=== PATIENT | female | born 1955 | race Caucasian/White ===

== ENCOUNTER 2017-04-02 10:40 | Emergency (ER) | payer OTHER ==
[2017-04-02] MEDS ORDERED: Albuterol/Ipratropium NEB.SOL* Albuterol 2.5 MG/Ipratropium 0.5 MG 3 ML INH ONE (10:52)
[2017-04-02] MEDS ORDERED: methylPREDNISolone 125 MG* 2 ML VIAL IV ONE (10:53)
--- NOTE | 2017-04-02 11:13 | RAD ---
INDICATION: Shortness of breath. COMPARISON: Comparison is made with a prior study from May 25, 2016. TECHNIQUE: A portable view of the chest was obtained. FINDINGS: Cardiac and mediastinal contours appear to be within normal limits. The lungs are clear. No pleural effusion is seen. IMPRESSION: NO EVIDENCE FOR ACUTE DISEASE.
[2017-04-02 12:58] LABS: Hematocrit 36 % (35-47); Hemoglobin 12.3 g/dl (12.0-16.0); Mean Corpuscular HGB Conc 34 g/dl (31-36); Mean Corpuscular Hemoglobin 30 pg (27-31); Mean Corpuscular Volume 89 fL (80-97); Mean Platelet Volume 8 um3 (7.4-10.4); Red Blood Count 4.06 10^6/ul (4.0-5.4); Red Cell Distribution Width 14 % (10.5-15); White Blood Count 6.8 10^3/ul (3.5-10.8)
[2017-04-02 13:15] LABS: Albumin 3.7 g/dL (3.2-5.2); BUN/Creatinine Ratio 24.6 (8-20); EGFR African American 111.6 (>60); EGFR Non-African American 86.8 (>60); Globulin 3.5 g/dL (2-4); Total Bilirubin 0.7 mg/dL (0.2-1.0); Total Protein 7.2 g/dL (6.4-8.9)
--- NOTE | 2017-04-02 13:47 | ED ---
Virginia Jane Edward, scribed for Celia Goodwin MD on 04/02/17 at 1055 . Shortness of Breath - HPI Summary HPI Summary: 62 y/o female presents to the ED c/o SOB. A few weeks ago the pt had a breathing attack that lasted around 7-10 minutes and has been SOB ever since. Associated sx: mild confusion, general weakness, fatigue, CP (resolved now), NEUMANN in the L side of the head for a few weeks, ABD pain with bowel movements that starts in the epigastric region, rapid weight gains, ABD swelling, and pain in the lower jaw. Denies fever. Former Smoker. PMHx COPD, no DM. - History of Current Complaint Chief Complaint: EDShortnessOfBreath Time Seen by Provider: 04/02/17 10:51 Hx Obtained From: Patient Onset/Duration: Sudden Onset, Lasting Weeks Timing: Constant Associated Signs & Symptoms: Chest Pain Unrelated to Cough - Allergy/Home Medications Allergies/Adverse Reactions: Allergies Allergy/AdvReac Type Severity Reaction Status Date / Time Meperidine [From Demerol HCl] Allergy general Verified 05/25/16 16:29 malaise Pentazocine Allergy halucinatio Verified 05/25/16 16:29 [From Talwin Compound] ns PMH/Surg Hx/FS Hx/Imm Hx Previously Healthy: No Endocrine/Hematology History: Denies: Hx Diabetes Cardiovascular History: Reports: Other Cardiovascular Problems/Disorders - PREVIOUS CARDIAC CATH Denies: Hx Congestive Heart Failure, Hx Hypertension, Hx Pacemaker/ICD Respiratory History: Reports: Hx Chronic Obstructive Pulmonary Disease (COPD) GI History: Reports: Hx Gastroesophageal Reflux Disease, Other GI Disorders - gerd History: Denies: Hx Renal Disease Musculoskeletal History: Reports: Hx Arthritis, Hx Back Problems Comment Only: Hx Osteoporosis - unsure Sensory History: Reports: Hx Contacts or Glasses Denies: Hx Hearing Aid Opthamlomology History: Reports: Hx Contacts or Glasses Psychiatric History: Denies: Hx Panic Disorder - Surgical History Surgery Procedure, Year, and Place: tonsills/tubal ligation. fractured ribs 1978 Infectious Disease History: Denies: Traveled Outside the [place] in Last 30 Days - Family History Known Family History: Positive: Cardiac Disease, Diabetes - Mother, Other - Sister - BREAST CA - Social History Alcohol Use: None Substance Use Type: Reports: None Smoking Status (MU): Former Smoker Type: Cigarettes Review of Systems Positive: Fatigue, Other - Rapid weight gain. Negative: Fever Eyes: Negative Positive: Dental Pain - Lower jaw Positive: Chest Pain Positive: Shortness Of Breath Positive: Abdominal Pain, Diarrhea, Other - ABD swelling Genitourinary: Negative Musculoskeletal: Negative Skin: Negative Neurological: Other - Mild confusion Positive: Headache, Weakness - General Psychological: Normal All Other Systems Reviewed And Are Negative: Yes Physical Exam Triage Information Reviewed: Yes Vital Signs On Initial Exam: Initial Vitals Temp Pulse Resp BP Pulse Ox 98.0 F 77 28 125/89 93 04/02/17 10:42 04/02/17 10:42 04/02/17 10:42 04/02/17 10:42 04/02/17 10:42 Vital Signs Reviewed: Yes Appearance: Positive: Well-Appearing, No Pain Distress Skin: Positive: Warm, Skin Color Reflects Adequate Perfusion, Dry Eyes: Positive: EOMI, CHRISTINE ENT: Positive: Pharynx normal, TMs normal Neck: Positive: Supple, Nontender Respiratory/Lung Sounds: Positive: Clear to Auscultation, Breath Sounds Present. Negative: Rales, Rhonchi, Wheezes Cardiovascular: Positive: RRR, Other - No gallop. Negative: Murmur, Rub Abdomen Description: Positive: Nontender, Soft, Other: - no rebound. Negative: Distended, Guarding Bowel Sounds: Positive: Present Musculoskeletal: Positive: Strength/ROM Intact. Negative: Edema Left, Edema Right Neurological: Positive: Sensory/Motor Intact, Alert, Oriented to Person Place, Time, CN Intact II-III Psychiatric: Positive: Affect/Mood Appropriate Diagnostics - Vital Signs Vital Signs Temp Pulse Resp BP Pulse Ox 04/02/17 10:42 98.0 F 77 28 125/89 93 - Laboratory Lab Results: Lab Results 04/02/17 04/02/17 04/02/17 Range/Units 12:45 12:45 12:45 WBC 6.8 (3.5-10.8) 10^3/ul RBC 4.06 (4.0-5.4) 10^6/ul Hgb 12.3 (12.0-16.0) g/dl Hct 36 (35-47) % MCV 89 (80-97) fL MCH 30 (27-31) pg MCHC 34 (31-36) g/dl RDW 14 (10.5-15) % Plt Count 266 (150-450) 10^3/ul MPV 8 (7.4-10.4) um3 Neut % (Auto) 64.4 (38-83) % Lymph % (Auto) 27.9 (25-47) % [place] % (Auto) 5.2 (1-9) % Eos % (Auto) 1.7 (0-6) % Baso % (Auto) 0.8 (0-2) % Absolute Neuts (auto) 4.4 (1.5-7.7) 10^3/ul Absolute Lymphs (auto) 1.9 (1.0-4.8) 10^3/ul Absolute Monos (auto) 0.4 (0-0.8) 10^3/ul Absolute Eos (auto) 0.1 (0-0.6) 10^3/ul Absolute Basos (auto) 0.1 (0-0.2) 10^3/ul Absolute Nucleated RBC 0.01 10^3/ul Nucleated RBC % 0.1 Sodium 138 (133-145) mmol/L Potassium 4.0 (3.5-5.0) mmol/L Chloride 103 (101-111) mmol/L Carbon Dioxide 27 (22-32) mmol/L Anion Gap 8 (2-11) mmol/L BUN 17 (6-24) mg/dL Creatinine 0.69 (0.51-0.95) mg/dL Est GFR ( Amer) 111.6 (>60) Est GFR (Non-Af Amer) 86.8 (>60) BUN/Creatinine Ratio 24.6 H (8-20) Glucose 99 (70-100) mg/dL Lactic Acid 0.7 (0.5-2.0) mmol/L Calcium 9.0 (8.6-10.3) mg/dL Total Bilirubin 0.70 (0.2-1.0) mg/dL AST 16 (13-39) U/L ALT 16 (7-52) U/L Alkaline Phosphatase 92 (34-104) U/L Troponin I 0.00 (<0.04) ng/mL B-Natriuretic Peptide ( - 100) pg/mL Total Protein 7.2 (6.4-8.9) g/dL Albumin 3.7 (3.2-5.2) g/dL Globulin 3.5 (2-4) g/dL Albumin/Globulin Ratio 1.1 (1-3) Lipase Pending 04/02/17 Range/Units 12:45 WBC (3.5-10.8) 10^3/ul RBC (4.0-5.4) 10^6/ul Hgb (12.0-16.0) g/dl Hct (35-47) % MCV (80-97) fL MCH (27-31) pg MCHC (31-36) g/dl RDW (10.5-15) % Plt Count (150-450) 10^3/ul MPV (7.4-10.4) um3 Neut % (Auto) (38-83) % Lymph % (Auto) (25-47) % [place] % (Auto) (1-9) % Eos % (Auto) (0-6) % Baso % (Auto) (0-2) % Absolute Neuts (auto) (1.5-7.7) 10^3/ul Absolute Lymphs (auto) (1.0-4.8) 10^3/ul Absolute Monos (auto) (0-0.8) 10^3/ul Absolute Eos (auto) (0-0.6) 10^3/ul Absolute Basos (auto) (0-0.2) 10^3/ul Absolute Nucleated RBC 10^3/ul Nucleated RBC % Sodium (133-145) mmol/L Potassium (3.5-5.0) mmol/L Chloride (101-111) mmol/L Carbon Dioxide (22-32) mmol/L Anion Gap (2-11) mmol/L BUN (6-24) mg/dL Creatinine (0.51-0.95) mg/dL Est GFR ( Amer) (>60) Est GFR (Non-Af Amer) (>60) BUN/Creatinine Ratio (8-20) Glucose (70-100) mg/dL Lactic Acid (0.5-2.0) mmol/L Calcium (8.6-10.3) mg/dL Total Bilirubin (0.2-1.0) mg/dL AST (13-39) U/L ALT (7-52) U/L Alkaline Phosphatase (34-104) U/L Troponin I (<0.04) ng/mL B-Natriuretic Peptide 130 H ( - 100) pg/mL Total Protein (6.4-8.9) g/dL Albumin (3.2-5.2) g/dL Globulin (2-4) g/dL Albumin/Globulin Ratio (1-3) Lipase Result Diagrams: 04/02/17 12:45 04/02/17 12:45 Lab Statement: Any lab studies that have been ordered have been reviewed, and results considered in the medical decision making process. - Radiology CXR Xray Interpretation: No Acute Changes - No evidence for acute disease Radiology Interpretation Completed By: Radiologist - EKG 1 EKG Rhythm: Sinus Rhythm - @ 64 bpm EKG Interpretation: 11:16 EKG Comparison: No Significant Change - 05/06/15 Course/Dx - Course Course Of Treatment: 62 yo female with multiple complaints but here for shortnesss of breath that started about 1 week ago. she is better s/p nebs and steroids and has close f/u with her pmd. home with steroids, already on amp for her teeth - Diagnoses Provider Diagnoses: COPD exacerbation Discharge - Discharge Plan Condition: Stable Disposition: HOME Prescriptions: predniSONE TAB* [Deltasone TAB*] 50 mg PO DAILY #5 tab The documentation as recorded by the Virginia desouza Edward accurately reflects the service I personally performed and the decisions made by , Celia Goodwin MD.
[2017-04-02 14:18] VITALS: BP 128/75
== END 2017-04-02 14:18 | disposition home or self-care (01) ==
LOC: ED 10:40
DX: J44.1 Chronic obstructive pulmonary disease with (acute) exacerbation (principal); R07.9 Chest pain, unspecified; R06.02 Shortness of breath; Z87.891 Personal history of nicotine dependence; R51 Headache; R53.1 Weakness; K08.89 Other specified disorders of teeth and supporting structures
CPT/HCPCS: 36415; 71010; 80053; 83605; 83690; 83880; 84484; 85025; 87040; 93005; 94640; 99282; A9270-GY; J2930

== ENCOUNTER 2018-07-30 17:59 | Inpatient (IN) | payer OTHER ==
[2018-07-30] MEDS ORDERED: NS 0.9% 1000 ML* 1,000 ML IV ONE (18:25)
[2018-07-30] MEDS ORDERED: Albuterol 0.5% CONC NEB.SOL* 5 MG/ML 20 ml BOT INH ONE (18:25)
[2018-07-30] MEDS ORDERED: methylPREDNISolone 125 MG* 2 ML VIAL IV ONE (18:25)
--- NOTE | 2018-07-30 18:32 | ED ---
Shortness of Breath - HPI Summary HPI Summary: Patient is a 63 y/o F w/ c/o productive cough, fever and SOB. She states that Sx onset three days ago, claims that she likely got sick from her , who became sick after "messing with some black mold". Patient reports coughing up brown phlegm, now green phlegm. She states that SOB has onset recently, also reports difficulty swallowing onsetting today. Abdominal pain is denied. PMHx of COPD, patient is a former smoker, stopped ten years ago. Patient was recently diagnosed with breast cancer. On triage, pain to neck is reported, pain is rated 4/10, nothing is noted to aggravate/alleviate Sx. Home medications and allergies are reviewed. - History of Current Complaint Chief Complaint: EDShortnessOfBreath Time Seen by Provider: 07/30/18 18:17 Hx Obtained From: Patient Hx From Patient Unobtainable Due To: Altered Mental Status Onset/Duration: Lasting Hours - difficulty swallowing, Lasting Days - cough, fever onset three days ago, SOB afterwards, Still Present Current Severity: Moderate - 4/10 Aggrevating Factors: Nothing Alleviating Factors: Nothing Associated Signs & Symptoms: Cough (Productive), Fever - Allergy/Home Medications Allergies/Adverse Reactions: Allergies Allergy/AdvReac Type Severity Reaction Status Date / Time meperidine Allergy Nausea And Verified 07/30/18 18:33 Vomiting pentazocine Allergy Nausea And Verified 07/30/18 18:33 Vomiting Home Medications: Home Medications Albuterol HFA INHALER* [Ventolin HFA Inhaler*] 1 puff INH Q6H PRN 07/30/18 [ History Confirmed 07/30/18] Atorvastatin* [Lipitor*] 10 mg PO DAILY 07/30/18 [History Confirmed 07/30/18] Cyclobenzaprine TAB* [Flexeril 10 MG TAB*] 10 mg PO TID PRN 07/30/18 [History Confirmed 07/30/18] Fluticasone-Salmeterol 500-50* [Advair Diskus 500-50*] 1 puff INH BID 07/30/18 [ History Confirmed 07/30/18] Folic Acid TAB* [Folvite TAB*] 1 mg PO DAILY 07/30/18 [History Confirmed ] Methylphenidate HCl [Ritalin] 20 mg PO 1200 07/30/18 [History Confirmed 07/30/18 ] Methylphenidate HCl [Ritalin] 60 mg PO QAM 07/30/18 [History Confirmed 07/30/18] Umeclidinium 62.5 MDI(NF) [Incruse ELLIPTA MDI (NF)] 1 inh INH BID 07/30/18 [ History Confirmed 07/30/18] amLODIPine TAB* [Norvasc 5 mg TAB*] 1.25 mg PO DAILY 07/30/18 [History Confirmed 07/30/18] PMH/Surg Hx/FS Hx/Imm Hx Endocrine/Hematology History: Denies: Hx Diabetes Cardiovascular History: Reports: Other Cardiovascular Problems/Disorders - PREVIOUS CARDIAC CATH Denies: Hx Congestive Heart Failure, Hx Hypertension, Hx Pacemaker/ICD Respiratory History: Reports: Hx Chronic Obstructive Pulmonary Disease (COPD) GI History: Reports: Hx Gastroesophageal Reflux Disease, Other GI Disorders - gerd History: Denies: Hx Renal Disease Musculoskeletal History: Reports: Hx Arthritis, Hx Back Problems Comment Only: Hx Osteoporosis - unsure Sensory History: Reports: Hx Contacts or Glasses Denies: Hx Hearing Aid Opthamlomology History: Reports: Hx Contacts or Glasses Neurological History: Comment Only: Other Neuro Impairments/Disorders - POLYARTHROPATHY Psychiatric History: Denies: Hx Panic Disorder - Cancer History Hx Chemotherapy: No Hx Radiation Therapy: No - Surgical History Surgery Procedure, Year, and Place: tonsills/tubal ligation. fractured ribs 1978 Infectious Disease History: No Infectious Disease History: Denies: Traveled Outside the [place] in Last 30 Days - Family History Known Family History: Positive: Cardiac Disease, Diabetes - Mother, Other - Sister - BREAST CA - Social History Alcohol Use: None Substance Use Type: Reports: None Smoking Status (MU): Former Smoker Type: Cigarettes Review of Systems Positive: Fever Positive: Other - POSITIVE - DIFFICULTY SWALLOWING Positive: Shortness Of Breath, Cough Negative: Abdominal Pain Positive: Other - POSITIVE - NECK PAIN All Other Systems Reviewed And Are Negative: Yes Physical Exam - Summary Physical Exam Summary: Appearance: Well-appearing, Well-nourished Skin: Warm, dry, no obvious rash Eyes: sclera anicteric, no conjunctival pallor ENT: mucous membranes moist, pharynx appears normal Neck: Supple, nontender Respiratory: mild to moderate respiratory distress, tachypneic, diminished breath sounds, faint wheezing. Cardiovascular: Normal S1, S2. No murmurs. Normal distal pulses in tibial and radial bilaterally. Abdomen: Soft, nontender, normal active bowel sounds present Musculoskeletal: Normal, Strength/ROM Intact Neurological: A&Ox3, awake and alert, mentation is normal, speech is fluent and appropriate Psychiatric: affect is normal, does not appear anxious or depressed Triage Information Reviewed: Yes Vital Signs On Initial Exam: Initial Vitals Temp Pulse Resp BP Pulse Ox 99.1 F 86 24 148/80 95 07/30/18 17:59 07/30/18 17:59 07/30/18 17:59 07/30/18 17:59 07/30/18 17:59 Vital Signs Reviewed: Yes Diagnostics - Vital Signs Vital Signs Temp Pulse Resp BP Pulse Ox 07/30/18 17:59 99.1 F 86 24 148/80 95 - Laboratory Result Diagrams: 07/30/18 19:23 07/30/18 19:23 Lab Statement: Any lab studies that have been ordered have been reviewed, and results considered in the medical decision making process. - Radiology CXR Radiology Interpretation Completed By: ED Physician - NO ACUTE DISEASE. PENDING OFFICIAL REPORT. - EKG 1838 Cardiac Rate: NL - 79 bpm EKG Rhythm: Sinus Rhythm - 79 bpm Summary of EKG Findings: NSR at 79 BPM, P waves, QRS complex, and T waves are within normal limits, T waves and intervals are normal, no ischemic changes. This is a normal EKG Re-Evaluation - Re-Evaluation First Eval Re-Evaluation Time: 20:10 Change: Unchanged Comment: DIMINISHED DURATION. Course/Dx - Course Course Of Treatment: Patient is a 63 y/o F w/ c/o productive cough, fever and SOB. She states that Sx onset three days ago, claims that she likely got sick from her , who became sick after "messing with some black mold". Patient reports coughing up brown phlegm, now green phlegm. She states that SOB has onset recently, also reports difficulty swallowing onsetting today. Abdominal pain is denied. PMHx of COPD, patient is a former smoker, stopped ten years ago. Patient was recently diagnosed with breast cancer. Neck pain is also reported. On physical exam, patient is in mild to moderate respiratory distress , tachypneic, diminished breath sounds, faint wheezing. A CXR revealed no acute disease. An EKG revealed NSR at 79 BPM, P waves, QRS complex, and T waves are within normal limits, T waves and intervals are normal, no ischemic changes. This is a normal EKG. In the ED course, the patient recieved Albuterol, Solu- Medrol, and IV fluids. Patient care was discussed with hospitalist, Dr. Caraballo, who accepts patient for admission. Patient will be admitted with a diagnosis of COPD exacerbation and acute respiratory failure. Patient is agreeable with this plan. - Diagnoses Provider Diagnoses: COPD exacerbation, Acute respiratory failure - Physician Notifications Discussed Care of Patient With: Socorro Caraballo Time Discussed With Above Provider: 20:19 Instructed by Provider To: Other - Accepts patient for admission. - Critical Care Time Critical Care Time: 30-74 min - 63-year-old woman with COPD who presented with respiratory distress requiring high flow nasal O2, frequent reassessment and close monitoring with admission to the ICU Discharge - Sign-Out/Discharge Documenting (check all that apply): Patient Departure - ADMIT, Sign-Out Patient - ADELA Signing out patient TO: Socorro Caraballo Receiving patient FROM: Lobito Garcia - Discharge Plan Condition: Guarded Disposition: ADMITTED TO [facility] - Billing Disposition and Condition Condition: GUARDED Disposition: Admitted to [facility] - Attestation Statements Document Initiated by Deo: Yes Documenting Scribe: Alex May Provider For Whom Deo is Documenting (Include Credential): Lobito Garcia M.D. Scribe Attestation: Boni Jane Tariq Hussain, popeyeibed for Lobito Garcia M.D. on 07/31/18 at 0211. Scribe Documentation Reviewed: Yes Provider Attestation: The documentation as recorded by the deo, Alxe May accurately reflects the service I personally performed and the decisions made by Lobito muse M.D. Status of Scrmary lou Document: Viewed
[2018-07-30 19:42] LABS: ABS Basophils 0 10^3/ul (0-0.2); ABS Eosinophils 0.1 10^3/ul (0-0.6); ABS Lymphocytes 1.7 10^3/ul (1.0-4.8); ABS Monocytes 0.9 10^3/ul (0-0.8); ABS Neutrophils 3.4 10^3/ul (1.5-7.7); ABS Nucleated RBC 0 10^3/ul; Eosinophil % 1.5 %; Hematocrit 33 % (35-47); Hemoglobin 11.4 g/dl (12.0-16.0); Mean Corpuscular HGB Conc 34 g/dl (31-36); Mean Corpuscular Hemoglobin 30 pg (27-31); Mean Corpuscular Volume 86 fL (80-97); Mean Platelet Volume 8.3 fL (7.4-10.4); Nucleated Red Blood Cells % 0.1; Platelet Count 202 10^3/ul (150-450); Red Blood Count 3.85 10^6/ul (4.00-5.40); Red Cell Distribution Width 14 % (10.5-15); White Blood Count 6.2 10^3/ul (3.5-10.8)
[2018-07-30 20:02] LABS: Albumin 3.5 g/dL (3.2-5.2); Albumin/Globulin Ratio 1.2 (1-3); BUN/Creatinine Ratio 11.9 (8-20); Calcium 8.3 mg/dL (8.6-10.3); EGFR Non-African American 103.6 (>60); Globulin 2.9 g/dL (2-4); Potassium 3.3 mmol/L (3.5-5.0); Total Bilirubin 1.3 mg/dL (0.2-1.0); Total Protein 6.4 g/dL (6.4-8.9)
[2018-07-30] MEDS ORDERED: Iohexol 350* (CONTRAST) 500 ML MDV IV ONE (21:18)
[2018-07-30] MEDS ORDERED: Ondansetron INJ* 2 MG/ML VIAL IV PRN (21:20)
[2018-07-30] MEDS ORDERED: Albuterol HFA INHALER* 8 gm MDI INH PRN (21:26)
[2018-07-30] MEDS ORDERED: Albuterol/Ipratropium NEB.SOL* Albuterol 2.5 MG/Ipratropium 0.5 MG 3 ML INH PRN (21:28)
[2018-07-30] MEDS ORDERED: methylPREDNISolone SOD 40 MG* 1 ML VIAL IV SCH (22:00)
[2018-07-30] MEDS: Albuterol 2.5 MG/3 ML NEB.SOL* (0.083%) INH SCH (22:25)
[2018-07-30] MEDS: cefTRIAXone(*) 1 GM in NS 0.9% 50 ML* 50 ML IVPB SCH (22:30)
[2018-07-30] MEDS: Heparin VIAL(*) 5000 UNITS/ML VIAL (FIVE THOUSAND) SUBCUT SCH (22:30)
[2018-07-30] MEDS: Azithromycin IV(*) 500 MG in NS 0.9% 250 ML* 250 ML IVPB SCH (23:03)
[2018-07-30 23:59] LABS: Urine Appearance Clear; Urine Bacteria Absent (Absent); Urine Bilirubin Negative (Negative); Urine Blood 1+ (Negative); Urine Color Yellow; Urine Glucose Negative (Negative); Urine Ketones 1+ (Negative); Urine Nitrite Negative (Negative); Urine Protein Negative (Negative); Urine Red Blood Cell Absent (Absent); Urine Specific Gravity > 1.060 (1.010-1.030); Urine Urobilinogen Negative (Negative); Urine White Blood Cell Trace(0-5/hpf) (Absent)
[2018-07-31] MEDS: Albuterol 2.5 MG/3 ML NEB.SOL* (0.083%) INH SCH ×4 (03:11→18:02)
[2018-07-31] MEDS: methylPREDNISolone SOD 40 MG* 1 ML VIAL IV SCH ×3 (05:48→22:36)
[2018-07-31 05:50] LABS: ABS Basophils 0 10^3/ul (0-0.2); ABS Eosinophils 0 10^3/ul (0-0.6); ABS Lymphocytes 0.6 10^3/ul (1.0-4.8); ABS Monocytes 0.2 10^3/ul (0-0.8); ABS Neutrophils 3.6 10^3/ul (1.5-7.7); ABS Nucleated RBC 0 10^3/ul; Eosinophil % 0 %; Hematocrit 34 % (35-47); Hemoglobin 11.5 g/dl (12.0-16.0); Lymphocyte % 13.7 %; Mean Corpuscular HGB Conc 34 g/dl (31-36); Mean Corpuscular Hemoglobin 29 pg (27-31); Mean Corpuscular Volume 86 fL (80-97); Mean Platelet Volume 8.7 fL (7.4-10.4); Nucleated Red Blood Cells % 0; Platelet Count 206 10^3/ul (150-450); Red Blood Count 3.97 10^6/ul (4.00-5.40); Red Cell Distribution Width 14 % (10.5-15); White Blood Count 4.3 10^3/ul (3.5-10.8)
[2018-07-31] MEDS: Heparin VIAL(*) 5000 UNITS/ML VIAL (FIVE THOUSAND) SUBCUT SCH ×3 (05:53→22:36)
[2018-07-31 06:10] LABS: BUN/Creatinine Ratio 12.9 (8-20); Calcium 8.6 mg/dL (8.6-10.3); EGFR Non-African American 85.1 (>60); Potassium 3.3 mmol/L (3.5-5.0)
[2018-07-31] MEDS: Benzonatate CAP* 100 MG PO PRN ×2 (06:39→18:44)
[2018-07-31] MEDS: Folic Acid TAB* 1 MG PO SCH (07:51)
[2018-07-31] MEDS: Omeprazole CAP* 20 MG PO SCH (07:51)
[2018-07-31] MEDS ORDERED: Potassium Chlor TAB* 20 MEQ TAB.ER PO ONE (08:42)
[2018-07-31] MEDS ORDERED: Mometasone/Formoter 200/5 MDI INH SCH (09:00)
[2018-07-31] MEDS: KCL 20 MEQ/100 ML IVPREMIX* 20 MEQ/100 ML BAG IV SCH ×2 (09:52→14:35)
--- NOTE | 2018-07-31 10:34 | HP ---
CC: Elías Moore NP * HISTORY AND PHYSICAL: DATE OF ADMISSION: 07/30/18 PROVIDER: Jeanie Posey NP PRIMARY CARE PROVIDER: Elías Moore NP ATTENDING PHYSICIAN WHILE IN THE HOSPITAL: Socorro Caraballo MD * (dictated by Jeanie Posey NP). CHIEF COMPLAINT: Shortness of breath. HISTORY OF PRESENT ILLNESS: Ms. Caba is a 63-year-old female with past medical history significant for recent diagnosis of right breast cancer diagnosed on Sunday, COPD, GERD, hyperlipidemia who presented to the emergency room with progressively worsening shortness of breath. The patient reports approximately 2 to 3 days ago, she developed cough and congestion that has progressively gotten worse. She reports that she has had brown thick to green sputum. She does report a sore throat and left earache as well as a congestive cough and generalized body aches. She denies any chest pain or edema. Denies any loss of appetite. Denies any hemoptysis. Denies any nausea, vomiting, or diarrhea. Denies any abdominal pain, denies any focal weakness or sensory loss, denies any visual complaints, denies any rashes or lesions, psychosis or anxiety. Given her complaints of severe shortness of breath and cough, we were asked to see and evaluate her for admission. While in the emergency room, the patient had routine lab work drawn and was given Solu-Medrol and some IV fluids. The patient's shortness of breath did not improve. The patient was placed on Vapotherm. The patient states that over the past several days, she has felt as though her shortness of breath was so severe that she was suffocating. She does report after the Vapotherm was applied that her shortness of breath has improved slightly. Given her severe shortness of breath, we were asked to see and evaluate her for admission. PAST MEDICAL HISTORY: Significant for recent diagnosis of right breast cancer, COPD. PAST SURGICAL HISTORY: 1. Tubal ligation. 2. Right breast laceration and repair. HOME MEDICATIONS: 1. Advair 500/50 one puff b.i.d. 2. Ellipta one inhale b.i.d. 3. Amlodipine 1.25 mg p.o. daily. 4. Atorvastatin 10 mg p.o. daily. 5. Buspirone 10 mg p.o. t.i.d. 6. Remeron 15 mg p.o. at bedtime. 7. Gabapentin 300 mg p.o. b.i.d. 8. Protonix 40 mg p.o. daily. 9. Albuterol 1 puff q.6 hours as needed. 10. Ritalin 60 mg p.o. q.a.m. 11. Ritalin 20 mg p.o. at 12 p.m. 12. Detrol LA 4 mg p.o. daily. 13. Ibuprofen 600 mg q.6 hours as needed. 14. Flexeril 10 mg p.o. t.i.d. 15. Folic acid 1 mg p.o. daily. The patient does report that she is not taking any medications other than her meds for her breathing at this time. ALLERGIES TO MEDICATIONS: She has allergy to MEPERIDINE and PENTAZOCINE. FAMILY HISTORY: Father and mother both with a history of [place], mother with a history of diabetes, sister with a history of breast cancer and kidney cancer. SOCIAL HISTORY: The patient reports that she quit smoking approximately 9 years ago. Denies any alcohol or illicit drug use. She is disabled. She is . Surrogate decision maker in the event she is unable to make her own decisions is cindy Feliciano, her phone number is [phone]. She is a full code. REVIEW OF SYSTEMS: The patient does report fevers. Denies any loss of appetite. Denies any chest pain or edema. Does report cough. Denies any hemoptysis. She does report significant shortness of breath. Denies any nausea , vomiting or diarrhea. Denies any abdominal pain. Denies any gross hematuria , dysuria. Denies any focal weakness or sensory loss. Denies any visual complaints. She does report a sore throat. She does report generalized body aches. Denies any rashes or lesions. Denies any psychosis or anxiety. She does report worsening shortness of breath with exertion. PHYSICAL EXAMINATION GENERAL: Ms. Caba is a 63-year-old female. She appears moderately distressed with abdominal breathing noted. She is on high flow oxygen, sitting upright on the stretcher in the emergency room. VITAL SIGNS: Temperature is 97.6, heart rate 82, respirations 94% on FiO2 of 40 %, blood pressure 123/72. HEENT: Head is atraumatic, normocephalic. Eyes: EOMs are intact. Sclerae anicteric and not pale. Oral mucosa appeared to be moist. There is mild oropharyngeal erythema. Bilateral TMs are intact with no redness. There is mild bulging. NECK: Supple. LUNGS: Diminished bilaterally with expiratory wheezes. CARDIAC: S1, S2. Regular rate and rhythm. No murmurs, rubs or gallops. ABDOMEN: Soft and nontender. Bowel sounds are present x4. EXTREMITIES: Pulses are +2 throughout. She is able to move all 4 extremities with 5/5 strength. There is no edema. NEUROLOGIC: She is awake, alert, oriented x3. Speech is clear. No gross focal deficits. SKIN: Intact. DIAGNOSTIC STUDIES AND LABORATORY DATA: WBCs are , RBC is 3.85, hemoglobin 11.4, hematocrit was 33, platelet count was 202,000. Venous pH was 7.38, venous pCO2 was 46, pO2 was 60, HCO3 was 26, O2 saturation was 93.3. Sodium 139, potassium 3.3, chloride 106, carbon dioxide was 26, anion gap was 7 , creatinine 0.59, calcium 8.3. ASTs were 52, ALTs were 45, alkaline phosphatase was 92. Troponin was 0.00. Lactic acid was 0.9. Urine is currently pending. Flu A and B were negative. CTA of the chest: 1. No pulmonary embolism. 2. Emphysema with multiple pulmonary nodules, largest measuring 7 mm, based on the current Harris criteria is high risk. Followup chest CT in 6 to 12 months and 18 to 24 months. She had an electrocardiogram, showed sinus rhythm at rate of 79. ASSESSMENT AND PLAN: Ms. Caba is a 63-year-old female with past medical history significant for recent diagnosis of right breast cancer and chronic obstructive pulmonary disease, gastroesophageal reflux disease who presented to the emergency room with progressively worsening shortness of breath and cough productive. Due to the patient's hypoxia and severe shortness of breath, we were asked to see and evaluate her for admission. She will be admitted inpatient in the ICU for: 1. Shortness of breath: I suspect that her shortness of breath is related to chronic obstructive pulmonary disease exacerbation with underlying infection. The patient will be treated for pneumonia. Her white count is due to her significant chronic obstructive pulmonary disease and shortness of breath. The patient was placed on Vapotherm in the emergency room with high flow O2 due to her work of breathing. She was able to maintain O2 saturations in 95%. I will start her on azithromycin and ceftriaxone. She will be given nebulizers q.4 hours while awake. I will place her on steroids. Solu-Medrol 40 mg IV q.8 hours. She did have a sputum culture. While in the emergency room, pulmonary reading is showing 4+ neutrophils, 1+ epithelial cells, 4+ gram negative coccobacillus, 3+ gram positive cocci in clusters resembling staph and 1+ gram positive bacilli. The patient did receive 125 mg of Solu-Medrol in the emergency room. The patient will be placed in the ICU and monitored overnight due to her work of breathing and respiratory distress. She does have blood cultures that are currently pending. I do have urine for Legionella and strep that were both negative. We will continue on Advair inhalers as well. 2. The patient's CT of the chest does show pulmonary nodules. The patient will need followup of these pulmonary nodules for further monitoring as she was recently as well diagnosed on Sunday with possible right breast cancer. 3. Breast cancer: She should follow up with outpatient as previously scheduled for further diagnostic workup of her right breast cancer. 4. DVT prophylaxis: I will place her on heparin subcu. 5. FEN: She will be placed on a heart-healthy decaf okay diet. 6. Disposition: She will be placed inpatient ICU on Vapotherm for acute respiratory distress. 7. Code status: She is a full code. TIME SPENT: Time spent on this admission was 60 minutes, greater than half that time was spent [id number] with the patient obtaining my history and physical, the other half of the time was spent going over my plan of care and implementing my plan of care. I have discussed with my attending, Dr. Socorro Caraballo, she is in agreement with my plan. JEANIE POSEY, WORKDAY DIRECTOR [id number]/[facility] #: [id number] [email or web address]
[2018-07-31] MEDS ORDERED: Cyclobenzaprine TAB* 10 MG PO PRN (11:08)
[2018-07-31] MEDS ORDERED: Gabapentin CAP(*) 300 MG PO PRN (11:08)
--- NOTE | 2018-07-31 11:22 | CONSULT ---
Consult Consult: Consultation Note -- Critical Care Requesting Physician: Dr Socorro Caraballo Reason for consult: COPD exacerbation, respiratory failure Limitations in history/physical: none Date of consult: 07/31/2018 HPI: 63y F w/pmhx of COPD, on 2 L home O2, Right breast Ca diag 07/26, GERD, HLD ; comes to ER 07/30 for 3 days of increasing SOB, cough, green sputum production. States her partner was cleaning a black mold and she started to develop the symptoms a day or two after. No sick contacts. No CP. No fever/ chills. No abd pain/n/v. Some ear pain days back only. In ER, her PaO2 50s, placed on hiflow O2. Started on Tx for COPD exacerbation. CTA chest without PE, no infiltrates noted. Given IV abx and steroids. Currently in bed, off vapotherm; no distress. Cough+, mild sputum+. Afebrile. HR 70-80s. sat 95% on 4L ROS: negative except for pertinent positives mentioned above. PMHx: COPD, on 2 L home O2, Right breast Ca diag 07/26, GERD, HLD PSHx: tubal ligation Family History: father and mother with [place]; mother DM; sister breast Ca and Renal CA. Social History: Alcohol-none, Smoking-former smoker 9 yrs back, Drug use-none; Disabled, Allergies: Allergies Allergy/AdvReac Type Severity Reaction Status Date / Time meperidine Allergy Nausea And Verified 07/30/18 18:33 Vomiting pentazocine Allergy Nausea And Verified 07/30/18 18:33 Vomiting Home Medications: Gabapentin CAP(*) [Neurontin 300 CAP(*)] 300 mg PO BID PRN 05/25/16 [History Confirmed 07/30/18] Ibuprofen TAB* [Motrin TAB* 600 MG] 600 mg PO Q6H PRN 05/25/16 [History Confirmed 07/30/18] Mirtazapine TAB* [Remeron TAB*] 15 mg PO BEDTIME PRN 05/25/16 [History Confirmed 07/30/18] Pantoprazole TAB (NF) [Protonix TAB (NF)] 40 mg PO DAILY 05/25/16 [History Confirmed 07/30/18] Tolterodine LA (NF) [Detrol LA (NF)] 4 mg PO DAILY 05/25/16 [History Confirmed 07/30/18] busPIRone TAB* [Buspar TAB*] 10 mg PO TID PRN 05/25/16 [History Confirmed ] Albuterol HFA INHALER* [Ventolin HFA Inhaler*] 1 puff INH Q6H PRN 07/30/18 [ History Confirmed 07/30/18] Atorvastatin* [Lipitor*] 10 mg PO DAILY 07/30/18 [History Confirmed 07/30/18] Cyclobenzaprine TAB* [Flexeril 10 MG TAB*] 10 mg PO TID PRN 07/30/18 [History Confirmed 07/30/18] Fluticasone-Salmeterol 500-50* [Advair Diskus 500-50*] 1 puff INH BID 07/30/18 [ History Confirmed 07/30/18] Folic Acid TAB* [Folvite TAB*] 1 mg PO DAILY 07/30/18 [History Confirmed ] Methylphenidate HCl [Ritalin] 20 mg PO 1200 07/30/18 [History Confirmed 07/30/18 ] Methylphenidate HCl [Ritalin] 60 mg PO QAM 07/30/18 [History Confirmed 07/30/18] Umeclidinium 62.5 MDI(NF) [Incruse ELLIPTA MDI (NF)] 1 inh INH BID 07/30/18 [ History Confirmed 07/30/18] amLODIPine TAB* [Norvasc 5 mg TAB*] 1.25 mg PO DAILY 07/30/18 [History Confirmed 07/30/18] Tele: NSR Vitals: Vital Signs Temp 98.5 F 07/31/18 07:34 Pulse 77 07/31/18 11:01 Resp 24 07/31/18 11:01 BP 134/88 07/31/18 11:00 Pulse Ox 96 07/31/18 11:01 Intake & Output 07/30/18 07/31/18 07/31/18 18:59 06:59 18:59 Intake Total 1798.2 450 Output Total 820 300 Balance 978.2 150 Weight 81.647 kg 83.1 kg Intake: IV Fluids 1348.2 ABX - AZITHROMYCIN 270 ABX - CEFTRIAXONE 60.4 NS (0.9%) 17.8 Oral 450 450 Output: Urine 820 300 Other: Estimated Void Medium # Bowel Movements 2 2 Estimated Stool Amount Large Large O2/Vent: NC 4 L Infusions: heplock Current Medications: Acetaminophen (Tylenol Tab*) 650 mg PO Q4H PRN PRN Reason: FEVER/PAIN Albuterol (Ventolin Hfa Inhaler*) 1 puff INH Q6H PRN PRN Reason: SHORTNESS OF BREATH Albuterol (Ventolin 2.5 Mg/3 Ml Neb.Zoe*) 2.5 mg INH [id number] AWAKE [facility] Albuterol/Ipratropium (Duoneb (Albuterol 2.5 Mg/Ipratropium 0.5 Mg)) 1 neb INH Q4H PRN PRN Reason: SOB/WHEEZING Atorvastatin Calcium (Lipitor*) 10 mg PO DAILY [facility] Benzonatate (Tessalon Cap*) 100 mg PO BID PRN PRN Reason: COUGH Last Admin: 07/31/18 06:39 Dose: 100 mg Buspirone HCl (Buspar Tab*) 10 mg PO TID PRN PRN Reason: ANXIETY Cyclobenzaprine HCl (Flexeril Tab*) 10 mg PO TID PRN PRN Reason: PAIN Folic Acid (Folvite Tab*) 1 mg PO DAILY [facility] Last Admin: 07/31/18 07:51 Dose: 1 mg Gabapentin (Neurontin Cap(*)) 300 mg PO BID PRN PRN Reason: PAIN Heparin Sodium (Porcine) (Heparin Vial(*)) 5,000 units SUBCUT Q8HR [facility] Last Admin: 07/31/18 05:53 Dose: 5,000 units Ceftriaxone Sodium 1 gm/ (Sodium Chloride) 50 mls @ 200 mls/hr IVPB Q24H [facility] Last Admin: 07/30/18 22:30 Dose: 200 mls/hr Azithromycin 500 mg/ Sodium (Chloride) 250 mls @ 250 mls/hr IVPB Q24H [facility] Last Admin: 07/30/18 23:03 Dose: 250 mls/hr Potassium Chloride (Potassium Chloride 20 Meq/100 Ml Ivpremix*) 20 meq in 100 mls @ 50 mls/hr IV Q2H [facility] Stop: 07/31/18 12:59 Last Admin: 07/31/18 09:52 Dose: 50 mls/hr Methylprednisolone Sodium Succinate (Solu-Medrol 40 Mg) 40 mg IV 0600,1400, 2200 [facility] Last Admin: 07/31/18 05:48 Dose: 40 mg Mometasone Furoate/Formoterol Fumar (Dulera 200/5 Mdi*) 2 puff INH BID [facility] Last Admin: 07/31/18 07:42 Dose: 2 puff Omeprazole (Prilosec Cap*) 20 mg PO DAILY [facility] Last Admin: 07/31/18 07:51 Dose: 20 mg Physical Exam: General: awake, alert, no distress, no diaphoresis Head: normocephalic, atraumatic HEENT: no pallor, no icterus, moist mucous membranes Neck: soft, supple, no jvd, no stridor CVS: normal rate, regular, no murmur Resp: bilateral air entry but some distant breath sounds, no rhales, no wheeze, no rhonchi, no acc muscle use Abdomen: soft, nontender, nondistended, bowel sounds present Ext: pulses+, warm, no edema Skin: intact Neuro: awake, alert, orientedx3, moving all extremities, no gross focal deficit Labs: Laboratory Results - last 24 hr 07/30/18 07/30/18 07/30/18 19:23 19:23 19:23 WBC 6.2 RBC 3.85 L Hgb 11.4 L Hct 33 L MCV 86 MCH 30 MCHC 34 RDW 14 Plt Count 202 MPV 8.3 Neut % (Auto) 55.2 Lymph % (Auto) 28.0 Cloud % (Auto) 14.9 Eos % (Auto) 1.5 Baso % (Auto) 0.4 Absolute Neuts (auto) 3.4 Absolute Lymphs (auto) 1.7 Absolute Monos (auto) 0.9 H Absolute Eos (auto) 0.1 Absolute Basos (auto) 0 Absolute Nucleated RBC 0 Nucleated RBC % 0.1 VBG pH VBG pCO2 VBG pO2 VBG HCO3 VBG O2 Saturation VBG Base Excess Sodium 139 Potassium 3.3 L Chloride 106 Carbon Dioxide 26 Anion Gap 7 BUN 7 Creatinine 0.59 Est GFR ( Amer) 125.4 Est GFR (Non-Af Amer) 103.6 BUN/Creatinine Ratio 11.9 Glucose 98 Lactic Acid 0.9 Calcium 8.3 L Total Bilirubin 1.30 H AST 52 H ALT 45 Alkaline Phosphatase 92 Troponin I 0.00 Total Protein 6.4 Albumin 3.5 Globulin 2.9 Albumin/Globulin Ratio 1.2 Procalcitonin Urine Color Urine Appearance Urine pH Ur Specific [place] Urine Protein Urine Ketones Urine Blood Urine Nitrate Urine Bilirubin Urine Urobilinogen Ur Leukocyte Esterase Urine WBC (Auto) Urine RBC (Auto) Ur Squamous Epith Cells Urine Bacteria Urine Glucose Influenza A (Rapid) Influenza B (Rapid) 07/30/18 07/30/18 07/30/18 19:23 19:41 21:55 WBC RBC Hgb Hct MCV MCH MCHC RDW Plt Count MPV Neut % (Auto) Lymph % (Auto) Cloud % (Auto) Eos % (Auto) Baso % (Auto) Absolute Neuts (auto) Absolute Lymphs (auto) Absolute Monos (auto) Absolute Eos (auto) Absolute Basos (auto) Absolute Nucleated RBC Nucleated RBC % VBG pH 7.38 VBG pCO2 46 VBG pO2 60 H VBG HCO3 26.0 VBG O2 Saturation 93.3 H VBG Base Excess 1.6 Sodium Potassium Chloride Carbon Dioxide Anion Gap BUN Creatinine Est GFR ( Amer) Est GFR (Non-Af Amer) BUN/Creatinine Ratio Glucose Lactic Acid Calcium Total Bilirubin AST ALT Alkaline Phosphatase Troponin I Total Protein Albumin Globulin Albumin/Globulin Ratio Procalcitonin < 0.1 Urine Color Urine Appearance Urine pH Ur Specific [place] Urine Protein Urine Ketones Urine Blood Urine Nitrate Urine Bilirubin Urine Urobilinogen Ur Leukocyte Esterase Urine WBC (Auto) Urine RBC (Auto) Ur Squamous Epith Cells Urine Bacteria Urine Glucose Influenza A (Rapid) Negative Influenza B (Rapid) Negative 07/30/18 07/31/18 07/31/18 23:30 05:25 05:25 WBC 4.3 RBC 3.97 L Hgb 11.5 L Hct 34 L MCV 86 MCH 29 MCHC 34 RDW 14 Plt Count 206 MPV 8.7 Neut % (Auto) 82.4 Lymph % (Auto) 13.7 Cloud % (Auto) 3.7 Eos % (Auto) 0 Baso % (Auto) 0.2 Absolute Neuts (auto) 3.6 Absolute Lymphs (auto) 0.6 L Absolute Monos (auto) 0.2 Absolute Eos (auto) 0 Absolute Basos (auto) 0 Absolute Nucleated RBC 0 Nucleated RBC % 0 VBG pH VBG pCO2 VBG pO2 VBG HCO3 VBG O2 Saturation VBG Base Excess Sodium 139 Potassium 3.3 L Chloride 107 Carbon Dioxide 23 Anion Gap 9 BUN 9 Creatinine 0.70 Est GFR ( Amer) 102.9 Est GFR (Non-Af Amer) 85.1 BUN/Creatinine Ratio 12.9 Glucose 193 H Lactic Acid Calcium 8.6 Total Bilirubin AST ALT Alkaline Phosphatase Troponin I Total Protein Albumin Globulin Albumin/Globulin Ratio Procalcitonin Urine Color Yellow Urine Appearance Clear Urine pH 5.0 Ur Specific [place] > 1.060 H Urine Protein Negative Urine Ketones 1+ A Urine Blood 1+ A Urine Nitrate Negative Urine Bilirubin Negative Urine Urobilinogen Negative Ur Leukocyte Esterase Negative Urine WBC (Auto) Trace(0-5/hpf) Urine RBC (Auto) Absent Ur Squamous Epith Cells Present A Urine Bacteria Absent Urine Glucose Negative Influenza A (Rapid) Influenza B (Rapid) Imaging: CTA chest 07/30 - no PE, multiple nodules+ CXR - no focla infiltrate noted Assessment: 63y F w/pmhx of COPD, on 2 L home O2, Right breast Ca diag 07/26, GERD, HLD; comes to ER 07/30 for 3 days of increasing SOB, cough, green sputum production. States her partner was cleaning a black mold and she started to develop the symptoms a day or two after. Admitted for COPD exacerbation, hypoxic respiratory failure and suspected pneumonia vs bronchitis. -Acute COPD exacerbation -Acute on chronic hypoxic respiratory failure -Suspected acute bronchitis Plan: Neuro- awake, alert; delirium prec. Resume buspirone for anxiety. Resume ritaline for ADHD if available. Cont gabapentin and flexeril as needed for pain. CVS- BP stable. Cont Lipitor. IVF as needed. Resp- off hiflow. On NC 4 L, cont to wean to baseline 2-3L home need. Bronchodilators prn. No wheezing at this time. IV abx for suspected bronchitis. IV steroids. ID- afebrile. Wbc normal. Legionella/strept ag neg. Sputum smear with gram neg and pos+. Ceftriaxone/azithromycin (day#2). GI- cardiac diet. PPI proph/tx gerd Renal- Cr okay. Hypokalemia, replete IV and PO. Heme- hg stable. Plt stable. DVT proph with heparin sq Endo- check hba1c. fingerstick as needed. Likely BG to increase with steroids. Musculsk- pressure ulcer prophylaxis. Bedrest. Wounds- none Nutrition- cardiac diet DVT prophylaxis: SCD, heparin sq GI prophylaxis: ppi Central Line:no Arterial Line: no Ibarra Cathetor: no Disposition: ICU; resp status improved, possible downgrade to medical floor today Code Status: full code Luke Patel MD Mri Special Procedures Technologist (Electronically Signed)
[2018-07-31] MEDS: Mometasone/Formoter 200/5 MDI INH SCH (17:55)
[2018-07-31] MEDS: cefTRIAXone(*) 1 GM in NS 0.9% 50 ML* 50 ML IVPB SCH (22:36)
[2018-07-31] MEDS: busPIRone TAB* 10 MG PO PRN (22:55)
[2018-07-31] MEDS: Azithromycin IV(*) 500 MG in NS 0.9% 250 ML* 250 ML IVPB SCH (23:30)
[2018-08-01] MEDS: Albuterol 2.5 MG/3 ML NEB.SOL* (0.083%) INH SCH ×4 (01:08→19:52)
[2018-08-01] MEDS: Heparin VIAL(*) 5000 UNITS/ML VIAL (FIVE THOUSAND) SUBCUT SCH ×3 (06:06→21:48)
[2018-08-01] MEDS: methylPREDNISolone SOD 40 MG* 1 ML VIAL IV SCH ×3 (06:06→21:48)
[2018-08-01] MEDS: Benzonatate CAP* 100 MG PO PRN ×4 (06:12→21:58)
[2018-08-01] MEDS: Mometasone/Formoter 200/5 MDI INH SCH ×2 (07:09→15:32)
[2018-08-01 08:16] LABS: Hematocrit 35 % (35-47); Hemoglobin 11.8 g/dl (12.0-16.0); Mean Corpuscular HGB Conc 34 g/dl (31-36); Mean Corpuscular Hemoglobin 29 pg (27-31); Mean Corpuscular Volume 86 fL (80-97); Mean Platelet Volume 8.8 fL (7.4-10.4); Platelet Count 250 10^3/ul (150-450); Red Blood Count 4.07 10^6/ul (4.00-5.40); Red Cell Distribution Width 15 % (10.5-15); White Blood Count 7.6 10^3/ul (3.5-10.8)
[2018-08-01 08:17] LABS: BUN/Creatinine Ratio 21.8 (8-20); Calcium 9.5 mg/dL (8.6-10.3); EGFR Non-African American 112.4 (>60)
[2018-08-01 08:45] LABS: TSH (Thyroid Stimulating Horm) 0.24 mcIU/mL (0.34-5.60)
[2018-08-01] MEDS: Omeprazole CAP* 20 MG PO SCH (08:50)
[2018-08-01] MEDS: Acetaminophen TAB* 325 MG PO PRN (08:50)
[2018-08-01] MEDS: Folic Acid TAB* 1 MG PO SCH (08:50)
[2018-08-01] MEDS: Atorvastatin* 10 MG TAB PO SCH (08:50)
--- NOTE | 2018-08-01 09:52 | PN ---
Subjective Date of Service: 08/01/18 Interval History: Ms. Caba reports feeling better than on arrival but still continues to feel quite short of breath with activity and has generalized malaise. She denies chest pain, SOB, nausea or abdominal pain. She has been on 2L NC at home prior to arrival. She confirms finding a lump in her right breast last week with finding of breast cancer on MRI/US as of this past Sunday. Objective Active Medications: Acetaminophen (Tylenol Tab*) 650 mg PO Q4H PRN Albuterol (Ventolin Hfa Inhaler*) 1 puff INH Q6H PRN Albuterol (Ventolin 2.5 Mg/3 Ml Neb.Zoe*) 2.5 mg INH [id number] AWAKE [facility] Albuterol/Ipratropium (Duoneb (Albuterol 2.5 Mg/Ipratropium 0.5 Mg)) 1 neb INH Q4H PRN Atorvastatin Calcium (Lipitor*) 10 mg PO DAILY [facility] Benzonatate (Tessalon Cap*) 100 mg PO BID PRN Buspirone HCl (Buspar Tab*) 10 mg PO TID PRN Cyclobenzaprine HCl (Flexeril Tab*) 10 mg PO TID PRN Folic Acid (Folvite Tab*) 1 mg PO DAILY [facility] Gabapentin (Neurontin Cap(*)) 300 mg PO BID PRN Heparin Sodium (Porcine) (Heparin Vial(*)) 5,000 units SUBCUT Q8HR [facility] Ceftriaxone Sodium 1 gm/ (Sodium Chloride) 50 mls @ 200 mls/hr IVPB Q24H [facility] Azithromycin 500 mg/ Sodium (Chloride) 250 mls @ 250 mls/hr IVPB Q24H [facility] Methylprednisolone Sodium Succinate (Solu-Medrol 40 Mg) 40 mg IV 0600,1400, 2200 [facility] Mometasone Furoate/Formoterol Fumar (Dulera 200/5 Mdi*) 2 puff INH BID@0900, 1500 [facility] Omeprazole (Prilosec Cap*) 20 mg PO DAILY [facility] Vital Signs: Temp Pulse Resp BP Pulse Ox 97.1 F 70 18 121/67 95 08/01/18 08:54 08/01/18 08:54 08/01/18 08:54 08/01/18 08:54 08/01/18 08:54 Oxygen Devices in Use Now: Nasal Cannula Appearance: Female lying in bed in NAD Eyes: No Scleral Icterus Ears/Nose/Mouth/Throat: Mucous Membranes Moist Neck: Trachea Midline Respiratory: Symmetrical Chest Expansion and Respiratory Effort, Clear to Auscultation, - - Diminished throughout Cardiovascular: NL Sounds; No Murmurs; No JVD, No Edema Abdominal: NL Sounds; No Tenderness; No Distention Lymphatic: No Cervical Adenopathy Extremities: No Edema Skin: No Rash or Ulcers Neurological: Alert and Oriented x 3, NL Muscle Strength and Tone Nutrition: Taking PO's Result Diagrams: 08/01/18 07:49 08/01/18 07:49 Microbiology and Other Data: . Assess/Plan/Problems-Billing Assessment: Ms. Caba is a 63 yo female with a PMH of COPD who was admitted on 07/31/18 with COPD exacerbation. - Patient Problems (1) COPD exacerbation Comment: - Slow improvement, currently on 4L NC - Continue solumedrol, ceftriazone, azithromycin, nebulizers, inhalers, benzonatate (2) Breast cancer Comment: - Diagnosed Sunday via MRI/US - Plan for close follow up outpatient with oncology (3) Anxiety Comment: - Continue buspar (4) GERD (gastroesophageal reflux disease) Comment: - Omeprazole (5) DVT prophylaxis Comment: - Heparin SQ (6) Full code status Comment: Status and Disposition: Inpatient with acute critical illness, improving slowly. Anticipate discharge to home when medically stable.
[2018-08-01] MEDS ORDERED: Ibuprofen TAB* 600 MG PO PRN (10:39)
--- NOTE | 2018-08-01 17:54 | PTEDU ---
Patient Name: WILLIAM RED TEOFILO WILLIAM selected video: Breast Biopsy to view on 08/01/2018 at 5:53:32 PM from [id number]
--- NOTE | 2018-08-01 18:02 | PTEDU ---
Patient Name: WILLIAM RED TEOFILO WILLIAM selected video: Mastectomy Radical to view on 08/01/2018 at 6:01:27 PM from [id number]
[2018-08-01] MEDS: cefTRIAXone(*) 1 GM in NS 0.9% 50 ML* 50 ML IVPB SCH (21:48)
[2018-08-01] MEDS: busPIRone TAB* 10 MG PO PRN (22:04)
[2018-08-01] MEDS: Azithromycin IV(*) 500 MG in NS 0.9% 250 ML* 250 ML IVPB SCH (22:32)
[2018-08-02] MEDS: Albuterol 2.5 MG/3 ML NEB.SOL* (0.083%) INH SCH ×5 (01:07→19:55)
[2018-08-02 06:00] LABS: Hematocrit 36 % (35-47); Hemoglobin 11.9 g/dl (12.0-16.0); Mean Corpuscular HGB Conc 33 g/dl (31-36); Mean Corpuscular Hemoglobin 29 pg (27-31); Mean Corpuscular Volume 87 fL (80-97); Mean Platelet Volume 8.1 fL (7.4-10.4); Platelet Count 292 10^3/ul (150-450); Red Blood Count 4.16 10^6/ul (4.00-5.40); Red Cell Distribution Width 15 % (10.5-15); White Blood Count 7.9 10^3/ul (3.5-10.8)
[2018-08-02] MEDS: methylPREDNISolone SOD 40 MG* 1 ML VIAL IV SCH ×3 (06:02→22:58)
[2018-08-02] MEDS: Heparin VIAL(*) 5000 UNITS/ML VIAL (FIVE THOUSAND) SUBCUT SCH ×3 (06:02→22:58)
[2018-08-02 06:18] LABS: BUN/Creatinine Ratio 26.7 (8-20); Calcium 9.5 mg/dL (8.6-10.3); EGFR Non-African American 101.6 (>60); Potassium 4.5 mmol/L (3.5-5.0)
[2018-08-02] MEDS: Mometasone/Formoter 200/5 MDI INH SCH ×2 (07:53→15:06)
[2018-08-02] MEDS ORDERED: GuaiFENesin DM* 5 ML UDC PO PRN (11:08)
[2018-08-02] MEDS: Oxybutynin XL TAB* 5 MG PO SCH (12:17)
[2018-08-02] MEDS: Folic Acid TAB* 1 MG PO SCH (12:18)
[2018-08-02] MEDS: Atorvastatin* 10 MG TAB PO SCH (12:18)
[2018-08-02] MEDS: Omeprazole CAP* 20 MG PO SCH (12:18)
--- NOTE | 2018-08-02 12:52 | PN ---
Subjective Date of Service: 08/02/18 Interval History: Ms. Caba reports feeling rotten today. She continues to have shortness of breath with mobility and cough with thick, green sputum. She reports chest tightness with coughing only. She denies other complaint including nausea or abdominal pain and is tolerating increased fluid intake well. Objective Active Medications: Acetaminophen (Tylenol Tab*) 650 mg PO Q4H PRN Albuterol (Ventolin Hfa Inhaler*) 1 puff INH Q6H PRN Albuterol (Ventolin 2.5 Mg/3 Ml Neb.Zoe*) 2.5 mg INH [id number] AWAKE ZOHAIB Albuterol/Ipratropium (Duoneb (Albuterol 2.5 Mg/Ipratropium 0.5 Mg)) 1 neb INH Q4H PRN Atorvastatin Calcium (Lipitor*) 10 mg PO DAILY ZOH[facility] Benzonatate (Tessalon Cap*) 100 mg PO BID PRN Buspirone HCl (Buspar Tab*) 10 mg PO TID PRN Cyclobenzaprine HCl (Flexeril Tab*) 10 mg PO TID PRN Folic Acid (Folvite Tab*) 1 mg PO DAILY ZOHA[facility] Gabapentin (Neurontin Cap(*)) 300 mg PO BID PRN Guaifenesin/Dextromethorphan (Robitussin Dm*) 10 ml PO Q4H PRN Heparin Sodium (Porcine) (Heparin Vial(*)) 5,000 units SUBCUT Q8HR ZOH[facility] Ceftriaxone Sodium 1 gm/ (Sodium Chloride) 50 mls @ 200 mls/hr IVPB Q24H [facility]OH[facility] Azithromycin 500 mg/ Sodium (Chloride) 250 mls @ 250 mls/hr IVPB Q24H [facility] Ibuprofen (Motrin Tab*) 600 mg PO Q6H PRN Methylprednisolone Sodium Succinate (Solu-Medrol 40 Mg) 40 mg IV 0600,1400, 2200 ZOHA[facility] Mometasone Furoate/Formoterol Fumar (Dulera 200/5 Mdi*) 2 puff INH BID@0900, 1500 [facility] Omeprazole (Prilosec Cap*) 20 mg PO DAILY ZOHA[facility] Oxybutynin Chloride (Ditropan Xl Tab*) 10 mg PO DAILY ZOHAIB Vital Signs: Temp Pulse Resp BP Pulse Ox 96.3 F 63 20 139/77 98 08/02/18 07:28 08/02/18 07:47 08/02/18 07:47 08/02/18 07:28 08/02/18 07:47 Oxygen Devices in Use Now: Nasal Cannula Appearance: Female lying in bed in NAD Eyes: No Scleral Icterus Ears/Nose/Mouth/Throat: Mucous Membranes Moist Respiratory: Symmetrical Chest Expansion and Respiratory Effort, - - Diminished throughout, no wheezing Cardiovascular: NL Sounds; No Murmurs; No JVD, No Edema Abdominal: NL Sounds; No Tenderness; No Distention Extremities: No Edema Skin: No Rash or Ulcers Neurological: Alert and Oriented x 3, NL Muscle Strength and Tone Nutrition: Taking PO's Result Diagrams: 08/02/18 05:53 08/02/18 05:53 Microbiology and Other Data: . Assess/Plan/Problems-Billing Assessment: Ms. Caba is a 63 yo female with a PMH of COPD and recent diagnosis of breast cancer who was admitted on 07/31/18 with COPD exacerbation. - Patient Problems (1) Acute and chronic respiratory failure with hypoxia Comment: - Slow improvement, continues on 4L NC - Secondary to pneumonia and COPD exacerbation (2) COPD exacerbation Comment: - Slow improvement, remains on 4L NC - With component of pneumonia with sputum cultures positive for haemophilus influenzae and MSSA. CT on arrrival without apparent infiltrate. - Continue solumedrol, ceftriazone, azithromycin, nebulizers, inhalers, benzonatate, and guaifenesin (3) Breast cancer Comment: - Diagnosed Sunday via MRI/US - Plan for close follow up outpatient with oncology (4) Anxiety Comment: - Continue buspar (5) GERD (gastroesophageal reflux disease) Comment: - Omeprazole (6) Pulmonary nodules Comment: - Recommend follow up CT chest in 6-12 months (7) DVT prophylaxis Comment: - Heparin SQ (8) Full code status Comment: Status and Disposition: Inpatient with acute critical illness, improving slowly. Anticipate discharge to home when medically stable.
[2018-08-02] MEDS: Benzonatate CAP* 100 MG PO PRN (20:29)
[2018-08-02] MEDS: busPIRone TAB* 10 MG PO PRN (20:29)
[2018-08-02] MEDS: cefTRIAXone(*) 1 GM in NS 0.9% 50 ML* 50 ML IVPB SCH (22:53)
[2018-08-02] MEDS: Azithromycin IV(*) 500 MG in NS 0.9% 250 ML* 250 ML IVPB SCH (23:39)
[2018-08-03] MEDS: Albuterol 2.5 MG/3 ML NEB.SOL* (0.083%) INH SCH ×3 (01:19→12:59)
[2018-08-03] MEDS: methylPREDNISolone SOD 40 MG* 1 ML VIAL IV SCH ×3 (05:52→23:04)
[2018-08-03] MEDS: Heparin VIAL(*) 5000 UNITS/ML VIAL (FIVE THOUSAND) SUBCUT SCH ×3 (05:52→23:04)
[2018-08-03] MEDS: Mometasone/Formoter 200/5 MDI INH SCH ×2 (07:43→13:59)
[2018-08-03 08:07] LABS: Hematocrit 39 % (35-47); Hemoglobin 13.3 g/dl (12.0-16.0); Mean Corpuscular HGB Conc 34 g/dl (31-36); Mean Corpuscular Hemoglobin 29 pg (27-31); Mean Corpuscular Volume 86 fL (80-97); Mean Platelet Volume 8.4 fL (7.4-10.4); Platelet Count 339 10^3/ul (150-450); Red Blood Count 4.59 10^6/ul (4.00-5.40); Red Cell Distribution Width 14 % (10.5-15); White Blood Count 10.5 10^3/ul (3.5-10.8)
[2018-08-03] MEDS: Omeprazole CAP* 20 MG PO SCH (08:20)
[2018-08-03] MEDS: Oxybutynin XL TAB* 5 MG PO SCH (08:20)
[2018-08-03] MEDS: Atorvastatin* 10 MG TAB PO SCH (08:20)
[2018-08-03] MEDS: Folic Acid TAB* 1 MG PO SCH (08:20)
[2018-08-03 08:27] LABS: Calcium 9.7 mg/dL (8.6-10.3); EGFR Non-African American 101.6 (>60); Potassium 4.2 mmol/L (3.5-5.0)
[2018-08-03] MEDS: Acetaminophen TAB* 325 MG PO PRN (09:13)
--- NOTE | 2018-08-03 12:48 | PN ---
Subjective Date of Service: 08/03/18 Interval History: Patient seen and examined. Significant amount of coughing and sputum production noted during exam. Patient feels fatigued and like the sputum is "choking" her. Denies chest pain, dyspneic with exertion. Remains dependent on O2. Objective Active Medications: Acetaminophen (Tylenol Tab*) 650 mg PO Q4H PRN PRN Reason: FEVER/PAIN Last Admin: 08/03/18 09:13 Dose: 650 mg Albuterol (Ventolin Hfa Inhaler*) 1 puff INH Q6H PRN PRN Reason: SHORTNESS OF BREATH Albuterol (Ventolin 2.5 Mg/3 Ml Neb.Zoe*) 2.5 mg INH [id number] AWAKE [facility] Last Admin: 08/03/18 07:43 Dose: 2.5 mg Albuterol/Ipratropium (Duoneb (Albuterol 2.5 Mg/Ipratropium 0.5 Mg)) 1 neb INH Q6H [facility] Stop: 08/04/18 07:01 Atorvastatin Calcium (Lipitor*) 10 mg PO DAILY [facility] Last Admin: 08/03/18 08:20 Dose: 10 mg Benzonatate (Tessalon Cap*) 100 mg PO BID [facility] Buspirone HCl (Buspar Tab*) 10 mg PO TID PRN PRN Reason: ANXIETY Last Admin: 08/02/18 20:29 Dose: 10 mg Cyclobenzaprine HCl (Flexeril Tab*) 10 mg PO TID PRN PRN Reason: PAIN Folic Acid (Folvite Tab*) 1 mg PO DAILY [facility] Last Admin: 08/03/18 08:20 Dose: 1 mg Gabapentin (Neurontin Cap(*)) 300 mg PO BID PRN PRN Reason: PAIN Last Admin: 08/01/18 08:49 Dose: 300 mg Guaifenesin (Mucinex*) 600 mg PO BID [facility] Heparin Sodium (Porcine) (Heparin Vial(*)) 5,000 units SUBCUT Q8HR [facility] Last Admin: 08/03/18 05:52 Dose: 5,000 units Ceftriaxone Sodium 1 gm/ (Sodium Chloride) 50 mls @ 200 mls/hr IVPB Q24H [facility] Last Admin: 08/02/18 22:53 Dose: 200 mls/hr Azithromycin 500 mg/ Sodium (Chloride) 250 mls @ 250 mls/hr IVPB Q24H [facility] Last Admin: 08/02/18 23:39 Dose: 250 mls/hr Ibuprofen (Motrin Tab*) 600 mg PO Q6H PRN PRN Reason: PAIN Methylprednisolone Sodium Succinate (Solu-Medrol 40 Mg) 40 mg IV 0600,1400, 2200 [facility] Last Admin: 08/03/18 05:52 Dose: 40 mg Mometasone Furoate/Formoterol Fumar (Dulera 200/5 Mdi*) 2 puff INH BID@0900, 1500 [facility] Last Admin: 08/03/18 07:43 Dose: 2 puff Omeprazole (Prilosec Cap*) 20 mg PO DAILY [facility] Last Admin: 08/03/18 08:20 Dose: 20 mg Oxybutynin Chloride (Ditropan Xl Tab*) 10 mg PO DAILY [facility] Last Admin: 08/03/18 08:20 Dose: 10 mg Vital Signs - 8 hr 08/03/18 08/03/18 08/03/18 07:42 07:46 07:48 Pulse Rate 66 66 Respiratory 22 14 14 Rate O2 Sat by Pulse 99 99 Oximetry 08/03/18 10:37 Pulse Rate Respiratory Rate O2 Sat by Pulse 91 Oximetry Oxygen Devices in Use Now: Nasal Cannula Appearance: alert, distress, ill-appearing Ears/Nose/Mouth/Throat: Mucous Membranes Moist Neck: NL Appearance and Movements; NL JVP, Trachea Midline Respiratory: - - tachypneic, bilateral scattered rhonchi, diminished bases Cardiovascular: NL Sounds; No Murmurs; No JVD, No Edema Abdominal: NL Sounds; No Tenderness; No Distention Extremities: No Edema Skin: No Rash or Ulcers Neurological: Alert and Oriented x 3, NL Sensation Nutrition: Taking PO's Result Diagrams: 08/03/18 07:44 08/03/18 07:44 Microbiology and Other Data: . Assess/Plan/Problems-Billing Assessment: This is a 63 yo female with a PMH of COPD on 2L NC PRN at home with recent diagnosis of breast cancer who was admitted on 07/31/18 with COPD exacerbation. - Patient Problems (1) Acute and chronic respiratory failure with hypoxia Code(s): J96.21 - ACUTE AND CHRONIC RESPIRATORY FAILURE WITH HYPOXIA SNOMED Code(s): 85907437 Comment: - Slow to improve, increasing sputum, continues on 3L NC with low RA sats - Combination of CAP/COPD exac - Change to duoneb Q6H with flutter valve, mucinex BID, albutetol PRN, tessalon BID - Continue ceftriaxone/azithromycin (2) Anxiety Code(s): F41.9 - ANXIETY DISORDER, UNSPECIFIED SNOMED Code(s): 90296512 Comment: - Continue buspar (3) Breast cancer Code(s): C50.919 - MALIGNANT NEOPLASM OF UNSP SITE OF UNSPECIFIED FEMALE BREAST SNOMED Code(s): 793669937 Comment: - Diagnosed Sunday via MRI/US - Plan for close follow up outpatient with oncology - supportive care (4) GERD (gastroesophageal reflux disease) Code(s): K21.9 - GASTRO-ESOPHAGEAL REFLUX DISEASE WITHOUT ESOPHAGITIS SNOMED Code(s): 849733870 Comment: - Omeprazole daily (5) Pulmonary nodules Code(s): R91.8 - OTHER NONSPECIFIC ABNORMAL FINDING OF LUNG FIELD SNOMED Code( s): 334360417 Comment: - Recommend follow up CT chest in 6-12 months (6) DVT prophylaxis Code(s): QVH0173 - SNOMED Code(s): 035380038 Comment: - Heparin SQ (7) Full code status Current Visit: Yes Status: Acute Code(s): Z78.9 - OTHER SPECIFIED HEALTH STATUS SNOMED Code(s): 649133735 Comment: Status and Disposition: Inpatient with acute critical illness. Anticipate discharge to home vs STR when medically stable.
[2018-08-03] MEDS: guaiFENesin ER TAB 600 MG PO SCH ×2 (12:49→20:13)
[2018-08-03] MEDS: Benzonatate CAP* 100 MG PO SCH ×2 (12:49→20:13)
[2018-08-03] MEDS: Albuterol/Ipratropium NEB.SOL* Albuterol 2.5 MG/Ipratropium 0.5 MG 3 ML INH SCH ×2 (13:59→19:23)
[2018-08-03] MEDS: cefTRIAXone(*) 1 GM in NS 0.9% 50 ML* 50 ML IVPB SCH (22:58)
[2018-08-03] MEDS: busPIRone TAB* 10 MG PO PRN (23:06)
[2018-08-04] MEDS: Azithromycin IV(*) 500 MG in NS 0.9% 250 ML* 250 ML IVPB SCH ×2 (00:01→23:04)
[2018-08-04] MEDS: Albuterol/Ipratropium NEB.SOL* Albuterol 2.5 MG/Ipratropium 0.5 MG 3 ML INH SCH ×6 (00:53→23:07)
[2018-08-04] MEDS: methylPREDNISolone SOD 40 MG* 1 ML VIAL IV SCH ×3 (07:04→22:05)
[2018-08-04] MEDS: Heparin VIAL(*) 5000 UNITS/ML VIAL (FIVE THOUSAND) SUBCUT SCH ×3 (07:04→22:05)
[2018-08-04] MEDS: Oxybutynin XL TAB* 5 MG PO SCH (07:36)
[2018-08-04] MEDS: Folic Acid TAB* 1 MG PO SCH (07:36)
[2018-08-04] MEDS: Benzonatate CAP* 100 MG PO SCH ×2 (07:36→22:05)
[2018-08-04] MEDS: Atorvastatin* 10 MG TAB PO SCH (07:36)
[2018-08-04] MEDS: Omeprazole CAP* 20 MG PO SCH (07:36)
[2018-08-04] MEDS: guaiFENesin ER TAB 600 MG PO SCH ×2 (07:37→22:05)
[2018-08-04] MEDS: Mometasone/Formoter 200/5 MDI INH SCH ×2 (07:42→15:28)
[2018-08-04 09:18] LABS: Hematocrit 40 % (35-47); Hemoglobin 13.5 g/dl (12.0-16.0); Mean Corpuscular HGB Conc 34 g/dl (31-36); Mean Corpuscular Hemoglobin 29 pg (27-31); Mean Corpuscular Volume 86 fL (80-97); Platelet Count 366 10^3/ul (150-450); Red Blood Count 4.68 10^6/ul (4.00-5.40); Red Cell Distribution Width 15 % (10.5-15); White Blood Count 14.8 10^3/ul (3.5-10.8)
[2018-08-04 09:34] LABS: Calcium 9.2 mg/dL (8.6-10.3); EGFR Non-African American 105.7 (>60); Potassium 3.9 mmol/L (3.5-5.0)
--- NOTE | 2018-08-04 11:44 | PN ---
Subjective Date of Service: 08/04/18 Interval History: Patient seen and examined. Remains oxygen dependent, still with cough and difficulty mobilizing secretions. Denies fever or chills, no chest pain, does get SOB with exertion. Very nervous about her breast cancer diagnosis and concerned about how she will proceed with FNA/treatment and that this hospitalization is delaying potential treatment. Reassurance provided. Objective Active Medications: Acetaminophen (Tylenol Tab*) 650 mg PO Q4H PRN PRN Reason: FEVER/PAIN Last Admin: 08/03/18 09:13 Dose: 650 mg Albuterol (Ventolin Hfa Inhaler*) 1 puff INH Q6H PRN PRN Reason: SHORTNESS OF BREATH Albuterol/Ipratropium (Duoneb (Albuterol 2.5 Mg/Ipratropium 0.5 Mg)) 1 neb INH Q4H [facility] Atorvastatin Calcium (Lipitor*) 10 mg PO DAILY [facility] Last Admin: 08/04/18 07:36 Dose: 10 mg Benzonatate (Tessalon Cap*) 100 mg PO BID [facility] Last Admin: 08/04/18 07:36 Dose: 100 mg Buspirone HCl (Buspar Tab*) 10 mg PO TID PRN PRN Reason: ANXIETY Last Admin: 08/03/18 23:06 Dose: 10 mg Cyclobenzaprine HCl (Flexeril Tab*) 10 mg PO TID PRN PRN Reason: PAIN Device (Tiotropium Inhaler Device*) 1 each .SEE ORDER .USE w/ SPIRIVA CAPS [facility] Folic Acid (Folvite Tab*) 1 mg PO DAILY [facility] Last Admin: 08/04/18 07:36 Dose: 1 mg Gabapentin (Neurontin Cap(*)) 300 mg PO BID PRN PRN Reason: PAIN Last Admin: 08/01/18 08:49 Dose: 300 mg Guaifenesin (Mucinex*) 600 mg PO BID [facility] Last Admin: 08/04/18 07:37 Dose: Not Given Heparin Sodium (Porcine) (Heparin Vial(*)) 5,000 units SUBCUT Q8HR [facility] Last Admin: 08/04/18 07:04 Dose: 5,000 units Ceftriaxone Sodium 1 gm/ (Sodium Chloride) 50 mls @ 200 mls/hr IVPB Q24H [facility] Last Admin: 08/03/18 22:58 Dose: 200 mls/hr Azithromycin 500 mg/ Sodium (Chloride) 250 mls @ 250 mls/hr IVPB Q24H [facility] Last Admin: 08/04/18 00:01 Dose: 250 mls/hr Ibuprofen (Motrin Tab*) 600 mg PO Q6H PRN PRN Reason: PAIN Methylprednisolone Sodium Succinate (Solu-Medrol 40 Mg) 40 mg IV 0600,1400, 2200 [facility] Last Admin: 08/04/18 07:04 Dose: 40 mg Mometasone Furoate/Formoterol Fumar (Dulera 200/5 Mdi*) 2 puff INH BID@0900, 1500 [facility] Last Admin: 08/04/18 07:42 Dose: 2 puff Omeprazole (Prilosec Cap*) 20 mg PO DAILY [facility] Last Admin: 08/04/18 07:36 Dose: 20 mg Oxybutynin Chloride (Ditropan Xl Tab*) 10 mg PO DAILY [facility] Last Admin: 08/04/18 07:36 Dose: 10 mg Tiotropium Rogers (Spiriva Cap.Inh*) 1 cap INH DAILY [facility] Vital Signs - 8 hr 08/04/18 08/04/18 07:49 08:00 Temperature 98.0 F Pulse Rate 75 Respiratory 22 32 Rate Blood Pressure 136/73 (mmHg) O2 Sat by Pulse 96 Oximetry Oxygen Devices in Use Now: Nasal Cannula Appearance: alert, anxious Eyes: No Scleral Icterus, PERRLA Ears/Nose/Mouth/Throat: Mucous Membranes Moist Neck: NL Appearance and Movements; NL JVP, Trachea Midline Respiratory: - - very diminished with poor air entry and bilateral wheeze Cardiovascular: NL Sounds; No Murmurs; No JVD, RRR, No Edema Abdominal: NL Sounds; No Tenderness; No Distention Extremities: No Edema, No Clubbing, Cyanosis Skin: No Rash or Ulcers Neurological: Alert and Oriented x 3, NL Gait, NL Muscle Strength and Tone Nutrition: Taking PO's Result Diagrams: 08/04/18 09:11 08/04/18 09:11 Microbiology and Other Data: . Diagnostic Imaging: Patient Name: WILLIAM RED Medical Record#: [id number] Ordering Physician: Jeanie Posey NP Acct.#: [id number] : 1955 Age: 63 Sex: F Location: [facility] Exam Date: 07/30/182111 ADM Status: ADM IN Order Information: CTA CHEST Accession Number: [id number] CPT: 70244 EXAM: CT Angiography Chest With Intravenous Contrast EXAM DATE/TIME: 07/30/2018 9:44 PM CLINICAL HISTORY: 63 years old, female; Signs and symptoms; Shortness of breath and wheezing TECHNIQUE: Axial computed tomographic angiography images of the chest with intravenous contrast using CT angiography protocol. All CT scans at this facility use at least one of these dose optimization techniques: automated exposure control; mA and/or kV adjustment per patient size (includes targeted exams where dose is matched to clinical indication); or iterative reconstruction. Coronal and sagittal reformatted images were created and reviewed. MIP reconstructed images were created and reviewed. CONTRAST: 72 ml of OM 350 administered intravenously. COMPARISON: OT CXR PORTAP CHEST AP PORTABLE 07/30/2018 6:51 PM FINDINGS: Pulmonary arteries: Pulmonary arteries are well opacified to the subsegmental branches. Normal caliber main pulmonary artery. No filling defects throughout the pulmonary artery tree. Aorta: The aorta demonstrates mild atherosclerotic calcification. Thyroid: No thyroid nodules. Lungs: Moderate centrilobular emphysematous disease. Parenchymal scarring medial left upper lobe. Groundglass nodule apical posterior segment right upper lobe measuring 0.5 cm (series 3, image 12). Angular solid nodule antra segment left upper lobe measuring 0.7 cm (series 3, image 16). Multiple additional small pulmonary nodules including superior segment left lower lobe measuring 0.3 cm (series 3, image 24) and after segment right upper lobe measuring 0.3 cm (series 3, image 29). No consolidation or masses. Calcified granuloma medial basal segment right lower lobe. No bronchiectasis, peribronchial thickening, or luminal defects. Pleural space: Normal. No pneumothorax. No pleural effusion. Heart: Normal. No cardiomegaly. No pericardial effusion. Lymph nodes: Normal. No enlarged lymph nodes. Bones/joints: The thoracic spine demonstrates mild degenerative changes at multiple levels. No fractures. No suspicious bone lesions. Soft tissues: Normal. IMPRESSION: 1. No pulmonary emboli. 2. Emphysema with multiple pulmonary nodules largest measuring 7 mm. Based on current Neftaly criteria, if high risk followup chest CT in 6-12 months and 18-24 months. Assess/Plan/Problems-Billing Assessment: This is a 63 yo female with a PMH of COPD on 2L NC PRN at home with recent diagnosis of breast cancer who was admitted on 07/31/18 with COPD exacerbation. - Patient Problems (1) Acute and chronic respiratory failure with hypoxia Code(s): J96.21 - ACUTE AND CHRONIC RESPIRATORY FAILURE WITH HYPOXIA SNOMED Code(s): 92405507 Comment: - Slow to improve, increasing sputum, continues on 3-4L NC with low RA sats - Combination of CAP/COPD exac - Continue duoneb with increased frequency to Q4h with flutter valve, mucinex BID, albutetol PRN, tessalon BID, add Spiriva today, continue dulera (autosub for advair) - Continue ceftriaxone/azithromycin (2) Anxiety Code(s): F41.9 - ANXIETY DISORDER, UNSPECIFIED SNOMED Code(s): 33852192 Comment: - Continue buspar (3) Breast cancer Code(s): C50.919 - MALIGNANT NEOPLASM OF UNSP SITE OF UNSPECIFIED FEMALE BREAST SNOMED Code(s): 096816682 Comment: - Diagnosed last Sunday via MRI/US - Given extended admission for pulmonary issues, may consult onco tomorrow to discuss timing of FNA given acute illness and provide guidance to patient (4) GERD (gastroesophageal reflux disease) Code(s): K21.9 - GASTRO-ESOPHAGEAL REFLUX DISEASE WITHOUT ESOPHAGITIS SNOMED Code(s): 377425696 Comment: - Omeprazole daily (5) Pulmonary nodules Code(s): R91.8 - OTHER NONSPECIFIC ABNORMAL FINDING OF LUNG FIELD SNOMED Code( s): 347532755 Comment: - Recommend follow up CT chest in 6-12 months, CT as above (6) DVT prophylaxis Code(s): [id number] - SNOMED Code(s): 995337974 Comment: - Heparin SQ (7) Full code status Current Visit: Yes Status: Acute Code(s): Z78.9 - OTHER SPECIFIED HEALTH STATUS SNOMED Code(s): 730019066 Comment: Status and Disposition: Inpatient with acute critical illness. Anticipate discharge to home when medically stable.
[2018-08-04] MEDS ORDERED: Spiriva Inhaler DEVICE* 1 EACH DEVICE SCH (12:00)
[2018-08-04] MEDS: Tiotropium CAP.INH* CAP.INH/18 MCG (USE ORDER SET !) INH SCH (12:14)
[2018-08-04] MEDS: cefTRIAXone(*) 1 GM in NS 0.9% 50 ML* 50 ML IVPB SCH (22:05)
[2018-08-04] MEDS: busPIRone TAB* 10 MG PO PRN (22:05)
[2018-08-05] MEDS: Heparin VIAL(*) 5000 UNITS/ML VIAL (FIVE THOUSAND) SUBCUT SCH ×4 (05:31→22:09)
[2018-08-05] MEDS: methylPREDNISolone SOD 40 MG* 1 ML VIAL IV SCH ×3 (05:31→22:11)
[2018-08-05] MEDS: Albuterol/Ipratropium NEB.SOL* Albuterol 2.5 MG/Ipratropium 0.5 MG 3 ML INH SCH ×3 (05:34→12:43)
[2018-08-05] MEDS ORDERED: Albuterol/Ipratropium NEB.SOL* Albuterol 2.5 MG/Ipratropium 0.5 MG 3 ML ONE (07:08)
[2018-08-05] MEDS: Mometasone/Formoter 200/5 MDI INH SCH ×2 (07:36→15:53)
[2018-08-05] MEDS: Tiotropium CAP.INH* CAP.INH/18 MCG (USE ORDER SET !) INH SCH (07:36)
[2018-08-05 07:38] LABS: Hematocrit 38 % (35-47); Hemoglobin 12.9 g/dl (12.0-16.0); Mean Corpuscular HGB Conc 34 g/dl (31-36); Mean Corpuscular Hemoglobin 29 pg (27-31); Mean Corpuscular Volume 86 fL (80-97); Mean Platelet Volume 8.7 fL (7.4-10.4); Platelet Count 305 10^3/ul (150-450); Red Blood Count 4.47 10^6/ul (4.00-5.40); Red Cell Distribution Width 15 % (10.5-15); White Blood Count 14.4 10^3/ul (3.5-10.8)
[2018-08-05 07:47] LABS: BUN/Creatinine Ratio 31.9 (8-20); Calcium 8.8 mg/dL (8.6-10.3); EGFR Non-African American 86.5 (>60); Potassium 4.1 mmol/L (3.5-5.0)
[2018-08-05] MEDS: Atorvastatin* 10 MG TAB PO SCH (09:25)
[2018-08-05] MEDS: Oxybutynin XL TAB* 5 MG PO SCH (09:25)
[2018-08-05] MEDS: Benzonatate CAP* 100 MG PO SCH ×2 (09:25→19:26)
[2018-08-05] MEDS: Omeprazole CAP* 20 MG PO SCH (09:25)
[2018-08-05] MEDS: Folic Acid TAB* 1 MG PO SCH (09:25)
[2018-08-05] MEDS: guaiFENesin ER TAB 600 MG PO SCH ×2 (09:25→19:27)
[2018-08-05] MEDS ORDERED: Albuterol/Ipratropium NEB.SOL* Albuterol 2.5 MG/Ipratropium 0.5 MG 3 ML INH PRN (16:00)
--- NOTE | 2018-08-05 17:30 | PN ---
Subjective Date of Service: 08/05/18 Interval History: Patient seen and examined. States her breathing is somewhat better. Still with cough, no fever or chills, remains oxygen dependent. Very concerned about follow up for FNA. Objective Active Medications: Acetaminophen (Tylenol Tab*) 650 mg PO Q4H PRN PRN Reason: FEVER/PAIN Last Admin: 08/03/18 09:13 Dose: 650 mg Albuterol (Ventolin Hfa Inhaler*) 1 puff INH Q6H PRN PRN Reason: SHORTNESS OF BREATH Albuterol/Ipratropium (Duoneb (Albuterol 2.5 Mg/Ipratropium 0.5 Mg)) 1 neb INH [id number] AWAKE PRN PRN Reason: SOB/WHEEZING Atorvastatin Calcium (Lipitor*) 10 mg PO DAILY [facility] Last Admin: 08/05/18 09:25 Dose: 10 mg Benzonatate (Tessalon Cap*) 100 mg PO BID [facility] Last Admin: 08/05/18 09:25 Dose: 100 mg Buspirone HCl (Buspar Tab*) 10 mg PO TID PRN PRN Reason: ANXIETY Last Admin: 08/04/18 22:05 Dose: 10 mg Cyclobenzaprine HCl (Flexeril Tab*) 10 mg PO TID PRN PRN Reason: PAIN Device (Tiotropium Inhaler Device*) 1 each .SEE ORDER .USE w/ SPIRIVA CAPS [facility] Folic Acid (Folvite Tab*) 1 mg PO DAILY [facility] Last Admin: 08/05/18 09:25 Dose: 1 mg Gabapentin (Neurontin Cap(*)) 300 mg PO BID PRN PRN Reason: PAIN Last Admin: 08/01/18 08:49 Dose: 300 mg Guaifenesin (Mucinex*) 600 mg PO BID [facility] Last Admin: 08/05/18 09:25 Dose: 600 mg Heparin Sodium (Porcine) (Heparin Vial(*)) 5,000 units SUBCUT Q8HR [facility] Last Admin: 08/05/18 14:31 Dose: 5,000 units Ceftriaxone Sodium 1 gm/ (Sodium Chloride) 50 mls @ 200 mls/hr IVPB Q24H [facility] Last Admin: 08/04/18 22:05 Dose: 200 mls/hr Azithromycin 500 mg/ Sodium (Chloride) 250 mls @ 250 mls/hr IVPB Q24H [facility] Last Admin: 08/04/18 23:04 Dose: 250 mls/hr Ibuprofen (Motrin Tab*) 600 mg PO Q6H PRN PRN Reason: PAIN Methylprednisolone Sodium Succinate (Solu-Medrol 40 Mg) 40 mg IV 0600,1400, 2200 [facility] Last Admin: 08/05/18 14:32 Dose: 40 mg Mometasone Furoate/Formoterol Fumar (Dulera 200/5 Mdi*) 2 puff INH BID@0900, 1500 [facility] Last Admin: 08/05/18 15:53 Dose: 2 puff Omeprazole (Prilosec Cap*) 20 mg PO DAILY [facility] Last Admin: 08/05/18 09:25 Dose: 20 mg Oxybutynin Chloride (Ditropan Xl Tab*) 10 mg PO DAILY [facility] Last Admin: 08/05/18 09:25 Dose: 10 mg Tiotropium [place] (Spiriva Cap.Inh*) 1 cap INH DAILY [facility] Last Admin: 08/05/18 07:36 Dose: 1 cap Vital Signs - 8 hr 08/05/18 08/05/18 08/05/18 11:14 12:44 15:55 Temperature 97.4 F Pulse Rate 77 68 68 Respiratory 17 14 14 Rate Blood Pressure 140/84 (mmHg) O2 Sat by Pulse 98 98 98 Oximetry Oxygen Devices in Use Now: Nasal Cannula Appearance: Alert, NAD Eyes: No Scleral Icterus, PERRLA Ears/Nose/Mouth/Throat: NL Teeth, Lips, Gums, Mucous Membranes Moist Neck: NL Appearance and Movements; NL JVP, Trachea Midline Respiratory: Symmetrical Chest Expansion and Respiratory Effort, - - diminished throughout, no rales or rhonchi Cardiovascular: NL Sounds; No Murmurs; No JVD, RRR, No Edema Abdominal: NL Sounds; No Tenderness; No Distention Extremities: No Edema, No Clubbing, Cyanosis Skin: No Rash or Ulcers, No Nodules or Sclerosis Neurological: Alert and Oriented x 3, NL Muscle Strength and Tone Nutrition: Taking PO's Result Diagrams: 08/05/18 07:07 08/05/18 07:07 Microbiology and Other Data: . Diagnostic Imaging: Patient Name: WILLIAM RED Medical Record#: [id number] Ordering Physician: Jeanie Posey [employer] Acct.#: [id number] : 1955 Age: 63 Sex: F Location: [facility] Exam Date: 07/30/182111 ADM Status: ADM IN Order Information: CTA CHEST Accession Number: [id number] CPT: 33463 EXAM: CT Angiography Chest With Intravenous Contrast EXAM DATE/TIME: 07/30/2018 9:44 PM CLINICAL HISTORY: 63 years old, female; Signs and symptoms; Shortness of breath and wheezing TECHNIQUE: Axial computed tomographic angiography images of the chest with intravenous contrast using CT angiography protocol. All CT scans at this facility use at least one of these dose optimization techniques: automated exposure control; mA and/or kV adjustment per patient size (includes targeted exams where dose is matched to clinical indication); or iterative reconstruction. Coronal and sagittal reformatted images were created and reviewed. MIP reconstructed images were created and reviewed. CONTRAST: 72 ml of OM 350 administered intravenously. COMPARISON: OT CXR PORTAP CHEST AP PORTABLE 07/30/2018 6:51 PM FINDINGS: Pulmonary arteries: Pulmonary arteries are well opacified to the subsegmental branches. Normal caliber main pulmonary artery. No filling defects throughout the pulmonary artery tree. Aorta: The aorta demonstrates mild atherosclerotic calcification. Thyroid: No thyroid nodules. Lungs: Moderate centrilobular emphysematous disease. Parenchymal scarring medial left upper lobe. Groundglass nodule apical posterior segment right upper lobe measuring 0.5 cm (series 3, image 12). Angular solid nodule antra segment left upper lobe measuring 0.7 cm (series 3, image 16). Multiple additional small pulmonary nodules including superior segment left lower lobe measuring 0.3 cm (series 3, image 24) and after segment right upper lobe measuring 0.3 cm (series 3, image 29). No consolidation or masses. Calcified granuloma medial basal segment right lower lobe. No bronchiectasis, peribronchial thickening, or luminal defects. Pleural space: Normal. No pneumothorax. No pleural effusion. Heart: Normal. No cardiomegaly. No pericardial effusion. Lymph nodes: Normal. No enlarged lymph nodes. Bones/joints: The thoracic spine demonstrates mild degenerative changes at multiple levels. No fractures. No suspicious bone lesions. Soft tissues: Normal. IMPRESSION: 1. No pulmonary emboli. 2. Emphysema with multiple pulmonary nodules largest measuring 7 mm. Based on current Neftaly criteria, if high risk followup chest CT in 6-12 months and 18-24 months. Assess/Plan/Problems-Billing Assessment: This is a 63 yo female with a PMH of COPD on 2L NC PRN at home with recent diagnosis of breast cancer who was admitted on 07/31/18 with COPD exacerbation. - Patient Problems (1) Acute and chronic respiratory failure with hypoxia Code(s): J96.21 - ACUTE AND CHRONIC RESPIRATORY FAILURE WITH HYPOXIA SNOMED Code(s): 98377896 Comment: - O2 continues to be titrated, some improvement today - Combination of CAP/COPD exac - Continue duoneb Q4h with flutter valve, mucinex BID, albutetol PRN, tessalon BID, Spiriva, continue dulera (autosub for advair) - Continue ceftriaxone/azithromycin (2) Anxiety Code(s): F41.9 - ANXIETY DISORDER, UNSPECIFIED SNOMED Code(s): 24832303 Comment: - Continue buspar (3) Breast cancer Code(s): C50.919 - MALIGNANT NEOPLASM OF UNSP SITE OF UNSPECIFIED FEMALE BREAST SNOMED Code(s): 815939453 Comment: - Diagnosed last Sunday via MRI/US - Given extended admission for pulmonary issues, requested onco consult to plan for timely FNA, appreicate recommendations from Dr. Cooper. (4) GERD (gastroesophageal reflux disease) Code(s): K21.9 - GASTRO-ESOPHAGEAL REFLUX DISEASE WITHOUT ESOPHAGITIS SNOMED Code(s): 130694711 Comment: - Omeprazole daily (5) Pulmonary nodules Code(s): R91.8 - OTHER NONSPECIFIC ABNORMAL FINDING OF LUNG FIELD SNOMED Code( s): 032162414 Comment: - Recommend follow up CT chest in 6-12 months, CT as above (6) DVT prophylaxis Code(s): PRZ8262 - SNOMED Code(s): 698197060 Comment: - Heparin SQ (7) Full code status Current Visit: Yes Status: Acute Code(s): Z78.9 - OTHER SPECIFIED HEALTH STATUS SNOMED Code(s): 722350140 Comment: Status and Disposition: Inpatient with acute critical illness. Anticipate discharge to home when medically stable.
[2018-08-05] MEDS: busPIRone TAB* 10 MG PO PRN (19:23)
[2018-08-05] MEDS: cefTRIAXone(*) 1 GM in NS 0.9% 50 ML* 50 ML IVPB SCH (22:11)
[2018-08-05] MEDS: Azithromycin IV(*) 500 MG in NS 0.9% 250 ML* 250 ML IVPB SCH (23:11)
--- NOTE | 2018-08-06 00:22 | CONS ---
CONSULTATION REPORT: DATE OF CONSULT: 08/05/18 REASON FOR CONSULTATION: Possible breast cancer. IDENTIFICATION: A 63-year-old female admitted for severe COPD, recently has undergone evaluation for a breast mass. HISTORY OF PRESENT ILLNESS: Ms. Caba is a 63-year-old female. She has noted pain in both breasts over the past year. She has felt that both sides were a little bit lumpy and she is questioned having lymph nodes. She also has had intermittent inversion of both nipples. Approximately 3 weeks ago, she was showering and noticed a mass on her right breast, lateral side superior. The mass was tender and she called her primary care physician, Elías Moore NP, right a way. She is in the [facility] and Ms. Moore also felt the mass. On 07/26/18, she had a mammogram done that showed a 1.2 x 1.6 x 0.9 lesion in the right breast approximately 7 cm from the nipple at the 10 o'clock position. No other lesions were noted on bilateral mammogram. Subsequent ultrasound confirmed the lesion at 10 o'clock position and measured with similar dimensions. She was scheduled to have a biopsy of the mass done on Sunday, but she was admitted to the hospital. She has a longstanding history of COPD. She states it advanced stage. She was at home and her oxygen condenser ran out of batteries. Her breathing became progressively worse over 3 days and she developed severe cough. She has had brown thick sputum and a sore throat. No fevers or chills. In the emergency room, she was in respiratory distress, treated with Solu-Medrol and IV fluids, and then ultimately transferred to the intensive care unit for Vapotherm. She is transferred to the floor and reading is improved now, but still not at baseline. She is very anxious about her breast mass and Oncology consultation to facilitate further evaluation. She has been afebrile in the hospital. Currently managed with an albuterol, atropine nebulizers, azithromycin, ceftriaxone, and Solu-Medrol 40 mg 3 times a day as well as Flovent twice a day , Spiriva 1 a day. PAST MEDICAL HISTORY: 1. COPD, diagnosed in 2008, has been quite severe. She is on 2 L of oxygen at home. She also takes Spiriva and albuterol at home. 2. Arthritis. She states she has multiple signs of arthritis as well as severe back pain. 3. Question of psoriasis. 4. Obesity. 5. Increased cholesterol. 6. GERD. 7. History of TIA, remote. 8. Incontinent of urine. 9. Attention deficit disorder. PAST SURGICAL HISTORY: Tubal ligation in the past. She had a trauma to the breast in 1978. MEDICATIONS: Outpatient medications: 1. Advair 500/50 b.i.d. 2. Ellipta 1 tablet b.i.d. 3. Amlodipine 1.25 mg daily. 4. Atorvastatin 10 mg a day. 5. Buspirone 10 mg t.i.d. 6. Remeron 15 mg at bedtime. 7. Gabapentin 300 mg b.i.d. 8. Protonix 40 mg a day. 9. Albuterol 1 puff q.6 p.r.n. 10. Ritalin 60 mg p.o. q.a.m. 11. Ritalin 20 mg p.o. at noon. 12. Detrol LA 4 mg daily. 13. Ibuprofen 600 mg q.6 p.r.n. 14. Flexeril 10 mg t.i.d. 15. Folic acid 1 mg a day. FAMILY HISTORY: Nineteen sisters and 5 brothers; many of them half-siblings. One sister has cancer. No other malignancy in the family. Mother relatively on a renal failure. SOCIAL HISTORY: She stopped smoking 9 years ago and does not drink. She is on disability. She is single, but has a partner that helps her with activities of daily living. She has 2 children, 36 and 26, and 2 grandchildren. REVIEW OF SYSTEMS: General: Weight gain secondary to her COPD. No fevers, chills or night sweats. HEENT: She cannot see anything, "blind as a bat," difficulty with hearing. Dry mouth. Endocrine: Denies diabetes though blood sugar is quite elevated in the hospital on steroids. Hemoglobin A1c is 5.8. TSH is low. Nose: No palpable lymphadenopathy. Lungs: Severe COPD as noted above. Cardiac: No chest pain or palpitations. GI: She has a history of GERD. : Incontinent. Musculoskeletal: Diffuse arthritis as noted above. Neurological: Negative. PHYSICAL EXAMINATION: BP 140/84, heart rate 68, temperature 97.4, O2 sat 98%. HEENT: Mucosa moist. No lesions. No cervical or supraclavicular lymphadenopathy. Obese. Lungs: Some decreased breath sounds, but no wheezing on my exam and good air movement. Breast: She has a 1-1/2 to 2 cm palpable mass on the right breast at 10 o'clock position that is tender. No nipple retraction or discharge. No other lesions palpable on axilla and physical exam is negative. Left breast exam is negative and no nipple inversion. Heart: Regular rhythm. S1, S2. No murmurs or gallops. Abdomen: Obese, nontender, nondistended. No hepatosplenomegaly. Lovenox injections. Lymph Nodes: No peripheral lymphadenopathy. Extremities: Good pulses x4. No edema. Neurologic : Alert and oriented x3. Grossly nonfocal on exam. Skin: Negative except for the Lovenox bruises. DIAGNOSTIC STUDIES/LAB DATA: Labs: Normal renal function and liver function. Elevated glucose on steroids. TSH is 0.24. White count 14.4, hemoglobin 12.9, platelets 305. Normal MCV. Mammogram and ultrasound as noted above. Chest CT on admission: She has a 1.5 cm breast mass on the right side. In the lungs, there are diffuse changes consistent with emphysema and scarring. Multiple small pulmonary nodules, largest is 7 mm in the left upper lobe. There is a right upper lobe lesion that is 5 mm, appears somewhat spiculated. The second lesion of the right upper lobe at 3 mm. No mediastinal lymphadenopathy. She has multiple visible axillary nodes on both sides, largest is 0.8 in the short dimension, but appeared to have a fatty blas. She has a CT scan of the abdomen and pelvis from December, scattered diverticula, fatty infiltration of the liver, otherwise negative. ASSESSMENT AND PLAN: This is a 63-year-old female admitted for severe chronic obstructive pulmonary disease who recently was found to have a breast mass. At this time, she has a 1.5 cm right-sided breast mass and is clinically node negative. Clinical stage is [id number]. Pulmonary nodules are concerning and differential includes scarring, granulomatous disease, metastatic breast cancer or primary lung cancer. Today, she is improving with treatments for chronic obstructive pulmonary disease, but is not ready for discharge at this time. She is anxious to facilitate evaluation of her breast mass. 1. Breast mass rule out breast cancer. The breast lesion is palpable and I will talk to pathology tomorrow about doing a bedside fine-needle aspiration to facilitate her breast cancer workup. If she has early stage disease, treatment wound be either lumpectomy and radiation or mastectomy. Given the severity of her chronic obstructive pulmonary disease, mastectomy may be a better option to avoid lung parenchyma in the radiation field. 2. Pulmonary nodules. We will likely need a PET scan to evaluate the pulmonary nodules prior to definitive therapy for breast cancer. If PET negative will follow, if positive and no other disease, would likely need a biopsy. This would be challenging given her underlying pulmonary disease. 3. We will continue therapy for chronic obstructive pulmonary disease per the hospitalist service. [id number]/[facility] #: [id number] [facility]
[2018-08-06] MEDS: methylPREDNISolone SOD 40 MG* 1 ML VIAL IV SCH ×3 (05:45→21:17)
[2018-08-06] MEDS: Heparin VIAL(*) 5000 UNITS/ML VIAL (FIVE THOUSAND) SUBCUT SCH ×3 (05:45→21:17)
[2018-08-06] MEDS: Benzonatate CAP* 100 MG PO SCH ×3 (05:52→21:17)
[2018-08-06 06:38] LABS: Hematocrit 37 % (35-47); Hemoglobin 12.4 g/dl (12.0-16.0); Mean Corpuscular HGB Conc 33 g/dl (31-36); Mean Corpuscular Hemoglobin 29 pg (27-31); Mean Corpuscular Volume 86 fL (80-97); Mean Platelet Volume 8.4 fL (7.4-10.4); Platelet Count 290 10^3/ul (150-450); Red Blood Count 4.33 10^6/ul (4.00-5.40); Red Cell Distribution Width 15 % (10.5-15); White Blood Count 15.2 10^3/ul (3.5-10.8)
[2018-08-06 06:59] LABS: Calcium 8.9 mg/dL (8.6-10.3); EGFR Non-African American 101.6 (>60); Potassium 4.2 mmol/L (3.5-5.0)
[2018-08-06] MEDS: Oxybutynin XL TAB* 5 MG PO SCH (07:17)
[2018-08-06] MEDS: Folic Acid TAB* 1 MG PO SCH (07:17)
[2018-08-06] MEDS: Omeprazole CAP* 20 MG PO SCH (07:17)
[2018-08-06] MEDS: Atorvastatin* 10 MG TAB PO SCH (07:18)
[2018-08-06] MEDS: guaiFENesin ER TAB 600 MG PO SCH ×2 (07:18→21:19)
[2018-08-06] MEDS: Mometasone/Formoter 200/5 MDI INH SCH ×3 (08:18→21:26)
[2018-08-06] MEDS: Tiotropium CAP.INH* CAP.INH/18 MCG (USE ORDER SET !) INH SCH (08:19)
[2018-08-06] MEDS: busPIRone TAB* 10 MG PO PRN ×3 (09:37→21:38)
[2018-08-06] MEDS: Nystatin SUSPENSION* 100000 UNITS/ML 5 ML UDC PO SCH ×3 (11:08→21:17)
--- NOTE | 2018-08-06 16:39 | PN ---
Progress Note - Progress Note Date of Service: 08/06/18 SOAP: Subjective: [Patient reports today her respiratory symptoms are slightly worse. Anxious about her breast mass and subsequent work up.] Objective: [ Vital Signs Temp Pulse Resp BP Pulse Ox 98.1 F 71 20 129/71 96 08/06/18 15:49 08/06/18 15:49 08/06/18 15:49 08/06/18 15:49 08/06/18 15:49 Acetaminophen (Tylenol Tab*) 650 mg PO Q4H PRN PRN Reason: FEVER/PAIN Last Admin: 08/03/18 09:13 Dose: 650 mg Albuterol (Ventolin Hfa Inhaler*) 1 puff INH Q6H PRN PRN Reason: SHORTNESS OF BREATH Albuterol/Ipratropium (Duoneb (Albuterol 2.5 Mg/Ipratropium 0.5 Mg)) 1 neb INH [id number] AWAKE PRN PRN Reason: SOB/WHEEZING Atorvastatin Calcium (Lipitor*) 10 mg PO DAILY [facility] Last Admin: 08/06/18 07:18 Dose: Not Given Benzonatate (Tessalon Cap*) 100 mg PO Q12H [facility] Last Admin: 08/06/18 07:14 Dose: Not Given Buspirone HCl (Buspar Tab*) 10 mg PO TID PRN PRN Reason: ANXIETY Last Admin: 08/06/18 15:21 Dose: 10 mg Cyclobenzaprine HCl (Flexeril Tab*) 10 mg PO TID PRN PRN Reason: PAIN Device (Tiotropium Inhaler Device*) 1 each .SEE ORDER .USE w/ SPIRIVA CAPS [facility] Folic Acid (Folvite Tab*) 1 mg PO DAILY [facility] Last Admin: 08/06/18 07:17 Dose: 1 mg Gabapentin (Neurontin Cap(*)) 300 mg PO BID PRN PRN Reason: PAIN Last Admin: 08/01/18 08:49 Dose: 300 mg Guaifenesin (Mucinex*) 600 mg PO BID [facility] Last Admin: 08/06/18 07:18 Dose: Not Given Heparin Sodium (Porcine) (Heparin Vial(*)) 5,000 units SUBCUT Q8HR [facility] Last Admin: 08/06/18 12:56 Dose: 5,000 units Ceftriaxone Sodium 1 gm/ (Sodium Chloride) 50 mls @ 200 mls/hr IVPB Q24H [facility] Last Admin: 08/05/18 22:11 Dose: 200 mls/hr Azithromycin 500 mg/ Sodium (Chloride) 250 mls @ 250 mls/hr IVPB Q24H [facility] Last Admin: 08/05/18 23:11 Dose: 250 mls/hr Ibuprofen (Motrin Tab*) 600 mg PO Q6H PRN PRN Reason: PAIN Methylprednisolone Sodium Succinate (Solu-Medrol 40 Mg) 40 mg IV 0600,1400, 2200 [facility] Last Admin: 08/06/18 12:56 Dose: 40 mg Mometasone Furoate/Formoterol Fumar (Dulera 200/5 Mdi*) 2 puff INH BID@0900, 1500 [facility] Last Admin: 08/06/18 12:59 Dose: Not Given Nystatin (Nystatin Suspension*) 500,000 units PO QID [facility] Stop: 08/13/18 10:25 Last Admin: 08/06/18 15:21 Dose: 500,000 units Omeprazole (Prilosec Cap*) 20 mg PO DAILY [facility] Last Admin: 08/06/18 07:17 Dose: 20 mg Oxybutynin Chloride (Ditropan Xl Tab*) 10 mg PO DAILY [facility] Last Admin: 08/06/18 07:17 Dose: 10 mg Tiotropium [place] (Spiriva Cap.Inh*) 1 cap INH DAILY [facility] Last Admin: 08/06/18 08:19 Dose: Not Given Exam: Gen: Pleasant 63 yo female in NAD lying in hospital bed HEENT: MMM, no thrush CV: RRR, no m/r/g Resp: reduced breast sounds Breasts: no exam today Abd: soft, non TTP] Assessment: [63 yo female with breast mass noted on SBE and confirmed by CBE and subsequent mammo/US who has been admitted for a COPD exacerbation. She has slightly suspicious pulm nodules on CT.] Plan: [1. Breast mass/lung nodules - FNA breast mass with Dr Dunn today - PET scan - to be scheduled as an outpatient - she prefers a female physician - she will see Dr Brown in follow up 2. COPD - management per Hospitalist group ]
--- NOTE | 2018-08-06 17:59 | PN ---
Subjective Date of Service: 08/06/18 Interval History: Patient seen and examined this AM before FNA that is scheduled for after [address] Smalls. Patient states SOB improved last night but feeling winded again today. Denies fever or chills, no chest pain. Nervous about FNA procedure today. Objective Active Medications: Acetaminophen (Tylenol Tab*) 650 mg PO Q4H PRN PRN Reason: FEVER/PAIN Last Admin: 08/03/18 09:13 Dose: 650 mg Albuterol (Ventolin Hfa Inhaler*) 1 puff INH Q6H PRN PRN Reason: SHORTNESS OF BREATH Albuterol/Ipratropium (Duoneb (Albuterol 2.5 Mg/Ipratropium 0.5 Mg)) 1 neb INH [id number] AWAKE PRN PRN Reason: SOB/WHEEZING Atorvastatin Calcium (Lipitor*) 10 mg PO DAILY [facility] Last Admin: 08/06/18 07:18 Dose: Not Given Benzonatate (Tessalon Cap*) 100 mg PO Q12H [facility] Last Admin: 08/06/18 07:14 Dose: Not Given Buspirone HCl (Buspar Tab*) 10 mg PO TID PRN PRN Reason: ANXIETY Last Admin: 08/06/18 15:21 Dose: 10 mg Cyclobenzaprine HCl (Flexeril Tab*) 10 mg PO TID PRN PRN Reason: PAIN Device (Tiotropium Inhaler Device*) 1 each .SEE ORDER .USE w/ SPIRIVA CAPS [facility] Folic Acid (Folvite Tab*) 1 mg PO DAILY [facility] Last Admin: 08/06/18 07:17 Dose: 1 mg Gabapentin (Neurontin Cap(*)) 300 mg PO BID PRN PRN Reason: PAIN Last Admin: 08/01/18 08:49 Dose: 300 mg Guaifenesin (Mucinex*) 600 mg PO BID [facility] Last Admin: 08/06/18 07:18 Dose: Not Given Heparin Sodium (Porcine) (Heparin Vial(*)) 5,000 units SUBCUT Q8HR [facility] Last Admin: 08/06/18 12:56 Dose: 5,000 units Ceftriaxone Sodium 1 gm/ (Sodium Chloride) 50 mls @ 200 mls/hr IVPB Q24H [facility] Last Admin: 08/05/18 22:11 Dose: 200 mls/hr Azithromycin 500 mg/ Sodium (Chloride) 250 mls @ 250 mls/hr IVPB Q24H [facility] Last Admin: 08/05/18 23:11 Dose: 250 mls/hr Ibuprofen (Motrin Tab*) 600 mg PO Q6H PRN PRN Reason: PAIN Methylprednisolone Sodium Succinate (Solu-Medrol 40 Mg) 40 mg IV 0600,1400, 2200 [facility] Last Admin: 08/06/18 12:56 Dose: 40 mg Mirtazapine (Remeron Tab*) 15 mg PO BEDTIME PRN PRN Reason: SLEEP Mometasone Furoate/Formoterol Fumar (Dulera 200/5 Mdi*) 2 puff INH BID@0900, 1500 [facility] Last Admin: 08/06/18 12:59 Dose: Not Given Nystatin (Nystatin Suspension*) 500,000 units PO QID [facility] Stop: 08/13/18 10:25 Last Admin: 08/06/18 15:21 Dose: 500,000 units Omeprazole (Prilosec Cap*) 20 mg PO DAILY [facility] Last Admin: 08/06/18 07:17 Dose: 20 mg Oxybutynin Chloride (Ditropan Xl Tab*) 10 mg PO DAILY [facility] Last Admin: 08/06/18 07:17 Dose: 10 mg Tiotropium [place] (Spiriva Cap.Inh*) 1 cap INH DAILY [facility] Last Admin: 08/06/18 08:19 Dose: Not Given Vital Signs - 8 hr 08/06/18 08/06/18 11:17 15:49 Temperature 97.7 F 98.1 F Pulse Rate 59 71 Respiratory 16 20 Rate Blood Pressure 132/56 129/71 (mmHg) O2 Sat by Pulse 98 96 Oximetry Oxygen Devices in Use Now: Nasal Cannula Appearance: alert, anxious Eyes: No Scleral Icterus, PERRLA Ears/Nose/Mouth/Throat: NL Teeth, Lips, Gums, Mucous Membranes Moist Neck: NL Appearance and Movements; NL JVP, Trachea Midline Respiratory: - - diminished throughout lung armas Cardiovascular: NL Sounds; No Murmurs; No JVD, RRR, No Edema Abdominal: NL Sounds; No Tenderness; No Distention Extremities: No Edema, No Clubbing, Cyanosis Skin: No Rash or Ulcers Neurological: Alert and Oriented x 3, NL Gait Nutrition: Taking PO's Result Diagrams: 08/06/18 06:07 08/06/18 06:07 Microbiology and Other Data: . Diagnostic Imaging: Patient Name: WILLIAM RED Medical Record#: [id number] Ordering Physician: Jeanie Posey NP Acct.#: [id number] : 1955 Age: 63 Sex: F [facility] Exam Date: 07/30/182111 ADM Status: ADM IN Order Information: CTA CHEST Accession Number: [id number] CPT: 32738 EXAM: CT Angiography Chest With Intravenous Contrast EXAM DATE/TIME: 07/30/2018 9:44 PM CLINICAL HISTORY: 63 years old, female; Signs and symptoms; Shortness of breath and wheezing TECHNIQUE: Axial computed tomographic angiography images of the chest with intravenous contrast using CT angiography protocol. All CT scans at this facility use at least one of these dose optimization techniques: automated exposure control; mA and/or kV adjustment per patient size (includes targeted exams where dose is matched to clinical indication); or iterative reconstruction. Coronal and sagittal reformatted images were created and reviewed. MIP reconstructed images were created and reviewed. CONTRAST: 72 ml of OM 350 administered intravenously. COMPARISON: OT CXR PORTAP CHEST AP PORTABLE 07/30/2018 6:51 PM FINDINGS: Pulmonary arteries: Pulmonary arteries are well opacified to the subsegmental branches. Normal caliber main pulmonary artery. No filling defects throughout the pulmonary artery tree. Aorta: The aorta demonstrates mild atherosclerotic calcification. Thyroid: No thyroid nodules. Lungs: Moderate centrilobular emphysematous disease. Parenchymal scarring medial left upper lobe. Groundglass nodule apical posterior segment right upper lobe measuring 0.5 cm (series 3, image 12). Angular solid nodule antra segment left upper lobe measuring 0.7 cm (series 3, image 16). Multiple additional small pulmonary nodules including superior segment left lower lobe measuring 0.3 cm (series 3, image 24) and after segment right upper lobe measuring 0.3 cm (series 3, image 29). No consolidation or masses. Calcified granuloma medial basal segment right lower lobe. No bronchiectasis, peribronchial thickening, or luminal defects. Pleural space: Normal. No pneumothorax. No pleural effusion. Heart: Normal. No cardiomegaly. No pericardial effusion. Lymph nodes: Normal. No enlarged lymph nodes. Bones/joints: The thoracic spine demonstrates mild degenerative changes at multiple levels. No fractures. No suspicious bone lesions. Soft tissues: Normal. IMPRESSION: 1. No pulmonary emboli. 2. Emphysema with multiple pulmonary nodules largest measuring 7 mm. Based on current Neftaly criteria, if high risk followup chest CT in 6-12 months and 18-24 months. Assess/Plan/Problems-Billing Assessment: This is a 63 yo female with a PMH of COPD on 2L NC PRN at home with recent diagnosis of breast cancer who was admitted on 07/31/18 with COPD exacerbation. - Patient Problems (1) Acute and chronic respiratory failure with hypoxia Code(s): J96.21 - ACUTE AND CHRONIC RESPIRATORY FAILURE WITH HYPOXIA SNOMED Code(s): 65678217 Comment: - O2 continues to be titrated, some improvement today - Combination of CAP/COPD exac - Continue duoneb Q4h with flutter valve, mucinex BID, albutetol PRN, tessalon BID, Spiriva, continue dulera (autosub for advair) - Continue ceftriaxone/azithromycin - Slow improvement today (2) Anxiety Code(s): F41.9 - ANXIETY DISORDER, UNSPECIFIED SNOMED Code(s): 58949438 Comment: - Continue buspar (3) Breast cancer Code(s): C50.919 - MALIGNANT NEOPLASM OF UNSP SITE OF UNSPECIFIED FEMALE BREAST SNOMED Code(s): 681065074 Comment: - Diagnosed last Sunday via MRI/US - Oncology consult appreciated, recommends FNA - FNA with Dr. Smalls did not yield adequate tissue/result, core biopsy recommended - Will reach out to oncology to determine if surgery should be consulted now while inpatient or if this should be scheduled outpatient (4) GERD (gastroesophageal reflux disease) Code(s): K21.9 - GASTRO-ESOPHAGEAL REFLUX DISEASE WITHOUT ESOPHAGITIS SNOMED Code(s): 320744008 Comment: - Omeprazole daily (5) Pulmonary nodules Code(s): R91.8 - OTHER NONSPECIFIC ABNORMAL FINDING OF LUNG FIELD SNOMED Code( s): 508475428 Comment: - Recommend follow up CT chest in 6-12 months, CT as above (6) DVT prophylaxis Code(s): OUZ0293 - SNOMED Code(s): 149668742 Comment: - Heparin SQ (7) Full code status Current Visit: Yes Status: Acute Code(s): Z78.9 - OTHER SPECIFIED HEALTH STATUS SNOMED Code(s): 756712792 Comment: Status and Disposition: Inpatient. Anticipate discharge to home when medically stable. Likely 1-2 days, as there is clinical improvement last 24 hours.
[2018-08-06] MEDS: Mirtazapine TAB* 15 MG PO PRN (21:38)
[2018-08-06] MEDS: cefTRIAXone(*) 1 GM in NS 0.9% 50 ML* 50 ML IVPB SCH (22:59)
[2018-08-07] MEDS: Azithromycin IV(*) 500 MG in NS 0.9% 250 ML* 250 ML IVPB SCH ×2 (02:03→23:18)
[2018-08-07] MEDS: methylPREDNISolone SOD 40 MG* 1 ML VIAL IV SCH ×3 (06:00→21:29)
[2018-08-07] MEDS: Heparin VIAL(*) 5000 UNITS/ML VIAL (FIVE THOUSAND) SUBCUT SCH ×3 (06:00→21:29)
[2018-08-07] MEDS: Benzonatate CAP* 100 MG PO SCH ×2 (06:01→19:50)
[2018-08-07 06:10] LABS: Hematocrit 37 % (35-47); Hemoglobin 12.3 g/dl (12.0-16.0); Mean Corpuscular HGB Conc 34 g/dl (31-36); Mean Corpuscular Hemoglobin 29 pg (27-31); Mean Corpuscular Volume 86 fL (80-97); Mean Platelet Volume 8.2 fL (7.4-10.4); Platelet Count 274 10^3/ul (150-450); Red Blood Count 4.26 10^6/ul (4.00-5.40); Red Cell Distribution Width 15 % (10.5-15)
[2018-08-07 07:44] LABS: Calcium 8.8 mg/dL (8.6-10.3); Potassium 4.2 mmol/L (3.5-5.0)
[2018-08-07] MEDS: Mometasone/Formoter 200/5 MDI INH SCH ×2 (07:44→15:04)
[2018-08-07] MEDS: Tiotropium CAP.INH* CAP.INH/18 MCG (USE ORDER SET !) INH SCH (07:44)
[2018-08-07 07:49] LABS: BUN/Creatinine Ratio 45.6 (8-20); EGFR Non-African American 107.8 (>60)
[2018-08-07] MEDS: guaiFENesin ER TAB 600 MG PO SCH ×2 (09:17→20:00)
[2018-08-07] MEDS: Atorvastatin* 10 MG TAB PO SCH (09:18)
[2018-08-07] MEDS: Nystatin SUSPENSION* 100000 UNITS/ML 5 ML UDC PO SCH ×4 (09:18→20:20)
[2018-08-07] MEDS: Folic Acid TAB* 1 MG PO SCH (09:18)
[2018-08-07] MEDS: Omeprazole CAP* 20 MG PO SCH (09:18)
[2018-08-07] MEDS: Oxybutynin XL TAB* 5 MG PO SCH (09:20)
--- NOTE | 2018-08-07 15:14 | PN ---
Subjective Date of Service: 08/07/18 Interval History: Patient reports she feels better today "mentally and physically". She states her breathing is slowly improving but continues to feel winded when talking a lot and with exertion. She reports occasional cough, little sputum production. No fever or chills. Reports her appetite is "too good". She reports she feel s "positive" about her dx of breast cancer Objective Active Medications: Acetaminophen (Tylenol Tab*) 650 mg PO Q4H PRN PRN Reason: FEVER/PAIN Last Admin: 08/03/18 09:13 Dose: 650 mg Albuterol (Ventolin Hfa Inhaler*) 1 puff INH Q6H PRN PRN Reason: SHORTNESS OF BREATH Albuterol/Ipratropium (Duoneb (Albuterol 2.5 Mg/Ipratropium 0.5 Mg)) 1 neb INH [id number] AWAKE PRN PRN Reason: SOB/WHEEZING Atorvastatin Calcium (Lipitor*) 10 mg PO DAILY [facility] Last Admin: 08/07/18 09:18 Dose: 10 mg Benzonatate (Tessalon Cap*) 100 mg PO Q12H [facility] Last Admin: 08/07/18 06:01 Dose: 100 mg Buspirone HCl (Buspar Tab*) 10 mg PO TID PRN PRN Reason: ANXIETY Last Admin: 08/06/18 21:38 Dose: 10 mg Cyclobenzaprine HCl (Flexeril Tab*) 10 mg PO TID PRN PRN Reason: PAIN Device (Tiotropium Inhaler Device*) 1 each .SEE ORDER .USE w/ SPIRIVA CAPS [facility] Folic Acid (Folvite Tab*) 1 mg PO DAILY [facility] Last Admin: 08/07/18 09:18 Dose: 1 mg Gabapentin (Neurontin Cap(*)) 300 mg PO BID PRN PRN Reason: PAIN Last Admin: 08/01/18 08:49 Dose: 300 mg Guaifenesin (Mucinex*) 600 mg PO BID [facility] Last Admin: 08/07/18 09:17 Dose: Not Given Heparin Sodium (Porcine) (Heparin Vial(*)) 5,000 units SUBCUT Q8HR [facility] Last Admin: 08/07/18 14:43 Dose: 5,000 units Ceftriaxone Sodium 1 gm/ (Sodium Chloride) 50 mls @ 200 mls/hr IVPB Q24H [facility] Last Admin: 08/06/18 22:59 Dose: 200 mls/hr Azithromycin 500 mg/ Sodium (Chloride) 250 mls @ 250 mls/hr IVPB Q24H [facility] Last Admin: 08/07/18 02:03 Dose: 250 mls/hr Ibuprofen (Motrin Tab*) 600 mg PO Q6H PRN PRN Reason: PAIN Methylprednisolone Sodium Succinate (Solu-Medrol 40 Mg) 40 mg IV 0600,1400, 2200 [facility] Last Admin: 08/07/18 06:00 Dose: 40 mg Mirtazapine (Remeron Tab*) 15 mg PO BEDTIME PRN PRN Reason: SLEEP Last Admin: 08/06/18 21:38 Dose: 15 mg Mometasone Furoate/Formoterol Fumar (Dulera 200/5 Mdi*) 2 puff INH BID@0900, 1500 [facility] Last Admin: 08/07/18 15:04 Dose: 2 puff Nystatin (Nystatin Suspension*) 500,000 units PO QID [facility] Stop: 08/13/18 10:25 Last Admin: 08/07/18 09:18 Dose: 500,000 units Omeprazole (Prilosec Cap*) 20 mg PO DAILY [facility] Last Admin: 08/07/18 09:18 Dose: 20 mg Oxybutynin Chloride (Ditropan Xl Tab*) 10 mg PO DAILY [facility] Last Admin: 08/07/18 09:20 Dose: 10 mg Tiotropium [place] (Spiriva Cap.Inh*) 1 cap INH DAILY [facility] Last Admin: 08/07/18 07:44 Dose: 1 cap Vital Signs - 8 hr 08/07/18 08/07/18 08/07/18 07:31 07:46 08:00 Temperature 97.6 F Pulse Rate 50 68 Respiratory 21 14 18 Rate Blood Pressure 154/67 (mmHg) O2 Sat by Pulse 99 99 Oximetry 08/07/18 15:05 Temperature Pulse Rate 66 Respiratory 14 Rate Blood Pressure (mmHg) O2 Sat by Pulse 98 Oximetry Oxygen Devices in Use Now: Nasal Cannula Appearance: 63 yo female sitting up in bed A+Ox3 in NAD, very friendly and talkative Eyes: No Scleral Icterus, PERRLA Ears/Nose/Mouth/Throat: Mucous Membranes Moist Neck: NL Appearance and Movements; NL JVP Respiratory: Symmetrical Chest Expansion and Respiratory Effort, - - diminished in bases b/l Cardiovascular: NL Sounds; No Murmurs; No JVD, RRR Abdominal: NL Sounds; No Tenderness; No Distention Lymphatic: No Cervical Adenopathy Extremities: No Edema, No Clubbing, Cyanosis Skin: No Rash or Ulcers Neurological: Alert and Oriented x 3, NL Sensation, NL Gait, NL Muscle Strength and Tone Lines/Tubes/Other Access: Clean, Dry and Intact Peripheral IV Nutrition: Taking PO's Result Diagrams: 08/07/18 05:45 08/07/18 05:45 Microbiology and Other Data: . Assess/Plan/Problems-Billing Assessment: This is a 63 yo female with a PMH of COPD on 2L NC PRN at home with recent diagnosis of breast cancer who was admitted on 07/31/18 with COPD exacerbation. - Patient Problems (1) Acute and chronic respiratory failure with hypoxia Comment: - O2 continues to be titrated, now on 3L NC - Combination of CAP/COPD exac - Continue duoneb Q4h with flutter valve, mucinex BID, albutetol PRN, tessalon BID, Spiriva, continue dulera (autosub for advair) - Continue ceftriaxone/azithromycin - Slow to improve (2) COPD exacerbation Comment: - Slow improvement, remains on 3L NC - With component of pneumonia with sputum cultures positive for haemophilus influenzae and MSSA. CT on arrrival without apparent infiltrate. - Continue solumedrol, ceftriazone, azithromycin, nebulizers, inhalers, benzonatate, and guaifenesin (3) Anxiety Comment: - Continue buspar (4) Breast cancer Comment: - Diagnosed last Sunday via MRI/US - Oncology consult appreciated, recommended FNA - FNA with Dr. Smalls did not yield adequate tissue/result, core biopsy recommended - Discussed with ONC Lenny CALVIN today (5) GERD (gastroesophageal reflux disease) Comment: - Omeprazole daily (6) Pulmonary nodules Comment: - Pt to undergo PET scan per ONC (7) DVT prophylaxis Comment: - Heparin SQ (8) Full code status Comment: Status and Disposition: Inpatient. Anticipate discharge to home when medically stable. Likely 1-2 days, as she continues to improve slowly
[2018-08-07] MEDS: Mirtazapine TAB* 15 MG PO PRN (19:50)
[2018-08-07] MEDS: busPIRone TAB* 10 MG PO PRN (19:52)
[2018-08-07] MEDS: cefTRIAXone(*) 1 GM in NS 0.9% 50 ML* 50 ML IVPB SCH (22:03)
[2018-08-08] MEDS: Heparin VIAL(*) 5000 UNITS/ML VIAL (FIVE THOUSAND) SUBCUT SCH ×3 (05:05→20:15)
[2018-08-08] MEDS: methylPREDNISolone SOD 40 MG* 1 ML VIAL IV SCH (05:09)
[2018-08-08] MEDS: Benzonatate CAP* 100 MG PO SCH (05:52)
[2018-08-08] MEDS: Tiotropium CAP.INH* CAP.INH/18 MCG (USE ORDER SET !) INH SCH (08:25)
[2018-08-08] MEDS: Mometasone/Formoter 200/5 MDI INH SCH ×2 (08:26→14:01)
[2018-08-08] MEDS: Oxybutynin XL TAB* 5 MG PO SCH (09:53)
[2018-08-08] MEDS: Folic Acid TAB* 1 MG PO SCH (09:53)
[2018-08-08] MEDS: guaiFENesin ER TAB 600 MG PO SCH ×2 (09:53→11:27)
[2018-08-08] MEDS: Nystatin SUSPENSION* 100000 UNITS/ML 5 ML UDC PO SCH ×4 (09:53→20:17)
[2018-08-08] MEDS: Omeprazole CAP* 20 MG PO SCH (09:53)
[2018-08-08] MEDS: Atorvastatin* 10 MG TAB PO SCH (09:53)
--- NOTE | 2018-08-08 13:46 | PN ---
Subjective Date of Service: 08/08/18 Interval History: patient reports she feels a little better today but continues to feel "very winded" and "sob" with exertion. Denies CP. No cough or sputum production. No fevers or chills. Reports good appetite. Objective Active Medications: Acetaminophen (Tylenol Tab*) 650 mg PO Q4H PRN PRN Reason: FEVER/PAIN Last Admin: 08/03/18 09:13 Dose: 650 mg Albuterol (Ventolin Hfa Inhaler*) 1 puff INH Q6H PRN PRN Reason: SHORTNESS OF BREATH Albuterol/Ipratropium (Duoneb (Albuterol 2.5 Mg/Ipratropium 0.5 Mg)) 1 neb INH [id number] AWAKE PRN PRN Reason: SOB/WHEEZING Atorvastatin Calcium (Lipitor*) 10 mg PO DAILY [facility] Last Admin: 08/08/18 09:53 Dose: 10 mg Benzonatate (Tessalon Cap*) 100 mg PO Q12H [facility] Last Admin: 08/08/18 05:52 Dose: 100 mg Buspirone HCl (Buspar Tab*) 10 mg PO TID PRN PRN Reason: ANXIETY Last Admin: 08/07/18 19:52 Dose: 10 mg Cyclobenzaprine HCl (Flexeril Tab*) 10 mg PO TID PRN PRN Reason: PAIN Device (Tiotropium Inhaler Device*) 1 each .SEE ORDER .USE w/ SPIRIVA CAPS [facility] Folic Acid (Folvite Tab*) 1 mg PO DAILY [facility] Last Admin: 08/08/18 09:53 Dose: 1 mg Gabapentin (Neurontin Cap(*)) 300 mg PO BID PRN PRN Reason: PAIN Last Admin: 08/01/18 08:49 Dose: 300 mg Guaifenesin (Mucinex*) 600 mg PO BID [facility] Last Admin: 08/08/18 11:27 Dose: 600 mg Heparin Sodium (Porcine) (Heparin Vial(*)) 5,000 units SUBCUT Q8HR [facility] Last Admin: 08/08/18 05:05 Dose: 5,000 units Ceftriaxone Sodium 1 gm/ (Sodium Chloride) 50 mls @ 200 mls/hr IVPB Q24H [facility] Last Admin: 08/07/18 22:03 Dose: 200 mls/hr Azithromycin 500 mg/ Sodium (Chloride) 250 mls @ 250 mls/hr IVPB Q24H [facility] Last Admin: 08/07/18 23:18 Dose: 250 mls/hr Ibuprofen (Motrin Tab*) 600 mg PO Q6H PRN PRN Reason: PAIN Methylprednisolone Sodium Succinate (Solu-Medrol 40 Mg) 40 mg IV 0600,1400, 2200 [facility] Last Admin: 08/08/18 05:09 Dose: 40 mg Mirtazapine (Remeron Tab*) 15 mg PO BEDTIME PRN PRN Reason: SLEEP Last Admin: 08/07/18 19:50 Dose: 15 mg Mometasone Furoate/Formoterol Fumar (Dulera 200/5 Mdi*) 2 puff INH BID@0900, 1500 [facility] Last Admin: 08/08/18 08:26 Dose: 2 puff Nystatin (Nystatin Suspension*) 500,000 units PO QID [facility] Stop: 08/13/18 10:25 Last Admin: 08/08/18 12:28 Dose: Not Given Omeprazole (Prilosec Cap*) 20 mg PO DAILY [facility] Last Admin: 08/08/18 09:53 Dose: 20 mg Oxybutynin Chloride (Ditropan Xl Tab*) 10 mg PO DAILY [facility] Last Admin: 08/08/18 09:53 Dose: 10 mg Tiotropium [place] (Spiriva Cap.Inh*) 1 cap INH DAILY [facility] Last Admin: 08/08/18 08:25 Dose: 1 cap Vital Signs - 8 hr 08/08/18 08/08/18 08/08/18 07:40 08:00 08:30 Temperature 97.6 F Pulse Rate 51 70 Respiratory 16 16 14 Rate Blood Pressure 146/79 (mmHg) O2 Sat by Pulse 99 99 Oximetry 08/08/18 11:01 Temperature 98.4 F Pulse Rate 73 Respiratory 16 Rate Blood Pressure 160/84 (mmHg) O2 Sat by Pulse 97 Oximetry Oxygen Devices in Use Now: Nasal Cannula Appearance: 63 to female sitting up on the side of the bed A+O x3 - Eyes: No Scleral Icterus, PERRLA Ears/Nose/Mouth/Throat: - - upper dentures, no lower dentures or teeth Neck: NL Appearance and Movements; NL JVP Respiratory: Symmetrical Chest Expansion and Respiratory Effort, - - diminished b/l Cardiovascular: NL Sounds; No Murmurs; No JVD, RRR, No Edema Extremities: No Edema, No Clubbing, Cyanosis Skin: No Rash or Ulcers, No Nodules or Sclerosis Neurological: Alert and Oriented x 3, NL Sensation, NL Muscle Strength and Tone Lines/Tubes/Other Access: Clean, Dry and Intact Peripheral IV Nutrition: Taking PO's Result Diagrams: 08/07/18 05:45 08/07/18 05:45 Microbiology and Other Data: . Diagnostic Imaging: Patient Name: WILLIAM RED Medical Record#: [id number] Ordering Physician: Jeanie Posey NP Acct.#: [id number] : 1955 Age: 63 Sex: F Location[facility] Exam Date: 07/30/182111 ADM Status: ADM IN Order Information: CTA CHEST Accession Number: [id number] CPT: 62479 EXAM: CT Angiography Chest With Intravenous Contrast EXAM DATE/TIME: 07/30/2018 9:44 PM CLINICAL HISTORY: 63 years old, female; Signs and symptoms; Shortness of breath and wheezing TECHNIQUE: Axial computed tomographic angiography images of the chest with intravenous contrast using CT angiography protocol. All CT scans at this facility use at least one of these dose optimization techniques: automated exposure control; mA and/or kV adjustment per patient size (includes targeted exams where dose is matched to clinical indication); or iterative reconstruction. Coronal and sagittal reformatted images were created and reviewed. MIP reconstructed images were created and reviewed. CONTRAST: 72 ml of OM 350 administered intravenously. COMPARISON: OT CXR PORTAP CHEST AP PORTABLE 07/30/2018 6:51 PM FINDINGS: Pulmonary arteries: Pulmonary arteries are well opacified to the subsegmental branches. Normal caliber main pulmonary artery. No filling defects throughout the pulmonary artery tree. Aorta: The aorta demonstrates mild atherosclerotic calcification. Thyroid: No thyroid nodules. Lungs: Moderate centrilobular emphysematous disease. Parenchymal scarring medial left upper lobe. Groundglass nodule apical posterior segment right upper lobe measuring 0.5 cm (series 3, image 12). Angular solid nodule antra segment left upper lobe measuring 0.7 cm (series 3, image 16). Multiple additional small pulmonary nodules including superior segment left lower lobe measuring 0.3 cm (series 3, image 24) and after segment right upper lobe measuring 0.3 cm (series 3, image 29). No consolidation or masses. Calcified granuloma medial basal segment right lower lobe. No bronchiectasis, peribronchial thickening, or luminal defects. Pleural space: Normal. No pneumothorax. No pleural effusion. Heart: Normal. No cardiomegaly. No pericardial effusion. Lymph nodes: Normal. No enlarged lymph nodes. Bones/joints: The thoracic spine demonstrates mild degenerative changes at multiple levels. No fractures. No suspicious bone lesions. Soft tissues: Normal. IMPRESSION: 1. No pulmonary emboli. 2. Emphysema with multiple pulmonary nodules largest measuring 7 mm. Based on current Neftaly criteria, if high risk followup chest CT in 6-12 months and 18-24 months. Assess/Plan/Problems-Billing Assessment: This is a 63 yo female with a PMH of COPD on 2L NC PRN at home with recent diagnosis of breast cancer who was admitted on 07/31/18 with COPD exacerbation. - Patient Problems (1) Acute and chronic respiratory failure with hypoxia Comment: - Slow to improve - O2 continues to be titrated, now on 3L NC - Combination of CAP/COPD exac - treat with course of azithro and ceftriaxone - Continue duoneb Q4h with flutter valve, mucinex BID, albutetol PRN, Spiriva, continue dulera (autosub for advair) - Taper steroids (2) COPD exacerbation Comment: - Slow improvement, remains on 3L NC - With component of pneumonia with sputum cultures positive for haemophilus influenzae and MSSA. CT on arrrival without apparent infiltrate. - Continue prednisone, nebulizers, inhalers, (3) Anxiety Comment: - Continue buspar (4) Breast cancer Comment: - Diagnosed last Sunday via MRI/US - Oncology consult appreciated, recommended FNA - FNA with Dr. Smalls did not yield adequate tissue/result, core biopsy recommended - Discussed with ONC Lenny CALVIN today - plan for follow up FNA and PET scan next week - ONC office is coordinating with patient (5) GERD (gastroesophageal reflux disease) Comment: - Omeprazole daily (6) Pulmonary nodules Comment: - Pt to undergo PET scan per ONC (7) DVT prophylaxis Comment: - Heparin SQ (8) Full code status Comment: Status and Disposition: Inpatient. Anticipate discharge to home when medically stable. Likely 1-2 days, as she continues to improve slowly
[2018-08-08] MEDS: Mirtazapine TAB* 15 MG PO PRN (20:15)
[2018-08-08] MEDS: busPIRone TAB* 10 MG PO PRN (20:15)
[2018-08-09] MEDS: Heparin VIAL(*) 5000 UNITS/ML VIAL (FIVE THOUSAND) SUBCUT SCH ×3 (05:49→23:10)
[2018-08-09 06:27] LABS: Hematocrit 38 % (35-47); Hemoglobin 12.5 g/dl (12.0-16.0); Mean Corpuscular HGB Conc 33 g/dl (31-36); Mean Corpuscular Hemoglobin 29 pg (27-31); Mean Corpuscular Volume 87 fL (80-97); Mean Platelet Volume 7.9 fL (7.4-10.4); Platelet Count 245 10^3/ul (150-450); Red Blood Count 4.37 10^6/ul (4.00-5.40); Red Cell Distribution Width 15 % (10.5-15); White Blood Count 13.8 10^3/ul (3.5-10.8)
[2018-08-09 06:46] LABS: BUN/Creatinine Ratio 38.6 (8-20); Calcium 8.1 mg/dL (8.6-10.3); EGFR Non-African American 107.8 (>60); Potassium 3.9 mmol/L (3.5-5.0)
[2018-08-09] MEDS: Tiotropium CAP.INH* CAP.INH/18 MCG (USE ORDER SET !) INH SCH (07:52)
[2018-08-09] MEDS: Mometasone/Formoter 200/5 MDI INH SCH ×2 (07:52→14:44)
[2018-08-09 07:59] LABS: ABS Basophils 0 10^3/ul (0-0.2); ABS Eosinophils 0 10^3/ul (0-0.6); ABS Monocytes 0.7 10^3/ul (0-0.8); ABS Nucleated RBC 0 10^3/ul; Eosinophil % 0.3 %; Lymphocyte % 21.9 %; Nucleated Red Blood Cells % 0.1
[2018-08-09] MEDS: Nystatin SUSPENSION* 100000 UNITS/ML 5 ML UDC PO SCH ×5 (08:53→19:57)
[2018-08-09] MEDS: Atorvastatin* 10 MG TAB PO SCH (08:55)
[2018-08-09] MEDS: Omeprazole CAP* 20 MG PO SCH (08:55)
[2018-08-09] MEDS: Folic Acid TAB* 1 MG PO SCH (08:55)
[2018-08-09] MEDS: Oxybutynin XL TAB* 5 MG PO SCH (08:55)
[2018-08-09] MEDS ORDERED: predniSONE TAB* 20 MG PO SCH (09:00)
--- NOTE | 2018-08-09 18:12 | PN ---
Subjective Date of Service: 08/09/18 Interval History: Patient reports she "feels terrible" continues to have wheezing and SOB with exertion. Reports her cough is improving and not bringing up a lot of sputum. No fevers or chills. Reports good appetite. Objective Active Medications: Acetaminophen (Tylenol Tab*) 650 mg PO Q4H PRN PRN Reason: FEVER/PAIN Last Admin: 08/03/18 09:13 Dose: 650 mg Albuterol (Ventolin Hfa Inhaler*) 1 puff INH Q6H PRN PRN Reason: SHORTNESS OF BREATH Albuterol/Ipratropium (Duoneb (Albuterol 2.5 Mg/Ipratropium 0.5 Mg)) 1 neb INH [id number] AWAKE PRN PRN Reason: SOB/WHEEZING Last Admin: 08/09/18 12:24 Dose: 1 neb Atorvastatin Calcium (Lipitor*) 10 mg PO DAILY [facility] Last Admin: 08/09/18 08:55 Dose: 10 mg Buspirone HCl (Buspar Tab*) 10 mg PO TID PRN PRN Reason: ANXIETY Last Admin: 08/08/18 20:15 Dose: 10 mg Cyclobenzaprine HCl (Flexeril Tab*) 10 mg PO TID PRN PRN Reason: PAIN Device (Tiotropium Inhaler Device*) 1 each .SEE ORDER .USE w/ SPIRIVA CAPS [facility] Folic Acid (Folvite Tab*) 1 mg PO DAILY [facility] Last Admin: 08/09/18 08:55 Dose: 1 mg Gabapentin (Neurontin Cap(*)) 300 mg PO BID PRN PRN Reason: PAIN Last Admin: 08/01/18 08:49 Dose: 300 mg Heparin Sodium (Porcine) (Heparin Vial(*)) 5,000 units SUBCUT Q8HR [facility] Last Admin: 08/09/18 15:23 Dose: 5,000 units Ibuprofen (Motrin Tab*) 600 mg PO Q6H PRN PRN Reason: PAIN Mirtazapine (Remeron Tab*) 15 mg PO BEDTIME PRN PRN Reason: SLEEP Last Admin: 08/08/18 20:15 Dose: 15 mg Mometasone Furoate/Formoterol Fumar (Dulera 200/5 Mdi*) 2 puff INH BID@0900, 1500 [facility] Last Admin: 08/09/18 14:44 Dose: 2 puff Nystatin (Nystatin Suspension*) 500,000 units PO QID [facility] Stop: 08/13/18 10:25 Last Admin: 08/09/18 15:29 Dose: Not Given Omeprazole (Prilosec Cap*) 20 mg PO DAILY [facility] Last Admin: 08/09/18 08:55 Dose: 20 mg Oxybutynin Chloride (Ditropan Xl Tab*) 10 mg PO DAILY [facility] Last Admin: 08/09/18 08:55 Dose: 10 mg Prednisone (Deltasone Tab*) 60 mg PO DAILY [facility] Last Admin: 08/09/18 08:55 Dose: 60 mg Tiotropium [place] (Spiriva Cap.Inh*) 1 cap INH DAILY [facility] Last Admin: 08/09/18 07:52 Dose: 1 cap Vital Signs - 8 hr 08/09/18 08/09/18 11:35 12:26 Temperature 97.3 F Pulse Rate 64 63 Respiratory 16 15 Rate Blood Pressure 113/42 (mmHg) O2 Sat by Pulse 100 98 Oximetry Oxygen Devices in Use Now: Nasal Cannula Appearance: 63 yo female A+O x3 in NAD Eyes: No Scleral Icterus, PERRLA Ears/Nose/Mouth/Throat: NL Teeth, Lips, Gums, Mucous Membranes Moist Neck: NL Appearance and Movements; NL JVP Respiratory: Symmetrical Chest Expansion and Respiratory Effort, - - diminished b/l Cardiovascular: NL Sounds; No Murmurs; No JVD, RRR, No Edema Abdominal: NL Sounds; No Tenderness; No Distention Extremities: No Edema, No Clubbing, Cyanosis Skin: No Rash or Ulcers, No Nodules or Sclerosis Neurological: Alert and Oriented x 3, NL Sensation, NL Gait, NL Muscle Strength and Tone Lines/Tubes/Other Access: Clean, Dry and Intact Peripheral IV Nutrition: Taking PO's Result Diagrams: 08/09/18 06:13 08/09/18 06:13 Microbiology and Other Data: . Assess/Plan/Problems-Billing Assessment: This is a 63 yo female with a PMH of COPD on 2L NC PRN at home with recent diagnosis of breast cancer who was admitted on 07/31/18 with COPD exacerbation. - Patient Problems (1) Acute and chronic respiratory failure with hypoxia Comment: - Continues to have slow improvement but appears a little better today - O2 continues to be titrated, now on 3L NC - Combination of CAP/COPD exac - treated with course of azithro and ceftriaxone - Continue duoneb Q4h with flutter valve, mucinex BID, albutetol PRN, Spiriva, continue dulera (autosub for advair) - Taper steroids (2) COPD exacerbation Comment: - Slow improvement, remains on 3L NC - With component of pneumonia with sputum cultures positive for haemophilus influenzae and MSSA. CT on arrrival without apparent infiltrate. - Continue prednisone, nebulizers, inhalers, (3) Anxiety Comment: - Continue buspar (4) Breast cancer Comment: - Diagnosed last Sunday via MRI/US - Oncology consult appreciated, recommended FNA - FNA with Dr. Smalls did not yield adequate tissue/result, core biopsy recommended - Discussed with ONC Lenny CALVIN today - plan for follow up FNA and PET scan next week - ONC office is coordinating with patient (5) GERD (gastroesophageal reflux disease) Comment: - Omeprazole daily (6) Pulmonary nodules Comment: - Pt to undergo PET scan per ONC (7) DVT prophylaxis Comment: - Heparin SQ (8) Full code status Comment: Status and Disposition: Inpatient. Anticipate discharge to home when medically stable. Possible DC to home tomorrow.
[2018-08-09] MEDS: Mirtazapine TAB* 15 MG PO PRN (19:59)
[2018-08-09] MEDS: busPIRone TAB* 10 MG PO PRN (19:59)
[2018-08-10] MEDS: Heparin VIAL(*) 5000 UNITS/ML VIAL (FIVE THOUSAND) SUBCUT SCH (05:29)
[2018-08-10] MEDS: Tiotropium CAP.INH* CAP.INH/18 MCG (USE ORDER SET !) INH SCH (08:01)
[2018-08-10] MEDS: Mometasone/Formoter 200/5 MDI INH SCH (08:01)
[2018-08-10] MEDS ORDERED: predniSONE TAB* 50 MG PO SCH (09:00)
[2018-08-10] MEDS: Omeprazole CAP* 20 MG PO SCH (09:11)
[2018-08-10] MEDS: Atorvastatin* 10 MG TAB PO SCH (09:11)
[2018-08-10] MEDS: Folic Acid TAB* 1 MG PO SCH (09:11)
[2018-08-10] MEDS: Oxybutynin XL TAB* 5 MG PO SCH (09:11)
[2018-08-10] MEDS: Nystatin SUSPENSION* 100000 UNITS/ML 5 ML UDC PO SCH (09:11)
--- NOTE | 2018-08-10 13:44 | PN ---
Subjective Date of Service: 08/10/18 Interval History: Pt reports she is "feeling so much better and want to go home". She is off O2, ambulating in hallway w/o SOB. Cough resolved. No wheezing. No fevers and chills. Objective Active Medications: Acetaminophen (Tylenol Tab*) 650 mg PO Q4H PRN PRN Reason: FEVER/PAIN Last Admin: 08/03/18 09:13 Dose: 650 mg Albuterol (Ventolin Hfa Inhaler*) 1 puff INH Q6H PRN PRN Reason: SHORTNESS OF BREATH Albuterol/Ipratropium (Duoneb (Albuterol 2.5 Mg/Ipratropium 0.5 Mg)) 1 neb INH [id number] AWAKE PRN PRN Reason: SOB/WHEEZING Last Admin: 08/09/18 12:24 Dose: 1 neb Atorvastatin Calcium (Lipitor*) 10 mg PO DAILY [facility] Last Admin: 08/10/18 09:11 Dose: 10 mg Buspirone HCl (Buspar Tab*) 10 mg PO TID PRN PRN Reason: ANXIETY Last Admin: 08/09/18 19:59 Dose: 10 mg Cyclobenzaprine HCl (Flexeril Tab*) 10 mg PO TID PRN PRN Reason: PAIN Device (Tiotropium Inhaler Device*) 1 each .SEE ORDER .USE w/ SPIRIVA CAPS [facility] Folic Acid (Folvite Tab*) 1 mg PO DAILY [facility] Last Admin: 08/10/18 09:11 Dose: 1 mg Gabapentin (Neurontin Cap(*)) 300 mg PO BID PRN PRN Reason: PAIN Last Admin: 08/01/18 08:49 Dose: 300 mg Heparin Sodium (Porcine) (Heparin Vial(*)) 5,000 units SUBCUT Q8HR [facility] Last Admin: 08/10/18 05:29 Dose: 5,000 units Ibuprofen (Motrin Tab*) 600 mg PO Q6H PRN PRN Reason: PAIN Mirtazapine (Remeron Tab*) 15 mg PO BEDTIME PRN PRN Reason: SLEEP Last Admin: 08/09/18 19:59 Dose: 15 mg Mometasone Furoate/Formoterol Fumar (Dulera 200/5 Mdi*) 2 puff INH BID@0900, 1500 [facility] Last Admin: 08/10/18 08:01 Dose: 2 puff Nystatin (Nystatin Suspension*) 500,000 units PO QID [facility] Stop: 08/13/18 10:25 Last Admin: 08/10/18 09:11 Dose: 500,000 units Omeprazole (Prilosec Cap*) 20 mg PO DAILY [facility] Last Admin: 08/10/18 09:11 Dose: 20 mg Oxybutynin Chloride (Ditropan Xl Tab*) 10 mg PO DAILY [facility] Last Admin: 08/10/18 09:11 Dose: 10 mg Prednisone (Deltasone Tab*) 50 mg PO DAILY [facility] Last Admin: 08/10/18 09:11 Dose: 50 mg Tiotropium [place] (Spiriva Cap.Inh*) 1 cap INH DAILY [facility] Last Admin: 08/10/18 08:01 Dose: 1 cap Vital Signs - 8 hr 08/10/18 08/10/18 08/10/18 07:43 08:00 08:04 Temperature 97.3 F Pulse Rate 58 68 Respiratory 16 18 16 Rate Blood Pressure 138/74 (mmHg) O2 Sat by Pulse 99 98 Oximetry 08/10/18 08/10/18 11:04 13:01 Temperature 98.6 F Pulse Rate 77 Respiratory 18 Rate Blood Pressure 150/72 (mmHg) O2 Sat by Pulse 99 97 Oximetry Oxygen Devices in Use Now: Nasal Cannula Appearance: A+Ox3 63 yo female sitting up at the side of the bed in NAD Eyes: No Scleral Icterus, PERRLA Ears/Nose/Mouth/Throat: NL Teeth, Lips, Gums, Mucous Membranes Moist Neck: NL Appearance and Movements; NL JVP Respiratory: Symmetrical Chest Expansion and Respiratory Effort, Clear to Auscultation Cardiovascular: NL Sounds; No Murmurs; No JVD, RRR, No Edema Abdominal: NL Sounds; No Tenderness; No Distention Extremities: No Edema, No Clubbing, Cyanosis Skin: No Rash or Ulcers, No Nodules or Sclerosis Neurological: Alert and Oriented x 3, NL Sensation, NL Gait, NL Muscle Strength and Tone Lines/Tubes/Other Access: Clean, Dry and Intact Peripheral IV Nutrition: Taking PO's Result Diagrams: 08/09/18 06:13 08/09/18 06:13 Microbiology and Other Data: . Diagnostic Imaging: Patient Name: WILLIAM RED Medical Record#: [id number] Ordering Physician: Jeanie Posey NP Acct.#: [id number] : 1955 Age: 63 Sex: F Location: INTENSIVE CARE UNIT Exam Date: 07/30/182111 ADM Status: ADM IN Order Information: CTA CHEST Accession Number: [id number] CPT: 10330 EXAM: CT Angiography Chest With Intravenous Contrast EXAM DATE/TIME: 07/30/2018 9:44 PM CLINICAL HISTORY: 63 years old, female; Signs and symptoms; Shortness of breath and wheezing TECHNIQUE: Axial computed tomographic angiography images of the chest with intravenous contrast using CT angiography protocol. All CT scans at this facility use at least one of these dose optimization techniques: automated exposure control; mA and/or kV adjustment per patient size (includes targeted exams where dose is matched to clinical indication); or iterative reconstruction. Coronal and sagittal reformatted images were created and reviewed. MIP reconstructed images were created and reviewed. CONTRAST: 72 ml of OM 350 administered intravenously. COMPARISON: OT CXR PORTAP CHEST AP PORTABLE 07/30/2018 6:51 PM FINDINGS: Pulmonary arteries: Pulmonary arteries are well opacified to the subsegmental branches. Normal caliber main pulmonary artery. No filling defects throughout the pulmonary artery tree. Aorta: The aorta demonstrates mild atherosclerotic calcification. Thyroid: No thyroid nodules. Lungs: Moderate centrilobular emphysematous disease. Parenchymal scarring medial left upper lobe. Groundglass nodule apical posterior segment right upper lobe measuring 0.5 cm (series 3, image 12). Angular solid nodule antra segment left upper lobe measuring 0.7 cm (series 3, image 16). Multiple additional small pulmonary nodules including superior segment left lower lobe measuring 0.3 cm (series 3, image 24) and after segment right upper lobe measuring 0.3 cm (series 3, image 29). No consolidation or masses. Calcified granuloma medial basal segment right lower lobe. No bronchiectasis, peribronchial thickening, or luminal defects. Pleural space: Normal. No pneumothorax. No pleural effusion. Heart: Normal. No cardiomegaly. No pericardial effusion. Lymph nodes: Normal. No enlarged lymph nodes. Bones/joints: The thoracic spine demonstrates mild degenerative changes at multiple levels. No fractures. No suspicious bone lesions. Soft tissues: Normal. IMPRESSION: 1. No pulmonary emboli. 2. Emphysema with multiple pulmonary nodules largest measuring 7 mm. Based on current Neftaly criteria, if high risk followup chest CT in 6-12 months and 18-24 months. Assess/Plan/Problems-Billing Assessment: This is a 63 yo female with a PMH of COPD on 2L NC PRN at home with recent diagnosis of breast cancer who was admitted on 07/31/18 with COPD exacerbation. - Patient Problems (1) Acute and chronic respiratory failure with hypoxia Comment: - Much better today - off oxygen - Combination of CAP/COPD exac - treated with course of azithro and ceftriaxone - Continue flutter valve, mucinex BID, albutetol PRN, Spiriva, continue dulera (autosub for advair) - Taper steroids (2) COPD exacerbation Comment: - Slow improvement, remains on 3L NC - With component of pneumonia with sputum cultures positive for haemophilus influenzae and MSSA. CT on arrrival without apparent infiltrate. - Continue prednisone, nebulizers, inhalers (3) Anxiety Comment: - Continue buspar (4) Breast cancer Comment: - Diagnosed last Sunday via MRI/US - Oncology consult appreciated, recommended FNA - FNA with Dr. Smalls did not yield adequate tissue/result, core biopsy recommended - Discussed with ONC Lenny CALVIN - plan for follow up FNA and PET scan next week - ONC office is coordinating with patient (5) GERD (gastroesophageal reflux disease) Comment: - Omeprazole daily (6) Pulmonary nodules Comment: - Pt to undergo PET scan per ONC (7) DVT prophylaxis Comment: - Heparin SQ (8) Full code status Comment: Status and Disposition: Inpatient. DC to home today
[2018-08-10 13:47] VITALS: BP 138/64
--- NOTE | 2018-08-11 01:11 | DS ---
CC: Elías Moore NP. * DISCHARGE SUMMARY: DATE OF ADMISSION: 07/30/18 DATE OF DISCHARGE: 08/10/18 PROVIDER: Jani Mills NP ATTENDING PHYSICIAN: Dr. Thomas * (report dictated by Molly Mills NP). PRIMARY CARE PROVIDER: Elías Moore NP. CONSULTING ONCOLOGIST: Dr. Cooper. DISCHARGE DIAGNOSES: 1. Acute respiratory failure secondary to chronic obstructive pulmonary disease exacerbation. 2. Recently diagnosed breast mass. SECONDARY DIAGNOSES: 1. Arthritis. 2. Psoriasis. 3. Obesity. 4. Hyperlipidemia. 5. Gastroesophageal reflux disease. 6. History transient ischemic attack. 7. Incontinent of urine. 8. Attention deficit disorder. HISTORY OF PRESENT ILLNESS AND HOSPITAL COURSE: Please see history and physical by Jeanie Posey NP, for full admission details, but in summary, this is a 63-year- old female with a past medical history of severe COPD, on intermittent oxygen at home, who presented to the emergency department on with complaints of shortness of breath, who was placed on Vapotherm on admission and admitted to the intensive care unit. Patient was started on antibiotics, nebulizers, and IV steroids. Patient was seen in consultation by material yard clerk, Dr. Patel, who agreed with the outlined plan. It was suspected the patient had acute on chronic hypoxic respiratory failure, suspected acute bronchitis, possible pneumonia. The patient's sputum grew Haemophilus influenzae and Staphylococcal aureus. She was treated with a course of azithromycin and ceftriaxone. She was very slow to recover with many days of shortness of breath with exertion, diminished lungs, and wheezing. In the past 48 hours, she has had great improvement and is stable for discharge home today. She was seen in consultation by Dr. Cooper, oncologist, for a right breast mass, which she recently underwent a mammogram on 07/26/18 and was concerning for breast cancer. She did have an attempted FNA with Dr. Ramsey, which did not yield adequate tissue results and core biopsy was recommended. NIKUNJ Jerez, Oncology has helped to schedule the patient for a followup FNA and PET scan at the end of this week. The oncology office has been coordinating with the patient. The patient underwent a CTA of the chest showing emphysema with multiple pulmonary nodules with the largest measuring 7 mm. No pulmonary emboli. I discussed the results of the CTA with Oncology, who state the next would be a PET scan and is unclear at this time if this is a metastasis or primary lesion or not. The patient has done well throughout her hospitalization. She reports today that she feels optimistic and is keeping a "positive attitude." She reports that she has good support from friends and the family. Patient had negative blood cultures x2 and a negative urine culture. Negative urine antigens for Legionella and S. pneumoniae. The patient has been sent home on Norvasc 5 mg p.o. daily, which is the new medication. Per patient, she reports that she has a history of low blood pressure, however, she does state that she has been checking it recently at the store and it is noted that it has been "creeping up." Throughout hospitalization, she has been between 110 and 150. She will be sent home on Norvasc 5 mg p.o. daily. It is possibly secondary to the steroids, however, it does sound that may be she was having some high numbers prior to hospitalization. DISCHARGE MEDICATIONS: 1. Advair 500-50 one puff 1 INH b.i.d. 2. Ellipta 62.5 one INH b.i.d. 3. Lipitor 10 mg p.o. daily. 4. BuSpar 10 mg p.o. t.i.d. 5. Mirtazapine 50 mg p.o. at bedtime p.r.n. 6. Gabapentin 300 mg p.o. b.i.d. p.r.n. 7. Protonix 40 mg p.o. daily. 8. Albuterol HFA inhaler 1 puff INH q.6 hours p.r.n. 9. Ritalin 60 mg p.o. q.a.m. 10. Ritalin 20 mg p.o. at noon. 11. Detrol LA 4 mg p.o. daily. 12. Flexeril 10 mg p.o. t.i.d. p.r.n. 13. Folic acid 1 mg p.o. daily. 14. Prednisone taper 40 mg daily x2, 30 mg daily x2, 20 mg daily x2, 10 mg daily x2, then stop. 15. Norvasc 5 mg p.o. daily. DISCHARGE PLAN: 1. The patient is stable for discharge to home. She has ambulated in the hallway on room air and maintains oxygenation saturation of greater than 95%. The patient is not dyspneic with exertion. The patient has been treated with a full course of antibiotics for bronchitis versus pneumonia. She will continue on prednisone taper. 2. Follow up with Elías Moore NP within 3 to 5 days. 3. Follow up with Dr. Cooper's office as previously arranged with the patient. She is to undergo a PET scan and a biopsy at the end of week on and Sunday. TIME SPENT: Approximately 60 minutes were spent on this discharge. MOLLY MILLS NP [id number]/[facility] #: [id number] JARETH
== END 2018-08-10 14:11 | disposition home or self-care (01) | DRG 140 ==
LOC: ED 17:59 → ICU 21:20 → MED 07-31 13:23
PROVIDERS: ADMIT Pediatrics; ATTEND Internal Medicine Critical Care Medicine
PROC: 0HBT3ZX Excision of Right Breast, Percutaneous Approach, Diagnostic (ICD-10-PCS; principal; 2018-08-06)
DX: J43.9 Emphysema, unspecified (principal); J15.211 Pneumonia due to Methicillin susceptible Staphylococcus aureus; J14 Pneumonia due to Hemophilus influenzae; J96.21 Acute and chronic respiratory failure with hypoxia; J44.0 Chronic obstructive pulmonary disease with (acute) lower respiratory infection; C50.911 Malignant neoplasm of unspecified site of right female breast; K21.9 Gastro-esophageal reflux disease without esophagitis; E78.5 Hyperlipidemia, unspecified; M19.90 Unspecified osteoarthritis, unspecified site; E66.9 Obesity, unspecified; F90.9 Attention-deficit hyperactivity disorder, unspecified type; L40.9 Psoriasis, unspecified; F41.9 Anxiety disorder, unspecified; R91.8 Other nonspecific abnormal finding of lung field; J20.9 Acute bronchitis, unspecified; Z79.52 Long term (current) use of systemic steroids; Z98.51 Tubal ligation status; Z88.8 Allergy status to other drugs, medicaments and biological substances; Z87.891 Personal history of nicotine dependence; Z83.3 Family history of diabetes mellitus; Z80.3 Family history of malignant neoplasm of breast; Z82.49 Family history of ischemic heart disease and other diseases of the circulatory system; Z86.73 Personal history of transient ischemic attack (TIA), and cerebral infarction without residual deficits; Z99.81 Dependence on supplemental oxygen; Z68.28 Body mass index [BMI] 28.0-28.9, adult
CPT/HCPCS: 10021; 36415; 71045; 71275; 80048; 80053; 81003; 81015; 82803; 83036; 83605; 84145; 84443; 84484; 85025; 85027; 87040; 87070; 87077; 87086; 87186; 87205; 87641; 87899; 88172; 88173; 88305; 93005; 94640; 99215; 99232; 99284; A9270-GY; J0456; J0696; J1644; J2920; J2930; J3480; J7512; J7611; Q9967

== ENCOUNTER 2018-08-12 10:53 | Emergency (ER) | payer OTHER ==
--- NOTE | 2018-08-12 11:11 | ED ---
Complex/Multi-Sys Presentation - HPI Summary HPI Summary: The pt is a 63 y/o female presenting to [facility] [place] [place] c/o SOB worsened today. She notes abd pain, dehydration, dyspnea, tongue blisters and elevated blood pressure and blisters but denies CP. She was discharged from [facility] [place] [place] 2 days ago after being hospitalized for 11 days during which they diagnosed her with breast and lung CA. The add pain is rated 3/10 in severity and is alleviated by ice water. She denies and hx of thyroid problems. PMhx: COPD, panic attacks (none recently ). She denies EtOH and drug use today. Home Medications Medication Instructions Recorded Confirmed Type Gabapentin CAP(*) [Neurontin 300 300 mg PO BID PRN 05/25/16 08/12/18 History CAP(*)] Ibuprofen TAB* [Motrin TAB* 600 MG] 600 mg PO Q6H PRN 05/25/16 08/12/18 History Mirtazapine TAB* [Remeron TAB*] 15 mg PO BEDTIME PRN 05/25/16 08/12/18 History Pantoprazole TAB (NF) [Protonix 40 mg PO DAILY 05/25/16 08/12/18 History TAB (NF)] Tolterodine LA (NF) [Detrol LA 4 mg PO DAILY 05/25/16 08/12/18 History (NF)] busPIRone TAB* [Buspar TAB*] 10 mg PO TID PRN 05/25/16 08/12/18 History Albuterol HFA INHALER* [Ventolin 1 puff INH Q6H PRN 07/30/18 08/12/18 History HFA Inhaler*] Atorvastatin* [Lipitor 10 MG*] 10 mg PO DAILY 07/30/18 08/12/18 History Cyclobenzaprine TAB* [Flexeril 10 10 mg PO TID PRN 07/30/18 08/12/18 History MG TAB*] Fluticasone-Salmeterol 500-50* 1 puff INH BID 07/30/18 08/12/18 History [Advair Diskus 500-50*] Folic Acid TAB* [Folvite TAB*] 1 mg PO DAILY 07/30/18 08/12/18 History Methylphenidate HCl [Ritalin] 20 mg PO 1200 07/30/18 08/12/18 History Methylphenidate HCl [Ritalin] 60 mg PO QAM 07/30/18 08/12/18 History Umeclidinium 62.5 MDI(NF) [Incruse 1 inh INH BID 07/30/18 08/12/18 History ELLIPTA MDI (NF)] amLODIPine TAB* [Norvasc 5 mg TAB*] 5 mg PO DAILY #30 tab 08/10/18 08/12/18 Rx predniSONE TAB* [Deltasone 10 MG 10 mg PO DAILY #20 tab 08/10/18 08/12/18 Rx TAB*] - History Of Current Complaint Chief Complaint: EDShortnessOfBreath Time Seen by Provider: 08/12/18 11:01 Hx Obtained From: Patient Onset/Duration: Still Present, Worse Since - Today Timing: Constant Associated Signs And Symptoms: Positive: Abdominal Pain. Negative: Chest Pain - Allergies/Home Medications Allergies/Adverse Reactions: Allergies Allergy/AdvReac Type Severity Reaction Status Date / Time meperidine Allergy Nausea And Verified 08/12/18 10:58 Vomiting pentazocine Allergy Nausea And Verified 08/12/18 10:58 Vomiting PMH/Surg Hx/FS Hx/Imm Hx Previously Healthy: No Endocrine/Hematology History: Denies: Hx Diabetes Cardiovascular History: Reports: Other Cardiovascular Problems/Disorders - PREVIOUS CARDIAC CATH Denies: Hx Congestive Heart Failure, Hx Hypertension, Hx Pacemaker/ICD Respiratory History: Reports: Hx Asthma, Hx Chronic Obstructive Pulmonary Disease (COPD) GI History: Reports: Hx Gastroesophageal Reflux Disease, Other GI Disorders - gerd History: Denies: Hx Renal Disease Musculoskeletal History: Reports: Hx Arthritis, Hx Back Problems Comment Only: Hx Osteoporosis - unsure Sensory History: Reports: Hx Contacts or Glasses Denies: Hx Hearing Aid Opthamlomology History: Reports: Hx Contacts or Glasses Neurological History: Comment Only: Other Neuro Impairments/Disorders - POLYARTHROPATHY Psychiatric History: Reports: Hx Anxiety Denies: Hx Panic Disorder - Cancer History Cancer Type, Location and Year: new diagnosis of breast right sided and lung CA Hx Chemotherapy: No Hx Radiation Therapy: No - Surgical History Surgery Procedure, Year, and Place: tonsills/tubal ligation. fractured ribs 1978 Hx Anesthesia Reactions: No Infectious Disease History: No Infectious Disease History: Denies: Traveled Outside the [place] in Last 30 Days - Family History Known Family History: Positive: Cardiac Disease, Diabetes - Mother, Other - Sister - BREAST CA - Social History Occupation: Disabled Lives: With Family Alcohol Use: None Substance Use Type: Reports: None Smoking Status (MU): Former Smoker Type: Cigarettes Review of Systems Constitutional: Other - Positive: Elevated BP, dehydration Negative: Chest Pain Respiratory: Other - Positive: Dyspnea Positive: Shortness Of Breath Positive: no symptoms reported Skin: Other - Positive: Tongue blisters All Other Systems Reviewed And Are Negative: Yes Physical Exam - Summary Physical Exam Summary: Constitutional: Well-developed, Well-nourished, Alert. (-) Distressed Skin: Warm, Dry.Flush colored blisters on her tongue. HENT: Normocephalic; Atraumatic Eyes: Conjunctiva normal Neck: Musculoskeletal ROM normal neck. (-) JVD, (-) Stridor, (-) Tracheal deviation Cardio: Rhythm regular, rate normal, Heart sounds normal; Intact distal pulses; The pedal pulses are 2+ and symmetric. Radial pulses are 2+ and symmetric. (-) Murmur Pulmonary/Chest wall: Diminished breath sounds bilaterally. Effort normal. (-) Respiratory distress, (-) Wheezes, (-) Rales Abd: Soft, (-) epigastric tenderness, (-) Distension, (-) Guarding, (-) Rebound Musculoskeletal: (-) Edema Lymph: (-) Cervical adenopathy Neuro: Alert, Oriented x3 Psych: Mood and affect Normal Triage Information Reviewed: Yes Vital Signs On Initial Exam: Initial Vitals Temp Pulse Resp BP Pulse Ox 98.4 F 79 22 156/100 98 08/12/18 10:55 08/12/18 10:55 08/12/18 10:55 08/12/18 10:55 08/12/18 10:55 Vital Signs Reviewed: Yes Diagnostics - Vital Signs Vital Signs Temp Pulse Resp BP Pulse Ox 08/12/18 10:55 98.4 F 79 22 156/100 98 - Laboratory Result Diagrams: 08/12/18 11:45 08/12/18 11:45 Lab Statement: Any lab studies that have been ordered have been reviewed, and results considered in the medical decision making process. - Radiology CXR Radiology Interpretation Completed By: Radiologist Summary of Radiographic Findings: IMPRESSION: 1. FINDINGS CONSISTENT WITH COPD , NO EVIDENCE FOR ACUTE FINDING. 2. FINDINGS CONSISTENT WITH OLD GRANULOMATOUS DISEASE. The ED physician reviewed this radiology report. - CT Neck CT CT Interpretation Completed By: Radiologist Summary of CT Findings: IMPRESSION: 1. EMPHYSEMA. 2. POSTSURGICAL CHANGE TO THE NASAL CAVITY. 3. NO ACUTE CT PATHOLOGY OF THE NECK. The ED physician reviewed this radiology report. - EKG 1:53 Cardiac Rate: NL - 68 bpm EKG Rhythm: Sinus Rhythm Summary of EKG Findings: No STEMI. NSR at 68 BPM, P waves, QRS complex, and T waves are within normal limits, T waves and intervals are normal, no ischemic changes. This is a normal EKG Complex Multi-Symp Course/Dx Course Of Treatment: A 63 year-old F presents to the ED with a CC of SOB worsened today. She notes abd pain, dehydration, dyspnea, tongue blisters and elevated blood pressure and blisters but denies CP. A physical exam revealed diminished breath sounds bilaterally and flush-colored blisters on her tongue. A CXR is consistent with COPD and an old granulomatous disease. A neck CT reveals emphysema and no acute pathology of the neck. An EKG is unremarkable. In the ED course, pt was given Albuterol 1 neb INH, Alprazolam 0.5 mg PO, and Iohexol 50 ml IV and Prednisone 40 mg PO which improved the symptoms. Patient will be discharged with a final Dx of anxiety and adjustment disorder. Pt is agreeable with this plan. Allergies noted. - Diagnoses Provider Diagnoses: Anxiety, Adjustment disorder Discharge - Sign-Out/Discharge Documenting (check all that apply): Patient Departure - DC - Discharge Plan Condition: Stable Disposition: HOME Prescriptions: ALPRAZolam TAB* [Xanax TAB*] 0.5 mg PO Q8H PRN #15 tab MDD 3 PRN Reason: Anxiety Patient Education Materials: Stress (ED), Anxiety (ED) Referrals: Elías Moore, LOSS PREVENTION AND SAFETY MANAGER [Primary Care Provider] - Additional Instructions: Use Oxygen at home. Keep your upcoming appointments on and Sunday. Return to ED for any new or worsening symptoms - Billing Disposition and Condition Condition: STABLE Disposition: Home - Attestation Statements Document Initiated by Scribe: Yes Documenting Scribe: Wandy Glynn Provider For Whom Scribe is Documenting (Include Credential): Dr. Ammon Israel MD Scribe Attestation: Wandy Jane , scribed for Dr. Ammon Israel MD on 08/14/18 at 1113. Scribe Documentation Reviewed: Yes Provider Attestation: The documentation as recorded by the scribe, Wandy Glynn accurately reflects the service I personally performed and the decisions made by me, Dr. Ammon Israel MD Status of Scribe Document: Viewed
[2018-08-12] MEDS ORDERED: Albuterol/Ipratropium NEB.SOL* Albuterol 2.5 MG/Ipratropium 0.5 MG 3 ML INH ONE ×2 (11:36→13:27)
[2018-08-12] MEDS ORDERED: ALPRAZolam TAB* 0.5 MG PO ONE (11:36)
[2018-08-12] MEDS ORDERED: Iohexol 300* (CONTRAST) 10 ML SDV IV ONE (11:43)
[2018-08-12 11:52] LABS: Hematocrit 39 % (35-47); Hemoglobin 13.1 g/dl (12.0-16.0); Mean Corpuscular HGB Conc 33 g/dl (31-36); Mean Corpuscular Hemoglobin 29 pg (27-31); Mean Corpuscular Volume 86 fL (80-97); Mean Platelet Volume 7.7 fL (7.4-10.4); Platelet Count 225 10^3/ul (150-450); Red Blood Count 4.53 10^6/ul (4.00-5.40); Red Cell Distribution Width 16 % (10.5-15); White Blood Count 14.5 10^3/ul (3.5-10.8)
[2018-08-12 12:12] LABS: EGFR Non-African American 99.7 (>60)
[2018-08-12 12:32] LABS: Monocytes % 4 %
[2018-08-12] MEDS ORDERED: predniSONE TAB* 20 MG PO ONE (13:27)
[2018-08-12 16:20] VITALS: BP 125/74
== END 2018-08-12 16:30 | disposition home or self-care (01) ==
LOC: ED 10:53
DX: F41.9 Anxiety disorder, unspecified (principal); F43.20 Adjustment disorder, unspecified; Z87.891 Personal history of nicotine dependence; J44.9 Chronic obstructive pulmonary disease, unspecified; K21.9 Gastro-esophageal reflux disease without esophagitis; M13.0 Polyarthritis, unspecified; J43.9 Emphysema, unspecified
CPT/HCPCS: 36415; 70491; 71046; 80053; 83605; 84484; 85025; 85379; 93005; 96374; 99284; A9270-GY; J7512; Q9967

== ENCOUNTER 2018-08-28 17:01 | Emergency (ER) | payer OTHER ==
[2018-08-28 18:51] LABS: ABS Basophils 0 10^3/ul (0-0.2); ABS Eosinophils 0.1 10^3/ul (0-0.6); ABS Lymphocytes 1.6 10^3/ul (1.0-4.8); ABS Monocytes 0.5 10^3/ul (0-0.8); ABS Neutrophils 1.9 10^3/ul (1.5-7.7); ABS Nucleated RBC 0 10^3/ul; Eosinophil % 2.8 %; Hematocrit 39 % (35-47); Hemoglobin 13.3 g/dl (12.0-16.0); Lymphocyte % 39.1 %; Mean Corpuscular HGB Conc 34 g/dl (31-36); Mean Corpuscular Hemoglobin 30 pg (27-31); Mean Corpuscular Volume 87 fL (80-97); Mean Platelet Volume 7.3 fL (7.4-10.4); Nucleated Red Blood Cells % 0; Platelet Count 424 10^3/ul (150-450); Red Blood Count 4.48 10^6/ul (4.00-5.40); Red Cell Distribution Width 16 % (10.5-15); White Blood Count 4.2 10^3/ul (3.5-10.8)
[2018-08-28 19:06] LABS: Urine Appearance Cloudy; Urine Bacteria Absent (Absent); Urine Bilirubin Negative (Negative); Urine Blood 1+ (Negative); Urine Color Yellow; Urine Glucose Negative (Negative); Urine Ketones Negative (Negative); Urine Nitrite Negative (Negative); Urine Protein Negative (Negative); Urine Red Blood Cell Trace(0-2/hpf) (Absent); Urine Specific Gravity 1.021 (1.010-1.030); Urine Urobilinogen Negative (Negative); Urine White Blood Cell Trace(0-5/hpf) (Absent)
[2018-08-28 19:06] LABS: INR 0.94 (0.77-1.02)
[2018-08-28 19:11] LABS: Albumin 4.4 g/dL (3.2-5.2); Albumin/Globulin Ratio 1.4 (1-3); BUN/Creatinine Ratio 19.4 (8-20); C Reactive Protein 15.76 mg/L (<8.01); EGFR Non-African American 89.5 (>60); Globulin 3.2 g/dL (2-4); Potassium 3.8 mmol/L (3.5-5.0); Total Bilirubin 0.9 mg/dL (0.2-1.0); Total Protein 7.6 g/dL (6.4-8.9)
--- NOTE | 2018-08-28 19:39 | ED ---
Headache - HPI Summary HPI Summary: Patient with recent diagnosis of triple negative breast cancer sent to ED by oncology for rule out of brain bleed or tumor due to persistent headache 2 weeks. Patient denies active NEUMANN here in the ED, fever, neck stiffness, cough, sore throat, vision change, CP, SOB, N/V/D, abdominal pain, change in urine, change in BM. Medical history COPD, breast cancer, arthritis, TIA. - History Of Current Complaint Chief Complaint: EDHeadache Stated Complaint: SEVERE HEADACHES, NOSE BLEEDS, Time Seen by Provider: 08/28/18 18:08 Hx Obtained From: Patient Onset/Duration: Gradual Onset Aggravating Factor: Nothing Allevating Factors: Nothing Associated Signs And Symptoms: Negative - Allergies/Home Medications Allergies/Adverse Reactions: Allergies Allergy/AdvReac Type Severity Reaction Status Date / Time meperidine Allergy Nausea And Verified 08/28/18 17:27 Vomiting pentazocine Allergy Nausea And Verified 08/28/18 17:27 Vomiting PMH/Surg Hx/FS Hx/Imm Hx Endocrine/Hematology History: Denies: Hx Anticoagulant Therapy, Hx Diabetes Cardiovascular History: Reports: Other Cardiovascular Problems/Disorders - PREVIOUS CARDIAC CATH Denies: Hx Congestive Heart Failure, Hx Hypertension, Hx Pacemaker/ICD Respiratory History: Reports: Hx Asthma, Hx Chronic Obstructive Pulmonary Disease (COPD) GI History: Reports: Hx Gastroesophageal Reflux Disease, Other GI Disorders - gerd History: Denies: Hx Renal Disease Musculoskeletal History: Reports: Hx Arthritis, Hx Back Problems Comment Only: Hx Osteoporosis - unsure Sensory History: Reports: Hx Contacts or Glasses Denies: Hx Hearing Aid Opthamlomology History: Reports: Hx Contacts or Glasses Neurological History: Comment Only: Other Neuro Impairments/Disorders - POLYARTHROPATHY Psychiatric History: Reports: Hx Anxiety Denies: Hx Panic Disorder - Cancer History Cancer Type, Location and Year: new diagnosis of breast right sided and lung CA Hx Chemotherapy: No Hx Radiation Therapy: No - Surgical History Surgery Procedure, Year, and Place: tonsills/tubal ligation. fractured ribs 1978 Hx Anesthesia Reactions: No Infectious Disease History: No Infectious Disease History: Denies: Traveled Outside the [place] in Last 30 Days - Family History Known Family History: Positive: Cardiac Disease, Diabetes - Mother, Other - Sister - BREAST CA - Social History Alcohol Use: Rare Alcohol Amount: 1 a month Substance Use Type: Reports: None Smoking Status (MU): Never Smoked Tobacco Type: Cigarettes Have You Smoked in the Last Year: No Review of Systems Constitutional: Negative Eyes: Negative ENT: Negative Cardiovascular: Negative Respiratory: Negative Gastrointestinal: Negative Genitourinary: Negative Musculoskeletal: Negative Skin: Negative Positive: Headache Psychological: Normal All Other Systems Reviewed And Are Negative: Yes Physical Exam - Summary Physical Exam Summary: Neuro exam normal. Triage Information Reviewed: Yes Vital Signs On Initial Exam: Initial Vitals Temp Pulse Resp BP Pulse Ox 98.0 F 93 20 125/87 98 08/28/18 17:20 08/28/18 17:20 08/28/18 17:20 08/28/18 17:20 08/28/18 17:20 Vital Signs Reviewed: Yes Appearance: Positive: Well-Appearing Skin: Positive: Warm Head/Face: Positive: Normal Head/Face Inspection Eyes: Positive: Normal Neck: Positive: Supple Respiratory/Lung Sounds: Positive: Clear to Auscultation Cardiovascular: Positive: Normal Abdomen Description: Positive: Nontender Musculoskeletal: Positive: Normal Neurological: Positive: Normal Psychiatric: Positive: Normal AVPU Assessment: Alert - Hersey Coma Scale Best Eye Response: 4 - Spontaneous Best Motor Response: 6 - Obeys Commands Best Verbal Response: 5 - Oriented Coma Scale Total: 15 Diagnostics - Vital Signs Vital Signs Temp Pulse Resp BP Pulse Ox 08/28/18 17:20 98.0 F 93 20 125/87 98 - Laboratory Lab Results: Lab Results 08/28/18 08/28/18 08/28/18 Range/Units 18:37 18:44 18:44 WBC 4.2 (3.5-10.8) 10^3/ul RBC 4.48 (4.00-5.40) 10^6/ul Hgb 13.3 (12.0-16.0) g/dl Hct 39 (35-47) % MCV 87 (80-97) fL MCH 30 (27-31) pg MCHC 34 (31-36) g/dl RDW 16 H (10.5-15) % Plt Count 424 (150-450) 10^3/ul MPV 7.3 L (7.4-10.4) fL Neut % (Auto) 45.5 % Lymph % (Auto) 39.1 % [place] % (Auto) 11.8 % Eos % (Auto) 2.8 % Baso % (Auto) 0.8 % Absolute Neuts (auto) 1.9 (1.5-7.7) 10^3/ul Absolute Lymphs (auto) 1.6 (1.0-4.8) 10^3/ul Absolute Monos (auto) 0.5 (0-0.8) 10^3/ul Absolute Eos (auto) 0.1 (0-0.6) 10^3/ul Absolute Basos (auto) 0 (0-0.2) 10^3/ul Absolute Nucleated RBC 0 10^3/ul Nucleated RBC % 0 INR (Anticoag Therapy) 0.94 (0.77-1.02) Sodium (135-145) mmol/L Potassium (3.5-5.0) mmol/L Chloride (101-111) mmol/L Carbon Dioxide (22-32) mmol/L Anion Gap (2-11) mmol/L BUN (6-24) mg/dL Creatinine (0.51-0.95) mg/dL Est GFR ( Amer) (>60) Est GFR (Non-Af Amer) (>60) BUN/Creatinine Ratio (8-20) Glucose (70-100) mg/dL Lactic Acid (0.5-2.0) mmol/L Calcium (8.6-10.3) mg/dL Total Bilirubin (0.2-1.0) mg/dL AST (13-39) U/L ALT (7-52) U/L Alkaline Phosphatase (34-104) U/L C-Reactive Protein (<8.01) mg/L Total Protein (6.4-8.9) g/dL Albumin (3.2-5.2) g/dL Globulin (2-4) g/dL Albumin/Globulin Ratio (1-3) TSH Urine Color Yellow Urine Appearance Cloudy Urine pH 5.0 (5-9) Ur Specific [place] 1.021 (1.010-1.030) Urine Protein Negative (Negative) Urine Ketones Negative (Negative) Urine Blood 1+ A (Negative) Urine Nitrate Negative (Negative) Urine Bilirubin Negative (Negative) Urine Urobilinogen Negative (Negative) Ur Leukocyte Esterase Negative (Negative) Urine WBC (Auto) Trace(0-5/hpf) (Absent) Urine RBC (Auto) Trace(0-2/hpf) (Absent) Urine Bacteria Absent (Absent) Urine Glucose Negative (Negative) 08/28/18 08/28/18 Range/Units 18:44 18:45 WBC (3.5-10.8) 10^3/ul RBC (4.00-5.40) 10^6/ul Hgb (12.0-16.0) g/dl Hct (35-47) % MCV (80-97) fL MCH (27-31) pg MCHC (31-36) g/dl RDW (10.5-15) % Plt Count (150-450) 10^3/ul MPV (7.4-10.4) fL Neut % (Auto) % Lymph % (Auto) % [place] % (Auto) % Eos % (Auto) % Baso % (Auto) % Absolute Neuts (auto) (1.5-7.7) 10^3/ul Absolute Lymphs (auto) (1.0-4.8) 10^3/ul Absolute Monos (auto) (0-0.8) 10^3/ul Absolute Eos (auto) (0-0.6) 10^3/ul Absolute Basos (auto) (0-0.2) 10^3/ul Absolute Nucleated RBC 10^3/ul Nucleated RBC % INR (Anticoag Therapy) (0.77-1.02) Sodium 136 (135-145) mmol/L Potassium 3.8 (3.5-5.0) mmol/L Chloride 100 L (101-111) mmol/L Carbon Dioxide 29 (22-32) mmol/L Anion Gap 7 (2-11) mmol/L BUN 13 (6-24) mg/dL Creatinine 0.67 (0.51-0.95) mg/dL Est GFR ( Amer) 108.3 (>60) Est GFR (Non-Af Amer) 89.5 (>60) BUN/Creatinine Ratio 19.4 (8-20) Glucose 108 H (70-100) mg/dL Lactic Acid 1.2 (0.5-2.0) mmol/L Calcium 10.0 (8.6-10.3) mg/dL Total Bilirubin 0.90 (0.2-1.0) mg/dL AST 20 (13-39) U/L ALT 29 (7-52) U/L Alkaline Phosphatase 91 (34-104) U/L C-Reactive Protein 15.76 H (<8.01) mg/L Total Protein 7.6 (6.4-8.9) g/dL Albumin 4.4 (3.2-5.2) g/dL Globulin 3.2 (2-4) g/dL Albumin/Globulin Ratio 1.4 (1-3) TSH Pending Urine Color Urine Appearance Urine pH (5-9) Ur Specific [place] (1.010-1.030) Urine Protein (Negative) Urine Ketones (Negative) Urine Blood (Negative) Urine Nitrate (Negative) Urine Bilirubin (Negative) Urine Urobilinogen (Negative) Ur Leukocyte Esterase (Negative) Urine WBC (Auto) (Absent) Urine RBC (Auto) (Absent) Urine Bacteria (Absent) Urine Glucose (Negative) Result Diagrams: 08/28/18 18:44 08/28/18 18:44 Lab Statement: Any lab studies that have been ordered have been reviewed, and results considered in the medical decision making process. Headache Course/Dx - Course Course Of Treatment: Patient with recent diagnosis of triple negative breast cancer sent to ED by oncology for rule out of brain bleed or tumor due to persistent headache 2 weeks. Patient denies active NEUMANN here in the ED, fever, neck stiffness, cough, sore throat, vision change, CP, SOB, N/V/D, abdominal pain, change in urine, change in BM. Medical history COPD, breast cancer, arthritis, TIA. Physical exam: Neuro exam normal. Vital signs within normal limits and stable. CT brain negative for mass or bleed or other acute process. Follow up with oncology. - Diagnoses Provider Diagnoses: Headache Discharge - Sign-Out/Discharge Documenting (check all that apply): Patient Departure - Discharge Plan Condition: Stable Disposition: HOME Patient Education Materials: Acute Headache (ED) Referrals: Elías Moore NP [Primary Care Provider] - Additional Instructions: Follow-up with primary care and oncology for further evaluation. Return to the ED for any new or worsening symptoms - Billing Disposition and Condition Condition: STABLE Disposition: Home
[2018-08-28 19:48] LABS: TSH (Thyroid Stimulating Horm) 3.48 mcIU/mL (0.34-5.60)
[2018-08-28 19:57] VITALS: BP 121/67
== END 2018-08-28 19:49 | disposition home or self-care (01) ==
LOC: ED 17:01
DX: R51 Headache (principal); C50.911 Malignant neoplasm of unspecified site of right female breast; C78.01 Secondary malignant neoplasm of right lung
CPT/HCPCS: 36415; 70450; 80053; 81003; 81015; 83605; 84443; 85025; 85610; 86140; 87086; 99283

== ENCOUNTER 2018-09-11 08:15 | Inpatient (IN) | payer OTHER ==
[2018-09-11] MEDS ORDERED: NS 0.9% 1000 ML* 1,000 ML IV ONE (08:31)
[2018-09-11] MEDS ORDERED: Magnesium Sulfate 1 GM IV* 1 GM/100 ML BAG IV ONE (08:31)
[2018-09-11] MEDS ORDERED: methylPREDNISolone 125 MG* 2 ML VIAL IV ONE (08:31)
--- NOTE | 2018-09-11 08:35 | ED ---
Shortness of Breath - HPI Summary HPI Summary: A 63 y/o female presents to [facility] with a chief complaint of SOB since the morning of 09/10/18. She reports that she was recently the ICU on 08/10/19 for respiratory failure, and claims that she "almost before arriving". She also c/o chest pain which she describes as a pressure and coughing up dark phlegm. She denies pain or swelling in her arms or legs. She has an appointment scheduled on 09/11/[address] 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 She had her O2 raised up to 3L from 2.5. She started having SOB when she left her house for this appointment as she did not realize how dependant she is on her O2 at home. Dr. Brown is her Oncologist. Hx of COPD and triple negative breast cancer. She is not eligible for chemotherapy due to her COPD. She denies a Hx of PNA. Oncologist is Dr. Brown. Takes advair 5500/500, Spiriva and takes nebulizers when necessary. She is a former heavy smoker and quit in 2008. - History of Current Complaint Time Seen by Provider: 09/11/18 08:19 Hx Obtained From: Patient Onset/Duration: Sudden Onset, Lasting Hours, Still Present Current Severity: Moderate Dyspnea At: Rest Aggrevating Factors: Nothing Alleviating Factors: Nothing Associated Signs & Symptoms: Negative - edema, fever, Chest Pain w/Cough - Allergy/Home Medications Allergies/Adverse Reactions: Allergies Allergy/AdvReac Type Severity Reaction Status Date / Time meperidine Allergy Nausea And Verified 08/28/18 17:27 Vomiting pentazocine Allergy Nausea And Verified 08/28/18 17:27 Vomiting Home Medications: Home Medications amLODIPine TAB* [Norvasc 5 mg TAB*] 1.25 mg PO DAILY 09/11/18 [History Confirmed 09/11/18] PMH/Surg Hx/FS Hx/Imm Hx Endocrine/Hematology History: Denies: Hx Anticoagulant Therapy, Hx Diabetes Cardiovascular History: Reports: Hx Hypertension, Other Cardiovascular Problems/ Disorders - PREVIOUS CARDIAC CATH Denies: Hx Congestive Heart Failure, Hx Pacemaker/ICD Respiratory History: Reports: Hx Asthma, Hx Chronic Obstructive Pulmonary Disease (COPD) Denies: Hx Pneumonia GI History: Reports: Hx Gastroesophageal Reflux Disease, Other GI Disorders - gerd History: Denies: Hx Renal Disease Musculoskeletal History: Reports: Hx Arthritis, Hx Back Problems Comment Only: Hx Osteoporosis - unsure Sensory History: Reports: Hx Contacts or Glasses Denies: Hx Hearing Aid Opthamlomology History: Reports: Hx Contacts or Glasses Neurological History: Comment Only: Other Neuro Impairments/Disorders - POLYARTHROPATHY Psychiatric History: Reports: Hx Anxiety Denies: Hx Panic Disorder - Cancer History Cancer Type, Location and Year: new diagnosis of breast right sided and lung CA Hx Chemotherapy: No Hx Radiation Therapy: No - Surgical History Surgery Procedure, Year, and Place: tonsills/tubal ligation. fractured ribs 1978 Hx Anesthesia Reactions: No Infectious Disease History: Denies: Traveled Outside the [place] in Last 30 Days - Family History Known Family History: Positive: Cardiac Disease, Diabetes - Mother, Other - Sister - BREAST CA - Social History Alcohol Use: Rare Alcohol Amount: 1 a month Substance Use Type: Reports: None Hx Tobacco Use: Yes - quit in 2008 Smoking Status (MU): Former Smoker Type: Cigarettes Have You Smoked in the Last Year: No Review of Systems Negative: Fever Positive: Chest Pain Positive: Shortness Of Breath, Cough Negative: Myalgia - pain in arms or legs, Edema - in arms or legs All Other Systems Reviewed And Are Negative: Yes Physical Exam - Summary Physical Exam Summary: Appearance: Well appearing, Mild to moderate respiratory distress Skin: warm, dry, reflects adequate perfusion Head/face: normal Eyes: EOMI, CHRISTINE ENT: mucous membranes moist Neck: supple, non-tender Respiratory: Tacypnic, decreased air movement Cardiovascular: Tachycardic, regular rhythm, pulses symmetrical Abdomen: non-tender, soft Bowel Sounds: present Musculoskeletal: normal, strength/ROM intact, no lower extremity swelling Neuro: normal, sensory motor intact, A&Ox3 Triage Information Reviewed: Yes Vital Signs Reviewed: Yes Diagnostics - Laboratory Result Diagrams: 09/11/18 08:46 09/11/18 08:46 Lab Statement: Any lab studies that have been ordered have been reviewed, and results considered in the medical decision making process. - Radiology CXR Radiology Interpretation Completed By: Radiologist Summary of Radiographic Findings: Atelectasis versus inflammatory infiltrate at the LEFT lung base. Chronic obstructive pulmonary disease. ED provider has reviewed this imaging report. - CT Chest/thorax CTA CT Interpretation Completed By: Radiologist Summary of CT Findings: Significantly limited CT pulmonary angiogram primarily due to motion artifact without. gross evidence for pulmonary embolism. No interval change in previously described small upper lung zone pulmonary nodules. No. new focal pulmonary lesions evident. Negative for pleural effusions. No evidence for pneumonia. Advanced emphysema. ED provider has reviewed this imaging report. - EKG 08:55 Cardiac Rate: NL - 93 bpm EKG Rhythm: Sinus Rhythm Summary of EKG Findings: NSR: 93 bpm. Low voltage in limb leads. Normal [place]. Normal Interval. Normal ST Re-Evaluation - Re-Evaluation First Eval Re-Evaluation Time: 12:18 Change: Unchanged Comment: Patient reports a nosebleed. Course/Dx - Course Course Of Treatment: Nurse's notes reviewed. Patient with history of extensive COPD who no longer smokes presents with respiratory difficulties. She was given several breathing treatments, IV steroids and fluids. CT angiogram of the chest ruled out pulmonary embolism. She does have a history of cancer. There is no pneumonias. Antibiotics were given as she is exacerbated and COPD. She did require high velocity nasal insufflation by Vapotherm. She is feeling better on this. She is also given a gram of IV magnesium with some improvement. Discussed the case with Dr. Howard from the ICU who accepted the patient for admission to the ICU. - Diagnoses Differential Diagnosis/HQI/PQRI: Positive: Asthma, Bronchitis, CHF, COPD Exacerbation, MD, Pneumonia, Pulmonary Embolism Provider Diagnoses: COPD exacerbation, Respiratory failure, History of breast cancer - Physician Notifications Discussed Care of Patient With: Vika Howard Time Discussed With Above Provider: 09:30 Instructed by Provider To: Admit As Inpatient - Critical Care Time Critical Care Time: 30-74 min - 30 mins CCT is EXCLUSIVE of separately billable procedures. Discharge - Sign-Out/Discharge Documenting (check all that apply): Patient Departure - admit - Discharge Plan Condition: Guarded Disposition: ADMITTED TO [facility] - Billing Disposition and Condition Condition: GUARDED Disposition: Admitted to [facility] - Attestation Statements Document Initiated by Scribe: Yes Documenting Ramirezibgunjan: Lauri Bonilla Provider For Whom Demetrio is Documenting (Include Credential): Charli Richards MD Scribe Attestation: Lauri Jane scribed for Charli Richards MD on 09/11/18 at 1317. Scribe Documentation Reviewed: Yes Provider Attestation: The documentation as recorded by the Lauri desouzaers accurately reflects the service I personally performed and the decisions made by me, Charli Richards MD Status of Demetrio Document: Viewed
[2018-09-11] MEDS ORDERED: Levofloxacin 750 MG IVPREMIX(* 750 MG/150 ML BAG IVPB ONE (08:43)
[2018-09-11] MEDS ORDERED: Albuterol/Ipratropium NEB.SOL* Albuterol 2.5 MG/Ipratropium 0.5 MG 3 ML INH ONE (08:43)
[2018-09-11] MEDS ORDERED: Albuterol/Ipratropium NEB.SOL* Albuterol 2.5 MG/Ipratropium 0.5 MG 3 ML ONE (08:44)
[2018-09-11 09:03] LABS: ABS Basophils 0.1 10^3/ul (0-0.2); ABS Eosinophils 0 10^3/ul (0-0.6); ABS Lymphocytes 0.9 10^3/ul (1.0-4.8); ABS Monocytes 0.6 10^3/ul (0-0.8); ABS Neutrophils 5.8 10^3/ul (1.5-7.7); ABS Nucleated RBC 0 10^3/ul; Eosinophil % 0.6 %; Hematocrit 41 % (35-47); Hemoglobin 13.7 g/dl (12.0-16.0); Lymphocyte % 12.8 %; Mean Corpuscular HGB Conc 34 g/dl (31-36); Mean Corpuscular Hemoglobin 29 pg (27-31); Mean Corpuscular Volume 86 fL (80-97); Mean Platelet Volume 8.1 fL (7.4-10.4); Nucleated Red Blood Cells % 0.2; Platelet Count 260 10^3/ul (150-450); Red Blood Count 4.72 10^6/ul (4.00-5.40); Red Cell Distribution Width 16 % (10.5-15); White Blood Count 7.4 10^3/ul (3.5-10.8)
[2018-09-11 09:11] LABS: INR 0.96 (0.77-1.02)
[2018-09-11 09:20] LABS: Albumin 4.5 g/dL (3.2-5.2); Albumin/Globulin Ratio 1.4 (1-3); BUN/Creatinine Ratio 15.1 (8-20); C Reactive Protein 51.64 mg/L (<8.01); Calcium 9.7 mg/dL (8.6-10.3); EGFR Non-African American 67.1 (>60); Globulin 3.3 g/dL (2-4); Potassium 4.2 mmol/L (3.5-5.0); Total Bilirubin 1.2 mg/dL (0.2-1.0); Total Protein 7.8 g/dL (6.4-8.9)
[2018-09-11] MEDS ORDERED: Iohexol 350* (CONTRAST) 500 ML MDV IV ONE (09:26)
--- NOTE | 2018-09-11 12:05 | HP ---
History of Present Illness - History of Present Illness Reason for Visit: shortness of breath History of Present Illness: 63 yo F with history of advanced COPD and emphysema, as well as triple negative breast cancer, not yet started on chemotherapy, who has been told by her doctors in the past she is not a candidate for intubation given her pulmonary condition. She presents to the ED on 09/11 with complaints of feeling feverish, productive cough and shortness of breath for the past 3 days, worsening last night. In ED found to be tachycardic and tachypneic. Started on Vapotherm for increased work of breathing. WBC 7.4, Ddimer 254. CXR with atelectasis vs inflammatory infiltrate at left base. CTA negative for PE, no pneumonia seen. Admitted to ICU for management of vapotherm - Past Medical History Pulmonary: COPD, Other - Emphesyma Heme/Onc: Other - active breast cancer - Past Surgical History Past Surgical History: Breast Biopsy, Tubal Ligation, Tonsillectomy - Past Family History Family History: CAD, Other - renal failure - Past Social History Smoke: Quit - 10 years ago Alcohol: Rare - One rum and coke once a month on pizza night Drugs: Other - distant history of cocaine use Lives: With Family Review of Systems - Review of Systems Constitutional: Positive: Fever, Weakness, Malaise Eyes: Negative: Pain, Vision Change, Conjunctivae Inflammation, Eyelid Inflammation, Redness, Other ENT: Positive: Nose Congestion Respiratory: Positive: Cough, Shortness of Breath, SOB with Excertion, Sputum Cardiovascular: Negative: Chest Pain, Palpitations, Orthopnea, Paroxysmal Noc. Dyspnea, Edema, Light Headedness, Other Gastrointestinal: Negative: Nausea, Vomiting, Abdominal Pain, Diarrhea, Constipation, Melena, Hematochezia, Other Genitourinary: Positive: Frequency Musculoskeletal: Negative: Neck Pain, Shoulder Pain, Arm Pain, Back Pain, Hand Pain, Leg Pain, Foot Pain, Other Skin: Negative: Rash, Lesions, Joao, Bruising, Other Neurological: Positive: Weakness - generalized - Medications/Allergies Allergies/Adverse Reactions: Allergies Allergy/AdvReac Type Severity Reaction Status Date / Time meperidine Allergy Nausea And Verified 08/28/18 17:27 Vomiting pentazocine Allergy Nausea And Verified 08/28/18 17:27 Vomiting Exam - Exam Vital Signs: Vital Signs (72 hours) 0109/11/18 09/11/18 08:20 08:30 08:48 Temperature 97.3 F Pulse Rate 96 101 92 Respiratory 30 26 35 Rate Blood Pressure 148/102 148/102 (mmHg) O2 Sat by Pulse 97 90 94 Oximetry 09/11/18 09/11/18 09/11/18 09:09 10:09 10:20 Temperature Pulse Rate 95 95 Respiratory 38 22 31 Rate Blood Pressure 109/64 (mmHg) O2 Sat by Pulse 96 98 Oximetry 09/11/18 09/11/18 10:50 11:00 Temperature Pulse Rate 94 108 Respiratory 31 22 Rate Blood Pressure 110/78 (mmHg) O2 Sat by Pulse 97 95 Oximetry General: Alert, Oriented x3 - talkative, but short of breath when speaking HEENT: Atraumatic Lungs: Other - decreased breath sounds bilaterally. 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 Noted to have left facial droop but pt says this is chronic ( she has known "lopsided smile") Psych/Mental Status: Mood NL Assessment/Plan - Assessment/Plan Assessment: 63 yo F with hx of COPD and emphysema as well as newly diagnosed breast cancer not yet started on chemotherpy. Admitted for 10 days in August 2018 for pneumonia and COPD, after which she says she never really improved. Now returned with acute on chronic hypoxic respiratory failure, started on vapotherm Plan: Cardiovascular: (1) Sinus tachycardia; (2) Chronic HTN -- HR 92-111 -- SBP 109-148 -- Telemetry -- Troponin 0.00 -- BNP 12 -- PRN Hydralazine for goal SBP < 160 Home meds: Norvasc Pulmonary: (1) Acute on chronic hypoxic respiratory failure; (2) COPD exacerbation; (3) Emphysema; (4) Likely bronchitis -- RR 22-38 -- sats 90-98 on Vapotherm -- CXR: possible left base infiltrate -- CTA: No PE, no pneumonia seen -- VBG: pH 7.38 pCO2 43; pO2 <38; HCO3 23.6; BE 0; %O2 Sat 50.9. -- Scheduled Duonebs, solumedrol and abx for COPD exacerbation Home meds: Advair, Albuterol Gastrointestinal: (1) Hyperbilirubinemia -- LFTs Tbili 1.20, follow trend ALK 111, follow trend AST 20 ALT 22 -- diet: ice chips until breathing improves -- bowel regimen: None -- ulcer prophylaxis: protonix Home meds: Protonix Endocrine: No acute issues -- monitor BGs -- Solumedrol for COPD exacerbation Home meds: None Renal: (1) Hyponatremia; (2) Urinary frequency -- UOP: not yet recorded -- Cr 0.86 -- Lytes Na 133, follow trend, start NS K 4.2 Ca 9.7 Mag ordered for AM labs Phos ordered for AM labs -- IVF: NS @ 75 ml/hr -- Resume home Detrol Home meds: Detrol Infectious disease: (1) Bronchitis -- Tmax 97.3 -- WBC 7.4 -- CRP 51.64 -- Micro 09/11 blood in process Urinalysis ordered Sputum ordered -- ABX Rocephin Azithromcyin Home meds: None Neurologic: No acute issues -- Resume home meds Home meds: Gabapentin, Buspar, Remeron, Ibuprofen, Ritalin, Xanax Hematological: No acute issues -- Hgb 13.7 -- Plt 260 -- Coags PT 0.96 Ddimer 254 -- DVT prophylaxis: SQ Lovenox Home meds: None Metabolic: No acute issues -- Lactic acid 1.1 Home meds: None Deep vein thrombosis prophylaxis: SQ Lovenox Dietary: Protonix Condition: critical Prognosis: guarded Code status: DNR/DNI Disposition: continue ICU Care Cumulative time spent in the care of this patient (excluding any procedure time) : at least 60 minutes. Patient care included clinical interview (with patient and/or family), bedside exam of the patient, review of labs, x-rays, and other ancillary data, coordination of (respiratory, nursing care, review of patient's records, discussion regarding patients management with involved consultants, primary physician, pharmacists, and other healthcare personnel (dietary, case management , physical/occupational therapy etc.)
[2018-09-11] MEDS ORDERED: hydrALAZINE IV* 20 MG/ML VIAL IV SLOW PU PRN (12:20)
[2018-09-11] MEDS: methylPREDNISolone SOD 40 MG* 1 ML VIAL IV SCH ×2 (13:31→19:57)
[2018-09-11] MEDS: cefTRIAXone(*) 1 GM in NS 0.9% 50 ML* 50 ML IVPB SCH (13:46)
[2018-09-11 13:50] LABS: Urine Appearance Clear; Urine Bacteria Absent (Absent); Urine Bilirubin Negative (Negative); Urine Blood 1+ (Negative); Urine Color Straw; Urine Glucose Negative (Negative); Urine Ketones Negative (Negative); Urine Nitrite Negative (Negative); Urine Protein Negative (Negative); Urine Red Blood Cell Trace(0-2/hpf) (Absent); Urine Specific Gravity 1.038 (1.010-1.030); Urine Urobilinogen Negative (Negative); Urine White Blood Cell Trace(0-5/hpf) (Absent)
[2018-09-11] MEDS: NS 0.9% 1000 ML* 1,000 ML IV SCH (14:35)
[2018-09-11] MEDS: Azithromycin IV(*) 500 MG in NS 0.9% 250 ML* 250 ML IVPB SCH (15:12)
[2018-09-11] MEDS ORDERED: LORazepam INJ* 2 MG/ML 1 ML VIAL IV PUSH PRN (16:13)
[2018-09-11] MEDS ORDERED: Morphine VIAL* 4 MG/ML VIAL (1 ml vial) ONE (16:22)
--- NOTE | 2018-09-11 17:16 | PN ---
Progress Note - Progress Note Date of Service: 09/11/18 - interval events Note: Pt complained of acute onset abdominal pain. "the worst ever" She was given 2mg Morphine. After Morphine observed to be laughing and talking with family. Lactic acid normal CT abdomen shows no acute pathology on my review. Report pending
[2018-09-11] MEDS: Melatonin 3 MG TAB PO SCH (19:57)
[2018-09-11] MEDS: Morphine VIAL* 4 MG/ML VIAL (1 ml vial) IV PRN (19:57)
[2018-09-11] MEDS: Mirtazapine TAB* 15 MG PO PRN (19:57)
[2018-09-12] MEDS: Morphine VIAL* 4 MG/ML VIAL (1 ml vial) IV PRN ×2 (02:20→12:50)
[2018-09-12] MEDS: methylPREDNISolone SOD 40 MG* 1 ML VIAL IV SCH ×3 (05:25→20:42)
[2018-09-12] MEDS: Albuterol/Ipratropium NEB.SOL* Albuterol 2.5 MG/Ipratropium 0.5 MG 3 ML INH PRN (05:57)
[2018-09-12 06:51] LABS: Albumin 3.9 g/dL (3.2-5.2); CO2 Carbon Dioxide 20 mmol/L (22-32); Calcium 9.4 mg/dL (8.6-10.3); Chloride 107 mmol/L (101-111); Sodium 135 mmol/L (135-145)
[2018-09-12 06:52] LABS: Anion Gap 8 mmol/L (2-11)
[2018-09-12 06:57] LABS: ALT 18 U/L (7-52); Albumin/Globulin Ratio 1.1 (1-3); Alkaline Phosphatase 91 U/L (34-104); Blood Urea Nitrogen 13 mg/dL (6-24); EGFR Non-African American 97.9 (>60); Globulin 3.4 g/dL (2-4); Glucose 127 mg/dL (70-100); Phosphorus 3.2 mg/dL (2.5-5.0); Total Protein 7.3 g/dL (6.4-8.9)
[2018-09-12] MEDS: NS 0.9% 1000 ML* 1,000 ML IV SCH (07:37)
[2018-09-12] MEDS: Methylphenidate TAB* 10 MG PO SCH ×2 (09:34→12:52)
[2018-09-12] MEDS: amLODIPine TAB* 5 MG PO SCH (09:35)
[2018-09-12] MEDS: Oxybutynin XL TAB* 5 MG PO SCH (09:39)
[2018-09-12] MEDS: Enoxaparin(*) 40 MG/0.4 ML SYR SUBCUT SCH (09:40)
[2018-09-12] MEDS: Pantoprazole TAB * 40 MG TAB PO SCH (09:40)
--- NOTE | 2018-09-12 09:48 | PN ---
Date of Service: 09/12/18 - HD 2 Critical Care Services: 63 yo F with history of advanced COPD and emphysema, as well as triple negative breast cancer, not yet started on chemotherapy, who has been told by her doctors in the past she is not a candidate for intubation given her pulmonary condition. She presents to the ED on 09/11 with complaints of feeling feverish, productive cough and shortness of breath for the past 3 days, worsening last night. In ED found to be tachycardic and tachypneic. Started on Vapotherm for increased work of breathing. WBC 7.4, Ddimer 254. CXR with atelectasis vs inflammatory infiltrate at left base. CTA negative for PE, no pneumonia seen. Admitted to ICU for management of vapotherm. After admission reported an episode of abdominal pain which resolved after 2mg of Morphine. CT and lactic acid within normal limits. 09/12: No overnight events Vital Signs: Temp Pulse Resp BP SpO2 FiO2 97.7 F 70 22 89/40 96 35 09/12/18 07:45 09/12/18 05:57 09/12/18 06:00 09/12/18 05:30 09/12/18 05:57 09/12 05:57 Physical Exam: Gen: alert, sitting up in chair. Still with increased work of breathing HEENT: Vapotherm cannula in place Lungs: clear bilaterally, moderate air movement about the same as yesterday Cardiac: tachycardic, regular Abdomen: soft, minimally TTP. no rebound or guarding Extremities: warm, dry, no edema Neuro: pressured speech (baseline). alert and oriented Fluid Balance (Past 24 Hours): I= O= Net Intake & Output 09/10/18 09/11/18 09/12/18 09/13/18 06:59 06:59 06:59 06:59 Intake Total 3358 Output Total 2700 200 Balance 658 -200 Weight 182 lb 1.629 oz Intake: IV Fluids 1803 NS (0.9%) 803 IVPB 515 ABX - AZITHROMYCIN 265 Oral 1040 Output: Urine 2700 200 Other: Estimated Void Medium ADLs: Meal Record Start: 09/11/18 11: 56 Freq: 09,13,18 Status: Active Protocol: Created 09/11/18 11:56 System (Rec: 09/11/18 11:56 System ICU-C21) Document 09/11/18 13:00 [id number] (Rec: 09/11/18 13:11 [id number] ICU-C06) Document 09/11/18 18:00 [id number] (Rec: 09/11/18 18:15 [id number] ICU-C06) Intake and Output Start: 09/11/18 08: 30 Freq: Status: Active Protocol: Created 09/11/18 08:30 System (Rec: 09/11/18 08:30 System [id number]-C24) Intake and Output Start: 09/11/18 11: 56 Freq: Q1HR Status: Active Protocol: Created 09/11/18 11:56 System (Rec: 09/11/18 11:56 System ICU-C21) Document 09/11/18 13:00 [id number] (Rec: 09/11/18 13:11 [id number] ICU-C06) Document 09/11/18 14:00 [id number] (Rec: 09/11/18 14:21 [id number] ICU-C06) Document 09/11/18 15:00 [id number] (Rec: 09/11/18 16:10 [id number] ICU-C06) Document 09/11/18 16:00 [id number] (Rec: 09/11/18 16:11 [id number] ICU-C11) Document 09/11/18 17:00 [id number] (Rec: 09/11/18 17:43 [id number] ICU-C06) Document 09/11/18 18:00 [id number] (Rec: 09/11/18 18:15 [id number] ICU-C06) Document 09/11/18 19:22 [id number] (Rec: 09/11/18 19:22 [id number] ICU-M32) Document 09/11/18 20:00 [id number] (Rec: 09/11/18 20:28 [id number] ICU-M35) Document 09/11/18 21:00 [id number] (Rec: 09/11/18 21:42 [id number] ICU-C25) Document 09/11/18 23:00 [id number] (Rec: 09/11/18 23:26 [id number] ICU-C25) Document 09/11/18 23:35 [id number] (Rec: 09/11/18 23:35 [id number] ICU-C14) Document 09/12/18 03:00 [id number] (Rec: 09/12/18 03:06 ICU-C25) Document 09/12/18 06:00 [id number] (Rec: 09/12/18 06:18 ICU-M35) Document 09/12/18 07:45 [id number] (Rec: 09/12/18 07:45 [id number] ICU-C03) Labs: Laboratory Results - last 24 hr 09/11/18 09/11/18 09/12/18 13:22 16:20 06:15 Sodium 135 Potassium TNP Chloride 107 Carbon Dioxide 20 L Anion Gap 8 BUN 13 Creatinine 0.62 Est GFR ( Amer) 118.4 Est GFR (Non-Af Amer) 97.9 BUN/Creatinine Ratio 21.0 H Glucose 127 H Lactic Acid 1.6 Calcium 9.4 Phosphorus 3.2 Magnesium TNP Total Bilirubin 0.50 AST TNP ALT 18 Alkaline Phosphatase 91 Total Protein 7.3 Albumin 3.9 Globulin 3.4 Albumin/Globulin Ratio 1.1 Urine Color Straw Urine Appearance Clear Urine pH 5.0 Ur Specific [place] 1.038 H Urine Protein Negative Urine Ketones Negative Urine Blood 1+ A Urine Nitrate Negative Urine Bilirubin Negative Urine Urobilinogen Negative Ur Leukocyte Esterase Negative Urine WBC (Auto) Trace(0-5/hpf) Urine RBC (Auto) Trace(0-2/hpf) Ur Squamous Epith Cells Present A Urine Bacteria Absent Urine Glucose Negative Studies: 09/12 CXR: right basilar atelectasis 09/11 CT abd/pelvis: no acute process 09/11 CTA chest: no PE no interval change in previously described small upper lung pulmonary nodules no evidence for pneumonia advanced emphysema 09/11 CXR: atelectasis vs inflammatory infiltrate in Left lung base. COPD. Nutrition: regular diet Impression: 63 yo F with hx of COPD and emphysema as well as newly diagnosed breast cancer not yet started on chemotherpy. Admitted for 10 days in August 2018 for pneumonia and COPD, after which she says she never really improved. Now returned with acute on chronic hypoxic respiratory failure, started on vapotherm Plan: Cardiovascular: (1) Sinus tachycardia; (2) Chronic HTN -- HR 52-112 (<85 since midnight) -- SBP 78-148 -- Telemetry -- Norvasc -- PRN Hydralazine for goal SBP < 160 Home meds: Norvasc Pulmonary: (1) Acute on chronic hypoxic respiratory failure; (2) COPD exacerbation; (3) Emphysema; (4) Likely bronchitis -- RR 15-41 (< 27 since midnight) -- sats 93-98 on Vapotherm -- CXR: RLL atelectasis -- CTA: No PE, no pneumonia seen -- Duonebs, solumedrol and abx for COPD exacerbation -- resume home advair per pt request Home meds: Advair, Albuterol Gastrointestinal: (1) Hyperbilirubinemia, improving -- LFTs Tbili 1.1 from 1.20, follow trend ALK 56 from 111 AST 20 ALT 22 -- diet: regular diet -- bowel regimen: Colace -- ulcer prophylaxis: protonix Home meds: Protonix Endocrine: No acute issues -- monitor BGs -- Solumedrol for COPD exacerbation Home meds: None Renal: (1) Hyponatremia, improving; (2) Urinary frequency -- UOP: 113 ml/hr -- Cr 0.86 -- Lytes Na 135 from 133, follow trend, on NS K hemolyzed Ca 9.4 Mag hemolyzed Phos 3.2 -- IVF: HLIVF -- Detrol Home meds: Detrol Infectious disease: (1) Bronchitis -- Tmax 99.5 -- WBC pending -- CRP 51.64 -- Micro 09/11 MRSA screen negative blood NGTD Urinalysis ordered Sputum ordered -- ABX Rocephin Azithromcyin Home meds: None Neurologic: (1) Abdominal muscle spasm due to work of breathing; (2) Distant history of TBI -- Xanax as needed for anxiety -- Buspar -- Gapabentin -- Remeron -- Ritalin -- PRN Ibuprofen and Morphine as needed for pain control -- PRN Ativan for anxiety/agitation -- Melatonin for sleep -- PT Home meds: Gabapentin, Buspar, Remeron, Ibuprofen, Ritalin, Xanax Hematological: No acute issues -- Hgb pending -- Plt pending -- DVT prophylaxis: SQ Lovenox Home meds: None Metabolic: No acute issues -- Lactic acid 1.1 Home meds: None Deep vein thrombosis prophylaxis: SQ Lovenox Dietary: Protonix Condition: critical Prognosis: good Code status: DNR/DNI Disposition: continue ICU Care Cumulative time spent in the care of this patient (excluding any procedure time) : at least 40 minutes. Patient care included clinical interview (with patient and/or family), bedside exam of the patient, review of labs, x-rays, and other ancillary data, coordination of (respiratory, nursing care, review of patient's records, discussion regarding patients management with involved consultants, primary physician, pharmacists, and other healthcare personnel (dietary, case management , physical/occupational therapy etc.) Critical Care Time: 40
[2018-09-12] MEDS ORDERED: Fluticasone-Salmeterol 500-50* DISKUS INH SCH (11:00)
[2018-09-12] MEDS: [UNRECOGNIZED DRUG - OTHER] INH SCH ×2 (11:42→19:52)
[2018-09-12] MEDS: PTO:Albuterol HFA INHALER* 8 gm MDI INH PRN (11:42)
[2018-09-12] MEDS: Docusate CAP* 100 MG PO PRN (12:52)
[2018-09-12] MEDS ORDERED: Spiriva Inhaler DEVICE* 1 EACH DEVICE SCH (14:00)
[2018-09-12] MEDS ORDERED: SPIRIVA INH SCH (14:00)
[2018-09-12] MEDS: cefTRIAXone(*) 1 GM in NS 0.9% 50 ML* 50 ML IVPB SCH (14:05)
[2018-09-12] MEDS: Tiotropium CAP.INH* CAP.INH/18 MCG (USE ORDER SET !) INH SCH (15:09)
--- NOTE | 2018-09-12 15:20 | PN ---
Progress Note - Progress Note Date of Service: 09/12/18 - interval events Note: Called to bedside: Pt reporting "double vision" which just started. She states that she was resting in bed when she noted the sudden onset of visual changes. She describes the phenomenon as like an aura around objects. She denies history of migraine On exam pt has left lip droop which is her baseline. EOM intact. Visual armas intact. Auras persist when closing left, then right eye sequentially. Discussed with Dr. Simpson; CT unlikely to be informative. He will evaluate patient shortly.
[2018-09-12] MEDS: Azithromycin IV(*) 500 MG in NS 0.9% 250 ML* 250 ML IVPB SCH (15:44)
--- NOTE | 2018-09-12 19:50 | CONS ---
NEUROLOGY CONSULTATION: DATE OF CONSULT: 09/12/18 CONSULTING PROVIDER: Dr. Vika Howard. REASON FOR CONSULT: Visual disturbance. CHIEF COMPLAINT: Transient triple and blurry vision. HISTORY OF PRESENT ILLNESS: Ms. Caba is a 63-year-old female with no history of cataracts or glaucoma who presented to [facility] on 09/11/18 with shortness of breath. The patient has a history of advanced COPD and emphysema as well as triple-negative breast cancer, and started on chemotherapy. In regards to her visual complaints, the patient noticed a transient onset of triple vision last night. The symptoms started on 09/11/18 at approximately 8 p.m. She stated that she was looking at 3 of her family members but she was seeing 9. The vision was horizontal. Closing either eye did not improve the triple vision. The symptoms resolved after 5 minutes. This morning, she was using her phone and texting one of her employers when suddenly she noticed some blurry vision. She took her glasses off to see if that would improve, but that made things worse. Putting back the glasses improved her vision, but she was still seeing blurry. She denied any visual blindness. She denied any double vision. She looked up to the board that is in front of her approximately 90 feet away from her bed and she noticed that the board was [id number]. Closing the right eye made everything worse, but closing the left eye improved the double vision. Today in front of the examiner , she stated that when looking towards the right side, she sees a slight double vision that immediately resolved. She denied any retro-orbital pain. She denied any headaches. She denied any slurred speech, focal weakness or paresthesias. She has been using ipratropium and albuterol inhalers. She does have a chronic history of dysphagia. She denied any diurnal pattern of the visual disturbance. PAST MEDICAL HISTORY: Emphysema, COPD, active breast cancer. PAST SURGICAL HISTORY: Tonsillectomy, tubal ligation, breast biopsy. FAMILY HISTORY: Coronary artery disease, but no history of stroke or seizures. SOCIAL HISTORY: The patient was a smoker, she quit 10 years ago. She rarely drinks alcohol. She does have a distant history of cocaine use. She lives with family. REVIEW OF SYSTEMS: A 14-point review of systems was obtained and otherwise negative except what was mentioned in the HPI. PHYSICAL EXAM: Vitals: Temperature of 97.1, pulse of 100, respiratory rate of 31, oxygen saturation of 94% on room air, blood pressure of 136/84. General: Chronically ill-appearing, overweight female, in no acute distress. Head: Normocephalic, atraumatic. Eyes: Conjunctivae/corneas are clear. Undilated funduscopic examination showed no evidence of blurring of the disk. There was normal venous pulsation. Visual acuity testing was performed, she had OD 20/40 , OS 20/40. Neck is supple and symmetrical with no carotid bruits. Lungs: There are some mild rhonchi in bilateral anterior lung field. Cardiovascular: Regular rate and rhythm. Extremities: Normal range of motion with no cyanosis. Skin: No skin lesions or lacerations. Psych: Affect is broad and normal mood. Neurological Examination: Mental Status: Awake, alert, oriented to person, place, time, and general circumstances. Speech and language including expression, naming, repetition and comprehension were assessed. The patient had some shortness of breath and difficulty in talking for a long period of time. Cranial Nerves: Normal confrontation testing bilaterally. There is no evidence of any nystagmus. No evidence of ptosis. No fatigable ptosis after 1 minute. Sensation is intact to forehead, cheeks, and jaw region bilaterally. There is no facial droop. She is able to hear throughout the history process. Symmetrical palatal elevation. Normal strength against resistance. Tongue is symmetrical and midline with no atrophy. Motor Examination: No abnormal movement or pronator drift. 5/5 strength in the upper and lower extremities bilaterally. Reflexes: 1+ throughout with 0 at the ankles bilaterally. Flexor plantar responses bilaterally. Sensation is intact to light touch. Coordination: Normal [id number] and rapid alternating movement. Gait is wide based. No ataxia. The patient is on oxygen and was unable to ambulate for long distance. LABORATORY DATA: Sodium 135. ASSESSMENT AND RECOMMENDATIONS: Ms. Nu Caba is a 63-year-old female with chronic obstructive pulmonary disease, emphysema, breast cancer now being treated, who is admitted to [facility] for respiratory insufficiency and is currently on oxygen. The patient developed symptoms of monocular triplopia last evening and blurred vision today. The symptoms are transient. There is no visual loss or retro-orbital pain. These symptoms lasted few minutes and usually occur in the setting of some activity such as looking at her phone or other electronic devices. There is no evidence of any extraocular muscle movements. Triple vision is typically seen in local eye disease or refractive error problems. There is no evidence of fatigable ptosis. She has no concerning neurological findings on examination today and the symptoms are intermittent. It is unlikely she is having transient ischemic attack especially given that the symptoms persist with one eye closure involving both eyes. I suspect she most likely has an intraocular abnormality rather than a cranial CHUTE TENDER problem. If her symptoms recur, please reconsult Neurology and we will consider obtaining an MRI of the brain with and without contrast to evaluate for metastatic disease or vascular phenomenon involving the midbrain (less likely). I did order a TSH, free T4, and acetylcholine receptor antibodies to evaluate for a neuromuscular junction disorder that can be caused by myasthenia gravis or an extraocular motor abnormality that is not seen on examination, which can be seen in thyroid disease. Other possible differential diagnosis refractive error would be that the patient is being exposed to albuterol inhaler which can sometimes cause an anisocoria which would manifest this blurred vision. Continue neuro checks every 4 hours for the next 24 hours. Please contact me for any questions or concerns. I will follow-up with the patients and some of the ordered labs tomorrow morning. TIME SPENT: 55 minutes of which greater than 50% was spent obtaining history, examining the patient, and discussing the treatment plan with the patient as well as ICU provider, Dr. Howadr. [id number]/[facility] #: [id number] JARETH
[2018-09-12] MEDS: Mirtazapine TAB* 15 MG PO PRN (20:42)
[2018-09-12] MEDS: Melatonin 3 MG TAB PO SCH (20:43)
[2018-09-12] MEDS: Benzonatate CAP* 100 MG PO PRN (23:40)
[2018-09-13] MEDS: Albuterol/Ipratropium NEB.SOL* Albuterol 2.5 MG/Ipratropium 0.5 MG 3 ML INH PRN (01:45)
[2018-09-13] MEDS: guaiFENesin LIQ* 100 MG/5 ML UDC PO PRN (02:06)
[2018-09-13] MEDS: Morphine VIAL* 4 MG/ML VIAL (1 ml vial) IV PRN ×6 (02:13→20:24)
[2018-09-13] MEDS: methylPREDNISolone SOD 40 MG* 1 ML VIAL IV SCH ×3 (05:19→20:33)
[2018-09-13 05:22] LABS: Hematocrit 33 % (35-47); Mean Corpuscular HGB Conc 34 g/dl (31-36); Mean Corpuscular Hemoglobin 29 pg (27-31); Mean Corpuscular Volume 86 fL (80-97); Mean Platelet Volume 8.4 fL (7.4-10.4); Platelet Count 222 10^3/ul (150-450); Red Blood Count 3.81 10^6/ul (4.00-5.40); Red Cell Distribution Width 16 % (10.5-15); White Blood Count 11.2 10^3/ul (3.5-10.8)
[2018-09-13 05:38] LABS: Albumin 3.9 g/dL (3.2-5.2); Albumin/Globulin Ratio 1.4 (1-3); BUN/Creatinine Ratio 25.8 (8-20); Calcium 9.2 mg/dL (8.6-10.3); Globulin 2.7 g/dL (2-4); Magnesium 2.1 mg/dL (1.9-2.7); Phosphorus 2.2 mg/dL (2.5-5.0); Potassium 4.3 mmol/L (3.5-5.0); Total Bilirubin 0.3 mg/dL (0.2-1.0); Total Protein 6.6 g/dL (6.4-8.9)
[2018-09-13 05:58] LABS: TSH (Thyroid Stimulating Horm) 0.3 mcIU/mL (0.34-5.60)
[2018-09-13 06:00] LABS: Free T4 0.8 ng/dL (0.61-1.12)
[2018-09-13] MEDS ORDERED: Albuterol/Ipratropium NEB.SOL* Albuterol 2.5 MG/Ipratropium 0.5 MG 3 ML INH SCH (07:00)
[2018-09-13] MEDS: Tiotropium CAP.INH* CAP.INH/18 MCG (USE ORDER SET !) INH SCH (07:30)
[2018-09-13] MEDS: [UNRECOGNIZED DRUG - OTHER] INH SCH ×2 (07:40→19:32)
[2018-09-13] MEDS: Oxybutynin XL TAB* 5 MG PO SCH (08:07)
[2018-09-13] MEDS: ALPRAZolam TAB* 0.5 MG PO PRN ×2 (08:08→20:47)
[2018-09-13] MEDS: amLODIPine TAB* 5 MG PO SCH (08:08)
[2018-09-13] MEDS: Pantoprazole TAB * 40 MG TAB PO SCH (08:08)
[2018-09-13] MEDS: Enoxaparin(*) 40 MG/0.4 ML SYR SUBCUT SCH (08:12)
[2018-09-13] MEDS ORDERED: Sodium Phosphate INJ* 30 MMOLE in NS 0.9% 250 ML* 250 ML IVPB ONE (08:13)
--- NOTE | 2018-09-13 08:17 | PN ---
Date of Service: 09/13/18 - 3 Critical Care Services: 63 yo F with history of advanced COPD and emphysema, as well as triple negative breast cancer, not yet started on chemotherapy, who has been told by her doctors in the past she is not a candidate for intubation given her pulmonary condition. She presents to the ED on 09/11 with complaints of feeling feverish, productive cough and shortness of breath for the past 3 days, worsening last night. In ED found to be tachycardic and tachypneic. Started on Vapotherm for increased work of breathing. WBC 7.4, Ddimer 254. CXR with atelectasis vs inflammatory infiltrate at left base. CTA negative for PE, no pneumonia seen. Admitted to ICU for management of vapotherm. After admission reported an episode of abdominal pain which resolved after 2mg of Morphine. CT and lactic acid within normal limits. 09/12: Requiring vapotherm throughout the day. Reported onset of "triple vision " in the afternoon. Seen by Neurology; outpatient ophthalmology followup. 09/13: Weaned to nasal cannula (6L) overnight. Vital Signs: Temp Pulse Resp BP SpO2 FiO2 98.1 F 78 20 113/70 94 35 09/13/18 00:00 09/13/18 07:35 09/13/18 07:37 09/13/18 07:00 09/13/18 07:35 09/12 12:00 Physical Exam: Gen: alert, conversant. Watching TV with visiting friend. Appears less short of breath today HEENT: nasal cannula in place Lungs: CTAB. Better air movement today Cardiac: RRR Abdomen: Soft, NTND Extremities: Warm, dry Neuro: alert and oriented. Fluid Balance (Past 24 Hours): I= O= Net Intake & Output 09/11/18 09/12/18 09/13/18 09/14/18 06:59 06:59 06:59 06:59 Intake Total 3358 2480 Output Total 2700 3500 Balance 658 -1020 Weight 182 lb 1.629 oz 180 lb 12.465 oz Intake: IV Fluids 1803 645 NS (0.9%) 803 645 IVPB 515 60 ABX - AZITHROMYCIN 265 60 Oral 1040 1775 Output: Urine 2700 3500 Other: Estimated Void Medium Medium # Voids 1 ADLs: Meal Record Start: 09/11/18 11: 56 Freq: 09,13,18 Status: Active Protocol: Created 09/11/18 11:56 System (Rec: 09/11/18 11:56 System ICU-C21) Document 09/11/18 13:00 [id number] (Rec: 09/11/18 13:11 [id number] ICU-C06) Document 09/11/18 18:00 [id number] (Rec: 09/11/18 18:15 [id number] ICU-C06) Document 09/12/18 09:00 [id number] (Rec: 09/12/18 11:04 [id number] ICU-C06) Document 09/12/18 13:00 [id number] (Rec: 09/12/18 18:36 [id number] ICU-C06) Document 09/12/18 20:16 [id number] (Rec: 09/12/18 20:16 [id number] ICU-C07) Intake and Output Start: 09/11/18 08: 30 Freq: Status: Active Protocol: Created 09/11/18 08:30 System (Rec: 09/11/18 08:30 System ED-C24) Intake and Output Start: 09/11/18 11: 56 Freq: Q4HR Status: Active Protocol: Created 09/11/18 11:56 System (Rec: 09/11/18 11:56 System ICU-C21) Document 09/11/18 13:00 [id number] (Rec: 09/11/18 13:11 [id number] ICU-C06) Document 09/11/18 14:00 [id number] (Rec: 09/11/18 14:21 [id number] ICU-C06) Document 09/11/18 15:00 [id number] (Rec: 09/11/18 16:10 [id number] ICU-C06) Document 09/11/18 16:00 [id number] (Rec: 09/11/18 16:11 [id number] ICU-C11) Document 09/11/18 17:00 [id number] (Rec: 09/11/18 17:43 [id number] ICU-C06) Document 09/11/18 18:00 [id number] (Rec: 09/11/18 18:15 [id number] ICU-C06) Document 09/11/18 19:22 VNB0015 (Rec: 09/11/18 19:22 [id number] ICU-M32) Document 09/11/18 20:00 [id number] (Rec: 09/11/18 20:28 [id number] ICU-M35) Document 09/11/18 21:00 [id number] (Rec: 09/11/18 21:42 [id number] ICU-C25) Document 09/11/18 23:00 [id number] (Rec: 09/11/18 23:26 [id number] ICU-C25) Document 09/11/18 23:35 [id number] (Rec: 09/11/18 23:35 [id number] ICU-C14) Document 09/12/18 03:00 [id number] (Rec: 09/12/18 03:06 [id number] ICU-C25) Document 09/12/18 06:00 [id number] (Rec: 09/12/18 06:18 GNR2128 ICU-M35) Document 09/12/18 07:45 [id number] (Rec: 09/12/18 07:45 [id number] ICU-C03) Document 09/12/18 09:00 [id number] (Rec: 09/12/18 12:49 [id number] ICU-C06) Document 09/12/18 11:00 [id number] (Rec: 09/12/18 12:50 CTF1788 ICU-C06) Document 09/12/18 15:00 KZK6305 (Rec: 09/12/18 18:20 [id number] ICU-C06) Document 09/12/18 18:00 KQS2258 (Rec: 09/12/18 18:20 [id number] ICU-C06) Document 09/12/18 18:40 [id number] (Rec: 09/12/18 18:40 [id number] ICU-C06) Document 09/12/18 20:46 [id number] (Rec: 09/12/18 20:46 [id number] ICU-M35) Document 09/12/18 21:00 [id number] (Rec: 09/12/18 21:40 [id number] ICU-C07) Document 09/12/18 22:00 [id number] (Rec: 09/12/18 22:13 [id number] ICU-C07) Document 09/12/18 23:00 [id number] (Rec: 09/12/18 23:05 [id number] ICU-C07) Document 09/12/18 23:47 [id number] (Rec: 09/12/18 23:54 [id number] ICU-C07) Document 09/13/18 01:35 [id number] (Rec: 09/13/18 01:36 [id number] ICU-M35) Document 09/13/18 02:31 [id number] (Rec: 09/13/18 02:31 [id number] ICU-C07) Document 09/13/18 04:00 [id number] (Rec: 09/13/18 04:11 [id number] ICU-C07) Document 09/13/18 05:00 [id number] (Rec: 09/13/18 05:16 ICU-C07) Document 09/13/18 06:00 [id number] (Rec: 09/13/18 06:18 [id number] ICU-C07) Labs: Laboratory Results - last 24 hr 09/12/18 09/13/18 09/13/18 18:26 05:05 05:05 WBC 11.2 H RBC 3.81 L Hgb 11.0 L Hct 33 L MCV 86 MCH 29 MCHC 34 RDW 16 H Plt Count 222 MPV 8.4 Sodium Potassium 4.3 Chloride Carbon Dioxide Anion Gap BUN Creatinine Est GFR ( Amer) Est GFR (Non-Af Amer) BUN/Creatinine Ratio Glucose Calcium Phosphorus Magnesium Total Bilirubin AST 19 ALT Alkaline Phosphatase Total Protein Albumin Globulin Albumin/Globulin Ratio TSH 0.30 L Free T4 0.80 09/13/18 05:05 WBC RBC Hgb Hct MCV MCH MCHC RDW Plt Count MPV Sodium 138 Potassium 4.3 Chloride 107 Carbon Dioxide 25 Anion Gap 6 BUN 17 Creatinine 0.66 Est GFR ( Amer) 110.2 Est GFR (Non-Af Amer) 91.0 BUN/Creatinine Ratio 25.8 H Glucose 179 H Calcium 9.2 Phosphorus 2.2 L Magnesium 2.1 Total Bilirubin 0.30 AST 17 ALT 18 Alkaline Phosphatase 80 Total Protein 6.6 Albumin 3.9 Globulin 2.7 Albumin/Globulin Ratio 1.4 TSH Free T4 Studies: 09/12 CXR: right basilar atelectasis 09/11 CT abd/pelvis: no acute process 09/11 CTA chest: no PE no interval change in previously described small upper lung pulmonary nodules no evidence for pneumonia advanced emphysema 09/11 CXR: atelectasis vs inflammatory infiltrate in Left lung base. COPD. Nutrition: regular diet Impression: 63 yo F with hx of COPD and emphysema as well as newly diagnosed breast cancer not yet started on chemotherpy. Admitted for 10 days in August 2018 for pneumonia and COPD, after which she says she never really improved. Now returned with acute on chronic hypoxic respiratory failure, started on vapotherm. Now weaned to 6L NC. Developed episodes of abdominal pain likely strained muscle, and "triple vision" possibly secondary to nebulizers. Evaluated by neurology, no underlying Neurologic issues. Plan: Cardiovascular: (1) Sinus tachycardia; (2) Chronic HTN -- HR 49-106 (<84 since midnight) -- SBP 105-151 -- Telemetry -- Norvasc -- PRN Hydralazine for goal SBP < 160 Home meds: Norvasc Pulmonary: (1) Acute on chronic hypoxic respiratory failure, improving; (2) COPD exacerbation; (3) Emphysema; (4) Likely bronchitis -- RR 17-47 (< 33 since midnight) -- sats 94-100 on 6L NC -- CXR, 09/12: RLL atelectasis -- CTA, 09/11: No PE, no pneumonia seen -- Duonebs, solumedrol and abx for COPD exacerbation -- home advair and Spiriva -- Tesslon and Guaifenesin as needed Home meds: Advair, Albuterol, Spiriva Gastrointestinal: (1) Hyperbilirubinemia, resolved -- LFTs Tbili 0.3 ALK 80 AST 17 ALT 18 -- diet: regular diet -- bowel regimen: Colace -- ulcer prophylaxis: protonix Home meds: Protonix Endocrine: No acute issues -- monitor BGs -- Solumedrol for COPD exacerbation Home meds: None Renal: (1) Hyponatremia, resolved (2) Urinary frequency -- UOP: 146 ml/hr -- I/O: 2480/3500 -- Cr 0.66 -- Lytes Na 138 K 4.3 Ca 9.2 Mag 2.1 Phos 2.2, replacement ordered -- IVF: HLIVF -- Detrol Home meds: Detrol Infectious disease: (1) Bronchitis -- Tmax 98.6 -- WBC 11.2 from 7.4 -- CRP 51.64 -- Micro 09/11 MRSA screen negative blood NGTD Urine Negative Sputum ordered -- ABX Rocephin Azithromcyin Home meds: None Neurologic: (1) Abdominal muscle spasm due to work of breathing; (2) Distant history of TBI -- Xanax as needed for anxiety -- Buspar -- Gapabentin -- Remeron -- Ritalin -- PRN Ibuprofen and Morphine as needed for pain control -- Melatonin for sleep -- PT Home meds: Gabapentin, Buspar, Remeron, Ibuprofen, Ritalin, Xanax Hematological: No acute issues -- Hgb 11.0 from 13.7 -- Plt 222 from 260 -- DVT prophylaxis: SQ Lovenox Home meds: None Metabolic: No acute issues -- Lactic acid 1.1 Home meds: None Deep vein thrombosis prophylaxis: SQ Lovenox Dietary: Protonix Condition: serious Prognosis: good Code status: DNR/DNI Disposition: transfer to floor Cumulative time spent in the care of this patient (excluding any procedure time) : at least 30 minutes. Patient care included clinical interview (with patient and/or family), bedside exam of the patient, review of labs, x-rays, and other ancillary data, coordination of (respiratory, nursing care, review of patient's records, discussion regarding patients management with involved consultants, primary physician, pharmacists, and other healthcare personnel (dietary, case management , physical/occupational therapy etc.) Critical Care Time: 30
[2018-09-13] MEDS: Methylphenidate TAB* 10 MG PO SCH ×2 (09:33→11:39)
[2018-09-13] MEDS: cefTRIAXone(*) 1 GM in NS 0.9% 50 ML* 50 ML IVPB SCH (14:05)
[2018-09-13] MEDS: Azithromycin IV(*) 500 MG in NS 0.9% 250 ML* 250 ML IVPB SCH (15:49)
[2018-09-13] MEDS: Docusate CAP* 100 MG PO PRN (17:02)
[2018-09-13] MEDS: Melatonin 3 MG TAB PO SCH (20:25)
[2018-09-14] MEDS: Morphine VIAL* 4 MG/ML VIAL (1 ml vial) IV PRN ×9 (00:17→23:58)
[2018-09-14] MEDS: methylPREDNISolone SOD 40 MG* 1 ML VIAL IV SCH ×3 (05:18→21:57)
[2018-09-14 07:29] LABS: Hematocrit 33 % (35-47); Mean Corpuscular HGB Conc 34 g/dl (31-36); Mean Corpuscular Hemoglobin 29 pg (27-31); Mean Corpuscular Volume 87 fL (80-97); Mean Platelet Volume 8.1 fL (7.4-10.4); Platelet Count 229 10^3/ul (150-450); Red Blood Count 3.75 10^6/ul (4.00-5.40); Red Cell Distribution Width 16 % (10.5-15); White Blood Count 10.2 10^3/ul (3.5-10.8)
[2018-09-14 07:52] LABS: BUN/Creatinine Ratio 28.6 (8-20); Calcium 9.1 mg/dL (8.6-10.3); EGFR Non-African American 110.1 (>60); Phosphorus 2.3 mg/dL (2.5-5.0); Potassium 3.9 mmol/L (3.5-5.0)
[2018-09-14] MEDS: [UNRECOGNIZED DRUG - OTHER] INH SCH ×2 (08:18→16:24)
[2018-09-14] MEDS: Tiotropium CAP.INH* CAP.INH/18 MCG (USE ORDER SET !) INH SCH (08:22)
[2018-09-14] MEDS: Methylphenidate TAB* 10 MG PO SCH ×2 (08:25→11:47)
[2018-09-14] MEDS: Pantoprazole TAB * 40 MG TAB PO SCH (08:27)
[2018-09-14] MEDS: Oxybutynin XL TAB* 5 MG PO SCH (08:27)
[2018-09-14] MEDS: amLODIPine TAB* 5 MG PO SCH (08:29)
[2018-09-14] MEDS: Enoxaparin(*) 40 MG/0.4 ML SYR SUBCUT SCH (08:31)
[2018-09-14] MEDS ORDERED: Potassium Phosphate IV* 10 MMOLE in NS 0.9% 250 ML* 250 ML IVPB ONE (09:03)
--- NOTE | 2018-09-14 12:48 | PN ---
Subjective Date of Service: 09/14/18 Interval History: 63 year old female with ongoing breast cancer, admitted for acute on chronic hypoxic respiratory failure due to COPD exacerbation. Was in the ICU, and was transferred to medical floor 09/13/18. This morning patient was seen and evaluated by myself. Continues to have shortness of breath and air hunger. Has cough as well. No fever, no chest pain Objective Active Medications: Albuterol (Ventolin Hfa Inhaler*) 1 puff INH Q6H PRN PRN Reason: SHORTNESS OF BREATH Last Admin: 09/12/18 11:42 Dose: 1 puff Albuterol/Ipratropium (Duoneb (Albuterol 2.5 Mg/Ipratropium 0.5 Mg)) 1 neb INH Q4H PRN PRN Reason: SOB/WHEEZING Alprazolam (Xanax Tab*) 0.5 mg PO Q8H PRN PRN Reason: ANXIETY Last Admin: 09/13/18 20:47 Dose: 0.5 mg Amlodipine Besylate (Norvasc Tab*) 1.25 mg PO DAILY ZOHAIB Last Admin: 09/14/18 08:29 Dose: 1.25 mg Benzonatate (Tessalon Cap*) 100 mg PO BID PRN PRN Reason: COUGH Last Admin: 09/12/18 23:40 Dose: 100 mg Buspirone HCl (Buspar Tab*) 10 mg PO TID PRN PRN Reason: ANXIETY Device (Tiotropium Inhaler Device*) 1 each INH .USE w/ SPIRIVA CAPS ZOHAIB Docusate Sodium (Colace Cap*) 100 mg PO DAILY PRN PRN Reason: CONSTIPATION Last Admin: 09/13/18 17:02 Dose: 100 mg Enoxaparin Sodium (Lovenox(*)) 40 mg SUBCUT Q24H ZOHAIB Last Admin: 09/14/18 08:31 Dose: Not Given Gabapentin (Neurontin Cap(*)) 300 mg PO BID PRN PRN Reason: PAIN Guaifenesin (Robitussin*) 5 ml PO Q6H PRN PRN Reason: COUGH Last Admin: 09/13/18 02:06 Dose: 5 ml Hydralazine HCl (Apresoline Iv*) 5 mg IV SLOW PU Q6H PRN PRN Reason: SYSTOLIC BP GREATER THAN: Ceftriaxone Sodium 1 gm/ (Sodium Chloride) 50 mls @ 200 mls/hr IVPB Q24H [facility] Stop: 09/18/18 13:59 Last Admin: 09/13/18 14:05 Dose: 200 mls/hr Azithromycin 500 mg/ Sodium (Chloride) 250 mls @ 250 mls/hr IVPB Q24H [facility] Stop: 09/18/18 14:59 Last Admin: 09/13/18 15:49 Dose: 250 mls/hr Ibuprofen (Motrin Tab*) 600 mg PO Q6H PRN PRN Reason: FEVER/PAIN Melatonin (Melatonin) 3 mg PO BEDTIME [facility] Last Admin: 09/13/18 20:25 Dose: 3 mg Methylphenidate HCl (Ritalin Tab*) 20 mg PO 1200 [facility] Last Admin: 09/13/18 11:39 Dose: 20 mg Methylphenidate HCl (Ritalin Tab*) 60 mg PO QAM [facility] Last Admin: 09/14/18 08:25 Dose: 60 mg Methylprednisolone Sodium Succinate (Solu-Medrol 40 Mg) 40 mg IV Q8H [facility] Last Admin: 09/14/18 05:18 Dose: 40 mg Mirtazapine (Remeron Tab*) 15 mg PO BEDTIME PRN PRN Reason: SLEEP Last Admin: 09/12/18 20:42 Dose: 15 mg Morphine Sulfate (Morphine Vial*) 1 mg IV Q2H PRN PRN Reason: Pain/SOB Last Admin: 09/14/18 08:06 Dose: 1 mg Oxybutynin Chloride (Ditropan Xl Tab*) 10 mg PO DAILY [facility]; Protocol Last Admin: 09/14/18 08:27 Dose: 10 mg Pantoprazole Sodium (Protonix Tab *) 40 mg PO DAILY [facility] Last Admin: 09/14/18 08:27 Dose: 40 mg Fluticasone/Salmeterol (Advair Diskus 500-50*) 1 puff INH 0700,1500 [facility] Last Admin: 09/14/18 08:18 Dose: 1 puff Tiotropium [place] (Spiriva Cap.Inh*) 1 cap INH DAILY [facility] Last Admin: 09/14/18 08:22 Dose: 1 cap Vital Signs - 8 hr 09/14/18 09/14/18 09/14/18 04:37 08:00 08:06 Temperature 98.3 F Pulse Rate 52 78 Respiratory 19 18 26 Rate Blood Pressure 118/64 (mmHg) O2 Sat by Pulse 98 96 Oximetry 09/14/18 08:26 Temperature Pulse Rate 78 Respiratory 18 Rate Blood Pressure (mmHg) O2 Sat by Pulse 96 Oximetry Oxygen Devices in Use Now: Nasal Cannula Appearance: Sitting on bed, with nasal canula on. stops frequently to breath in middle of sentences. Respiratory: - - Tachypnea, with no accessory muscles use, diminsed air entry with wheezing heard throughout all lung armas. Cardiovascular: RRR Abdominal: NL Sounds; No Tenderness; No Distention Neurological: Alert and Oriented x 3 Result Diagrams: 09/14/18 06:55 09/14/18 06:55 Microbiology and Other Data: Microbiology 09/11/18 08:46 Aerobic Blood Culture - Preliminary Blood Venous No Growth Day 3 Anaerobic Blood Culture - Preliminary No Growth Day 3 09/11/18 08:30 Aerobic Blood Culture - Preliminary Blood Venous No Growth Day 2 Anaerobic Blood Culture - Preliminary No Growth Day 2 09/11/18 13:22 Urine Culture - Final Urine No Growth (<1,000 CFU/mL) 09/11/18 13:18 Nasal Screen MRSA (PCR) - Final Nasal Mrsa Not Detected Assess/Plan/Problems-Billing Assessment: - Patient Problems (1) Double vision Current Visit: Yes Status: Acute Code(s): H53.2 - DIPLOPIA SNOMED Code(s) : 63471885 Comment: was having double vision earlier, seen by neurologist, will need ophthalmology referral as outpatient. (2) Acute and chronic respiratory failure with hypoxia Current Visit: No Status: Acute Code(s): J96.21 - ACUTE AND CHRONIC RESPIRATORY FAILURE WITH HYPOXIA SNOMED Code(s): 89590869 Comment: Due to COPD exacerbation Slowly improving. Continue supplemental oxygen (3) Breast cancer Current Visit: No Status: Acute Code(s): C50.919 - MALIGNANT NEOPLASM OF [facility] SITE OF UNSPECIFIED FEMALE BREAST SNOMED Code(s): 567121626 Comment: Triple negative breast cancer (4) COPD exacerbation Current Visit: No Status: Acute Code(s): J44.1 - CHRONIC OBSTRUCTIVE PULMONARY DISEASE W (ACUTE) EXACERBATION SNOMED Code(s): 598052271 Comment: slowly improving continue solumedrol 40mg Q 8hrs, added mucinex, continue duonebs, advair, spirivia. continue rocephin and azithromycin (5) DVT prophylaxis Current Visit: No Status: Acute Code(s): JAT5020 - SNOMED Code(s): 150424481 Comment: Continue lovenox subQ (6) GERD (gastroesophageal reflux disease) Current Visit: No Status: Acute Code(s): K21.9 - GASTRO-ESOPHAGEAL REFLUX DISEASE WITHOUT ESOPHAGITIS SNOMED Code(s): 282644249 Comment: Continue pantoprazole (7) Pulmonary nodules Current Visit: No Status: Acute Code(s): R91.8 - OTHER NONSPECIFIC ABNORMAL FINDING OF LUNG FIELD SNOMED Code(s): 903139581
[2018-09-14] MEDS: cefTRIAXone(*) 1 GM in NS 0.9% 50 ML* 50 ML IVPB SCH (14:14)
[2018-09-14] MEDS: Heparin VIAL(*) 5000 UNITS/ML VIAL (FIVE THOUSAND) SUBCUT SCH ×2 (14:26→21:48)
[2018-09-14] MEDS: Azithromycin IV(*) 500 MG in NS 0.9% 250 ML* 250 ML IVPB SCH (15:29)
[2018-09-14] MEDS: busPIRone TAB* 10 MG PO PRN ×2 (15:41→20:24)
[2018-09-14] MEDS: PTO:Albuterol HFA INHALER* 8 gm MDI INH PRN (16:25)
[2018-09-14 18:27] LABS: Hematocrit 34 % (35-47); Hemoglobin 11.3 g/dl (12.0-16.0); Mean Corpuscular HGB Conc 34 g/dl (31-36); Mean Corpuscular Hemoglobin 29 pg (27-31); Mean Corpuscular Volume 87 fL (80-97); Platelet Count 244 10^3/ul (150-450); Red Blood Count 3.87 10^6/ul (4.00-5.40); Red Cell Distribution Width 16 % (10.5-15); White Blood Count 12.2 10^3/ul (3.5-10.8)
[2018-09-14 18:36] LABS: Activated Partial Thrombo Time 23.9 seconds (26.0-36.3); INR 0.84 (0.77-1.02)
[2018-09-14 18:43] LABS: EGFR Non-African American 89.5 (>60)
[2018-09-14 18:59] LABS: ABS Basophils 0 10^3/ul (0-0.2); ABS Eosinophils 0 10^3/ul (0-0.6); ABS Lymphocytes 0.9 10^3/ul (1.0-4.8); ABS Monocytes 0.8 10^3/ul (0-0.8); ABS Neutrophils 10.7 10^3/ul (1.5-7.7); ABS Nucleated RBC 0 10^3/ul; Eosinophil % 0 %; Lymphocyte % 7.2 %; Nucleated Red Blood Cells % 0
[2018-09-14] MEDS: Melatonin 3 MG TAB PO SCH (20:24)
[2018-09-14] MEDS: guaiFENesin ER TAB 600 MG PO SCH (20:24)
[2018-09-15] MEDS: Morphine VIAL* 4 MG/ML VIAL (1 ml vial) IV PRN ×7 (05:34→22:07)
[2018-09-15] MEDS: methylPREDNISolone SOD 40 MG* 1 ML VIAL IV SCH ×3 (05:35→21:01)
[2018-09-15] MEDS: Heparin VIAL(*) 5000 UNITS/ML VIAL (FIVE THOUSAND) SUBCUT SCH ×3 (05:36→21:01)
[2018-09-15 05:56] LABS: Hematocrit 35 % (35-47); Hemoglobin 11.7 g/dl (12.0-16.0); Mean Corpuscular HGB Conc 34 g/dl (31-36); Mean Corpuscular Hemoglobin 30 pg (27-31); Mean Corpuscular Volume 87 fL (80-97); Platelet Count 237 10^3/ul (150-450); Red Blood Count 3.99 10^6/ul (4.00-5.40); Red Cell Distribution Width 16 % (10.5-15); White Blood Count 10.3 10^3/ul (3.5-10.8)
[2018-09-15 06:17] LABS: Calcium 9.1 mg/dL (8.6-10.3); EGFR Non-African American 94.3 (>60); Magnesium 2.1 mg/dL (1.9-2.7); Phosphorus 3.1 mg/dL (2.5-5.0)
[2018-09-15] MEDS: Tiotropium CAP.INH* CAP.INH/18 MCG (USE ORDER SET !) INH SCH (07:38)
[2018-09-15] MEDS: [UNRECOGNIZED DRUG - OTHER] INH SCH ×2 (07:38→17:27)
[2018-09-15] MEDS: Pantoprazole TAB * 40 MG TAB PO SCH (08:21)
[2018-09-15] MEDS: Methylphenidate TAB* 10 MG PO SCH ×3 (08:21→15:59)
[2018-09-15] MEDS: Oxybutynin XL TAB* 5 MG PO SCH (08:21)
[2018-09-15] MEDS: guaiFENesin ER TAB 600 MG PO SCH ×2 (08:21→21:00)
[2018-09-15] MEDS: amLODIPine TAB* 5 MG PO SCH (08:21)
[2018-09-15] MEDS: busPIRone TAB* 10 MG PO PRN (08:38)
[2018-09-15] MEDS: Ibuprofen TAB* 600 MG PO PRN (11:30)
[2018-09-15] MEDS: Gabapentin CAP(*) 300 MG PO PRN (11:31)
[2018-09-15] MEDS: cefTRIAXone(*) 1 GM in NS 0.9% 50 ML* 50 ML IVPB SCH (13:45)
[2018-09-15] MEDS: Azithromycin IV(*) 500 MG in NS 0.9% 250 ML* 250 ML IVPB SCH (16:48)
--- NOTE | 2018-09-15 18:20 | PN ---
Subjective Date of Service: 09/15/18 Interval History: patient remains extremely short of breath , worse with exertion. reports no further episodes of double vision. denies chest pain. denies abd pain n/v/d. discussed palliative care consult patient is agreeable. Family History: Unchanged from Admission Social History: Unchanged from Admission Past Medical History: Unchanged from Admission Objective Active Medications: Albuterol (Ventolin Hfa Inhaler*) 1 puff INH Q6H PRN PRN Reason: SHORTNESS OF BREATH Last Admin: 09/14/18 16:25 Dose: 1 puff Albuterol/Ipratropium (Duoneb (Albuterol 2.5 Mg/Ipratropium 0.5 Mg)) 1 neb INH Q4H PRN PRN Reason: SOB/WHEEZING Alprazolam (Xanax Tab*) 0.5 mg PO Q8H PRN PRN Reason: ANXIETY Last Admin: 09/13/18 20:47 Dose: 0.5 mg Amlodipine Besylate (Norvasc Tab*) 1.25 mg PO DAILY [facility] Last Admin: 09/15/18 08:21 Dose: 1.25 mg Benzonatate (Tessalon Cap*) 100 mg PO BID PRN PRN Reason: COUGH Last Admin: 09/12/18 23:40 Dose: 100 mg Buspirone HCl (Buspar Tab*) 10 mg PO TID PRN PRN Reason: ANXIETY Last Admin: 09/15/18 08:38 Dose: 10 mg Device (Tiotropium Inhaler Device*) 1 each INH .USE w/ SPIRIVA CAPS [facility] Docusate Sodium (Colace Cap*) 100 mg PO DAILY PRN PRN Reason: CONSTIPATION Last Admin: 09/13/18 17:02 Dose: 100 mg Gabapentin (Neurontin Cap(*)) 300 mg PO BID PRN PRN Reason: PAIN Last Admin: 09/15/18 11:31 Dose: 300 mg Guaifenesin (Robitussin*) 5 ml PO Q6H PRN PRN Reason: COUGH Last Admin: 09/13/18 02:06 Dose: 5 ml Guaifenesin (Mucinex*) 600 mg PO BID [facility] Last Admin: 09/15/18 08:21 Dose: 600 mg Heparin Sodium (Porcine) (Heparin Vial(*)) 5,000 units SUBCUT Q8HR [facility] Last Admin: 09/15/18 13:38 Dose: 5,000 units Hydralazine HCl (Apresoline Iv*) 5 mg IV SLOW PU Q6H PRN PRN Reason: SYSTOLIC BP GREATER THAN: Ceftriaxone Sodium 1 gm/ (Sodium Chloride) 50 mls @ 200 mls/hr IVPB Q24H [facility] Stop: 09/18/18 13:59 Last Admin: 09/15/18 13:45 Dose: 200 mls/hr Azithromycin 500 mg/ Sodium (Chloride) 250 mls @ 250 mls/hr IVPB Q24H [facility] Stop: 09/18/18 14:59 Last Admin: 09/15/18 16:48 Dose: 250 mls/hr Ibuprofen (Motrin Tab*) 600 mg PO Q6H PRN PRN Reason: FEVER/PAIN Last Admin: 09/15/18 11:30 Dose: 600 mg Melatonin (Melatonin) 3 mg PO BEDTIME [facility] Last Admin: 09/14/18 20:24 Dose: 3 mg Methylphenidate HCl (Ritalin Tab*) 60 mg PO QAM [facility] Last Admin: 09/15/18 08:21 Dose: 60 mg Methylphenidate HCl (Ritalin Tab*) 20 mg PO 1500 [facility] Last Admin: 09/15/18 15:59 Dose: 20 mg Methylprednisolone Sodium Succinate (Solu-Medrol 40 Mg) 40 mg IV Q8H [facility] Last Admin: 09/15/18 13:38 Dose: 40 mg Mirtazapine (Remeron Tab*) 15 mg PO BEDTIME PRN PRN Reason: SLEEP Last Admin: 09/12/18 20:42 Dose: 15 mg Morphine Sulfate (Morphine Vial*) 2 mg IV Q3H PRN PRN Reason: Pain/SOB Oxybutynin Chloride (Ditropan Xl Tab*) 10 mg PO DAILY [facility]; Protocol Last Admin: 09/15/18 08:21 Dose: 10 mg Pantoprazole Sodium (Protonix Tab *) 40 mg PO DAILY [facility] Last Admin: 09/15/18 08:21 Dose: 40 mg Fluticasone/Salmeterol (Advair Diskus 500-50*) 1 puff INH 0700,1500 [facility] Last Admin: 09/15/18 17:27 Dose: 1 puff Tiotropium [place] (Spiriva Cap.Inh*) 1 cap INH DAILY [facility] Last Admin: 09/15/18 07:38 Dose: 1 cap Vital Signs - 8 hr 09/15/18 09/15/18 09/15/18 10:55 11:25 11:31 Temperature 97.8 F Pulse Rate 63 Respiratory 18 22 22 Rate Blood Pressure 112/51 (mmHg) O2 Sat by Pulse 98 Oximetry 09/15/18 09/15/18 09/15/18 12:23 13:31 13:36 Temperature Pulse Rate Respiratory 21 22 22 Rate Blood Pressure (mmHg) O2 Sat by Pulse Oximetry 09/15/18 09/15/18 09/15/18 14:36 15:31 17:27 Temperature 97.4 F Pulse Rate 64 85 Respiratory 21 28 18 Rate Blood Pressure 142/73 (mmHg) O2 Sat by Pulse 97 96 Oximetry Oxygen Devices in Use Now: Nasal Cannula Appearance: appears comfortable, moderate respiratory distress with movement, and talking, color pale Eyes: No Scleral Icterus Ears/Nose/Mouth/Throat: Clear Oropharnyx, Mucous Membranes Moist Neck: NL Appearance and Movements; NL JVP, Trachea Midline Respiratory: Symmetrical Chest Expansion and Respiratory Effort, - - diminished t/o bilat Cardiovascular: NL Sounds; No Murmurs; No JVD, No Edema Abdominal: NL Sounds; No Tenderness; No Distention Extremities: No Edema, No Clubbing, Cyanosis Skin: No Rash or Ulcers Neurological: Alert and Oriented x 3 Nutrition: Taking PO's Result Diagrams: 09/16/18 06:15 09/16/18 06:15 Microbiology and Other Data: Microbiology 09/11/18 08:46 Aerobic Blood Culture - Preliminary Blood Venous No Growth Day 3 Anaerobic Blood Culture - Preliminary No Growth Day 3 09/11/18 08:30 Aerobic Blood Culture - Preliminary Blood Venous No Growth Day 2 Anaerobic Blood Culture - Preliminary No Growth Day 2 09/11/18 13:22 Urine Culture - Final Urine No Growth (<1,000 CFU/mL) 09/11/18 13:18 Nasal Screen MRSA (PCR) - Final Nasal Mrsa Not Detected Assess/Plan/Problems-Billing Assessment: Ms. Caba is a 63 y.o female with a pmhx significant for triple breast cancer, acute on chronic hypoxic respiratory failure, copd exacerbation, GERd, pulmonary nodule who presented to hospital with hypoxia . COPD exacerbation - Patient Problems (1) Acute and chronic respiratory failure with hypoxia Current Visit: No Status: Acute Code(s): J96.21 - ACUTE AND CHRONIC RESPIRATORY FAILURE WITH HYPOXIA SNOMED Code(s): 53501667 Comment: Due to COPD exacerbation Slowly improving. Continue supplemental oxygen (2) Double vision Current Visit: Yes Status: Acute Code(s): H53.2 - DIPLOPIA SNOMED Code(s) : 44205392 Comment: was having double vision earlier, seen by neurologist, will need ophthalmology referral as outpatient. (3) GERD (gastroesophageal reflux disease) Current Visit: No Status: Acute Code(s): K21.9 - GASTRO-ESOPHAGEAL REFLUX DISEASE WITHOUT ESOPHAGITIS SNOMED Code(s): 243478555 Comment: Continue pantoprazole (4) Breast cancer Current Visit: No Status: Acute Code(s): C50.919 - MALIGNANT NEOPLASM OF UNSP SITE OF UNSPECIFIED FEMALE BREAST SNOMED Code(s): 624307084 Comment: Triple negative breast cancer- in august - is to have lumpectomy on - will talk to oncology in the AM - pall. care consult (5) COPD exacerbation Current Visit: No Status: Acute Code(s): J44.1 - CHRONIC OBSTRUCTIVE PULMONARY DISEASE W (ACUTE) EXACERBATION SNOMED Code(s): 882864423 Comment: slowly improving- continues to require supplemental o2 at 3 liters - remains extremely SOB with exertion and talking continue solumedrol 40mg Q 8hrs, added mucinex, continue duonebs, advair, spirivia. continue rocephin and azithromycin (6) Pulmonary nodules Current Visit: No Status: Acute Code(s): R91.8 - OTHER NONSPECIFIC ABNORMAL FINDING OF LUNG FIELD SNOMED Code(s): 245830342 Comment: NO change from previous CT 08/2018 - recent PET scan negative (7) DVT prophylaxis Current Visit: No Status: Acute Code(s): XQT7483 - SNOMED Code(s): 845796850 Comment: Continue lovenox subQ (8) Full code status Current Visit: No Status: Acute Code(s): Z78.9 - OTHER SPECIFIED HEALTH STATUS SNOMED Code(s): 216541151 Comment: Status and Disposition: palliative care consult, will discuss with oncology
[2018-09-15] MEDS: Melatonin 3 MG TAB PO SCH (21:00)
[2018-09-16] MEDS: Morphine VIAL* 4 MG/ML VIAL (1 ml vial) IV PRN ×7 (01:17→23:00)
[2018-09-16] MEDS: Heparin VIAL(*) 5000 UNITS/ML VIAL (FIVE THOUSAND) SUBCUT SCH ×3 (04:20→21:17)
[2018-09-16] MEDS: methylPREDNISolone SOD 40 MG* 1 ML VIAL IV SCH ×3 (04:20→20:08)
[2018-09-16 06:40] LABS: Hematocrit 34 % (35-47); Hemoglobin 11.3 g/dl (12.0-16.0); Mean Corpuscular HGB Conc 34 g/dl (31-36); Mean Corpuscular Hemoglobin 29 pg (27-31); Mean Corpuscular Volume 86 fL (80-97); Mean Platelet Volume 8.2 fL (7.4-10.4); Platelet Count 233 10^3/ul (150-450); Red Blood Count 3.92 10^6/ul (4.00-5.40); Red Cell Distribution Width 16 % (10.5-15)
[2018-09-16 06:58] LABS: BUN/Creatinine Ratio 32.8 (8-20); Calcium 8.9 mg/dL (8.6-10.3); EGFR Non-African American 105.7 (>60); Magnesium 2.1 mg/dL (1.9-2.7); Phosphorus 2.5 mg/dL (2.5-5.0); Potassium 3.9 mmol/L (3.5-5.0)
[2018-09-16] MEDS: Pantoprazole TAB * 40 MG TAB PO SCH (08:33)
[2018-09-16] MEDS: guaiFENesin ER TAB 600 MG PO SCH ×2 (08:33→20:08)
[2018-09-16] MEDS: amLODIPine TAB* 5 MG PO SCH (08:33)
[2018-09-16] MEDS: Methylphenidate TAB* 10 MG PO SCH ×2 (08:34→15:15)
[2018-09-16] MEDS: Oxybutynin XL TAB* 5 MG PO SCH (08:34)
[2018-09-16] MEDS: guaiFENesin LIQ* 100 MG/5 ML UDC PO PRN (08:47)
[2018-09-16] MEDS: [UNRECOGNIZED DRUG - OTHER] INH SCH ×2 (08:56→14:59)
[2018-09-16] MEDS: Tiotropium CAP.INH* CAP.INH/18 MCG (USE ORDER SET !) INH SCH (08:56)
[2018-09-16] MEDS: ALPRAZolam TAB* 0.5 MG PO PRN (12:02)
[2018-09-16] MEDS: Benzonatate CAP* 100 MG PO PRN (12:02)
--- NOTE | 2018-09-16 12:25 | CONSULT ---
Palliative / Hospice Consult Ordering Provider: Jeanie Moore - Subjective Code Status: DNR Advance Directives Location: No Advance Directives MOLST Part A Completed: Yes - completed by Dr. Howard MOLST Part E Completed:: Yes - partially completed by Dr. Howard HCP Completed: Yes - Melquiades Vicente-friend - History or Present Illness History or Present Illness: 63 yo female who presented to ER with SOB, fever and cough. She had run out of her O2. She was diagnosed with exacerbation of her COPD and atelectasis vs LLL pneumonia. She has been stated on antibiotics. Originally she was in the ICU on vapor therm but was weaned and transferred to the floor. While in the ICU she signed the MOLST form for DNR/DNI with Dr. Howard. I attempted to discuss the MOLST form and hospice but she wants her significant other(who is her HCP) and daughter to be there. She also has newly diagnosed breast cancer triple negative for which she is going to the OR for a lumpectomy and sentinel node biopsy on Thrusday. She is under the impression if the node is negative and lump is removed it could be a possible cure. Her other problems include emphysema, HTN, GERD, anemia and abd spasms. Her last admission was 07/30/18-08/10/18 for pneumonia and COPD. She is an ex smoker quit 10 yrs ago, tried cocaine in distant past and has 1 drink/month. She just became eligible for section 8 housing [facility] for [facility]. I let SW know and they will look into it. She is requiring morphine to help with her breathing. She is uncomfortable without it. Her KPS score 40%, PPS score 40%. She has disabling dyspnea at rest, end stage stage pulmonary disease increasing ER visits and recent admission and on home O2. Lab Values: Abnormal Lab Results 09/16/18 09/16/18 06:15 06:15 WBC 12.0 H RBC 3.92 L Hgb 11.3 L Hct 34 L MCV 86 MCH 29 MCHC 34 RDW 16 H Plt Count 233 MPV 8.2 Sodium 138 Potassium 3.9 Chloride 103 Carbon Dioxide 27 Anion Gap 8 BUN 19 Creatinine 0.58 Est GFR ( Amer) 127.9 Est GFR (Non-Af Amer) 105.7 BUN/Creatinine Ratio 32.8 H Glucose 198 H Calcium 8.9 Phosphorus 2.5 Magnesium 2.1 Laboratory Last Values WBC 12.0 10^3/ul (3.5-10.8) H 09/16/18 06:15 RBC 3.92 10^6/ul (4.00-5.40) L 09/16/18 06:15 Hgb 11.3 g/dl (12.0-16.0) L 09/16/18 06:15 Hct 34 % (35-47) L 09/16/18 06:15 MCV 86 fL (80-97) 09/16/18 06:15 MCH 29 pg (27-31) 09/16/18 06:15 MCHC 34 g/dl (31-36) 09/16/18 06:15 RDW 16 % (10.5-15) H 09/16/18 06:15 Plt Count 233 10^3/ul (150-450) 09/16/18 06:15 MPV 8.2 fL (7.4-10.4) 09/16/18 06:15 Neut % (Auto) 86.0 % 09/14/18 18:21 Lymph % (Auto) 7.2 % 09/14/18 18:21 [place] % (Auto) 6.7 % 09/14/18 18:21 Eos % (Auto) 0 % 09/14/18 18:21 Baso % (Auto) 0.1 % 09/14/18 18:21 Absolute Neuts (auto) 10.7 10^3/ul (1.5-7.7) H 09/14/18 18:21 Absolute Lymphs (auto) 0.9 10^3/ul (1.0-4.8) L 09/14/18 18:21 Absolute Monos (auto) 0.8 10^3/ul (0-0.8) 09/14/18 18:21 Absolute Eos (auto) 0 10^3/ul (0-0.6) 09/14/18 18:21 Absolute Basos (auto) 0 10^3/ul (0-0.2) 09/14/18 18:21 Absolute Nucleated RBC 0 10^3/ul 09/14/18 18:21 Nucleated RBC % 0 09/14/18 18:21 INR (Anticoag Therapy) 0.84 (0.77-1.02) 09/14/18 18:21 APTT 23.9 seconds (26.0-36.3) L 09/14/18 18:21 D-Dimer, Quantitative 254 ng/mL (Less Than 230) H 09/11/18 08:46 VBG pH 7.38 (7.32-7.43) 09/11/18 08:50 VBG pCO2 43 mmHg (41-51) 09/11/18 08:50 VBG pO2 < 38.0 mmHg (35-45) 09/11/18 08:50 VBG HCO3 23.6 mmol/L (24-28) L 09/11/18 08:50 VBG O2 Saturation 50.9 % (70-80) L 09/11/18 08:50 VBG Base Excess 0.0 mmol/L (0.0-4.0) 09/11/18 08:50 Sodium 138 mmol/L (135-145) 09/16/18 06:15 Potassium 3.9 mmol/L (3.5-5.0) 09/16/18 06:15 Chloride 103 mmol/L (101-111) 09/16/18 06:15 Carbon Dioxide 27 mmol/L (22-32) 09/16/18 06:15 Anion Gap 8 mmol/L (2-11) 09/16/18 06:15 BUN 19 mg/dL (6-24) 09/16/18 06:15 Creatinine 0.58 mg/dL (0.51-0.95) 09/16/18 06:15 Est GFR ( Amer) 127.9 (>60) 09/16/18 06:15 Est GFR (Non-Af Amer) 105.7 (>60) 09/16/18 06:15 BUN/Creatinine Ratio 32.8 (8-20) H 09/16/18 06:15 Glucose 198 mg/dL (70-100) H 09/16/18 06:15 Lactic Acid 1.6 mmol/L (0.5-2.0) 09/11/18 16:20 Calcium 8.9 mg/dL (8.6-10.3) 09/16/18 06:15 Phosphorus 2.5 mg/dL (2.5-5.0) 09/16/18 06:15 Magnesium 2.1 mg/dL (1.9-2.7) 09/16/18 06:15 Total Bilirubin 0.30 mg/dL (0.2-1.0) 09/13/18 05:05 AST 17 U/L (13-39) 09/13/18 05:05 ALT 18 U/L (7-52) 09/13/18 05:05 Alkaline Phosphatase 80 U/L (34-104) 09/13/18 05:05 Troponin I 0.00 ng/mL (<0.04) 09/11/18 08:46 C-Reactive Protein 51.64 mg/L (<8.01) H 09/11/18 08:46 B-Natriuretic Peptide 12 pg/mL (<=100) 09/11/18 08:46 Total Protein 6.6 g/dL (6.4-8.9) 09/13/18 05:05 Albumin 3.9 g/dL (3.2-5.2) 09/13/18 05:05 Globulin 2.7 g/dL (2-4) 09/13/18 05:05 Albumin/Globulin Ratio 1.4 (1-3) 09/13/18 05:05 Procalcitonin <0.10 ng/mL (<=0.15) 09/12/18 06:15 TSH 0.30 mcIU/mL (0.34-5.60) L 09/13/18 05:05 Free T4 0.80 ng/dL (0.61-1.12) 09/13/18 05:05 Urine Color Straw 09/11/18 13:22 Urine Appearance Clear 09/11/18 13:22 Urine pH 5.0 (5-9) 09/11/18 13:22 Ur Specific [place] 1.038 (1.010-1.030) H 09/11/18 13:22 Urine Protein Negative (Negative) 09/11/18 13:22 Urine Ketones Negative (Negative) 09/11/18 13:22 Urine Blood 1+ (Negative) A 09/11/18 13:22 Urine Nitrate Negative (Negative) 09/11/18 13:22 Urine Bilirubin Negative (Negative) 09/11/18 13:22 Urine Urobilinogen Negative (Negative) 09/11/18 13:22 Ur Leukocyte Esterase Negative (Negative) 09/11/18 13:22 Urine WBC (Auto) Trace(0-5/hpf) (Absent) 09/11/18 13:22 Urine RBC (Auto) Trace(0-2/hpf) (Absent) 09/11/18 13:22 Ur Squamous Epith Cells Present (Absent) A 09/11/18 13:22 Urine Bacteria Absent (Absent) 09/11/18 13:22 Urine Glucose Negative (Negative) 09/11/18 13:22 - Objective Active Medications: Albuterol (Ventolin Hfa Inhaler*) 1 puff INH Q6H PRN PRN Reason: SHORTNESS OF BREATH Last Admin: 09/14/18 16:25 Dose: 1 puff Albuterol/Ipratropium (Duoneb (Albuterol 2.5 Mg/Ipratropium 0.5 Mg)) 1 neb INH Q4H PRN PRN Reason: SOB/WHEEZING Alprazolam (Xanax Tab*) 0.5 mg PO Q8H PRN PRN Reason: ANXIETY Last Admin: 09/16/18 12:02 Dose: 0.5 mg Amlodipine Besylate (Norvasc Tab*) 1.25 mg PO DAILY [facility] Last Admin: 09/16/18 08:33 Dose: 1.25 mg Benzonatate (Tessalon Cap*) 100 mg PO BID PRN PRN Reason: COUGH Last Admin: 09/16/18 12:02 Dose: 100 mg Buspirone HCl (Buspar Tab*) 10 mg PO TID PRN PRN Reason: ANXIETY Last Admin: 09/15/18 08:38 Dose: 10 mg Device (Tiotropium Inhaler Device*) 1 each INH .USE w/ SPIRIVA CAPS [facility] Docusate Sodium (Colace Cap*) 100 mg PO DAILY PRN PRN Reason: CONSTIPATION Last Admin: 09/13/18 17:02 Dose: 100 mg Gabapentin (Neurontin Cap(*)) 300 mg PO BID PRN PRN Reason: PAIN Last Admin: 09/15/18 11:31 Dose: 300 mg Guaifenesin (Robitussin*) 5 ml PO Q6H PRN PRN Reason: COUGH Last Admin: 09/16/18 08:47 Dose: 5 ml Guaifenesin (Mucinex*) 600 mg PO BID [facility] Last Admin: 09/16/18 08:33 Dose: 600 mg Heparin Sodium (Porcine) (Heparin Vial(*)) 5,000 units SUBCUT Q8HR [facility] Last Admin: 09/16/18 04:20 Dose: 5,000 units Hydralazine HCl (Apresoline Iv*) 5 mg IV SLOW PU Q6H PRN PRN Reason: SYSTOLIC BP GREATER THAN: Ceftriaxone Sodium 1 gm/ (Sodium Chloride) 50 mls @ 200 mls/hr IVPB Q24H [facility] Stop: 09/18/18 13:59 Last Admin: 09/15/18 13:45 Dose: 200 mls/hr Azithromycin 500 mg/ Sodium (Chloride) 250 mls @ 250 mls/hr IVPB Q24H [facility] Stop: 09/18/18 14:59 Last Admin: 09/15/18 16:48 Dose: 250 mls/hr Ibuprofen (Motrin Tab*) 600 mg PO Q6H PRN PRN Reason: FEVER/PAIN Last Admin: 09/15/18 11:30 Dose: 600 mg Melatonin (Melatonin) 3 mg PO BEDTIME [facility] Last Admin: 09/15/18 21:00 Dose: 3 mg Methylphenidate HCl (Ritalin Tab*) 60 mg PO QAM [facility] Last Admin: 09/16/18 08:34 Dose: 60 mg Methylphenidate HCl (Ritalin Tab*) 20 mg PO 1500 [facility] Last Admin: 09/15/18 15:59 Dose: 20 mg Methylprednisolone Sodium Succinate (Solu-Medrol 40 Mg) 40 mg IV Q8H [facility] Last Admin: 09/16/18 11:57 Dose: 40 mg Mirtazapine (Remeron Tab*) 15 mg PO BEDTIME PRN PRN Reason: SLEEP Last Admin: 09/12/18 20:42 Dose: 15 mg Morphine Sulfate (Morphine Vial*) 2 mg IV Q3H PRN PRN Reason: Pain/SOB Last Admin: 09/16/18 11:57 Dose: 2 mg Oxybutynin Chloride (Ditropan Xl Tab*) 10 mg PO DAILY [facility]; Protocol Last Admin: 09/16/18 08:34 Dose: 10 mg Pantoprazole Sodium (Protonix Tab *) 40 mg PO DAILY [facility] Last Admin: 09/16/18 08:33 Dose: 40 mg Fluticasone/Salmeterol (Advair Diskus 500-50*) 1 puff INH 0700,1500 [facility] Last Admin: 09/16/18 08:56 Dose: 1 puff Tiotropium [place] (Spiriva Cap.Inh*) 1 cap INH DAILY [facility] Last Admin: 09/16/18 08:56 Dose: 1 cap Vital Signs: Vital Signs: Temp Pulse Resp BP Pulse Ox 97.0 F 95 25 113/54 95 09/16/18 03:05 09/16/18 08:58 09/16/18 12:02 09/16/18 03:05 09/16/18 08:58 Patient Weight: Weight 82 kg Intake and Output: Intake & Output 09/14/18 09/15/18 09/16/18 09/17/18 06:59 06:59 06:59 06:59 Intake Total 480 1440 2040 360 Output Total 600 250 Balance -120 1440 1790 360 Intake: Oral 480 1440 2040 360 Output: Urine 600 250 Other: Estimated Void Large Medium Date of Last Bowel unknown Movement # Bowel Movements 0 0 # Voids 1 0 ADLs: Meal Record Start: 09/11/18 11: 56 Freq: 09,13,18 Status: Complete Protocol: Created 09/11/18 11:56 System (Rec: 09/11/18 11:56 System ICU-C21) Document 09/11/18 13:00 [id number] (Rec: 09/11/18 13:11 [id number] ICU-C06) Document 09/11/18 18:00 [id number] (Rec: 09/11/18 18:15 [id number] ICU-C06) Document 09/12/18 09:00 [id number] (Rec: 09/12/18 11:04 [id number] ICU-C06) Document 09/12/18 13:00 [id number] (Rec: 09/12/18 18:36 [id number] ICU-C06) Document 09/12/18 20:16 [id number] (Rec: 09/12/18 20:16 [id number] ICU-C07) ADLs: Meal Record Start: 09/13/18 08: 38 Freq: DAILY@0900,1400,1800 Status: Active Protocol: Created 09/13/18 08:38 [id number] (Rec: 09/13/18 08:38 [id number] ICU-C07) Document 09/13/18 18:00 [id number] (Rec: 09/13/18 22:52 GEK2110 MED-C09) Document 09/14/18 09:00 LYE8657 (Rec: 09/14/18 10:51 TCQ5593 MED-C02) Document 09/14/18 18:00 GJQ9272 (Rec: 09/14/18 23:52 [id number] MED-C11) Document 09/15/18 09:00 TKN6839 (Rec: 09/15/18 10:39 EJK1091 MED-C09) Document 09/15/18 14:00 JBL4578 (Rec: 09/15/18 14:29 [id number] MED-C09) Document 09/15/18 18:00 QVC0964 (Rec: 09/15/18 23:05 [id number] MED-C09) Document 09/16/18 09:00 UWZ0519 (Rec: 09/16/18 10:25 [id number] MED-C09) Intake and Output Start: 09/11/18 08: 30 Freq: Status: Active Protocol: Created 09/11/18 08:30 System (Rec: 09/11/18 08:30 System ED-C24) Intake and Output Start: 09/11/18 11: 56 Freq: Q4HR Status: Complete Protocol: Created 09/11/18 11:56 System (Rec: 09/11/18 11:56 System ICU-C21) Document 09/11/18 13:00 [id number] (Rec: 09/11/18 13:11 [id number] ICU-C06) Document 09/11/18 14:00 WZH8335 (Rec: 09/11/18 14:21 [id number] ICU-C06) Document 09/11/18 15:00 IUE4790 (Rec: 09/11/18 16:10 SSH8836 ICU-C06) Document 09/11/18 16:00 YVH2147 (Rec: 09/11/18 16:11 ENO5236 ICU-C11) Document 09/11/18 17:00 HLB1125 (Rec: 09/11/18 17:43 ACA0910 ICU-C06) Document 09/11/18 18:00 XZR9528 (Rec: 09/11/18 18:15 [id number] ICU-C06) Document 09/11/18 19:22 PUG6068 (Rec: 09/11/18 19:22 CTE4787 ICU-M32) Document 09/11/18 20:00 MHP1894 (Rec: 09/11/18 20:28 MXO2036 ICU-M35) Document 09/11/18 21:00 SRR6630 (Rec: 09/11/18 21:42 JPJ0930 ICU-C25) Document 09/11/18 23:00 RLZ4617 (Rec: 09/11/18 23:26 [id number] ICU-C25) Document 09/11/18 23:35 [id number] (Rec: 09/11/18 23:35 RYO0618 ICU-C14) Document 09/12/18 03:00 MLL2003 (Rec: 09/12/18 03:06 VPW3143 ICU-C25) Document 09/12/18 06:00 BTW9235 (Rec: 09/12/18 06:18 FOX1950 ICU-M35) Document 09/12/18 07:45 HLE0404 (Rec: 09/12/18 07:45 LSY6943 ICU-C03) Document 09/12/18 09:00 AEB3627 (Rec: 09/12/18 12:49 LNH1987 ICU-C06) Document 09/12/18 11:00 YYQ9034 (Rec: 09/12/18 12:50 SHL3542 ICU-C06) Document 09/12/18 15:00 JEZ7356 (Rec: 09/12/18 18:20 BPM6103 ICU-C06) Document 09/12/18 18:00 MQF2841 (Rec: 09/12/18 18:20 DPX5293 ICU-C06) Document 09/12/18 18:40 VLL2816 (Rec: 09/12/18 18:40 QOE5139 ICU-C06) Document 09/12/18 20:46 ZNX5731 (Rec: 09/12/18 20:46 LYU9319 ICU-M35) Document 09/12/18 21:00 CME6438 (Rec: 09/12/18 21:40 NHW2092 ICU-C07) Document 09/12/18 22:00 QHU9265 (Rec: 09/12/18 22:13 SQV0265 ICU-C07) Document 09/12/18 23:00 ULC7503 (Rec: 09/12/18 23:05 YCG9654 ICU-C07) Document 09/12/18 23:47 HPT0038 (Rec: 09/12/18 23:54 VRC5574 ICU-C07) Document 09/13/18 01:35 VTW1481 (Rec: 09/13/18 01:36 CAR2396 ICU-M35) Document 09/13/18 02:31 PPZ5077 (Rec: 09/13/18 02:31 RCF0925 ICU-C07) Document 09/13/18 04:00 DGO9471 (Rec: 09/13/18 04:11 AWU6934 ICU-C07) Document 09/13/18 05:00 VWT2140 (Rec: 09/13/18 05:16 KEO7837 ICU-C07) Document 09/13/18 06:00 QWL8067 (Rec: 09/13/18 06:18 PWT3203 ICU-C07) Intake and Output Start: 09/13/18 08: 38 Freq: DAILY@0600,1400,2200 Status: Active Protocol: Created 09/13/18 08:38 [id number] (Rec: 09/13/18 08:38 [id number] ICU-C07) Document 09/13/18 12:01 YVL5064 (Rec: 09/13/18 12:01 KFN4058 ICU-C14) Document 09/13/18 14:00 QPQ7807 (Rec: 09/13/18 14:44 QDQ5920 MED-C04) Document 09/13/18 22:00 GHX8527 (Rec: 09/13/18 22:52 RDQ4368 MED-C09) Document 09/14/18 10:52 FGW1723 (Rec: 09/14/18 10:52 BGW5098 MED-C02) Document 09/14/18 22:00 EMJ7546 (Rec: 09/14/18 23:53 QKT9090 MED-C11) Document 09/15/18 11:44 TPA0525 (Rec: 09/15/18 11:44 VIN0623 MED-C09) Document 09/15/18 22:00 YVJ1308 (Rec: 09/15/18 23:06 OQH9191 MED-C09) Document 09/16/18 05:06 YMT0504 (Rec: 09/16/18 05:07 BEU1649 MED-C09) Head: Normal Eyes: No Scleral Icterus Ears/Nose/Mouth/Throat: Clear Oropharnyx, Mucous Membranes Moist Neck: NL Appearance and Movements; NL JVP, Trachea Midline Cardiovascular: NL Sounds; No Murmurs; No JVD, No Edema Respiratory: Symmetrical Chest Expansion and Respiratory Effort - shallow respirations Abdominal: NL Sounds; No Tenderness; No Distention Extremities: No Edema, No Clubbing, Cyanosis Neurological: Alert and Oriented x 3 - Assessment Assessment: 63 yo female with end stage pulmonary disease, COPD exacerbation, recent breast ca diagnosis eligible for hospice - Plan Consult Plan (MU): Hospice Plan: Spoke with patient about her options but she decline to make any decisions without having a family meeting with her daughter and significant other. She stated she has no quality of life now. Gets exhausted going to the bathroom. Ideally she wants to move to [facility] apartments and get help in whether it is hospice or [facility] or [facility] with [facility]. She did not want to make choices about coming back to the hospital until the family meeting. She is aware that her prognosis is poor. Will add addendum to note once we have family meeting. - Time On Unit Date of Evaluation: 09/16/18 Hospice Consult Time in: 11:00 Hospice Consult Time Out: 12:30 Hospice Consult Time Total: 90 > 50% of Time Spend In Counseling or Coordinating Care: Yes
[2018-09-16] MEDS: cefTRIAXone(*) 1 GM in NS 0.9% 50 ML* 50 ML IVPB SCH (14:41)
[2018-09-16] MEDS: Azithromycin IV(*) 500 MG in NS 0.9% 250 ML* 250 ML IVPB SCH (16:35)
--- NOTE | 2018-09-16 17:17 | PN ---
Subjective Date of Service: 09/16/18 Interval History: Patient reports morphine continues to help air hunger feeling with breathing. reports that she continues to be extremely short of breath, worse with exertion. Denies chest pain or shortness of breath. denies abd pain n/v/d. Family History: Unchanged from Admission Social History: Unchanged from Admission Past Medical History: Unchanged from Admission Objective Active Medications: Albuterol (Ventolin Hfa Inhaler*) 1 puff INH Q6H PRN PRN Reason: SHORTNESS OF BREATH Last Admin: 09/14/18 16:25 Dose: 1 puff Albuterol/Ipratropium (Duoneb (Albuterol 2.5 Mg/Ipratropium 0.5 Mg)) 1 neb INH Q4H PRN PRN Reason: SOB/WHEEZING Alprazolam (Xanax Tab*) 0.5 mg PO Q8H PRN PRN Reason: ANXIETY Last Admin: 09/16/18 12:02 Dose: 0.5 mg Amlodipine Besylate (Norvasc Tab*) 1.25 mg PO DAILY [facility] Last Admin: 09/16/18 08:33 Dose: 1.25 mg Benzonatate (Tessalon Cap*) 100 mg PO BID PRN PRN Reason: COUGH Last Admin: 09/16/18 12:02 Dose: 100 mg Buspirone HCl (Buspar Tab*) 10 mg PO TID PRN PRN Reason: ANXIETY Last Admin: 09/15/18 08:38 Dose: 10 mg Device (Tiotropium Inhaler Device*) 1 each INH .USE w/ SPIRIVA CAPS [facility] Docusate Sodium (Colace Cap*) 100 mg PO DAILY PRN PRN Reason: CONSTIPATION Last Admin: 09/13/18 17:02 Dose: 100 mg Gabapentin (Neurontin Cap(*)) 300 mg PO BID PRN PRN Reason: PAIN Last Admin: 09/15/18 11:31 Dose: 300 mg Guaifenesin (Robitussin*) 5 ml PO Q6H PRN PRN Reason: COUGH Last Admin: 09/16/18 08:47 Dose: 5 ml Guaifenesin (Mucinex*) 600 mg PO BID [facility] Last Admin: 09/16/18 08:33 Dose: 600 mg Heparin Sodium (Porcine) (Heparin Vial(*)) 5,000 units SUBCUT Q8HR [facility] Last Admin: 09/16/18 15:16 Dose: 5,000 units Hydralazine HCl (Apresoline Iv*) 5 mg IV SLOW PU Q6H PRN PRN Reason: SYSTOLIC BP GREATER THAN: Ceftriaxone Sodium 1 gm/ (Sodium Chloride) 50 mls @ 200 mls/hr IVPB Q24H [facility] Stop: 09/18/18 13:59 Last Admin: 09/16/18 14:41 Dose: 200 mls/hr Azithromycin 500 mg/ Sodium (Chloride) 250 mls @ 250 mls/hr IVPB Q24H [facility] Stop: 09/18/18 14:59 Last Admin: 09/16/18 16:35 Dose: 250 mls/hr Ibuprofen (Motrin Tab*) 600 mg PO Q6H PRN PRN Reason: FEVER/PAIN Last Admin: 09/15/18 11:30 Dose: 600 mg Melatonin (Melatonin) 3 mg PO BEDTIME [facility] Last Admin: 09/15/18 21:00 Dose: 3 mg Methylphenidate HCl (Ritalin Tab*) 60 mg PO QAM [facility] Last Admin: 09/16/18 08:34 Dose: 60 mg Methylphenidate HCl (Ritalin Tab*) 20 mg PO 1500 [facility] Last Admin: 09/16/18 15:15 Dose: 20 mg Methylprednisolone Sodium Succinate (Solu-Medrol 40 Mg) 40 mg IV Q8H [facility] Last Admin: 09/16/18 11:57 Dose: 40 mg Mirtazapine (Remeron Tab*) 15 mg PO BEDTIME PRN PRN Reason: SLEEP Last Admin: 09/12/18 20:42 Dose: 15 mg Morphine Sulfate (Morphine Vial*) 2 mg IV Q3H PRN PRN Reason: Pain/SOB Last Admin: 09/16/18 15:16 Dose: 2 mg Oxybutynin Chloride (Ditropan Xl Tab*) 10 mg PO DAILY [facility]; Protocol Last Admin: 09/16/18 08:34 Dose: 10 mg Pantoprazole Sodium (Protonix Tab *) 40 mg PO DAILY [facility] Last Admin: 09/16/18 08:33 Dose: 40 mg Fluticasone/Salmeterol (Advair Diskus 500-50*) 1 puff INH 0700,1500 [facility] Last Admin: 09/16/18 14:59 Dose: 1 puff Tiotropium Myrtle (Spiriva Cap.Inh*) 1 cap INH DAILY [facility] Last Admin: 09/16/18 08:56 Dose: 1 cap Vital Signs - 8 hr 09/16/18 09/16/18 09/16/18 09:55 11:48 11:57 Temperature 98.0 F Pulse Rate 74 Respiratory 20 18 25 Rate Blood Pressure 137/82 (mmHg) O2 Sat by Pulse 99 Oximetry 09/16/18 09/16/18 09/16/18 12:02 12:55 14:48 Temperature Pulse Rate Respiratory 25 20 20 Rate Blood Pressure (mmHg) O2 Sat by Pulse Oximetry 09/16/18 09/16/18 15:16 16:37 Temperature Pulse Rate Respiratory 18 26 Rate Blood Pressure (mmHg) O2 Sat by Pulse Oximetry Oxygen Devices in Use Now: Nasal Cannula Appearance: appears fatigued, moderate resp. distress , sitting in the bed, alert and oreinted x 3 Eyes: No Scleral Icterus Ears/Nose/Mouth/Throat: Clear Oropharnyx, Mucous Membranes Moist Neck: NL Appearance and Movements; NL JVP, Trachea Midline Respiratory: Symmetrical Chest Expansion and Respiratory Effort, - - diminished through out with exp wheezing bilat. Cardiovascular: NL Sounds; No Murmurs; No JVD, No Edema Abdominal: NL Sounds; No Tenderness; No Distention Extremities: No Edema, No Clubbing, Cyanosis Skin: No Rash or Ulcers Neurological: Alert and Oriented x 3 Nutrition: Taking PO's Result Diagrams: 09/17/18 06:26 09/16/18 06:15 Microbiology and Other Data: Microbiology 09/11/18 08:46 Aerobic Blood Culture - Preliminary Blood Venous No Growth Day 3 Anaerobic Blood Culture - Preliminary No Growth Day 3 09/11/18 08:30 Aerobic Blood Culture - Preliminary Blood Venous No Growth Day 2 Anaerobic Blood Culture - Preliminary No Growth Day 2 09/11/18 13:22 Urine Culture - Final Urine No Growth (<1,000 CFU/mL) 09/11/18 13:18 Nasal Screen MRSA (PCR) - Final Nasal Mrsa Not Detected Assess/Plan/Problems-Billing Assessment: Ms. Caba is a 63 y.o female with a pmhx significant for triple breast cancer, acute on chronic hypoxic respiratory failure, copd exacerbation, GERd, pulmonary nodule who presented to hospital with hypoxia . COPD exacerbation - Patient Problems (1) Acute and chronic respiratory failure with hypoxia Current Visit: No Status: Acute Code(s): J96.21 - ACUTE AND CHRONIC RESPIRATORY FAILURE WITH HYPOXIA SNOMED Code(s): 09513509 Comment: Due to COPD exacerbation Slowly improving. Continue supplemental oxygen - will consult dr. Navarro (2) Double vision Current Visit: Yes Status: Acute Code(s): H53.2 - DIPLOPIA SNOMED Code(s) : 95258279 Comment: resolved no further episodes of double vision - seen by neurologist, will need ophthalmology referral as outpatient. (3) GERD (gastroesophageal reflux disease) Current Visit: No Status: Acute Code(s): K21.9 - GASTRO-ESOPHAGEAL REFLUX DISEASE WITHOUT ESOPHAGITIS SNOMED Code(s): 119665361 Comment: Continue pantoprazole (4) Breast cancer Current Visit: No Status: Acute Code(s): C50.919 - MALIGNANT NEOPLASM OF UNSP SITE OF UNSPECIFIED FEMALE BREAST SNOMED Code(s): 043568610 Comment: Triple negative breast cancer- dx in august - is to have lumpectomy on - will talk to oncology in the AM - pall. care consulted- given her significant COPD now complicated with breast cancer (5) COPD exacerbation Current Visit: No Status: Acute Code(s): J44.1 - CHRONIC OBSTRUCTIVE PULMONARY DISEASE W (ACUTE) EXACERBATION SNOMED Code(s): 698673033 Comment: minimal improvement- continues to require supplemental o2 at 3-4 liters - remains extremely SOB with exertion and talking continue solumedrol 40mg Q 8hrs, added mucinex, continue duonebs, advair, spirivia. continue rocephin and azithromycin - pall. consulted - d/t poor respiratory status (6) Pulmonary nodules Current Visit: No Status: Acute Code(s): R91.8 - OTHER NONSPECIFIC ABNORMAL FINDING OF LUNG FIELD SNOMED Code(s): 449557488 Comment: NO change from previous CT 08/2018 - recent bone scan negative (7) DVT prophylaxis Current Visit: No Status: Acute Code(s): [id number] - SNOMED Code(s): 507527399 Comment: Continue lovenox subQ (8) DNR (do not resuscitate) Current Visit: Yes Status: Acute Comment: Patient is DNR /DNI Status and Disposition: palliative care consult, will discuss with oncology
--- NOTE | 2018-09-16 19:31 | CONS ---
PULMONARY CONSULTATION REPORT: DATE OF CONSULT: 09/16/18 CONSULTATION REQUESTED BY: Jeanie Posey NP REASON FOR CONSULT: Evaluation of persistent respiratory failure. HISTORY OF PRESENT ILLNESS: The patient is a 63-year-old female with history of cataracts, glaucoma, COPD, recently diagnosed with breast cancer triple negative, awaiting surgery. She was hospitalized for evaluation of worsening shortness of breath. He was admitted on 09/11/18. Presented with fever, productive cough, shortness of breath, worsening over the past 3 days prior to presentation. She was found to be tachycardic and tachypneic in the ED with increased work of breathing. She was initiated on Vapotherm and was admitted to the ICU. Chest x-ray showed basal atelectasis. CTA was obtained and evaluated for pulmonary embolism. I have personally reviewed CTA of the chest. There is no evidence of filling defects in pulmonary arteries. Significant emphysematous changes were noted. Subcentimeter pulmonary nodules have been stable. No evidence of air space opacities. The patient was initiated on treatment for acute COPD exacerbation. She has; however, been tapered off high flow. She continues to require 4 L of oxygen. The patient seen and examined at bedside. The patient reports significant dyspnea even with minimal movements. The patient reports benefit from morphine that she is receiving; however, reports that effect does not last too long. She is also on Solu-Medrol. The patient also on bronchodilators and antibiotics. The patient awaiting surgery that they are planning to do with conscious sedation without having to intubate the patient given her severe COPD condition for . The patient reports that given her worsening breathing recently, she decided not to forgo any invasive procedures or even surgery for her breast cancer, which can be curative and would like to be comfortable. The patient reports that she has not discussed this with her family members; however , feels very comfortable taking this decision. The patient visibly tachypneic with talking. PAST MEDICAL HISTORY: Emphysema, pretty advanced. Breast cancer recently diagnosed. Recent hospitalizations for respiratory symptoms. PAST SURGICAL HISTORY: Tonsillectomy, tubal ligation, breast biopsy. FAMILY HISTORY: Coronary artery disease. SOCIAL HISTORY: Smoker, quit 10 years ago. Significant smoking history prior to that. Rarely drinks alcohol. Distant history of cocaine use. 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 REVIEW OF SYSTEMS: All 14 systems reviewed as per HPI. PHYSICAL EXAM: The patient in bed, in no apparent distress. Vital Signs: Temperature 98, pulse 74 beats per minute, respiratory rate 18 to 20 per minute , O2 sat 99% on 4 L, blood pressure 137/82. HEENT: Pupils equal, reactive to light. Mucous membranes moist. Lungs: Diminished air entry bilaterally. No significant wheeze. Cardiovascular: S1, S2 present, regular. Abdomen: Soft, nontender, nondistended. Bowel sounds present. Extremities: Normal range of motion. Abdomen: Soft, nontender, nondistended. Bowel sounds present. Neuro: Alert, awake, oriented x3. No focal deficits. LABORATORY DATA: WBC count 12, hemoglobin 11.3, hematocrit 34, platelet count 233,000. Sodium 138, potassium 3.9, chloride 103, bicarb 27, BUN 19, creatinine 0.58. CTA as described above in HPI. IMPRESSION/RECOMMENDATIONS: 63-year-old obese female with advanced chronic obstructive pulmonary disease, with worsening respiratory status, recently requiring recurrent hospitalization for worsening shortness of breath, admitted with significant [id number] hypoxic respiratory failure secondary to acute chronic obstructive pulmonary disease exacerbation. The patient with no significant improvement since admission. She is on Solu-Medrol and bronchodilators round the clock. She is also receiving antibiotics for possible bronchitis/community-acquired pneumonia. The patient requiring surgery for her recently diagnosed breast cancer. The patient at this time after palliative consult decided on no aggressive measures. She is also not planning to forgo the surgery. The patient reports that she would not want any more complications and would prefer to be comfortable. She is considering hospice. She reports benefit with morphine; however, reports that the effect does not last too long. She is further waiting discussion with her family. At this time, there is not much I could add in her management. Thank you for allowing me to participate in the care of your patient. Will follow up with you. [id number]/[facility] #: [id number] JARETH
[2018-09-16] MEDS: PTO:Albuterol HFA INHALER* 8 gm MDI INH PRN (19:58)
[2018-09-16] MEDS: Melatonin 3 MG TAB PO SCH (20:08)
[2018-09-16] MEDS: Mirtazapine TAB* 15 MG PO PRN (20:39)
[2018-09-17] MEDS: Morphine VIAL* 4 MG/ML VIAL (1 ml vial) IV PRN ×6 (04:10→23:36)
[2018-09-17] MEDS: Heparin VIAL(*) 5000 UNITS/ML VIAL (FIVE THOUSAND) SUBCUT SCH ×3 (05:17→20:29)
[2018-09-17] MEDS: methylPREDNISolone SOD 40 MG* 1 ML VIAL IV SCH ×3 (05:17→20:30)
[2018-09-17 06:48] LABS: Hematocrit 35 % (35-47); Hemoglobin 12.1 g/dl (12.0-16.0); Mean Corpuscular HGB Conc 34 g/dl (31-36); Mean Corpuscular Hemoglobin 29 pg (27-31); Mean Corpuscular Volume 86 fL (80-97); Mean Platelet Volume 8.1 fL (7.4-10.4); Platelet Count 233 10^3/ul (150-450); Red Blood Count 4.12 10^6/ul (4.00-5.40); Red Cell Distribution Width 16 % (10.5-15); White Blood Count 11.4 10^3/ul (3.5-10.8)
[2018-09-17] MEDS: [UNRECOGNIZED DRUG - OTHER] INH SCH ×2 (07:43→14:57)
[2018-09-17] MEDS: Tiotropium CAP.INH* CAP.INH/18 MCG (USE ORDER SET !) INH SCH (07:44)
[2018-09-17] MEDS: Pantoprazole TAB * 40 MG TAB PO SCH (08:00)
[2018-09-17] MEDS: guaiFENesin ER TAB 600 MG PO SCH ×2 (08:00→20:29)
[2018-09-17] MEDS: Oxybutynin XL TAB* 5 MG PO SCH (08:00)
[2018-09-17] MEDS: amLODIPine TAB* 5 MG PO SCH (08:00)
[2018-09-17] MEDS: Methylphenidate TAB* 10 MG PO SCH ×2 (08:00→14:41)
[2018-09-17 08:21] LABS: Lymphocytes % 12 %; Metamyelocytes % 3 % (0-2); Monocytes % 4 %; Neutrophil % 78 %
[2018-09-17 08:22] LABS: Immature Granulocytes 6 % (0-9); Myelocytes % 2 % (0-1)
[2018-09-17 08:25] LABS: ABS Neutrophils 9.57 10^3/ul (1.5-7.7)
[2018-09-17] MEDS: PTO:Albuterol HFA INHALER* 8 gm MDI INH PRN (09:46)
--- NOTE | 2018-09-17 14:10 | PN ---
Subjective Date of Service: 09/17/18 Interval History: Patient reports morphine continues to help air hunger feelings. Reports that she continues to be extremely short of breath, worse with exertion. Denies chest pain or shortness of breath. patient remains very short of breath at rest. denies abd pain n/v/d. denies fever or chills. Family History: Unchanged from Admission Social History: Unchanged from Admission Past Medical History: Unchanged from Admission Objective Active Medications: Albuterol (Ventolin Hfa Inhaler*) 1 puff INH Q6H PRN PRN Reason: SHORTNESS OF BREATH Last Admin: 09/17/18 09:46 Dose: 1 puff Albuterol/Ipratropium (Duoneb (Albuterol 2.5 Mg/Ipratropium 0.5 Mg)) 1 neb INH Q4H PRN PRN Reason: SOB/WHEEZING Alprazolam (Xanax Tab*) 0.5 mg PO Q8H PRN PRN Reason: ANXIETY Last Admin: 09/16/18 12:02 Dose: 0.5 mg Amlodipine Besylate (Norvasc Tab*) 1.25 mg PO DAILY [facility] Last Admin: 09/17/18 08:00 Dose: 1.25 mg Benzonatate (Tessalon Cap*) 100 mg PO BID PRN PRN Reason: COUGH Last Admin: 09/16/18 12:02 Dose: 100 mg Buspirone HCl (Buspar Tab*) 10 mg PO TID PRN PRN Reason: ANXIETY Last Admin: 09/15/18 08:38 Dose: 10 mg Device (Tiotropium Inhaler Device*) 1 each INH .USE w/ SPIRIVA CAPS [facility] Docusate Sodium (Colace Cap*) 100 mg PO DAILY PRN PRN Reason: CONSTIPATION Last Admin: 09/13/18 17:02 Dose: 100 mg Gabapentin (Neurontin Cap(*)) 300 mg PO BID PRN PRN Reason: PAIN Last Admin: 09/15/18 11:31 Dose: 300 mg Guaifenesin (Robitussin*) 5 ml PO Q6H PRN PRN Reason: COUGH Last Admin: 09/16/18 08:47 Dose: 5 ml Guaifenesin (Mucinex*) 600 mg PO BID [facility] Last Admin: 09/17/18 08:00 Dose: 600 mg Heparin Sodium (Porcine) (Heparin Vial(*)) 5,000 units SUBCUT Q8HR [facility] Last Admin: 09/17/18 13:29 Dose: 5,000 units Hydralazine HCl (Apresoline Iv*) 5 mg IV SLOW PU Q6H PRN PRN Reason: SYSTOLIC BP GREATER THAN: Ceftriaxone Sodium 1 gm/ (Sodium Chloride) 50 mls @ 200 mls/hr IVPB Q24H [facility] Stop: 09/18/18 13:59 Last Admin: 09/16/18 14:41 Dose: 200 mls/hr Azithromycin 500 mg/ Sodium (Chloride) 250 mls @ 250 mls/hr IVPB Q24H [facility] Stop: 09/18/18 14:59 Last Admin: 09/16/18 16:35 Dose: 250 mls/hr Ibuprofen (Motrin Tab*) 600 mg PO Q6H PRN PRN Reason: FEVER/PAIN Last Admin: 09/15/18 11:30 Dose: 600 mg Melatonin (Melatonin) 3 mg PO BEDTIME [facility] Last Admin: 09/16/18 20:08 Dose: 3 mg Methylphenidate HCl (Ritalin Tab*) 60 mg PO QAM [facility] Last Admin: 09/17/18 08:00 Dose: 60 mg Methylphenidate HCl (Ritalin Tab*) 20 mg PO 1500 [facility] Last Admin: 09/16/18 15:15 Dose: 20 mg Methylprednisolone Sodium Succinate (Solu-Medrol 40 Mg) 40 mg IV Q8H [facility] Last Admin: 09/17/18 13:30 Dose: 40 mg Mirtazapine (Remeron Tab*) 15 mg PO BEDTIME PRN PRN Reason: SLEEP Last Admin: 09/16/18 20:39 Dose: 15 mg Morphine Sulfate (Morphine Vial*) 2 mg IV Q3H PRN PRN Reason: Pain/SOB Last Admin: 09/17/18 13:30 Dose: 2 mg Oxybutynin Chloride (Ditropan Xl Tab*) 10 mg PO DAILY [facility]; Protocol Last Admin: 09/17/18 08:00 Dose: 10 mg Pantoprazole Sodium (Protonix Tab *) 40 mg PO DAILY [facility] Last Admin: 09/17/18 08:00 Dose: 40 mg Fluticasone/Salmeterol (Advair Diskus 500-50*) 1 puff INH 0700,1500 [facility] Last Admin: 09/17/18 07:43 Dose: 1 puff Tiotropium Dexter (Spiriva Cap.Inh*) 1 cap INH DAILY [facility] Last Admin: 09/17/18 07:44 Dose: 1 cap Vital Signs - 8 hr 09/17/18 09/17/18 09/17/18 06:59 07:11 08:00 Temperature 97.5 F Pulse Rate 55 Respiratory 20 18 20 Rate Blood Pressure 158/76 (mmHg) O2 Sat by Pulse 99 Oximetry 09/17/18 09/17/18 09/17/18 09:46 09:48 10:46 Temperature Pulse Rate 89 Respiratory 22 22 24 Rate Blood Pressure (mmHg) O2 Sat by Pulse 98 Oximetry 09/17/18 13:30 Temperature Pulse Rate Respiratory 22 Rate Blood Pressure (mmHg) O2 Sat by Pulse Oximetry Oxygen Devices in Use Now: Nasal Cannula Appearance: alert and oriented x 3 , moderate respiratory distress Eyes: No Scleral Icterus Ears/Nose/Mouth/Throat: Clear Oropharnyx, Mucous Membranes Moist Neck: NL Appearance and Movements; NL JVP, Trachea Midline Respiratory: Symmetrical Chest Expansion and Respiratory Effort, - - very diminished t/o bilat , labored breathing Cardiovascular: NL Sounds; No Murmurs; No JVD, No Edema Abdominal: NL Sounds; No Tenderness; No Distention Extremities: No Edema, No Clubbing, Cyanosis Skin: No Rash or Ulcers Neurological: Alert and Oriented x 3 Nutrition: Taking PO's Result Diagrams: 09/17/18 06:26 09/16/18 06:15 Microbiology and Other Data: Microbiology 09/11/18 08:46 Aerobic Blood Culture - Preliminary Blood Venous No Growth Day 3 Anaerobic Blood Culture - Preliminary No Growth Day 3 09/11/18 08:30 Aerobic Blood Culture - Preliminary Blood Venous No Growth Day 2 Anaerobic Blood Culture - Preliminary No Growth Day 2 09/11/18 13:22 Urine Culture - Final Urine No Growth (<1,000 CFU/mL) 09/11/18 13:18 Nasal Screen MRSA (PCR) - Final Nasal Mrsa Not Detected Assess/Plan/Problems-Billing Assessment: Ms. Caba is a 63 y.o female with a pmhx significant for triple breast cancer, acute on chronic hypoxic respiratory failure, copd exacerbation, GERd, pulmonary nodule who presented to hospital with hypoxia . COPD exacerbation - Patient Problems (1) Acute and chronic respiratory failure with hypoxia Current Visit: No Status: Acute Code(s): J96.21 - ACUTE AND CHRONIC RESPIRATORY FAILURE WITH HYPOXIA SNOMED Code(s): 88125172 Comment: Due to COPD exacerbation minimal improvement. Continue supplemental oxygen - consulted dr. Navarro - patient is end stage COPD - agrees with hospice consult (2) Double vision Current Visit: Yes Status: Acute Code(s): H53.2 - DIPLOPIA SNOMED Code(s) : 56534878 Comment: resolved no further episodes of double vision - seen by neurologist, will need ophthalmology referral as outpatient. (3) GERD (gastroesophageal reflux disease) Current Visit: No Status: Acute Code(s): K21.9 - GASTRO-ESOPHAGEAL REFLUX DISEASE WITHOUT ESOPHAGITIS SNOMED Code(s): 440791409 Comment: Continue pantoprazole (4) Breast cancer Current Visit: No Status: Acute Code(s): C50.919 - MALIGNANT NEOPLASM OF UNSP SITE OF UNSPECIFIED FEMALE BREAST SNOMED Code(s): 231855185 Comment: Triple negative breast cancer- dx in august - is to have lumpectomy on - pall. care consulted- given her significant COPD now complicated with breast cancer (5) COPD exacerbation Current Visit: No Status: Acute Code(s): J44.1 - CHRONIC OBSTRUCTIVE PULMONARY DISEASE W (ACUTE) EXACERBATION SNOMED Code(s): 568385901 Comment: minimal improvement- continues to require supplemental o2 at 3-4 liters - remains extremely SOB with exertion and talking continue solumedrol 40mg Q 8hrs, added mucinex, continue duonebs, advair, spirivia. continue rocephin and azithromycin - pall. consulted - d/t poor respiratory status (6) Pulmonary nodules Current Visit: No Status: Acute Code(s): R91.8 - OTHER NONSPECIFIC ABNORMAL FINDING OF LUNG FIELD SNOMED Code(s): 008116452 Comment: NO change from previous CT 08/2018 - recent bone scan negative (7) DVT prophylaxis Current Visit: No Status: Acute Code(s): XUG3470 - SNOMED Code(s): 139253198 Comment: Continue lovenox subQ (8) DNR (do not resuscitate) Current Visit: Yes Status: Acute Comment: Patient is DNR /DNI Status and Disposition: palliative care consult, will discuss with oncology
[2018-09-17] MEDS: cefTRIAXone(*) 1 GM in NS 0.9% 50 ML* 50 ML IVPB SCH (14:40)
[2018-09-17] MEDS: Azithromycin IV(*) 500 MG in NS 0.9% 250 ML* 250 ML IVPB SCH (15:39)
[2018-09-17] MEDS: Albuterol/Ipratropium NEB.SOL* Albuterol 2.5 MG/Ipratropium 0.5 MG 3 ML INH PRN (18:24)
[2018-09-17] MEDS: Ibuprofen TAB* 600 MG PO PRN (20:27)
[2018-09-17] MEDS: guaiFENesin LIQ* 100 MG/5 ML UDC PO PRN (20:30)
[2018-09-17] MEDS: Melatonin 3 MG TAB PO SCH (20:57)
[2018-09-17] MEDS: Mirtazapine TAB* 15 MG PO PRN (20:57)
[2018-09-18] MEDS: Morphine VIAL* 4 MG/ML VIAL (1 ml vial) IV PRN ×4 (01:52→12:12)
[2018-09-18] MEDS: methylPREDNISolone SOD 40 MG* 1 ML VIAL IV SCH ×3 (04:20→15:37)
[2018-09-18] MEDS: ALPRAZolam TAB* 0.5 MG PO PRN ×2 (06:08→17:46)
[2018-09-18] MEDS: Heparin VIAL(*) 5000 UNITS/ML VIAL (FIVE THOUSAND) SUBCUT SCH ×3 (06:08→21:29)
[2018-09-18] MEDS: [UNRECOGNIZED DRUG - OTHER] INH SCH ×2 (07:34→14:40)
[2018-09-18] MEDS: Tiotropium CAP.INH* CAP.INH/18 MCG (USE ORDER SET !) INH SCH (07:35)
[2018-09-18] MEDS: Pantoprazole TAB * 40 MG TAB PO SCH (08:04)
[2018-09-18] MEDS: Oxybutynin XL TAB* 5 MG PO SCH (08:04)
[2018-09-18] MEDS: guaiFENesin ER TAB 600 MG PO SCH ×2 (08:05→19:59)
[2018-09-18] MEDS: amLODIPine TAB* 5 MG PO SCH (08:05)
[2018-09-18] MEDS: Methylphenidate TAB* 10 MG PO SCH ×2 (08:05→15:12)
--- NOTE | 2018-09-18 11:11 | PN ---
Progress Note - Progress Note Date of Service: 09/18/18 SOAP: Subjective: []Cont.'d SOB and very aware of her limited life expectancy. Has decided against lumpectomy r/t inability to lay flat and huge concern regarding post operative pain. "I know my breathing will get me before that." Medications: Albuterol (Ventolin Hfa Inhaler*) 1 puff INH Q6H PRN PRN Reason: SHORTNESS OF BREATH Last Admin: 09/17/18 09:46 Dose: 1 puff Albuterol/Ipratropium (Duoneb (Albuterol 2.5 Mg/Ipratropium 0.5 Mg)) 1 neb INH Q4H PRN PRN Reason: SOB/WHEEZING Last Admin: 09/17/18 18:24 Dose: 1 neb Alprazolam (Xanax Tab*) 0.5 mg PO Q8H PRN PRN Reason: ANXIETY Last Admin: 09/18/18 06:08 Dose: 0.5 mg Amlodipine Besylate (Norvasc Tab*) 1.25 mg PO DAILY [facility] Last Admin: 09/18/18 08:05 Dose: 1.25 mg Benzonatate (Tessalon Cap*) 100 mg PO BID PRN PRN Reason: COUGH Last Admin: 09/16/18 12:02 Dose: 100 mg Buspirone HCl (Buspar Tab*) 10 mg PO TID PRN PRN Reason: ANXIETY Last Admin: 09/15/18 08:38 Dose: 10 mg Device (Tiotropium Inhaler Device*) 1 each INH .USE w/ SPIRIVA CAPS [facility] Docusate Sodium (Colace Cap*) 100 mg PO DAILY PRN PRN Reason: CONSTIPATION Last Admin: 09/13/18 17:02 Dose: 100 mg Gabapentin (Neurontin Cap(*)) 300 mg PO BID PRN PRN Reason: PAIN Last Admin: 09/15/18 11:31 Dose: 300 mg Guaifenesin (Robitussin*) 5 ml PO Q6H PRN PRN Reason: COUGH Last Admin: 09/17/18 20:30 Dose: 5 ml Guaifenesin (Mucinex*) 600 mg PO BID [facility] Last Admin: 09/18/18 08:05 Dose: 600 mg Heparin Sodium (Porcine) (Heparin Vial(*)) 5,000 units SUBCUT Q8HR [facility] Last Admin: 09/18/18 06:08 Dose: 5,000 units Hydralazine HCl (Apresoline Iv*) 5 mg IV SLOW PU Q6H PRN PRN Reason: SYSTOLIC BP GREATER THAN: Ceftriaxone Sodium 1 gm/ (Sodium Chloride) 50 mls @ 200 mls/hr IVPB Q24H [facility] Stop: 09/18/18 13:59 Last Admin: 09/17/18 14:40 Dose: 200 mls/hr Ibuprofen (Motrin Tab*) 600 mg PO Q6H PRN PRN Reason: FEVER/PAIN Last Admin: 09/17/18 20:27 Dose: 600 mg Melatonin (Melatonin) 3 mg PO BEDTIME [facility] Last Admin: 09/17/18 20:57 Dose: 3 mg Methylphenidate HCl (Ritalin Tab*) 60 mg PO QAM [facility] Last Admin: 09/18/18 08:05 Dose: 60 mg Methylphenidate HCl (Ritalin Tab*) 20 mg PO 1500 [facility] Last Admin: 09/17/18 14:41 Dose: 20 mg Methylprednisolone Sodium Succinate (Solu-Medrol 40 Mg) 40 mg IV Q8H [facility] Last Admin: 09/18/18 04:20 Dose: 40 mg Mirtazapine (Remeron Tab*) 15 mg PO BEDTIME PRN PRN Reason: SLEEP Last Admin: 09/17/18 20:57 Dose: 15 mg Morphine Sulfate (Morphine Vial*) 2 mg IV Q2H PRN PRN Reason: Pain/SOB Last Admin: 09/18/18 08:05 Dose: 2 mg Oxybutynin Chloride (Ditropan Xl Tab*) 10 mg PO DAILY [facility]; Protocol Last Admin: 09/18/18 08:04 Dose: 10 mg Pantoprazole Sodium (Protonix Tab *) 40 mg PO DAILY [facility] Last Admin: 09/18/18 08:04 Dose: 40 mg Fluticasone/Salmeterol (Advair Diskus 500-50*) 1 puff INH 0700,1500 [facility] Last Admin: 09/18/18 07:34 Dose: 1 puff Tiotropium [place] (Spiriva Cap.Inh*) 1 cap INH DAILY [facility] Last Admin: 09/18/18 07:35 Dose: 1 cap Objective: [] Vital Signs Temp Pulse Resp BP Pulse Ox 97.8 F 88 22 153/60 98 09/18/18 07:26 09/18/18 07:35 09/18/18 11:04 09/18/18 07:26 09/18/18 07:35 A&Ox3, EOMI, neuro grossly non-focal Communicating clearly though notably SOB with minimal exertion in bed Sitting upright at near 90deg. with pillow support Tachypnea with some wheeze noted Assessment & Plan: []63 yo female with end stage COPD recently diagnosed with locally advanced triple negative breast cancer of the right breast. Reviewed initial recommendation for lumpectomy (not a candidate for nereida-adjuvant therapy related to her respiratory status), however with admission r/t severe acute exacerbation and now discussion regarding hospice there is limited benefit to surgery. Discussed that while surgery may cure the cancer it would not change her prognosis from her COPD, this is further complicated by the fact that she can not be intubated and therefore she may have a decrease in her quality of life related to post operative pain which she is very concerned about), as such while we do not have a recommendation against lumpectomy, there is likely limited benefit and subsequently an appropriate decision by Miss. Caba to forego resection of her breast cancer. Oncology will cont. to follow as needed. 25 min. spent with >50% face to face counseling Case reviewed with pt.'s primary oncologist, Dr. Brown, as well as hospitalist and palliative team members
[2018-09-18] MEDS: Albuterol/Ipratropium NEB.SOL* Albuterol 2.5 MG/Ipratropium 0.5 MG 3 ML INH PRN (13:13)
[2018-09-18] MEDS: Benzonatate CAP* 100 MG PO PRN (15:13)
[2018-09-18] MEDS: Morphine ORAL CONCENTRATE* 5 MG/0.25 ML ORAL.SYRIN PO PRN ×2 (15:13→19:59)
[2018-09-18] MEDS: PTO:Albuterol HFA INHALER* 8 gm MDI INH PRN (17:46)
--- NOTE | 2018-09-18 19:20 | PN ---
Subjective Date of Service: 09/18/18 Interval History: patient with minimal improvement with breathing. continues to reports that morphine continues to help her air hunger feelings, continues to report extreme shortness of breath with exertion. denies chest pain. denies fever or chills. denies abd pain n/v/d. Family History: Unchanged from Admission Social History: Unchanged from Admission Past Medical History: Unchanged from Admission Objective Active Medications: Albuterol (Ventolin Hfa Inhaler*) 1 puff INH Q6H PRN PRN Reason: SHORTNESS OF BREATH Last Admin: 09/18/18 17:46 Dose: 1 puff Albuterol/Ipratropium (Duoneb (Albuterol 2.5 Mg/Ipratropium 0.5 Mg)) 1 neb INH Q4H PRN PRN Reason: SOB/WHEEZING Last Admin: 09/18/18 13:13 Dose: 1 neb Alprazolam (Xanax Tab*) 0.5 mg PO Q8H PRN PRN Reason: ANXIETY Last Admin: 09/18/18 17:46 Dose: 0.5 mg Amlodipine Besylate (Norvasc Tab*) 1.25 mg PO DAILY [facility] Last Admin: 09/18/18 08:05 Dose: 1.25 mg Benzonatate (Tessalon Cap*) 100 mg PO BID PRN PRN Reason: COUGH Last Admin: 09/18/18 15:13 Dose: 100 mg Buspirone HCl (Buspar Tab*) 10 mg PO TID PRN PRN Reason: ANXIETY Last Admin: 09/15/18 08:38 Dose: 10 mg Device (Tiotropium Inhaler Device*) 1 each INH .USE w/ SPIRIVA CAPS [facility] Docusate Sodium (Colace Cap*) 100 mg PO DAILY PRN PRN Reason: CONSTIPATION Last Admin: 09/13/18 17:02 Dose: 100 mg Gabapentin (Neurontin Cap(*)) 300 mg PO BID PRN PRN Reason: PAIN Last Admin: 09/15/18 11:31 Dose: 300 mg Guaifenesin (Robitussin*) 5 ml PO Q6H PRN PRN Reason: COUGH Last Admin: 09/17/18 20:30 Dose: 5 ml Guaifenesin (Mucinex*) 600 mg PO BID [facility] Last Admin: 09/18/18 08:05 Dose: 600 mg Heparin Sodium (Porcine) (Heparin Vial(*)) 5,000 units SUBCUT Q8HR [facility] Last Admin: 09/18/18 14:07 Dose: 5,000 units Hydralazine HCl (Apresoline Iv*) 5 mg IV SLOW PU Q6H PRN PRN Reason: SYSTOLIC BP GREATER THAN: Ibuprofen (Motrin Tab*) 600 mg PO Q6H PRN PRN Reason: FEVER/PAIN Last Admin: 09/17/18 20:27 Dose: 600 mg Melatonin (Melatonin) 3 mg PO BEDTIME [facility] Last Admin: 09/17/18 20:57 Dose: 3 mg Methylphenidate HCl (Ritalin Tab*) 60 mg PO QAM [facility] Last Admin: 09/18/18 08:05 Dose: 60 mg Methylphenidate HCl (Ritalin Tab*) 20 mg PO 1500 [facility] Last Admin: 09/18/18 15:12 Dose: 20 mg Methylprednisolone Sodium Succinate (Solu-Medrol 40 Mg) 40 mg IV Q12H [facility] Last Admin: 09/18/18 15:37 Dose: Not Given Mirtazapine (Remeron Tab*) 15 mg PO BEDTIME PRN PRN Reason: SLEEP Last Admin: 09/17/18 20:57 Dose: 15 mg Morphine Sulfate (Morphine Oral Concentrate*) 2.5 mg PO Q3H PRN PRN Reason: PAIN Last Admin: 09/18/18 15:13 Dose: 2.5 mg Oxybutynin Chloride (Ditropan Xl Tab*) 10 mg PO DAILY [facility]; Protocol Last Admin: 09/18/18 08:04 Dose: 10 mg Pantoprazole Sodium (Protonix Tab *) 40 mg PO DAILY [facility] Last Admin: 09/18/18 08:04 Dose: 40 mg Fluticasone/Salmeterol (Advair Diskus 500-50*) 1 puff INH 0700,1500 [facility] Last Admin: 09/18/18 14:40 Dose: 1 puff Tiotropium [place] (Spiriva Cap.Inh*) 1 cap INH DAILY [facility] Last Admin: 09/18/18 07:35 Dose: 1 cap Vital Signs - 8 hr 09/18/18 09/18/18 09/18/18 12:12 13:14 13:16 Temperature Pulse Rate 76 Respiratory 20 22 18 Rate Blood Pressure (mmHg) O2 Sat by Pulse 98 Oximetry 09/18/18 09/18/18 09/18/18 15:13 15:33 17:13 Temperature 96.8 F Pulse Rate 77 Respiratory 22 28 28 Rate Blood Pressure 143/71 (mmHg) O2 Sat by Pulse 99 Oximetry 09/18/18 17:46 Temperature Pulse Rate Respiratory 28 Rate Blood Pressure (mmHg) O2 Sat by Pulse Oximetry Oxygen Devices in Use Now: High Flow Nasal Cannula Appearance: alert , resting in bed, mild respiratory distress, Eyes: No Scleral Icterus Ears/Nose/Mouth/Throat: Clear Oropharnyx, Mucous Membranes Moist Neck: NL Appearance and Movements; NL JVP, Trachea Midline Respiratory: Symmetrical Chest Expansion and Respiratory Effort, - - diminished t/o bilat clear Cardiovascular: NL Sounds; No Murmurs; No JVD, No Edema Abdominal: NL Sounds; No Tenderness; No Distention Extremities: No Edema, No Clubbing, Cyanosis Skin: No Rash or Ulcers, No Nodules or Sclerosis Neurological: Alert and Oriented x 3 Nutrition: Taking PO's Result Diagrams: 09/17/18 06:26 09/16/18 06:15 Microbiology and Other Data: Microbiology 09/11/18 08:46 Aerobic Blood Culture - Preliminary Blood Venous No Growth Day 3 Anaerobic Blood Culture - Preliminary No Growth Day 3 09/11/18 08:30 Aerobic Blood Culture - Preliminary Blood Venous No Growth Day 2 Anaerobic Blood Culture - Preliminary No Growth Day 2 09/11/18 13:22 Urine Culture - Final Urine No Growth (<1,000 CFU/mL) 09/11/18 13:18 Nasal Screen MRSA (PCR) - Final Nasal Mrsa Not Detected Assess/Plan/Problems-Billing Assessment: Ms. Caba is a 63 y.o female with a pmhx significant for triple breast cancer, acute on chronic hypoxic respiratory failure, copd exacerbation, GERd, pulmonary nodule who presented to hospital with hypoxia . COPD exacerbation - Patient Problems (1) Acute and chronic respiratory failure with hypoxia Current Visit: No Status: Acute Code(s): J96.21 - ACUTE AND CHRONIC RESPIRATORY FAILURE WITH HYPOXIA SNOMED Code(s): 51164486 Comment: Due to COPD exacerbation minimal improvement. Continue supplemental oxygen oral morphine for comfort - start at 2.5 mg will increase as needed - consulted dr. Navarro - patient is end stage COPD - agrees with hospice consult (2) Double vision Current Visit: Yes Status: Acute Code(s): H53.2 - DIPLOPIA SNOMED Code(s) : 72316128 Comment: resolved no further episodes of double vision - seen by neurologist, will need ophthalmology referral as outpatient. (3) GERD (gastroesophageal reflux disease) Current Visit: No Status: Acute Code(s): K21.9 - GASTRO-ESOPHAGEAL REFLUX DISEASE WITHOUT ESOPHAGITIS SNOMED Code(s): 856243402 Comment: Continue pantoprazole (4) Breast cancer Current Visit: No Status: Acute Code(s): C50.919 - MALIGNANT NEOPLASM OF UNSP SITE OF UNSPECIFIED FEMALE BREAST SNOMED Code(s): 597423772 Comment: Triple negative breast cancer- dx in august - is to have lumpectomy on - pall. care consulted- given her significant COPD now complicated with breast cancer - patient has decided to not to proceed with lumpectomy at this time (5) COPD exacerbation Current Visit: No Status: Acute Code(s): J44.1 - CHRONIC OBSTRUCTIVE PULMONARY DISEASE W (ACUTE) EXACERBATION SNOMED Code(s): 076100354 Comment: minimal improvement- continues to require supplemental o2 at 3-4 liters - remains extremely SOB with exertion and talking continue solumedrol 40mg Q 12hrs, added mucinex, continue duonebs, advair, spirivia. stop rocephin and azithromycin- completed full course - oral morphine for respiratory distress - pall. consulted - d/t poor respiratory status - patient would like hospice care (6) Pulmonary nodules Current Visit: No Status: Acute Code(s): R91.8 - OTHER NONSPECIFIC ABNORMAL FINDING OF LUNG FIELD SNOMED Code(s): 785623401 Comment: NO change from previous CT 08/2018 - recent bone scan negative (7) DVT prophylaxis Current Visit: No Status: Acute Code(s): HAA2646 - SNOMED Code(s): 154662625 Comment: Continue lovenox subQ (8) DNR (do not resuscitate) Current Visit: Yes Status: Acute Comment: Patient is DNR /DNI Status and Disposition: would like hospice at discharge
[2018-09-18] MEDS: Melatonin 3 MG TAB PO SCH (19:59)
[2018-09-18] MEDS: busPIRone TAB* 10 MG PO PRN (19:59)
[2018-09-18] MEDS: Mirtazapine TAB* 15 MG PO PRN (21:29)
[2018-09-19] MEDS: methylPREDNISolone SOD 40 MG* 1 ML VIAL IV SCH (04:30)
[2018-09-19] MEDS: Heparin VIAL(*) 5000 UNITS/ML VIAL (FIVE THOUSAND) SUBCUT SCH ×3 (06:33→21:24)
[2018-09-19] MEDS: [UNRECOGNIZED DRUG - OTHER] INH SCH ×2 (07:42→15:31)
[2018-09-19] MEDS: Tiotropium CAP.INH* CAP.INH/18 MCG (USE ORDER SET !) INH SCH (07:42)
[2018-09-19] MEDS: Oxybutynin XL TAB* 5 MG PO SCH (08:05)
[2018-09-19] MEDS: ALPRAZolam TAB* 0.5 MG PO PRN ×2 (08:05→20:43)
[2018-09-19] MEDS: Ibuprofen TAB* 600 MG PO PRN ×2 (08:06→18:08)
[2018-09-19] MEDS: Morphine ORAL CONCENTRATE* 5 MG/0.25 ML ORAL.SYRIN PO PRN ×4 (08:06→21:21)
[2018-09-19] MEDS: guaiFENesin ER TAB 600 MG PO SCH ×2 (08:07→20:44)
[2018-09-19] MEDS: amLODIPine TAB* 5 MG PO SCH (08:07)
[2018-09-19] MEDS: Pantoprazole TAB * 40 MG TAB PO SCH (08:07)
[2018-09-19] MEDS: Methylphenidate TAB* 10 MG PO SCH ×2 (10:05→18:06)
[2018-09-19] MEDS: Gabapentin CAP(*) 300 MG PO PRN ×2 (12:45→20:43)
[2018-09-19] MEDS: busPIRone TAB* 10 MG PO PRN ×2 (12:45→20:44)
[2018-09-19] MEDS: Benzonatate CAP* 100 MG PO PRN ×2 (18:08→20:44)
--- NOTE | 2018-09-19 19:04 | PN ---
Subjective Date of Service: 09/19/18 Interval History: patient continues to have severe shortness of breath, she reports that the morphine continues tohelp with her breathing but wear off quickly. Denies chest pain . denies fever or chills, denies abd pain n/v/d. Family History: Unchanged from Admission Social History: Unchanged from Admission Past Medical History: Unchanged from Admission Objective Active Medications: Albuterol (Ventolin Hfa Inhaler*) 1 puff INH Q6H PRN PRN Reason: SHORTNESS OF BREATH Last Admin: 09/18/18 17:46 Dose: 1 puff Albuterol/Ipratropium (Duoneb (Albuterol 2.5 Mg/Ipratropium 0.5 Mg)) 1 neb INH Q4H PRN PRN Reason: SOB/WHEEZING Last Admin: 09/18/18 13:13 Dose: 1 neb Alprazolam (Xanax Tab*) 0.5 mg PO Q8H PRN PRN Reason: ANXIETY Last Admin: 09/19/18 08:05 Dose: 0.5 mg Amlodipine Besylate (Norvasc Tab*) 1.25 mg PO DAILY [facility] Last Admin: 09/19/18 08:07 Dose: 1.25 mg Benzonatate (Tessalon Cap*) 100 mg PO BID PRN PRN Reason: COUGH Last Admin: 09/19/18 18:08 Dose: 100 mg Buspirone HCl (Buspar Tab*) 10 mg PO TID PRN PRN Reason: ANXIETY Last Admin: 09/19/18 12:45 Dose: 10 mg Device (Tiotropium Inhaler Device*) 1 each INH .USE w/ SPIRIVA CAPS [facility] Docusate Sodium (Colace Cap*) 100 mg PO DAILY PRN PRN Reason: CONSTIPATION Last Admin: 09/13/18 17:02 Dose: 100 mg Gabapentin (Neurontin Cap(*)) 300 mg PO BID PRN PRN Reason: PAIN Last Admin: 09/19/18 12:45 Dose: 300 mg Guaifenesin (Robitussin*) 5 ml PO Q6H PRN PRN Reason: COUGH Last Admin: 09/17/18 20:30 Dose: 5 ml Guaifenesin (Mucinex*) 600 mg PO BID [facility] Last Admin: 09/19/18 08:07 Dose: 600 mg Heparin Sodium (Porcine) (Heparin Vial(*)) 5,000 units SUBCUT Q8HR [facility] Last Admin: 09/19/18 14:12 Dose: Not Given Hydralazine HCl (Apresoline Iv*) 5 mg IV SLOW PU Q6H PRN PRN Reason: SYSTOLIC BP GREATER THAN: Ibuprofen (Motrin Tab*) 600 mg PO Q6H PRN PRN Reason: FEVER/PAIN Last Admin: 09/19/18 18:08 Dose: 600 mg Melatonin (Melatonin) 3 mg PO BEDTIME [facility] Last Admin: 09/18/18 19:59 Dose: 3 mg Methylphenidate HCl (Ritalin Tab*) 60 mg PO QAM [facility] Last Admin: 09/19/18 10:05 Dose: 60 mg Methylphenidate HCl (Ritalin Tab*) 20 mg PO 1500 [facility] Last Admin: 09/19/18 18:06 Dose: 20 mg Mirtazapine (Remeron Tab*) 15 mg PO BEDTIME PRN PRN Reason: SLEEP Last Admin: 09/18/18 21:29 Dose: 15 mg Morphine Sulfate (Morphine Oral Concentrate*) 5 mg PO Q3H PRN PRN Reason: PAIN Last Admin: 09/19/18 18:06 Dose: 5 mg Oxybutynin Chloride (Ditropan Xl Tab*) 10 mg PO DAILY [facility]; Protocol Last Admin: 09/19/18 08:05 Dose: 10 mg Pantoprazole Sodium (Protonix Tab *) 40 mg PO DAILY [facility] Last Admin: 09/19/18 08:07 Dose: 40 mg Prednisone (Deltasone Tab*) 50 mg PO DAILY [facility] Fluticasone/Salmeterol (Advair Diskus 500-50*) 1 puff INH 0700,1500 [facility] Last Admin: 09/19/18 15:31 Dose: Not Given Tiotropium [place] (Spiriva Cap.Inh*) 1 cap INH DAILY [facility] Last Admin: 09/19/18 07:42 Dose: 1 cap Vital Signs - 8 hr 09/19/18 09/19/18 09/19/18 11:06 12:45 12:46 Temperature 98.0 F Pulse Rate 82 Respiratory 20 24 24 Rate Blood Pressure 129/74 (mmHg) O2 Sat by Pulse 99 Oximetry 09/19/18 09/19/18 16:06 18:06 Temperature Pulse Rate Respiratory 20 22 Rate Blood Pressure (mmHg) O2 Sat by Pulse Oximetry Oxygen Devices in Use Now: Nasal Cannula Appearance: alert, moderate respiratory distress Eyes: No Scleral Icterus Ears/Nose/Mouth/Throat: Clear Oropharnyx, Mucous Membranes Moist Neck: NL Appearance and Movements; NL JVP Respiratory: Symmetrical Chest Expansion and Respiratory Effort, Clear to Auscultation, - - very diminished t/o bilat Cardiovascular: NL Sounds; No Murmurs; No JVD, No Edema Abdominal: NL Sounds; No Tenderness; No Distention Extremities: No Edema, No Clubbing, Cyanosis Neurological: Alert and Oriented x 3 Nutrition: Taking PO's Result Diagrams: 09/17/18 06:26 09/16/18 06:15 Microbiology and Other Data: Microbiology 09/11/18 08:46 Aerobic Blood Culture - Preliminary Blood Venous No Growth Day 3 Anaerobic Blood Culture - Preliminary No Growth Day 3 09/11/18 08:30 Aerobic Blood Culture - Preliminary Blood Venous No Growth Day 2 Anaerobic Blood Culture - Preliminary No Growth Day 2 09/11/18 13:22 Urine Culture - Final Urine No Growth (<1,000 CFU/mL) 09/11/18 13:18 Nasal Screen MRSA (PCR) - Final Nasal Mrsa Not Detected Assess/Plan/Problems-Billing Assessment: Ms. Caba is a 63 y.o female with a pmhx significant for triple breast cancer, acute on chronic hypoxic respiratory failure, copd exacerbation, GERd, pulmonary nodule who presented to hospital with hypoxia . COPD exacerbation - Patient Problems (1) Acute and chronic respiratory failure with hypoxia Current Visit: No Status: Acute Code(s): J96.21 - ACUTE AND CHRONIC RESPIRATORY FAILURE WITH HYPOXIA SNOMED Code(s): 52379014 Comment: Due to COPD exacerbation minimal improvement. Continue supplemental oxygen oral morphine for comfort - increased to 5 mg today- discahreg to hospice tomorrow (2) Double vision Current Visit: Yes Status: Acute Code(s): H53.2 - DIPLOPIA SNOMED Code(s) : 93728434 Comment: resolved no further episodes of double vision - seen by neurologist, will need ophthalmology referral as outpatient if patient wishes (3) GERD (gastroesophageal reflux disease) Current Visit: No Status: Acute Code(s): K21.9 - GASTRO-ESOPHAGEAL REFLUX DISEASE WITHOUT ESOPHAGITIS SNOMED Code(s): 647227644 Comment: Continue pantoprazole (4) Breast cancer Current Visit: No Status: Acute Code(s): C50.919 - MALIGNANT NEOPLASM OF UNSP SITE OF UNSPECIFIED FEMALE BREAST SNOMED Code(s): 410691489 Comment: Triple negative breast cancer- dx in august - is to have lumpectomy on - pall. care consulted- given her significant COPD now complicated with breast cancer - patient has decided to not to proceed with lumpectomy at this time (5) COPD exacerbation Current Visit: No Status: Acute Code(s): J44.1 - CHRONIC OBSTRUCTIVE PULMONARY DISEASE W (ACUTE) EXACERBATION SNOMED Code(s): 875362048 Comment: minimal improvement- continues to require supplemental o2 at 3-4 liters - remains extremely SOB with exertion and talking continue solumedrol 40mg Q 12hrs, added mucinex, continue duonebs, advair, spirivia. stop rocephin and azithromycin- completed full course - oral morphine for respiratory distress - pall. consulted - d/t poor respiratory status - patient would like hospice care (6) Pulmonary nodules Current Visit: No Status: Acute Code(s): R91.8 - OTHER NONSPECIFIC ABNORMAL FINDING OF LUNG FIELD SNOMED Code(s): 319154380 Comment: NO change from previous CT 08/2018 - recent bone scan negative (7) DVT prophylaxis Current Visit: No Status: Acute Code(s): LBQ1796 - SNOMED Code(s): 468037833 Comment: Continue lovenox subQ (8) DNR (do not resuscitate) Current Visit: Yes Status: Acute Comment: Patient is DNR /DNI Status and Disposition: discharge to hospice residence tomorrow
[2018-09-19] MEDS: Melatonin 3 MG TAB PO SCH (20:44)
[2018-09-19] MEDS: Mirtazapine TAB* 15 MG PO PRN (20:44)
[2018-09-20] MEDS: Morphine ORAL CONCENTRATE* 5 MG/0.25 ML ORAL.SYRIN PO PRN ×4 (00:46→11:01)
[2018-09-20 03:55] VITALS: BP 96/55
--- NOTE | 2018-09-20 04:59 | DS ---
CC: Dr. Navarro; Dr. Brown; Hospice Residence; Elías Moore NP * DISCHARGE SUMMARY: DATE OF ADMISSION: 09/11/18 DATE OF DISCHARGE: 09/20/18 ATTENDING PHYSICIAN WHILE IN THE HOSPITAL: Dr. Schwartz * (dictated by Rose Posey NP). PRIMARY CARE PROVIDER: Elías Moore NP PRIMARY DIAGNOSES: 1. Hypoxic respiratory failure. 2. Chronic obstructive pulmonary disease exacerbation. SECONDARY DIAGNOSIS: Triple-negative breast cancer. STUDIES COMPLETED WHILE IN THE HOSPITAL: She had a CT of the chest on 09/11/18 , radiologist's impression: Significantly limited CT pulmonary angiogram due to motion artifact without gross evidence of pulmonary embolism. No interval change from previous described small upper lobe lung zone pulmonary nodules. No new focal pulmonary lesions are evident. Negative for pleural effusion. No evidence for pneumonia. Advanced emphysema. She had an electrocardiogram, which showed sinus rhythm at a rate of 93. She had a CT of the abdomen and pelvis. No acute abdominal and pelvic pathology processes evident. Negative for lymphadenopathy. She had a chest x-ray on 09/12/18, right basilar atelectasis with no definite pneumonia. HISTORY OF PRESENT ILLNESS: Ms. Caba is a 63-year-old female with a past medical history significant for advanced COPD and emphysema as well as triple- negative breast cancer, not started treatment, who presented to the emergency room feeling feverish with a productive cough and shortness of breath x3 days, worsening the night prior to her admission. While in the emergency room, she was found to be tachycardic and tachypneic. She was started on Vapotherm due to the work of breathing. She had positive D- dimer of 254, chest x-ray with atelectasis and inflammatory infiltrate in the left base. CT of the chest was negative for PE. No pneumonia was seen. She was initially admitted to the ICU on Vapotherm due to her work of breathing and eventually slightly improved during her hospitalization. During the hospitalization, she did have an episode of double and triple vision. She was seen and consulted by Neurology. There was not found to be any concerning neurological findings. It was felt this was unlikely related to a TIA. The patient's breathing did improve and she was able to be transferred out of the ICU to the medical floor. The patient does continue to have significant shortness of breath throughout the hospitalization. She was seen in consultation by Pulmonology, who felt that her treatment was optimized by steroids, bronchodilators, and oxygen therapy. The patient was seen by Palliative Care and also Oncology, and has opted not to proceed with breast lumpectomy as previously planned for treatment of her right triple-negative breast cancer. At this time, the patient wishes to be discharged with hospice care. She will be discharged to the hospice residence. DISCHARGE MEDICATIONS: 1. Albuterol 1 puff q.6 hours as needed. 2. DuoNeb 1 neb q.4 hours as needed for shortness of breath. 3. Xanax 0.5 mg p.o. q.8 hours as needed. 4. Norvasc 1.25 mg p.o. daily. 5. Spiriva 1 cap inhaled daily. 6. BuSpar 10 mg p.o. t.i.d. p.r.n. 7. Colace 100 mg p.o. daily. 8. Advair Diskus 500/50 one puff twice daily. 9. Gabapentin 300 mg p.o. b.i.d. p.r.n. 10. Guaifenesin 5 mL q.6 hours as needed. 11. Mucinex 600 mg p.o. b.i.d. 12. Melatonin 3 mg p.o. at bedtime. 13. Prednisone 40 mg p.o. daily. This should be tapered every 4 days by 10 mg and end with 5 mg daily for 5 days 14. Ritalin 20 mg p.o. at 1500. 15. Remeron 15 mg p.o. at bedtime p.r.n. 16. Morphine oral concentrate 5 mg p.o. q.3 hours as needed for shortness of breath, may titrate to relieve shortness of breath. 17. Oxybutynin 10 mg p.o. daily. 18. Protonix 40 mg p.o. daily. DISCHARGE PLAN: Ms. Caba will be discharged to the hospice residence. Activity as tolerated. She can resume a regular diet. 1. COPD exacerbation, acute on chronic hypoxic respiratory failure. The patient will be discharged to the hospice residence. She can have morphine 5 mg orally q.3 hours as needed for shortness of breath and titrate to effect to relieve her shortness of breath. Continue Xanax and her nebulizers as previously prescribed. The patient can follow up with her primary care doctor as she wishes but at this time her goal is comfort measures. 2. Hypertension. She can continue on Norvasc 1.25 mg p.o. daily. The patient's wishes are to be remain comfortable. She will be admitted to the hospice residence under hospice care. At this time, she is stable for transfer to the hospice residence. Followup as her wishes. She can return to the emergency room as she wishes. This is a summarization of her hospitalization. For further details, please see the entire medical record. TIME SPENT: Time spent on this discharge was approximately 60 minutes, greater than half that time was spent with the patient discussing her discharge plans and instructions and arranging for care at the hospice residence. CONDITION ON DISCHARGE: Stable/fair. I have discussed this with my attending, Dr. Schwartz; he is in agreement with my plan. ROSE POSEY NP [id number]/CPS #: [id number] JARETH
[2018-09-20] MEDS: Heparin VIAL(*) 5000 UNITS/ML VIAL (FIVE THOUSAND) SUBCUT SCH (05:08)
[2018-09-20] MEDS: Tiotropium CAP.INH* CAP.INH/18 MCG (USE ORDER SET !) INH SCH (07:18)
[2018-09-20] MEDS: [UNRECOGNIZED DRUG - OTHER] INH SCH (07:18)
[2018-09-20] MEDS: Oxybutynin XL TAB* 5 MG PO SCH (07:45)
[2018-09-20] MEDS: Gabapentin CAP(*) 300 MG PO PRN (07:46)
[2018-09-20] MEDS: Ibuprofen TAB* 600 MG PO PRN (07:46)
[2018-09-20] MEDS: Benzonatate CAP* 100 MG PO PRN (07:47)
[2018-09-20] MEDS: guaiFENesin ER TAB 600 MG PO SCH (07:47)
[2018-09-20] MEDS: Methylphenidate TAB* 10 MG PO SCH (07:47)
[2018-09-20] MEDS: busPIRone TAB* 10 MG PO PRN (07:47)
[2018-09-20] MEDS: amLODIPine TAB* 5 MG PO SCH (07:49)
[2018-09-20] MEDS: ALPRAZolam TAB* 0.5 MG PO PRN (07:49)
[2018-09-20] MEDS: Pantoprazole TAB * 40 MG TAB PO SCH (07:50)
[2018-09-20] MEDS ORDERED: predniSONE TAB* 50 MG PO SCH (09:00)
--- NOTE | 2018-09-22 22:51 | PN ---
Subjective Date of Service: 09/20/18 Interval History: patient continues to c/o moderate shortness of breath with exertion. Patient denies abd pain n/v/d. Denies does c/o right sided back pain, worse with coughing. denies fever or chills. Family History: Unchanged from Admission Social History: Unchanged from Admission Past Medical History: Unchanged from Admission Objective Oxygen Devices in Use Now: Nasal Cannula, High Flow Nasal Cannula Appearance: alert and oriented x 3 , moderate resp. distress Eyes: No Scleral Icterus Ears/Nose/Mouth/Throat: Mucous Membranes Moist Neck: NL Appearance and Movements; NL JVP, Trachea Midline Respiratory: Symmetrical Chest Expansion and Respiratory Effort, - - diminished t/o bialt Cardiovascular: NL Sounds; No Murmurs; No JVD, No Edema Abdominal: NL Sounds; No Tenderness; No Distention Extremities: No Edema, No Clubbing, Cyanosis Skin: No Rash or Ulcers Neurological: Alert and Oriented x 3 Nutrition: Taking PO's Result Diagrams: 09/17/18 06:26 09/16/18 06:15 Microbiology and Other Data: Microbiology 09/11/18 08:46 Aerobic Blood Culture - Preliminary Blood Venous No Growth Day 3 Anaerobic Blood Culture - Preliminary No Growth Day 3 09/11/18 08:30 Aerobic Blood Culture - Preliminary Blood Venous No Growth Day 2 Anaerobic Blood Culture - Preliminary No Growth Day 2 09/11/18 13:22 Urine Culture - Final Urine No Growth (<1,000 CFU/mL) 09/11/18 13:18 Nasal Screen MRSA (PCR) - Final Nasal Mrsa Not Detected Assess/Plan/Problems-Billing Assessment: Ms. Caba is a 63 y.o female with a pmhx significant for triple breast cancer, acute on chronic hypoxic respiratory failure, copd exacerbation, GERd, pulmonary nodule who presented to hospital with hypoxia . COPD exacerbation - Patient Problems (1) Acute and chronic respiratory failure with hypoxia Status: Acute Code(s): J96.21 - ACUTE AND CHRONIC RESPIRATORY FAILURE WITH HYPOXIA SNOMED Code(s): 65914508 Comment: Due to COPD exacerbation minimal improvement. Continue supplemental oxygen oral morphine for comfort - increased to 5 mg today- discahreg to hospice today (2) Double vision Status: Acute Code(s): H53.2 - DIPLOPIA SNOMED Code(s): 67804229 Comment: resolved no further episodes of double vision - seen by neurologist, will need ophthalmology referral as outpatient if patient wishes (3) GERD (gastroesophageal reflux disease) Status: Acute Code(s): K21.9 - GASTRO-ESOPHAGEAL REFLUX DISEASE WITHOUT ESOPHAGITIS SNOMED Code(s): 038391943 Comment: Continue pantoprazole (4) Breast cancer Status: Acute Code(s): C50.919 - MALIGNANT NEOPLASM OF UNSP SITE OF UNSPECIFIED FEMALE BREAST SNOMED Code(s): 266957241 Comment: Triple negative breast cancer- dx in august - is to have lumpectomy on - pall. care consulted- given her significant COPD now complicated with breast cancer - patient has decided to not to proceed with lumpectomy at this time (5) COPD exacerbation Status: Acute Code(s): J44.1 - CHRONIC OBSTRUCTIVE PULMONARY DISEASE W (ACUTE ) EXACERBATION SNOMED Code(s): 907996930 Comment: minimal improvement- continues to require supplemental o2 at 3-4 liters - remains extremely SOB with exertion and talking continue solumedrol 40mg Q 12hrs, added mucinex, continue duonebs, advair, spirivia. stop rocephin and azithromycin- completed full course - oral morphine for respiratory distress - pall. consulted - d/t poor respiratory status - patient would like hospice care (6) Pulmonary nodules Status: Acute Code(s): R91.8 - OTHER NONSPECIFIC ABNORMAL FINDING OF LUNG FIELD SNOMED Code(s): 061997776 Comment: NO change from previous CT 08/2018 - recent bone scan negative (7) DVT prophylaxis Status: Acute Code(s): ZWN2166 - SNOMED Code(s): 061602923 Comment: Continue lovenox subQ (8) DNR (do not resuscitate) Status: Acute Comment: Patient is DNR /DNI Status and Disposition: discharge to hospice residence today
[2018-09-23 16:28] LABS: Anti-Striated Muscle Antibody Negative titer (<1:120)
== END 2018-09-20 11:05 | disposition hospice, home (50) | DRG 140 ==
LOC: ED 08:15 → ICU 11:00 → MED 09-13 08:24
PROVIDERS: ADMIT Internal Medicine Critical Care Medicine; ATTEND Internal Medicine
DX: J43.9 Emphysema, unspecified (principal); J96.21 Acute and chronic respiratory failure with hypoxia; E87.1 Hypo-osmolality and hyponatremia; I10 Essential (primary) hypertension; K21.9 Gastro-esophageal reflux disease without esophagitis; M19.90 Unspecified osteoarthritis, unspecified site; F41.9 Anxiety disorder, unspecified; C50.911 Malignant neoplasm of unspecified site of right female breast; R00.0 Tachycardia, unspecified; E80.6 Other disorders of bilirubin metabolism; J40 Bronchitis, not specified as acute or chronic; R35.0 Frequency of micturition; Z66 Do not resuscitate; M62.838 Other muscle spasm; H53.2 Diplopia; R91.8 Other nonspecific abnormal finding of lung field; H26.9 Unspecified cataract; Z87.01 Personal history of pneumonia (recurrent); Z17.1 Estrogen receptor negative status [ER-]; Z87.820 Personal history of traumatic brain injury; Z85.118 Personal history of other malignant neoplasm of bronchus and lung; Z98.51 Tubal ligation status; Z82.49 Family history of ischemic heart disease and other diseases of the circulatory system; Z83.3 Family history of diabetes mellitus; Z99.81 Dependence on supplemental oxygen; Z88.8 Allergy status to other drugs, medicaments and biological substances; Z80.3 Family history of malignant neoplasm of breast; Z87.891 Personal history of nicotine dependence; Z51.5 Encounter for palliative care
CPT/HCPCS: 36415; 71045; 71275; 74176; 80048; 80053; 81003; 81015; 82565; 82803; 83519; 83520; 83605; 83735; 83880; 84100; 84145; 84439; 84443; 84484; 84520; 85025; 85027; 85379; 85610; 85730; 86140; 87040; 87086; 87641; 93005; 94640; 99232; 99285; A9270-GY; G8978-GP-CK; G8979-GP-CK; G8980-GP-CK; J0456; J0696; J1644; J1650; J2060; J2270; J2920; J2930; J3475; J7512; Q9967

== ENCOUNTER 2019-05-25 16:47 | Emergency (ER) | payer OTHER ==
[2019-05-25] MEDS ORDERED: Ketorolac INJ* 15 MG/ML 1 ML VIAL IV ONE (18:08)
[2019-05-25] MEDS ORDERED: Ondansetron INJ* 2 MG/ML VIAL IV ONE (18:08)
[2019-05-25] MEDS ORDERED: Pantoprazole IV* 40 MG IV ONE (18:08)
--- NOTE | 2019-05-25 18:14 | ED ---
Abdominal Pain/Female - HPI Summary HPI Summary: This pt is a 64 Y/O F presenting to [facility] with a CC of diffuse abdominal pain that is rated a 10/10 in severity and radiates into her groin. She states that she started having the pain this morning when she woke up. She states that she has not been having any vomiting. She has constipation and nausea. She denies any dysuria, back pain, and fevers. Her states that she received Chemotherapy for triple negative breast cancer on Sunday. She states no aggravating or alleviating symptoms. She has a PMHx of breast cancer, COPD, HTN , and hypercholesterolemia. - History of Current Complaint Chief Complaint: EDAbdPain Stated Complaint: GENERAL PER EMS Time Seen by Provider: 05/25/19 18:03 Hx Obtained From: Patient Onset/Duration: Sudden Onset, Lasting Hours, Still Present Timing: Constant Severity Initially: Severe Severity Currently: Severe Pain Intensity: 10 Pain Scale Used: 0-10 Numeric Location: Diffuse Radiates: No Aggravating Factor(s): Nothing Alleviating Factor(s): Nothing Associated Signs and Symptoms: Positive: Nausea, Other: - POSITIVE: constipation. Negative: Fever, Back Pain, Urinary Symptoms, Vomiting Allergies/Adverse Reactions: Allergies Allergy/AdvReac Type Severity Reaction Status Date / Time meperidine Allergy Nausea And Verified 05/25/19 17:02 Vomiting pentazocine Allergy Nausea And Verified 05/25/19 17:02 Vomiting Home Medications: Home Medications Folic Acid TAB* [Folvite TAB*] 1 mg PO DAILY 05/25/19 [History Confirmed ] PMH/Surg Hx/FS Hx/Imm Hx Previously Healthy: Yes Endocrine/Hematology History: Denies: Hx Anticoagulant Therapy, Hx Diabetes Cardiovascular History: Reports: Hx Hypercholesterolemia, Hx Hypertension, Other Cardiovascular Problems/Disorders - PREVIOUS CARDIAC CATH Denies: Hx Congestive Heart Failure, Hx Pacemaker/ICD Respiratory History: Reports: Hx Asthma, Hx Chronic Obstructive Pulmonary Disease (COPD) Denies: Hx Pneumonia GI History: Reports: Hx Gastroesophageal Reflux Disease, Other GI Disorders - gerd History: Denies: Hx Renal Disease Musculoskeletal History: Reports: Hx Arthritis, Hx Back Problems Comment Only: Hx Osteoporosis - unsure Sensory History: Reports: Hx Contacts or Glasses Denies: Hx Hearing Aid Opthamlomology History: Reports: Hx Contacts or Glasses Neurological History: Comment Only: Other Neuro Impairments/Disorders - POLYARTHROPATHY Psychiatric History: Reports: Hx Anxiety Denies: Hx Panic Disorder - Cancer History Cancer Type, Location and Year: new diagnosis of breast right sided and lung CA Hx Chemotherapy: No Hx Radiation Therapy: No - Surgical History Surgery Procedure, Year, and Place: tonsills/tubal ligation. fractured ribs 1978 Hx Anesthesia Reactions: No - Immunization History Date of Influenza Vaccine: UTD Infectious Disease History: No Infectious Disease History: Denies: Traveled Outside the [place] in Last 30 Days - Family History Known Family History: Positive: Cardiac Disease, Diabetes - Mother, Other - Sister - BREAST CA - Social History Alcohol Use: None Alcohol Amount: 1 a month Substance Use Type: Reports: None Hx Tobacco Use: Yes - quit in 2008 Smoking Status (MU): Former Smoker Type: Cigarettes Have You Smoked in the Last Year: No Review of Systems Negative: Fever Positive: Abdominal Pain - diffuse, Nausea, Other - POSITIVE: constiption . Negative: Vomiting Musculoskeletal: Negative - Back pain All Other Systems Reviewed And Are Negative: Yes Physical Exam - Summary Physical Exam Summary: General: Well-developed, obese elderly. moderate discomfort. HEENT: Normocephalic, Atraumatic. Eyes: Conjuctiva normal, PERRL. Ears: TMs within normal limits. Nares: (-) discharge, (-) erythema. Oropharynx: Clear, mucous membranes moist, (-) exudates. Neck: Soft, FROM, (-) lymphadenopathy, (-) thyromegaly, (-) JVD. Cardiovascular: Normal sinus rhythm, (-) murmur. Lungs: Clear to auscultation bilaterally (-) wheezes, (-) rales, (-) rhonchi. Abdomen: Soft, moderate LUQ and LLQ tenderness throughout. non-distended, (-) organomegaly, normal bowel sounds. Back: (-) CVA tenderness Extremities: No edema. Skin: Warm, dry, (-) rash. Neuro: Alert and oriented x3, no focal deficits. Psychiatric: Mood normal, affect normal. Triage Information Reviewed: Yes Vital Signs On Initial Exam: Initial Vitals Temp Pulse Resp BP Pulse Ox 97.9 F 102 20 149/93 93 05/25/19 16:53 05/25/19 16:53 05/25/19 16:53 05/25/19 16:53 05/25/19 16:53 Vital Signs Reviewed: Yes Diagnostics - Vital Signs Vital Signs Temp Pulse Resp BP Pulse Ox 05/25/19 16:53 97.9 F 102 20 149/93 93 - Laboratory Result Diagrams: 05/25/19 18:36 05/25/19 18:36 Lab Statement: Any lab studies that have been ordered have been reviewed, and results considered in the medical decision making process. Re-Evaluation - Re-Evaluation First Eval Re-Evaluation Time: 19:02 Change: Unchanged Comment: Pt still is complaining of severe abdominl pain and will be given fentanyl. Abdominal Pain Fem Course/Dx - Course Course Of Treatment: This pt is a 64 Y/O F presenting to [facility] with a CC of diffuse abdominal pain that is rated a 10/10 in severity and radiates into her groin. She states that she started having the pain this morning when she woke up. She states that she has not been having any vomiting. She has constipation and nausea. Her PE found the following: moderate LUQ and LLQ tenderness throughout. This pt has abnormal lab values in RBC, RDW, Plt Count, Absolute Neuts, Sodium, Chloride, Carbon Dioxide, Anion Gap, BUN/Creatinine Ratio, Glucose, Lactic Acid, Calcium, Total Bilirubin, Alkaline Phosphatase, C- Reactive Protein, Lipase, Urine Ketones, Uruine Urobilinogen, Ur Leukocyte Esterase, Urine WBC, Urine RBC, Ur Squamous Epith Cells. She will be signed out to Dr. Garcia at shift change 2200 05/25/[address] A/P impression and disposition. Her DDx was abdominal pain. - Diagnoses Provider Diagnoses: Abdominal pain, Constipation Discharge ED - Sign-Out/Discharge Documenting (check all that apply): Sign-Out Patient Signing out patient TO: Lobito Garcia Patient Received Moderate/Deep Sedation with Procedure: No - Discharge Plan Condition: Improved Disposition: HOME Patient Education Materials: Constipation (ED) Referrals: Elías Moore, [employer] [Primary Care Provider] - If Needed Additional Instructions: Start taking a laxative like miralax, colace or citroma to keep the bowels moving. Your CT scan did not show any worrisome findings, and since you're feeling better after the enema I'm comfortable letting you go home and rest tonight. - Billing Disposition and Condition Condition: IMPROVED Disposition: Home - Attestation Statements Document Initiated by Scribe: Yes Documenting Scribe: Kenn Barboza Provider For Whom Scribe is Documenting (Include Credential): Keily Farris MD Scribe Attestation: IKenn, scribed for Keily Farris MD on 05/27/19 at 1954. Scribe Documentation Reviewed: Yes Provider Attestation: The documentation as recorded by the Kenn desouza accurately reflects the service I personally performed and the decisions made by me, Keily Farris MD Status of Scribe Document: Viewed
[2019-05-25 18:45] LABS: Urine Appearance Cloudy; Urine Bacteria Absent (Absent); Urine Bilirubin Negative (Negative); Urine Blood Negative (Negative); Urine Color Amber; Urine Glucose Negative (Negative); Urine Ketones Trace (Negative); Urine Nitrite Negative (Negative); Urine Protein Negative (Negative); Urine Red Blood Cell 1+(3-5/hpf) (Absent); Urine Specific Gravity 1.023 (1.010-1.030); Urine Squamous Epithelial Cell Present (Absent); Urine Urobilinogen Positive (Negative); Urine White Blood Cell 1+(6-10/hpf) (Absent)
[2019-05-25 18:57] LABS: ABS Monocytes 0.2 10^3/ul (0-0.8); ABS Neutrophils 7.9 10^3/ul (1.5-7.7); Eosinophil % 0.1 %; Hematocrit 44 % (35-47); Hemoglobin 15.3 g/dL (12.0-16.0); Lymphocyte % 11.1 %; Mean Corpuscular HGB Conc 35 g/dL (31-36); Mean Corpuscular Hemoglobin 29 pg (27-31); Mean Corpuscular Volume 84 fL (80-97); Mean Platelet Volume 8.4 fL (7.4-10.4); Platelet Count 454 10^3/uL (150-450); Red Blood Count 5.21 10^6 /uL (3.70-4.87); Red Cell Distribution Width 16 % (10-15); White Blood Count 9.2 10^3/uL (3.5-10.8)
[2019-05-25] MEDS ORDERED: fentaNYL* 50 MCG/ML 2 ML VIAL (100 MCG VIAL) IV SLOW PU ONE ×3 (19:03→23:22)
[2019-05-25 19:11] LABS: Albumin 4.3 g/dL (3.2-5.2); Amylase 93 U/L (29-103); Anion Gap 12 mmol/L (2-11); CO2 Carbon Dioxide 20 mmol/L (22-32); Calcium 10.6 mg/dL (8.6-10.3); Chloride 97 mmol/L (101-111); Potassium 4.6 mmol/L (3.5-5.0); Sodium 129 mmol/L (135-145)
[2019-05-25 19:17] LABS: ALT 34 U/L (7-52); AST 28 U/L (13-39); Albumin/Globulin Ratio 1.2 (1-3); Alkaline Phosphatase 179 U/L (34-104); BUN/Creatinine Ratio 21.2 (8-20); Blood Urea Nitrogen 18 mg/dL (6-24); C Reactive Protein 58.03 mg/L (<8.01); EGFR Non-African American 67.8 (>60); Globulin 3.7 g/dL (2-4); Glucose 140 mg/dL (70-100)
[2019-05-25] MEDS ORDERED: NS 0.9% 1000 ML** 1,000 ML IV ONE (19:24)
[2019-05-25] MEDS ORDERED: Iohexol 300* (CONTRAST) 10 ML SDV IV ONE (21:42)
--- NOTE | 2019-05-25 23:02 | ED ---
Progress - Progress Note Progress Note: The patient is a sign-out from Dr. Keily Farris MD, to Dr. Lobito Garcia MD , at change of shift at 2200 on 05/25/2019, pending Abd/Pel CT and disposition. Abdominopelvic CT reveals possible minimal nonspecific pancolitis with moderate colonic stool, hiatal hernia, and fatty infiltration of the liver. - Results/Orders Results/Orders: Abd/Pel CT Impression: 1. Question of minimal nonspecific pancolitis. 2. Moderate colonic stool which is increased since 09/11/2018. 3. Minimal hiatal hernia. 4. Fatty infiltration of the liver. ED physician has reviewed this imaging report. Re-Evaluation - Re-Evaluation First Eval Re-Evaluation Time: 23:15 Change: Worse Comment: We discussed results. Pt still in pain so we will administer Fentanyl. Course/Dx - Course Course Of Treatment: The patient is a sign-out from Dr. Keily Farris MD, to Dr. Lobito Garcia MD, at change of shift at 2200 on 05/25/2019, pending Abd/ Pel CT and disposition. Abdominopelvic CT reveals possible minimal nonspecific pancolitis with moderate colonic stool, hiatal hernia, and fatty infiltration of the liver. I discussed results with the pt, she is still in pain, so we will administer Fentanyl. She is given an enema to relief with success in BM. We discussed plan for discharge. She understands and agrees with this plan. Dx is constipation and abdominal pain. - Diagnoses Provider Diagnoses: Abdominal pain, Constipation Discharge ED - Sign-Out/Discharge Documenting (check all that apply): Patient Departure - Patient will be discharged home., Receiving Sign-Out Receiving patient FROM: Keily Farris - Patient is a sign-out from Dr. Keily Farris MD, at 2200 on 05/25/2019, pending Abd/Pel CT and disposition. Patient Received Moderate/Deep Sedation with Procedure: No - Discharge Plan Condition: Improved Disposition: HOME Patient Education Materials: Constipation (ED) Referrals: Elías Moore, [employer] [Primary Care Provider] - If Needed Additional Instructions: Start taking a laxative like miralax, colace or citroma to keep the bowels moving. Your CT scan did not show any worrisome findings, and since you're feeling better after the enema I'm comfortable letting you go home and rest tonight. - Billing Disposition and Condition Condition: IMPROVED Disposition: Home - Attestation Statements Document Initiated by Demetrio: Yes Documenting Ramirezibe: Danielle Arana Provider For Whom Demetrio is Documenting (Include Credential): Dr. Lobito Garcia MD Scribe Attestation: I, Danielle Arana, scribed for Dr. Lobito Garcia MD on 05/26/19 at 1835. Scribe Documentation Reviewed: Yes Provider Attestation: The documentation as recorded by the Danielle desouza accurately reflects the service I personally performed and the decisions made by me, Dr. Lobito Garcia MD Status of Simine Document: Viewed
[2019-05-26 01:16] VITALS: BP 113/76
== END 2019-05-26 01:10 | disposition home or self-care (01) ==
LOC: ED 16:47
DX: K59.00 Constipation, unspecified (principal); K44.9 Diaphragmatic hernia without obstruction or gangrene; K76.0 Fatty (change of) liver, not elsewhere classified; K21.9 Gastro-esophageal reflux disease without esophagitis; J44.9 Chronic obstructive pulmonary disease, unspecified; I10 Essential (primary) hypertension; F41.9 Anxiety disorder, unspecified; E78.00 Pure hypercholesterolemia, unspecified; Z85.3 Personal history of malignant neoplasm of breast; Z85.118 Personal history of other malignant neoplasm of bronchus and lung; Z87.891 Personal history of nicotine dependence; Z88.5 Allergy status to narcotic agent; Z79.899 Other long term (current) drug therapy
CPT/HCPCS: 36415; 74177; 80053; 81003; 81015; 82150; 83605; 83690; 85025; 86140; 87040; 87086; 96361; 96374; 96375; 96376; 99283; J1885; J2405; J3010; Q9967

== ENCOUNTER 2019-10-29 23:14 | Emergency (ER) | payer BC ==
[2019-10-29 23:46] LABS: Influenza A Molecular POSITIVE (Negative)
[2019-10-30] MEDS ORDERED: Ibuprofen TAB* 400 MG PO ONE (02:36)
--- NOTE | 2019-10-30 02:38 | ED ---
Influenza-Like Illness - HPI Summary HPI Summary: Patient is a 64 y/o F presenting to [facility] with complaints of dizziness, SOB, cough, pain with deep breaths, arthralgia, subjective fever and NEUMANN. She states that dizziness onset around 1700 10/29/19, remainder of Sx onset afterwards. Patient states that, "my joints are killing me". She notes Hx of breast cancer. Patient has gone through chemotherapy and is currently receiving radiation therapy. Hx of COPD, respiratory failure in July 2019 reported as well. Patient states that her home nurse evaluated her this evening and advised her to come to ED to check for influenza. Patient notes that she had taken Theraflu and tessalon perles [employer]. She states that she has received a flu shot and PNA shot. Home medications and allergies are reviewed. - History of Current Complaint Chief Complaint: EDFluSymptoms Time Seen by Provider: 10/30/19 02:14 Hx Obtained From: Patient Onset/Duration: Lasting Hours, Still Present Severity: Moderate Associated Signs & Symptoms: Fever - reported, Cough, Headache - Allergy/Home Medications Allergies/Adverse Reactions: Allergies Allergy/AdvReac Type Severity Reaction Status Date / Time meperidine Allergy Nausea And Verified 10/30/19 03:45 Vomiting pentazocine Allergy Nausea And Verified 10/30/19 03:45 Vomiting Home Medications: Home Medications Albuterol HFA INHALER* [Ventolin HFA Inhaler*] 1 puff INH Q6H PRN #2 mdi [Rx Confirmed 10/30/19] Albuterol/Ipratropium NEB.LU* [Duoneb (Albuterol 2.5 MG/Ipratropium 0.5 MG)] 1 neb INH Q4H PRN #2 box 09/20/18 [Rx Confirmed 10/30/19] Docusate CAP* [Colace Cap*] 100 mg PO DAILY PRN #30 cap 09/20/18 [Rx Confirmed 10/30/19] Fluticasone-Salmeterol 500-50* [Advair Diskus 500-50*] 1 puff INH BID #1 diskus 09/20/18 [Rx Confirmed 10/30/19] Spiriva HANDIHALER DEVICE (NF) [Tiotropium Inhaler DEVICE (NF)] 1 each INH .USE w/ SPIRIVA CAPS #1 device 09/20/18 [Rx Confirmed 10/30/19] ALPRAZolam [Alprazolam] 0.25 mg PO SEE INSTRUCTIONS PRN 10/30/19 [History Confirmed 10/30/19] Morphine Sulfate 15 mg PO SEE INSTRUCTIONS PRN 10/30/19 [History Confirmed 10/30] Morphine Sulfate [Morphine Sulfate ER] 30 mg PO BID 10/30/19 [History Confirmed 10/30/19] Oxybutynin Chloride [Oxybutynin Chloride ER] 15 mg PO DAILY 10/30/19 [History Confirmed 10/30/19] Pantoprazole TAB * [Protonix TAB*] 40 mg PO Q72HR 10/30/19 [History Confirmed ] guaiFENesin [Robafen] 5 ml PO SEE INSTRUCTIONS PRN 10/30/19 [History Confirmed 10/30/19] PMH/Surg Hx/FS Hx/Imm Hx Endocrine/Hematology History: Denies: Hx Anticoagulant Therapy, Hx Diabetes Cardiovascular History: Reports: Hx Hypercholesterolemia, Hx Hypertension, Other Cardiovascular Problems/Disorders - PREVIOUS CARDIAC CATH Denies: Hx Congestive Heart Failure, Hx Pacemaker/ICD Respiratory History: Reports: Hx Asthma, Hx Chronic Obstructive Pulmonary Disease (COPD) Denies: Hx Pneumonia GI History: Reports: Hx Gastroesophageal Reflux Disease, Other GI Disorders - gerd History: Denies: Hx Renal Disease Musculoskeletal History: Reports: Hx Arthritis, Hx Back Problems Comment Only: Hx Osteoporosis - unsure Sensory History: Reports: Hx Contacts or Glasses Denies: Hx Hearing Aid Opthamlomology History: Reports: Hx Contacts or Glasses Neurological History: Comment Only: Other Neuro Impairments/Disorders - POLYARTHROPATHY Psychiatric History: Reports: Hx Anxiety Denies: Hx Panic Disorder - Cancer History Cancer Type, Location and Year: new diagnosis of breast right sided and lung CA Hx Chemotherapy: No Hx Radiation Therapy: No - Surgical History Surgery Procedure, Year, and Place: PORT,TUBAL,T&A Hx Anesthesia Reactions: No - Immunization History Date of Influenza Vaccine: UTD Infectious Disease History: No Infectious Disease History: Denies: Traveled Outside the [place] in Last 30 Days - Family History Known Family History: Positive: Cardiac Disease, Diabetes - Mother, Other - Sister - BREAST CA - Social History Alcohol Use: None Alcohol Amount: 1 a month Substance Use Type: Reports: None Hx Tobacco Use: Yes - quit in 2008 Smoking Status (MU): Former Smoker Type: Cigarettes Have You Smoked in the Last Year: No Review of Systems Positive: Fever - REPORTED Respiratory: Other - positive - pain with deep breaths Positive: Shortness Of Breath, Cough Positive: Arthralgia Neurological/Mental Status: Other - positive - dizziness Positive: Headache All Other Systems Reviewed And Are Negative: Yes Physical Exam - Summary Physical Exam Summary: General: Well-developed, Well-nourished female. No acute distress. Mildly ill- appearing. HEENT: Normocephalic, Atraumatic. Eyes: Conjuctiva normal, PERRL. Oropharynx: Clear, mucous membranes moist, (-) exudates. Neck: Soft, FROM, (-) lymphadenopathy, (-) thyromegaly, (-) JVD. Cardiovascular: Normal sinus rhythm, (-) murmur. Lungs: Decreased breath sounds bilaterally (-) wheezes, (-) rales, (-) rhonchi. Abdomen: Soft, non-tender, non-distended, (-) organomegaly, normal bowel sounds. Back: (-) CVA tenderness Extremities: No edema. Skin: Warm, dry, (-) rash. Neuro: Alert and oriented x3, moves all extremities equally. No ataxia. No gait disturbance. No sensory deficit. Normal strength, normal sensation. Psychiatric: Mood normal, affect normal. Triage Information Reviewed: Yes Vital Signs On Initial Exam: Initial Vitals Temp Pulse Resp BP Pulse Ox 98.2 F 90 22 120/89 95 10/29/19 23:23 10/29/19 23:23 10/29/19 23:23 10/29/19 23:23 10/29/19 23:23 Vital Signs Reviewed: Yes Procedures - Sedation Patient Received Moderate/Deep Sedation with Procedure: No Diagnostics - Vital Signs Vital Signs Temp Pulse Resp BP Pulse Ox 10/30/19 01:45 98.5 F 75 20 123/71 98 10/30/19 00:22 96 10/29/19 23:23 98.2 F 90 22 120/89 95 - Laboratory Lab Results: Lab Results 10/29/19 Range/Units 23:28 Influenza A (Rapid) Positive H (Negative) Influenza B (Rapid) Not Reportable Lab Statement: Any lab studies that have been ordered have been reviewed, and results considered in the medical decision making process. - Radiology CXR Radiology Interpretation Completed By: ED Physician Summary of Radiographic Findings: No obvious infiltrate, no pleural effusion, pending official report. Re-Evaluation - Re-Evaluation First Eval Re-Evaluation Time: 03:31 Comment: Patient appears to be SOB but pulse ox shows 96%. VBG to be obtained. She is also anxious appearing and will receive Xanax. Second Eval Re-Evaluation Time: 05:20 Comment: Patient Sx improved, patient to be discharged to home with PCP follow. Flu Symptom Course/Dx - Course Course Of Treatment: 64-year-old female presents with headache, cough and shortness of breath. Some chest tightness. Had fever at home. Took cold medication with Tylenol in it. Feels fatigued and achy. Patient currently undergoing radiation for breast cancer. Has completed chemotherapy. Known COPD. On physical exam she is currently afebrile. Persistent cough. Mildly ill-appearing. Decreased breath sounds bilaterally. Chest x-ray demonstrates no obvious pneumonia. She is positive for flu A. started on Tamiflu. Patient became very anxious regarding her breathing. She states she has a history of respiratory failure. A venous blood gas was done and was essentially normal. Patient was given Xanax and reassurance. Discharged to home on Tamiflu. PCP. Follow up sooner for any worsening symptoms. - Diagnoses Provider Diagnoses: Influenza A, Anxiety Discharge ED - Sign-Out/Discharge Documenting (check all that apply): Patient Departure - discharge - Discharge Plan Condition: Stable Disposition: HOME Patient Education Materials: Influenza (ED), Anxiety (ED) Referrals: Elías Moore, RESPIRATORY PRACTITIONER [Primary Care Provider] - 3 Days Additional Instructions: PLEASE RETURN TO ED FOR ANY NEW OR WORSENING SYMPTOMS. PLEASE FOLLOW UP WITH YOUR PRIMARY CARE PHYSICIAN WITHIN THREE DAYS. - Billing Disposition and Condition Condition: STABLE Disposition: Home - Attestation Statements Document Initiated by Scribe: Yes Documenting Scribe: SHIRLENE AGARWAL Provider For Whom Demetrio is Documenting (Include Credential): TONYA GRAY MD Scribe Attestation: SHIRLENE Jane, scribed for TONYA GRAY MD on 10/30/19 at 2306. Scribe Documentation Reviewed: Yes Provider Attestation: The documentation as recorded by the SHIRLENE desouza accurately reflects the service I personally performed and the decisions made by me, TONYA GRAY MD Status of Scribe Document: Viewed
[2019-10-30] MEDS ORDERED: ALPRAZolam TAB* 0.25 MG PO ONE (03:39)
[2019-10-30] MEDS ORDERED: Oseltamivir CAP* 75 MG CAP PO ONE (04:10)
[2019-10-30] MEDS ORDERED: Albuterol/Ipratropium NEB.SOL* Albuterol 2.5 MG/Ipratropium 0.5 MG 3 ML INH ONE (04:13)
[2019-10-30 05:50] VITALS: BP 111/73
--- NOTE | 2019-11-01 19:21 | HP ---
Review of Systems - Medications/Allergies Allergies/Adverse Reactions: Allergies Allergy/AdvReac Type Severity Reaction Status Date / Time meperidine Allergy Nausea And Verified 11/01/19 15:48 Vomiting pentazocine Allergy Nausea And Verified 11/01/19 15:48 Vomiting Exam - Exam Vital Signs: Vital Signs (72 hours) 10/29/19 10/30/19 10/30/19 23:23 00:22 01:45 Temperature 98.2 F 98.5 F Pulse Rate 90 75 Respiratory 22 20 Rate Blood Pressure 120/89 123/71 (mmHg) O2 Sat by Pulse 95 96 98 Oximetry 10/30/19 10/30/19 10/30/19 02:30 03:00 03:28 Temperature Pulse Rate 86 78 74 Respiratory Rate Blood Pressure 128/75 (mmHg) O2 Sat by Pulse 93 93 95 Oximetry 10/30/19 10/30/19 10/30/19 03:56 04:01 04:02 Temperature Pulse Rate 87 87 Respiratory 22 Rate Blood Pressure 120/84 (mmHg) O2 Sat by Pulse 95 94 Oximetry 10/30/19 10/30/19 10/30/19 04:26 04:34 04:56 Temperature Pulse Rate 78 83 100 Respiratory 16 Rate Blood Pressure 108/70 122/74 (mmHg) O2 Sat by Pulse 93 96 89 Oximetry 10/30/19 10/30/19 10/30/19 05:00 05:26 05:49 Temperature 97.2 F Pulse Rate 101 94 Respiratory 18 Rate Blood Pressure 117/72 111/73 (mmHg) O2 Sat by Pulse 90 95 Oximetry
== END 2019-10-30 05:49 | disposition home or self-care (01) ==
LOC: ED 23:30
DX: J09.X2 Influenza due to identified novel influenza A virus with other respiratory manifestations (principal); F41.9 Anxiety disorder, unspecified; E78.00 Pure hypercholesterolemia, unspecified; I10 Essential (primary) hypertension; J44.9 Chronic obstructive pulmonary disease, unspecified; K21.9 Gastro-esophageal reflux disease without esophagitis; Z85.3 Personal history of malignant neoplasm of breast; Z85.118 Personal history of other malignant neoplasm of bronchus and lung; Z87.891 Personal history of nicotine dependence; Z98.51 Tubal ligation status; Z79.899 Other long term (current) drug therapy; Z88.5 Allergy status to narcotic agent
CPT/HCPCS: 36415; 71045; 82803; 99283; A9270-GY

== ENCOUNTER 2019-11-01 15:13 | Inpatient (IN) | payer BC ==
[2019-11-01] MEDS ORDERED: Albuterol/Ipratropium NEB.SOL* Albuterol 2.5 MG/Ipratropium 0.5 MG 3 ML INH ONE (15:21)
[2019-11-01] MEDS ORDERED: methylPREDNISolone 125 MG* 2 ML VIAL IV ONE (15:21)
--- OUTSIDE RECORDS SUMMARY | 2019-11-01 15:22 | XMS REPORT | Continuity of Care Document ---
:1955 External Reference #:[id number] Author Name MARTÍNEZ Sarkar Address [address] [place] [address] Care Team Providers Name Role Phone Sarah Ross - Dermatology Care Team Information Flying Shear Operator [phone] Hussain Lundberg - Orthopaedic Surgery Care Team Information Flying Shear Operator William Chino M.D. - Orthopaedic Care Team Information Flying Shear Operator Surgery Problems Active Problems Provider Date Chronic obstructive lung disease Deloris Lam M.D., R.D. Onset: 11/29/2010 Osteoarthritis Deloris Lam M.D., R.D. Onset: 11/29/2010 Generalized anxiety disorder Deloris Lam M.D., R.D. Onset: 11/29/2010 Social History Type Date Description Comments Sex Unknown Tobacco Use Start: Unknown End: Former Cigarette Smoker Unknown Tobacco Use Start: Unknown 2 PPD for 38 years ETOH Use Rarely consumes alcohol Recreational Drug Use Denies Drug Use Enjoy Exercising Enjoys exercising active, no routine, will walk when the weather is nice Allergies, Adverse Reactions, Alerts Active Allergies Reaction Severity Comments Date Codeine/Acetaminophen nausea 09/04/2008 Medications Active Medications SIG Qnty Indications Ordering Date Provider Mica Take 10 MLS By 237units J44.9 Elías Healy 09/04/2019 100mg/5ML Syrup Mouth Every 6 MARTÍNEZ Moore Hours as Needed For Cough & Mucus Oxygen Concentrator use as directed Elías Healy 07/04/2019 MARTÍNEZ Moore Portable Oxygen use as directed. Elías Healy 07/04/2019 Machine MARTÍNEZ Moore Doxycycline 1 by mouth twice 20caps J44.1 Asia Galloway, 06/30/2019 Monohydrate daily for 10 days [employer] 100mg Capsules Nebulizer Supplies nebulizer mask and J44.1 [facility] 06/20/2019 tubing, use as Storm, [employer] directed Ondansetron HCL take one tablet by 90tabs [facility]. 06/13/2019 4mg mouth every 8 Storm, [employer] Tablets hours as needed for nausea/vomiting Oxybutynin Chloride ER once daily for 90tabs N39.46 [facility] 05/29/2019 urination Storm, [employer] 15mg Tablets ER 24HR Lidocaine apply pea sized 15gm [facility]. 05/29/2019 4% Cream amount to affected Storm, [employer] area three times daily Senna Laxative 1 by mouth daily 30tabs K59.00 [facility]. 05/29/2019 8.6mg if needed for Storm, [employer] Tablets constipation Miralax 1 heaping teaspoon 238gm K59.00 [facility]. 05/29/2019 3350NF Powder in 8 ounces of Storm, [employer] fluid by mouth daily Lidocaine-Prilocaine apply thin layer 25gm [facility]. 05/28/2019 to [facility] Storm, [employer] 2.5-2.5% Cream three times daily if needed for pain Levalbuterol HCL use in nebulizer 90ml J44.1 [facility] 05/08/2019 three times daily Storm, [employer] 1.25mg/3ML Nebulizer and as needed Albuterol Sulfate inhale the 75units J44.1 [facility]. 05/01/2019 contents of 1 vial Storm, [employer] 1.25mg/3ML Nebulizer via nebulizer every 4 hours if needed Ketoconazole apply to rash on 60gm B35.8 [facility]. 05/01/2019 2% Cream twice daily until Storm, [employer] better Levofloxacin 1 by mouth daily 7tabs J44.1 [facility]. 05/01/2019 750mg for 7 days for Storm, [employer] Tablets pneumonia Prednisone one pill by mouth 5tabs J44.1 Asia Davis, 05/01/2019 50mg Tablets daily for 5 days [employer] for breathing Folic Acid 1 by mouth every 90tabs C50.911 [facility] 05/01/2019 1mg Tablets day , [employer] Vitamin B-12 one by mouth daily 90tabs C50.911 [facility]. 05/01/2019 1000mcg Storm, [employer] Tablets Benzonatate 1 by mouth three 30caps [facility]. 05/01/2019 200mg times a day for Storm, [employer] Capsules cough Selenium Sulfide apply to affected 120ml B35.8 [facility]. 05/01/2019 2.5% area three times Storm, [employer] Lotion per week, rinse off after 5 minutes Advair Diskus inhale one puff by 60units J44.9 [facility]. 04/15/2019 mouth twice a day Storm, [employer] 500-50mcg/Dose Aerosol Pulse Oximeter For use as needed when 1units J44.1 [facility] 04/08/2019 Finger short of breath [facility], [employer] Misc Nystatin apply to groin 30gm [facility]. 04/08/2019 [id number]/GM three times daily [facility], [employer] Powder until resolved Prochlorperazine 1 tab by mouth 30tabs [facility]. 04/08/2019 Maleate every 6 hours if Storm, [employer] 10mg Tablets needed for nausea Ibuprofen take one tablet by 90tabs [facility]. 02/19/2019 800mg Tablets mouth every 8 [facility], [employer] hours with food as needed for pain Gabapentin take one tablet by 120tabs [facility]. 02/19/2019 600mg Tablets mouth four times a Storm, [employer] day Oxygen 2L nasal canula J44.9 [facility]. 02/04/2019 for COPD Storm, [employer] Ventolin HFA inhale two puffs 54gm J44.9 [facility]. 02/04/2019 108(90Base) by mouth every 4 Storm, [employer] mcg/Act Aerosol hours as needed for wheeze Morphine Sulfate ER take one tablet by 60tabs J44.9 [facility]. 02/04/2019 30mg mouth twice a day Storm, [employer] Tablets ER maximum daily dose = 2 Morphine Sulfate 1 by mouth every 4 60tabs J44.9 [facility]. 02/04/2019 15mg hours if needed Storm, [employer] Tablets for breathing Spiriva Handihaler inhale the 30caps J44.9 [facility]. 02/04/2019 18mcg contents of one Storm, [employer] Capsules capsule once a day via handihaler device as directed. Colace 2 by mouth twice 180caps [facility]. 02/04/2019 100mg Capsules daily if needed Storm, [employer] for stools Nitroglycerin use one tab under 100tabs [facility]. 04/05/2017 0.4mg tongue if needed Storm, [employer] Tablets Sub for chest pain, may repeat in 5 minutes...call 911 if needed Buspirone HCL Take One Tablet By 45tabs [facility]. 03/01/2016 10mg Mouth Three Times [facility], [employer] Tablets A Day as Needed For Anxiety Cane/Aluminum/Adjustab use as needed for 1un [facility]. 11/04/2015 le/Ladies Handle ambulation [facility], [employer] Misc Poise Hourglass Shape wear daily for 90un [facility]. 11/04/2015 Pads/Moderate urine incontinence [facility], [employer] Absorbency Pads Methylphenidate HCL take 3 tablets by 120tabs [facility]. 04/01/2012 20mg mouth every , [employer] Tablets morning and 1 tablet every afternoon; maximum daily dose = 4 [facility] 1 tablet [facility].25[facility] Tablets mouth every 8 Storm, [employer] hours as needed for anxiety maximum daily dose 3 Ipratropium inhale one vial Unknown [place]/Albuterol using nebulizer Sulfate four times daily 0.5-2.5(3)mg/3ML if needed for Solution breathing Pantoprazole Sodium 1 by mouth every 90tabs [facility] 40mg day Storm, [employer] Tablets DR Johnson 1 by mouth Unknown 500mg Chewtabs everyday Probiotic Unknown Capsules Paclitaxel Unknown 150mg/25ML Concentrate History Medications Sertraline HCL 1 by mouth every 30tabs F32.89 Elías TyronMed 08/21/2019 - 50mg day PHILLIP MooreArik 09/23/2019 Tablets Nebulizer Tubing Nebulizer mask 10units 491.21 Ivaniamateo TyronMed 06/20/2019 - and tubing, use CESAR MoorePLilyArik 06/20/2019 as directed Selenium Sulfide use as body wash 540ml B35.8 Elías Healy 05/01/2019 - twice weekly, Oscar [employer] DELIV[employer]ily[employer]rik 05/01/2019 2.25% Shampoo lather, rest for 5 minutes then rinse Doxycycline 1 by mouth twice 20caps J44.1 Elías Healy 04/08/2019 - Monohydrate daily for 10 days CESAR MoorePLilyArik 05/01/2019 100mg Capsules Immunizations CPT Code Status Date Vaccine Lot # 65661 Given 05/23/2019 Influenza Virus Vaccine, Quadrivalent, 3 Yr > [id number] Quad, Preserv Free 89883 Given 06/15/2018 Influenza Virus Vaccine, Quadrivalent, 3 Yr > [id number] Quad, Preserv Free 85160 Given 06/08/2017 Zoster Vaccine [id number] 43217 Given 06/08/2017 Influenza Virus Vaccine, Quadrivalent, 3 Yr > [id number] Quad, Preserv Free 77835 Given 06/08/2017 Prevnar-13 Pneumococcal Conjugate Vaccine [id number] 34663 Given 05/22/2016 Influenza Virus Vaccine, Quadrivalent, 3 Yr > [id number] Quad, Preserv Free 70826 Given 08/13/2015 Influenza Virus Vaccine, Quadrivalent, 3 Yr > [id number] Quad, Preserv Free 41929 Given 06/05/2014 Influenza Virus Vaccine, Quadrivalent, 3 Yr > [id number] Quad, Preserv Free 86667 Given 05/16/2013 Influenza Vaccine-Preservative Free 3 Yrs And [id number] Above 34188 Given 05/16/2013 Pneumovax 23 (PPSV23) 65+ years or high risk 2 to [id number] 66 year old 56448 Given 07/01/2012 Influenza Vaccine-Preservative Free 3 Yrs And [id number] Above 48389 Given 07/12/2011 Influenza Vaccine-Preservative Free 3 Yrs And [id number] Above 79229 Given 07/21/2010 Influenza Vaccine-Preservative Free 3 Yrs And [id number] Above 98058 Given 04/20/2010 Tdap (Adacel) [id number] 62041 Given 09/11/2009 H1N1 Influenza Vaccine [id number] 60387 Given 09/11/2009 Influenza Virus Vaccine, 3 Yrs And Above 18696 Given 09/11/2009 Influenza Vaccine-Preservative Free 3 Yrs And [id number] Above 41641 Given 09/11/2009 H1N1 Immunization Administration, Including Counseling Vital Signs Date Vital Result Comment 09/27/2019 10:38am Weight 159.50 lb Weight 72.349 kg BP Systolic 122 mmHg BP Diastolic 78 mmHg Heart Rate 82 /min Body Temperature 97.8 F Respiratory Rate 16 /min O2 % BldC Oximetry 96 % 09/23/2019 9:37am Weight 163.00 lb Weight 73.937 kg BP Systolic 124 mmHg BP Diastolic 78 mmHg Heart Rate 72 /min Body Temperature 97.6 F Respiratory Rate 16 /min O2 % BldC Oximetry 96 % Results Test Acquired Date Facility Test Result H/L Range Note CBC Auto 10/02/2019 [facility] White Blood 5.9 10^3/ uL Normal 3.5-10.8 Diff [phone] Count Red Blood Count 4.42 10^6/uL Normal 3.70-4.87 Hemoglobin 12.4 g/dL Normal 12.0-16.0 Hematocrit 36 % Normal 35-47 Mean Corpuscular Volume 82 fL Normal 80-97 Mean Corpuscular Hemoglobin 28 pg Normal 27-31 Mean Corpuscular HGB Conc 34 g/dL Normal 31-36 Red Cell Distribution Width 16 % High 10-15 Platelet Count 252 10^3/uL Normal 150-450 Mean Platelet Volume 8.4 fL Normal 7.4-10.4 Abs Neutrophils 3.0 10^3/uL Normal 1.5-7.7 Abs Lymphocytes 2.2 10^3/uL Normal 1.0-4.8 Abs Monocytes 0.5 10^3/uL Normal 0-0.8 Abs Eosinophils 0.1 10^3/uL Normal 0-0.6 Abs Basophils 0.1 10^3/uL Normal 0-0.2 Abs Nucleated RBC 0.0 10^3/uL Granulocyte % 50.7 % Lymphocyte % 37.9 % Monocyte % 8.7 % Eosinophil % 1.8 % Basophil % 0.9 % Nucleated Red Blood Cells % 0.1 Laboratory test finding 09/27/2019 [facility] Flu PCR NEGATIVE Urine DIP 09/05/2019 In House Lab Leukocytes 2+ Neg [phone] Urine Nitrites NEg Neg Urobilinogen NORM Norm Total Protein Urine NEG Neg Urine pH 6.0 5-6 Urine Blood NEG Neg Specific [place] 1.01 1.01-1.02 Urine Ketones NEG Neg Urine Bilirubin NEG Neg Urine Glucose NEG Norm Urine Culture And 09/05/2019 [facility] Urine Culture SEE RESULT 1, 2 Sensitivities [phone] BELOW Laboratory test 09/05/2019 [facility] Vitamin B12 1009 pg/mL High 180- 3 finding [phone] Laboratory test 08/21/2019 [facility] TSH (Thyroid <pending> finding Stimulating Horm) CMP - 08/21/2019 [facility] Albumin <pending> Comprehensive Metabolic SGPT (Alt) <pending> Calcium <pending> Carbon Dioxide <pending> Chloride <pending> Creatinine <pending> Glucose <pending> Alkaline Phosphatase <pending> Potassium <pending> Protien, Total <pending> Sodium <pending> Sgot (Ast) <pending> BUN - Urea Nitrogen <pending> Bilirubin Total <pending> CBC W/Auto Differential 08/21/2019 [facility] Hematocrit < pending> MCV (Corpuscular Volume) <pending> MCH (Corpuscular Hemoglobin) <pending> MCHC (Corpuscular Hemog Conc) <pending> RDW <pending> MPV <pending> Neutrophils <pending> Monocytes <pending> Absolute Basophils <pending> Absolute Eosinophils <pending> Absolute Lymphocytes <pending> Absolute Monocytes <pending> Laboratory 08/21/2019 [facility] TSH (Thyroid 3.87 Normal 0.34-5.60 4, 5 test finding [phone] Stimulating mcIU/mL Horm) Comp 08/21/2019 [facility] Sodium 139 Normal 135- 145 Metabolic [phone] mmol/L Panel Potassium 3.7 mmol/L Normal 3.5-5.0 Chloride 104 mmol/L Normal 101-111 Co2 Carbon Dioxide 28 mmol/L Normal 22-32 Anion Gap 7 mmol/L Normal 2-11 Glucose 85 mg/dL Normal 70-100 Blood Urea Nitrogen 17 mg/dL Normal 6-24 Creatinine 0.73 mg/dL Normal 0.51-0.95 BUN/Creatinine Ratio 23.3 High 8-20 Calcium 9.3 mg/dL Normal 8.6-10.3 Total Protein 7.5 g/dL Normal 6.4-8.9 Albumin 4.2 g/dL Normal 3.2-5.2 Globulin 3.3 g/dL Normal 2-4 Albumin/Globulin Ratio 1.3 Normal 1-3 Total Bilirubin 0.90 mg/dL Normal 0.2-1.0 Alkaline Phosphatase 106 U/L High 34-104 Alt 19 U/L Normal 7-52 Ast 21 U/L Normal 13-39 Egfr Non- 80.8 >60 Egfr 97.7 >60 6 CBC Auto 08/21/2019 [facility] White Blood 6.9 10^3/ uL Normal 3.5-10.8 Diff [phone] Count Red Blood Count 4.43 10^6/uL Normal 3.70-4.87 Hemoglobin 12.6 g/dL Normal 12.0-16.0 Hematocrit 37 % Normal 35-47 Mean Corpuscular Volume 84 fL Normal 80-97 Mean Corpuscular Hemoglobin 29 pg Normal 27-31 Mean Corpuscular HGB Conc 34 g/dL Normal 31-36 Red Cell Distribution Width 17 % High 10-15 Platelet Count 240 10^3/uL Normal 150-450 Mean Platelet Volume 8.8 fL Normal 7.4-10.4 Abs Neutrophils 4.3 10^3/uL Normal 1.5-7.7 Abs Lymphocytes 2.0 10^3/uL Normal 1.0-4.8 Abs Monocytes 0.5 10^3/uL Normal 0-0.8 Abs Eosinophils 0.1 10^3/uL Normal 0-0.6 Abs Basophils 0.0 10^3/uL Normal 0-0.2 Abs Nucleated RBC 0.0 10^3/uL Granulocyte % 62.0 % Lymphocyte % 28.4 % Monocyte % 7.6 % Eosinophil % 1.6 % Basophil % 0.4 % Nucleated Red Blood Cells % 0.1 Laboratory test 05/25/2019 [facility] Blood Culture SEE RESULT 7, 8 finding [phone] BELOW Urinalysis 05/25/2019 [facility] Urine Color Ashly Profile [phone] Urine Appearance Cloudy Urine Specific [place] 1.023 Normal 1.010-1.030 Urine pH 5.0 Normal 5-9 Urine Urobilinogen Positive Abnormal Negative Urine Ketones Trace Abnormal Negative Urine Protein Negative Negative Urine Leukocytes Trace Abnormal Negative Urine Blood Negative Negative Urine Nitrite Negative Negative Urine Bilirubin Negative Negative Urine Glucose Negative Negative Urine White Blood Cell 1+(6-10/hpf) Abnormal Absent Urine Red Blood Cell 1+(3-5/hpf) Abnormal Absent Urine Bacteria Absent Absent Urine Squamous Epithelial Cell Present Abnormal Absent CBC Auto 05/25/2019 [facility] White Blood 9.2 10^3/ uL Normal 3.5-10.8 Diff [phone] Count Red Blood Count 5.21 10^6/uL High 3.70-4.87 Hemoglobin 15.3 g/dL Normal 12.0-16.0 Hematocrit 44 % Normal 35-47 Mean Corpuscular Volume 84 fL Normal 80-97 Mean Corpuscular Hemoglobin 29 pg Normal 27-31 Mean Corpuscular HGB Conc 35 g/dL Normal 31-36 Red Cell Distribution Width 16 % High 10-15 Platelet Count 454 10^3/uL High 150-450 Mean Platelet Volume 8.4 fL Normal 7.4-10.4 Abs Neutrophils 7.9 10^3/uL High 1.5-7.7 Abs Lymphocytes 1.0 10^3/uL Normal 1.0-4.8 Abs Monocytes 0.2 10^3/uL Normal 0-0.8 Abs Eosinophils 0.0 10^3/uL Normal 0-0.6 Abs Basophils 0.0 10^3/uL Normal 0-0.2 Abs Nucleated RBC 0.0 10^3/uL Granulocyte % 86.7 % Lymphocyte % 11.1 % Monocyte % 1.9 % Eosinophil % 0.1 % Basophil % 0.2 % Nucleated Red Blood Cells % 0.0 Comp Metabolic 05/25/2019 [facility] Sodium 129 mmol/ L Low 135-145 Panel [phone] Potassium 4.6 mmol/L Normal 3.5-5.0 Chloride 97 mmol/L Low 101-111 Co2 Carbon Dioxide 20 mmol/L Low 22-32 Anion Gap 12 mmol/L High 2-11 Calcium 10.6 mg/dL High 8.6-10.3 Albumin 4.3 g/dL Normal 3.2-5.2 Total Bilirubin 1.80 mg/dL High 0.2-1.0 Glucose 140 mg/dL High 70-100 Blood Urea Nitrogen 18 mg/dL Normal 6-24 Creatinine 0.85 mg/dL Normal 0.51-0.95 BUN/Creatinine Ratio 21.2 High 8-20 Total Protein 8.0 g/dL Normal 6.4-8.9 Globulin 3.7 g/dL Normal 2-4 Albumin/Globulin Ratio 1.2 Normal 1-3 Alkaline Phosphatase 179 U/L High 34-104 Alt 34 U/L Normal 7-52 Ast 28 U/L Normal 13-39 Egfr Non- 67.8 >60 Egfr 82.0 >60 9 Laboratory test 05/25/2019 [facility] Amylase 93 U/L Normal 29-103 finding [phone] Lipase < 10 U/L Low 11.0-82.0 C Reactive Protein 58.03 mg/L High <8.01 Lactic Acid 3.0 mmol/L Critical high 0.5-2.0 10 Urine Culture And 05/25/2019 [facility] Urine Culture SEE RESULT 11 Sensitivities [phone] BELOW 1 [id number] 2 SEE RESULT BELOW Name: NU CABA Jair : [address]: Elías Moore NP Acct: [id number] Unit: [id number] AGE: 64 Location: [facility] Re09/05/19 SEX: F Status: REG REF SPEC: [id number] NYDIA: 09/05/19-[address]: Elías Moore NP REQ: [id number] RECD: 09/05/19 STATUS: COMP _ [facility]: Urine Culture COMMENTS: [id number] Urine Source: Random Procedure Result Reported Site Urine Culture Final 09/07/19- 1235 ML No growth of clinically significant organisms * ML - Main Lab . END OF REPORT DEPARTMENT OF PATHOLOGY, [address] [place] [address] Momo Smalls M.D. Director [facility] # [id number] 3 Normal Range 180 to 914 Indeterminate Range 145 to 180 Deficient Range <145 4 [id number] 5 [id number] 6 Because ethnic data is not always readily available, this report includes an eGFR for both -Americans and non- Americans. The National Kidney Disease Education Program (NKDEP) does not endorse the use of the MDRD equation for patients that are not between the ages of 18 and 70, are , have extremes of body size, muscle mass, or nutritional status, or are non- or non-. According to the National Kidney Foundation, irrespective of diagnosis, the stage of the disease is based on the level of kidney function: Stage Description GFR(mL/min/1.73 m(2)) 1 Kidney damage with normal or decreased GFR 90 2 Kidney damage with mild decrease in GFR 60-89 3 Moderate decrease in GFR 30-59 4 Severe decrease in GFR 15-29 5 Kidney failure <15 (or dialysis) 7 L ARM 8 SEE RESULT BELOW Name: NU CABA : [address]: Lobiot Garcia MD Acct: [id number] Unit: [id number] AGE: 64 Location: ED Re05/25/19 SEX: F Status: DEP ER SPEC: [id number] NYDIA: 05/25/[address] [facility] [address]: Keily Farris MD REQ: [id number] RECD: 05/25/19 STATUS: MIRIAN MCDONNELL DR: Elísa Moore [employer] _ SOURCE: BLOOD,VENO SPDESC: ORDERED: Blood Cult COMMENTS: L ARM Procedure Result Reported Site Aerobic Culture Bottle Final 05/30/19- 1906 ML No Growth Day 5 Anaerobic Culture Bottle Final 05/30/19- 1906 ML No Growth Day 5 * ML - Main Lab . END OF REPORT DEPARTMENT OF PATHOLOGY, [address] [place] [address] Momo Smalls M.D. Director [facility] # [id number] 9 Because ethnic data is not always readily available, this report includes an eGFR for both -Americans and non- Americans. The National Kidney Disease Education Program (NKDEP) does not endorse the use of the MDRD equation for patients that are not between the ages of 18 and 70, are , have extremes of body size, muscle mass, or nutritional status, or are non- or non-. According to the National Kidney Foundation, irrespective of diagnosis, the stage of the disease is based on the level of kidney function: Stage Description GFR(mL/min/1.73 m(2)) 1 Kidney damage with normal or decreased GFR 90 2 Kidney damage with mild decrease in GFR 60-89 3 Moderate decrease in GFR 30-59 4 Severe decrease in GFR 15-29 5 Kidney failure <15 (or dialysis) 10 Critical Result LACT:3.0 Called to [id number] at: 19:20:16 by:[email or web address] Read back by:[address] Severe Sepsis and Septic Shock Management Bundle Measure requires all lactic acids initially measuring >2.0 mmol/L be repeated. 11 SEE RESULT BELOW Name: NU CABA : [address]: Lobito Garcia MD Acct: [id number] Unit: [id number] AGE: 64 Location: ED Re05/25/19 SEX: F Status: DEP ER SPEC: [id number] NYDIA: 05/25/[address] [facility] [address]: Keily Farris MD REQ: [id number] RECD: 05/25/19 STATUS: MIRIAN MCDONNELL DR: Elías Moore [employer] _ SOURCE: URINE [facility]: ORDERED: Urine Culture Procedure Result Reported Site Urine Culture Final 05/27/19- 0910 ML Mixed alfredo; possible contamination. Suggest resubmission. * ML - Main Lab . END OF REPORT DEPARTMENT OF PATHOLOGY, [address] [place] [address] Momo Smalls M.D. Director [facility] # [id number] Procedures Date Code Description Status 10/01/2019 18312 Oximetry-Multiple Determinations Completed Medical Devices Description No Information Available Encounters Type Date Location Provider Dx Diagnosis Office Visit 09/27/2019 Main Office Asia Galloway NP J06.9 Acute upper 11:00a respiratory infection, unspecified Office Visit 09/23/2019 Main Office Destini Sarkar44.1 Chronic obstructive 9:45a [employer] pulmonary disease w (acute) exacerbation F41.9 Anxiety disorder, unspecified Office Visit 08/21/2019 1:30p Main Office Elías Georges44.1 Chronic obstructive Storm, [employer] pulmonary disease w (acute) exacerbation F32.89 Other specified depressive episodes R50.9 Fever, unspecified Office Visit 06/30/2019 10:15a Main Office Destini Medrano44.1 Chronic obstructive [employer] pulmonary disease w (acute) exacerbation Office Visit 05/29/2019 2:45p Main Office Elías Healy K59.00 Constipation, Storm, [employer] unspecified J44.1 Chronic obstructive pulmonary disease w (acute) exacerbation C50.911 Malignant neoplasm of unsp site of right female breast Office Visit 05/23/2019 11:15a Main Office Elías Healy R07.89 Other chest pain Storm, [employer] Office Visit 05/08/2019 2:15p Main Office Elías Georges44.1 Chronic obstructive Storm, [employer] pulmonary disease w (acute) exacerbation Office Visit 05/01/2019 9:15a Main Office Shawnti R. J44.1 Chronic obstructive Storm, [employer] pulmonary disease w (acute) exacerbation B35.8 Other dermatophytoses C50.911 Malignant neoplasm of unsp site of right female breast Office Visit 04/08/2019 1:00p Main Office Shawnti R. J44.1 Chronic obstructive Storm, [employer] pulmonary disease w (acute) exacerbation Assessments Date Code Description Provider 10/01/2019 J44.1 Chronic obstructive pulmonary disease with Shawnti R. Storm , [employer] (acute) exacerbation 10/01/2019 J44.1 Chronic obstructive pulmonary disease with [facility] (acute) exacerbation 09/27/2019 J06.9 Acute upper respiratory infection, Asia Galloway, [employer] unspecified 09/23/2019 J44.1 Chronic obstructive pulmonary disease with Shawnti R. Storm , [employer] (acute) exacerbation 09/23/2019 F41.9 Anxiety disorder, unspecified Shawnti R. Storm, [employer] 09/05/2019 R41.3 Other amnesia Shawnti R. Storm, [employer] 09/05/2019 R41.3 Other amnesia [facility] 08/21/2019 J44.1 Chronic obstructive pulmonary disease with Shawnti R. Storm , [employer] (acute) exacerbation 08/21/2019 F32.89 Other specified depressive episodes Shawnti R. Storm, [employer] C 08/21/2019 R50.9 Fever, unspecified Shawnti R. Storm, [employer] 06/30/2019 J44.1 Chronic obstructive pulmonary disease with Asia Galloway NP (acute) exacerbation 05/29/2019 K59.00 Constipation, unspecified Shawnti R. 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 Storm, MANAGER LABOR DELIVERY-C right female breas 05/23/2019 Z23 Encounter for immunization Shawnti R. Storm, MANAGER [employer]OR DELIVERY-C 05/23/2019 R07.89 Other chest pain Shawnti R. Storm, MANAGER [employer] DELIVERY-C 05/08/2019 J44.1 Chronic obstructive pulmonary disease with Elías Moore , MANAGER [employer] DELIVERY-C (acute) exacerbation 05/01/2019 J44.1 Chronic obstructive pulmonary disease with Elías Moore , MANAGER [employer] DELIVERY-C (acute) exacerbation 05/01/2019 B35.8 Other dermatophytoses Elías Moore MANAGER [employer] DELIVERY-C 05/01/2019 C50.911 Malignant neoplasm of unspecified site of Elías Moore, MANAGER [employer] DELIVERY-C right female breas 04/08/2019 J44.1 Chronic obstructive pulmonary disease with Elías Moore , MANAGER [employer] DELIVERY-C (acute) exacerbation Plan of Treatment 09/27/2019 - Asia Galloway, BRITNEYJ06.9 Acute upper respiratory infection, unspecifiedRecommendations:URI These symptoms are usually caused by a viral infection. Lots of viruses can take hold inside your nose, mouth, throat, or lungs, and cause cold symptoms. Most people get over a cold without lasting problems. Even so, having a cold can be uncomfortable. And if your child has a cold, it can be hardto know when the symptoms call for a trip to the doctor. In children, the common cold can also causea fever. But adults do not usually get a fever when they have a cold. You should call your doctor if you have: -A fever of more than 100.4?? F (38?? C) that comes with chills, loss of appetite, or trouble breathing -A fever and also have lung disease, such as emphysema or asthma -A cough that lasts longer than 10 days -Chest pain when you cough, trouble breathing, or coughing up blood If you are older than 75, you should also call your doctor any time you get a long-lasting cough. Take your child to the emergency room if he or she: -Becomes confused or stops responding to you -Has trouble breathing or has to work hard to breathe Call your child's doctor or nurse if he or she: -Refuses to drink anything for a long time -Is younger than 4 months -Has a fever and is not acting like him- or herself -Has a cough that lasts for more than 2 weeks and is not getting any better -Has a stuffed or runnynose that gets worse or does not get better after 2 weeks -Has red eyes or yellow goop coming out ofhis or her eyes -Has ear pain, pulls at his or her ears, or shows other signs of having an ear infection Colds usually last 3 to 7 days in adults and 10 days in children, but some people have symptomsfor up to 2 weeks. The most important thing you can do is to wash your hands often with soap and water. Alcohol hand rubs work well, too. The germs that cause the common cold can live on tables, door handles, and other surfaces for at least 2 hours. You never know when you might be touching germs. That's why it's so important to clean your hands often. Functional Status Description No Information Available Mental Status Description No Information Available Referrals Description No Information Available
--- NOTE | 2019-11-01 15:48 | ED ---
Shortness of Breath - HPI Summary HPI Summary: This patient is a 64 year old F presenting to [facility] with a chief complaint of shortness of breath since 10/29/19. Pt was seen in ED on 10/29/19 and was diagnosed with Flu A and given Tamiflu. Pt was also placed on 2L O2. After 10/29 it became more and more difficult for her to breath. Pt was previously treated for triple negative breast cancer and is under going radiation. Pt was on O2 while in hospice. After leaving hospice she no longer used O2. Pt has PMHx of COPD, but has quit smoking of cigarettes. Did an albuterol treatment before coming to the ED. Medications reviewed. Allergies noted. - History of Current Complaint Chief Complaint: EDRespiratoryDistress Time Seen by Provider: 11/01/19 15:13 Hx Obtained From: Patient Onset/Duration: Gradual Onset, Lasting Days, Still Present Timing: Constant Current Severity: Severe Dyspnea At: Rest Aggravating Factors: Other - Flu Alleviating Factors: Nothing Associated Signs & Symptoms: Cough (Productive) - Allergy/Home Medications Allergies/Adverse Reactions: Allergies Allergy/AdvReac Type Severity Reaction Status Date / Time meperidine Allergy Nausea And Verified 11/01/19 15:48 Vomiting pentazocine Allergy Nausea And Verified 11/01/19 15:48 Vomiting Home Medications: Home Medications Albuterol HFA INHALER* [Ventolin HFA Inhaler*] 1 puff INH Q6H PRN #2 mdi [Rx Confirmed 11/01/19] Albuterol/Ipratropium NEB.LU* [Duoneb (Albuterol 2.5 MG/Ipratropium 0.5 MG)] 1 neb INH Q4H PRN #2 box 09/20/18 [Rx Confirmed 11/01/19] Docusate CAP* [Colace Cap*] 100 mg PO DAILY PRN #30 cap 09/20/18 [Rx Confirmed 11/01/19] Fluticasone-Salmeterol 500-50* [Advair Diskus 500-50*] 1 puff INH BID #1 diskus 09/20/18 [Rx Confirmed 11/01/19] Spiriva HANDIHALER DEVICE (NF) [Tiotropium Inhaler DEVICE (NF)] 1 each INH .USE w/ SPIRIVA CAPS #1 device 09/20/18 [Rx Confirmed 11/01/19] ALPRAZolam [Alprazolam] 0.25 mg PO SEE INSTRUCTIONS PRN 10/30/19 [History Confirmed 11/01/19] Morphine Sulfate 15 mg PO SEE INSTRUCTIONS PRN 10/30/19 [History Confirmed ] Morphine Sulfate [Morphine Sulfate ER] 30 mg PO BID 10/30/19 [History Confirmed 11/01/19] Oxybutynin Chloride [Oxybutynin Chloride ER] 15 mg PO DAILY 10/30/19 [History Confirmed 11/01/19] Pantoprazole TAB * [Protonix TAB*] 40 mg PO Q72HR 10/30/19 [History Confirmed ] guaiFENesin [Robafen] 5 ml PO SEE INSTRUCTIONS PRN 10/30/19 [History Confirmed 11/01/19] Oseltamivir CAP* [Tamiflu CAP*] 75 mg PO BID #9 cap 10/31/19 [Rx Confirmed ] PMH/Surg Hx/FS Hx/Imm Hx Endocrine/Hematology History: Denies: Hx Anticoagulant Therapy, Hx Diabetes Cardiovascular History: Reports: Hx Hypercholesterolemia, Hx Hypertension, Other Cardiovascular Problems/Disorders - PREVIOUS CARDIAC CATH Denies: Hx Congestive Heart Failure, Hx Pacemaker/ICD Respiratory History: Reports: Hx Asthma, Hx Chronic Obstructive Pulmonary Disease (COPD) Denies: Hx Pneumonia GI History: Reports: Hx Gastroesophageal Reflux Disease, Other GI Disorders - gerd History: Denies: Hx Renal Disease Musculoskeletal History: Reports: Hx Arthritis, Hx Back Problems Comment Only: Hx Osteoporosis - unsure Sensory History: Reports: Hx Contacts or Glasses Denies: Hx Hearing Aid Opthamlomology History: Reports: Hx Contacts or Glasses Neurological History: Comment Only: Other Neuro Impairments/Disorders - POLYARTHROPATHY Psychiatric History: Reports: Hx Anxiety Denies: Hx Panic Disorder - Cancer History Cancer Type, Location and Year: new diagnosis of breast right sided and lung CA Hx Chemotherapy: No Hx Radiation Therapy: No - Surgical History Surgery Procedure, Year, and Place: PORT,TUBAL,T&A Hx Anesthesia Reactions: No - Immunization History Date of Influenza Vaccine: UTD Infectious Disease History: No Infectious Disease History: Denies: Traveled Outside the [place] in Last 30 Days - Family History Known Family History: Positive: Cardiac Disease, Diabetes - Mother, Other - Sister - BREAST CA - Social History Alcohol Use: None Alcohol Amount: 1 a month Substance Use Type: Reports: None Hx Tobacco Use: Yes - quit in 2008 Smoking Status (MU): Former Smoker Type: Cigarettes Have You Smoked in the Last Year: No Review of Systems Negative: Fever Positive: Shortness Of Breath, Cough All Other Systems Reviewed And Are Negative: Yes Physical Exam - Summary Physical Exam Summary: Constitutional: Well-developed, Well-nourished, Alert. (-) Distressed Skin: Warm, Dry HENT: Normocephalic; Atraumatic Eyes: Conjunctiva normal Neck: Musculoskeletal ROM normal neck. (-) JVD, (-) Stridor, (-) Tracheal deviation Cardio: Rhythm regular, rate normal, Heart sounds normal; Intact distal pulses; Radial pulses are 2+ and symmetric. (-) Murmur Pulmonary/Chest wall: (-) Wheezes, (-) Rales; 84% on room air, prolonged expiratory phase Mildly decrease air entry bilaterally; Speaking in full sentences Abd: Soft, (-) tenderness, (-) Distension, (-) Guarding, (-) Rebound Musculoskeletal: (-) Edema Lymph: (-) Cervical adenopathy Neuro: Alert, Oriented x3 Psych: Mood and affect Normal Triage Information Reviewed: Yes Vital Signs On Initial Exam: Initial Vitals Temp Pulse Resp BP Pulse Ox 98.4 F 88 24 127/84 97 11/01/19 15:21 11/01/19 15:21 11/01/19 15:21 11/01/19 15:21 11/01/19 15:21 Vital Signs Reviewed: Yes Procedures - Sedation Patient Received Moderate/Deep Sedation with Procedure: No Diagnostics - Vital Signs Vital Signs Temp Pulse Resp BP Pulse Ox 11/01/19 15:30 90 17 97 11/01/19 15:21 98.4 F 88 24 127/84 97 - Laboratory Result Diagrams: 11/01/19 15:47 11/01/19 15:47 Lab Statement: Any lab studies that have been ordered have been reviewed, and results considered in the medical decision making process. - Radiology CXR Radiology Interpretation Completed By: Radiologist Summary of Radiographic Findings: CXR reveals per radiologist IMPRESSION: No radiographic evidence for acute cardiopulmonary abnormality on this portable chest x-ray. ED physician has reviewed this radiology report. - EKG 1525 Cardiac Rate: NL EKG Rhythm: Sinus Rhythm Summary of EKG Findings: EKG at 1525 reveals normal sinus rhythm with rate of 88 BPM, no STEMI, T-waves that do appear are flatter in V2 but think that is lead placement. This EKG was reviewed and interpreted by ED physician. Course/Dx - Course Course Of Treatment: Patient is here with shortness of breath and hypoxemia. On arrival, patient is noted be hypoxic and triage was taken to the resuscitation room. Patient was speaking in full sentences but did have a prolonged expiratory phase. Patient was placed on oximeter at improvement in her oxygenation. Patient diagnosed the flu 2 days ago and his artery on Tamiflu. Patient will had a sepsis workup performed which showed a normal lactic acid. Patient had chest x-ray showed no pneumonia. Patient was treated empirically with Rocephin, azithromycin. Patient was also given a dose of steroids for her COPD. Patient was admitted to the hospitalist service. - Diagnoses Provider Diagnoses: COPD exacerbation, Hypoxemia, Influenza - Physician Notifications Discussed Care of Patient With: Amos Schwartz Time Discussed With Above Provider: 16:58 Instructed by Provider To: Other - Discussed case with Dr. Schwartz and he accepts pt for admission. - Critical Care Time Critical Care Time: 30-74 min - 35 minutes Discharge ED - Sign-Out/Discharge Documenting (check all that apply): Patient Departure - Admit - Discharge Plan Condition: Stable Disposition: ADMITTED TO [facility] Referrals: Elías Moore, WILDLIFE REFUGE SPECIALIST [Primary Care Provider] - - Billing Disposition and Condition Condition: STABLE Disposition: Admitted to [facility] - Attestation Statements Document Initiated by Demetrio: Yes Documenting Ramirezibe: Mery Toussaint Provider For Whom Demetrio is Documenting (Include Credential): Jareth Ross MD Scribe Attestation: Mery Jane, scribed for Jareth Ross MD on 11/01/19 at 1747. Scribe Documentation Reviewed: Yes Provider Attestation: The documentation as recorded by the Mery desouza accurately reflects the service I personally performed and the decisions made by me, Jareth Ross MD Status of Scribe Document: Viewed
[2019-11-01 15:59] LABS: Hematocrit 39 % (35-47); Hemoglobin 13.2 g/dL (12.0-16.0); Mean Corpuscular HGB Conc 34 g/dL (31-36); Mean Corpuscular Hemoglobin 29 pg (27-31); Mean Corpuscular Volume 85 fL (80-97); Mean Platelet Volume 8.4 fL (7.4-10.4); Platelet Count 139 10^3/uL (150-450); Red Blood Count 4.63 10^6 /uL (3.70-4.87); Red Cell Distribution Width 17 % (10-15); White Blood Count 2.4 10^3/uL (3.5-10.8)
[2019-11-01] MEDS ORDERED: NS 0.9% 1000 ML** 1,000 ML IV ONE (15:59)
[2019-11-01 16:02] LABS: ABS Lymphocytes 0.6 10^3/ul (1.0-4.8); ABS Monocytes 0.3 10^3/ul (0-0.8); ABS Neutrophils 1.4 10^3/ul (1.5-7.7); Nucleated Red Blood Cells % 0.3
[2019-11-01] MEDS ORDERED: cefTRIAXone(*) 1 GM in NS 0.9% 50 ML* 50 ML IVPB ONE (16:06)
[2019-11-01] MEDS ORDERED: Azithromycin 500 mg/250 ml NS 500 MG/250 ML BAG IVPB ONE (16:06)
[2019-11-01 16:13] LABS: Albumin 4.1 g/dL (3.2-5.2); Albumin/Globulin Ratio 1.2 (1-3); BUN/Creatinine Ratio 18.3 (8-20); Calcium 9.1 mg/dL (8.6-10.3); EGFR African American 100.9 (>60); EGFR Non-African American 83.4 (>60); Globulin 3.4 g/dL (2-4); Potassium 3.7 mmol/L (3.5-5.0); Total Bilirubin 0.6 mg/dL (0.2-1.0); Total Protein 7.5 g/dL (6.4-8.9)
[2019-11-01] MEDS ORDERED: NS 0.9% 1000 ML** 1,000 ML IV SCH (18:15)
[2019-11-01] MEDS: Enoxaparin(*) 40 MG/0.4 ML SYR SUBCUT SCH (18:51)
[2019-11-01] MEDS: methylPREDNISolone SOD 40 MG* 1 ML VIAL IV SCH ×2 (18:51→23:44)
--- NOTE | 2019-11-01 19:25 | HP ---
History of Present Illness - History of Present Illness Reason for Visit: Shortness of breath History of Present Illness: This patient is a 64 year old Female with pertinent past medical history significant for COPD, Breast cancer undergoing radiation therapy presented to [facility] emergency room for shortness of breath started 2-3 days ago. She was seen in the ER on 10/29/19 and was diagnosed with Influenza A and was treated with Tamiflu and released home. She returns today stating she has been getting worse , increase oxygen demand despite tamiflu, despite neb treatment and oxygen at home at 2 Liters. In the ER she was requiring Oxygen 4 liter to maintain saturation above 90%. 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 not active Lives: Alone Domestic Violence: Negative Review of Systems - Review of Systems Constitutional: Positive: Chills, Weakness, Malaise. Negative: Fever Eyes: Negative: Pain, Conjunctivae Inflammation ENT: Positive: Nose Congestion. Negative: Ear Pain, Ear Discharge, Nose Pain Respiratory: Positive: Cough, Shortness of Breath, SOB with Excertion, Sputum, Wheezing Cardiovascular: Positive: Chest Pain, Palpitations. Negative: Orthopnea, Paroxysmal Noc. Dyspnea Gastrointestinal: Negative: Nausea, Vomiting, Abdominal Pain Genitourinary: Negative: Dysuria, Frequency Musculoskeletal: Negative: Neck Pain, Shoulder Pain Skin: Negative: Rash, Lesions Neurological/Mental Status: Negative: Weakness, Seizures - Medications/Allergies Allergies/Adverse Reactions: Allergies Allergy/AdvReac Type Severity Reaction Status Date / Time No Known Allergies Allergy Verified 11/01/19 21:04 Medications: Home Medications Albuterol HFA INHALER* [Ventolin HFA Inhaler*] 1 puff INH Q6H PRN #2 mdi [Rx Confirmed 11/01/19] Albuterol/Ipratropium NEB.LU* [Duoneb (Albuterol 2.5 MG/Ipratropium 0.5 MG)] 1 neb INH Q4H PRN #2 box 09/20/18 [Rx Confirmed 11/01/19] Docusate CAP* [Colace Cap*] 100 mg PO DAILY PRN #30 cap 09/20/18 [Rx Confirmed 11/01/19] Fluticasone-Salmeterol 500-50* [Advair Diskus 500-50*] 1 puff INH BID #1 diskus 09/20/18 [Rx Confirmed 11/01/19] Spiriva HANDIHALER DEVICE (NF) [Tiotropium Inhaler DEVICE (NF)] 1 each INH .USE w/ SPIRIVA CAPS #1 device 09/20/18 [Rx Confirmed 11/01/19] ALPRAZolam [Alprazolam] 0.25 mg PO SEE INSTRUCTIONS PRN 10/30/19 [History Confirmed 11/01/19] Morphine Sulfate 15 mg PO SEE INSTRUCTIONS PRN 10/30/19 [History Confirmed ] Morphine Sulfate [Morphine Sulfate ER] 30 mg PO BID 10/30/19 [History Confirmed 11/01/19] Oxybutynin Chloride [Oxybutynin Chloride ER] 15 mg PO DAILY 10/30/19 [History Confirmed 11/01/19] Pantoprazole TAB * [Protonix TAB*] 40 mg PO Q72HR 10/30/19 [History Confirmed ] guaiFENesin [Robafen] 5 ml PO SEE INSTRUCTIONS PRN 10/30/19 [History Confirmed 11/01/19] Oseltamivir CAP* [Tamiflu CAP*] 75 mg PO BID #9 cap 10/31/19 [Rx Confirmed ] Exam - Exam Vital Signs: Vital Signs (72 hours) 11/01/19 11/01/19 11/01/19 15:21 15:30 16:24 Temperature 98.4 F Pulse Rate 88 90 100 Respiratory 24 17 Rate Blood Pressure 127/84 118/82 (mmHg) O2 Sat by Pulse 97 97 94 Oximetry 11/01/19 11/01/19 11/01/19 16:53 17:00 17:23 Temperature Pulse Rate 90 Respiratory 22 23 23 Rate Blood Pressure 120/72 111/72 (mmHg) O2 Sat by Pulse 93 94 93 Oximetry 11/01/19 11/01/19 17:54 18:01 Temperature Pulse Rate 84 78 Respiratory 21 Rate Blood Pressure 124/78 (mmHg) O2 Sat by Pulse 94 94 Oximetry General: Alert, Oriented x3, Cooperative, No acute distress HEENT: Atraumatic, EOMI, Mucous membr. moist/pink Lungs: Other - coarse rhonchi and expiratory wheezing Cardiovascular: Regular rate, Normal S1, Normal S2 Abdomen: Normal bowel sounds, Soft, No tenderness Extremities: No edema, Other - clubbing Neurological: Normal speech, Strength at 5/5 X4 ext, Sensation intact Psych/Mental Status: Mental status NL Assessment/Plan - Assessment/Plan Assessment: 64 y/o female present to the ED for shortness of breath diagnosed with Influenza A bronchitis and COPD exacerbations 1. COPD Exacerbations 2. Influenza A bronchitis 3. Breast cancer 4. Hyperlipidemoia 5. Anxoiety 6. GERD Plan: 1. Admit to floor. - Will place him on Albuterol neb, Zithromax 500 mg IV daily, - Solumedrol 40 mg IV q6hrs, Mucinex 600 mg bid - continue home inhaler Dulera 2. Tamiflu 75 mg bid day # 3/5 (total started on 10/29/19) - Patient informed will need to hold off on radiation until she is recovered from her COPD exacerbations and influenza A 3. continue her Xanax and morphine for her chronic pain and anxiety 4. DVT prophylaxis - Lovenox 40 mg SQ daily
[2019-11-01] MEDS: Oseltamivir CAP* 75 MG CAP PO SCH (21:04)
[2019-11-01] MEDS: guaiFENesin ER TAB 600 MG PO SCH (21:04)
[2019-11-01] MEDS: Docusate CAP* 100 MG PO PRN (21:04)
[2019-11-01] MEDS: ALPRAZolam TAB* 0.25 MG PO PRN (21:13)
[2019-11-01] MEDS: Morphine TAB Extended Release (*) 30 MG TAB.ER PO SCH (21:14)
[2019-11-01] MEDS: Albuterol/Ipratropium NEB.SOL* Albuterol 2.5 MG/Ipratropium 0.5 MG 3 ML INH SCH ×2 (21:39→23:03)
[2019-11-01] MEDS: Oxybutynin TAB* 5 MG PO SCH (22:37)
[2019-11-01] MEDS: Mometasone/Formoter 200/5 MDI INH SCH (23:03)
[2019-11-02] MEDS: Albuterol/Ipratropium NEB.SOL* Albuterol 2.5 MG/Ipratropium 0.5 MG 3 ML INH SCH ×5 (03:04→20:40)
[2019-11-02] MEDS: Albuterol 2.5 MG/3 ML NEB.SOL* (0.083%) INH PRN ×2 (05:41→20:22)
[2019-11-02] MEDS: methylPREDNISolone SOD 40 MG* 1 ML VIAL IV SCH ×3 (06:39→22:47)
[2019-11-02] MEDS: Mometasone/Formoter 200/5 MDI INH SCH ×2 (06:59→20:22)
[2019-11-02] MEDS: guaiFENesin ER TAB 600 MG PO SCH ×2 (07:56→19:56)
[2019-11-02] MEDS: Morphine TAB Extended Release (*) 30 MG TAB.ER PO SCH ×2 (07:56→19:55)
[2019-11-02] MEDS: Oseltamivir CAP* 75 MG CAP PO SCH ×2 (07:56→19:55)
[2019-11-02] MEDS: Acetaminophen TAB* 325 MG PO PRN (07:57)
[2019-11-02] MEDS: Docusate CAP* 100 MG PO PRN ×2 (08:19→22:46)
--- NOTE | 2019-11-02 10:51 | PN ---
Subjective Date of Service: 11/02/19 Interval History: patient seen today, still complaining of increase shortness of breath at rest and minimal exertional. Currently on 5 liters nasal canula saturation 97% Past Medical History: Unchanged from Admission Objective Active Medications: Acetaminophen (Tylenol Tab*) 650 mg PO Q4H PRN PRN Reason: PAIN - MILD Last Admin: 11/02/19 07:57 Dose: 650 mg Albuterol (Ventolin 2.5 Mg/3 Ml Neb.Zoe*) 2.5 mg INH [id number] AWAKE PRN PRN Reason: sob/wheezing Last Admin: 11/02/19 05:41 Dose: 2.5 mg Albuterol/Ipratropium (Duoneb (Albuterol 2.5 Mg/Ipratropium 0.5 Mg)) 1 neb INH Q4H [facility] Last Admin: 11/02/19 07:01 Dose: Not Given Alprazolam (Xanax Tab*) 0.25 mg PO TID PRN PRN Reason: ANXIETY Last Admin: 11/01/19 21:13 Dose: 0.25 mg Docusate Sodium (Colace Cap*) 100 mg PO BID PRN PRN Reason: CONSTIPATION Last Admin: 11/02/19 08:19 Dose: 100 mg Enoxaparin Sodium (Lovenox(*)) 40 mg SUBCUT Q24H [facility] Last Admin: 11/01/19 18:51 Dose: 40 mg Guaifenesin (Mucinex*) 600 mg PO BID [facility] Last Admin: 11/02/19 07:56 Dose: 600 mg Sodium Chloride (Ns 0.9% 1000 Ml) 1,000 mls @ 75 mls/hr IV PER RATE [facility] Stop: 11/02/19 18:14 Last Admin: 11/01/19 20:47 Dose: 75 mls/hr Azithromycin (Zithromax 500 Mg/250 Ml) 500 mg in 250 mls @ 250 mls/hr IVPB Q24H [facility] Methylprednisolone Sodium Succinate (Solu-Medrol 40 Mg) 40 mg IV Q8H [facility] Mometasone Furoate/Formoterol Fumar (Dulera 200/5 Mdi*) 2 puff INH BID [facility] Last Admin: 11/02/19 06:59 Dose: 2 puff Morphine Sulfate (Ms Contin(*)) 30 mg PO BID [facility] Last Admin: 11/02/19 07:56 Dose: 30 mg Morphine Sulfate (Morphine Oral.Soln 10 Mg*) 15 mg PO Q4H PRN PRN Reason: BREATHING Ondansetron HCl (Zofran Inj*) 4 mg IV Q4H PRN PRN Reason: NAUSEA/VOMITING Oseltamivir Phosphate (Tamiflu Cap*) 75 mg PO BID [facility] Last Admin: 11/02/19 07:56 Dose: 75 mg Oxybutynin Chloride (Ditropan Tab*) 15 mg PO BEDTIME [facility] Last Admin: 11/01/19 22:37 Dose: 15 mg Pantoprazole Sodium (Protonix Tab*) 40 mg PO Q72HR [facility] Vital Signs - 8 hr 11/02/19 11/02/19 11/02/19 02:55 03:39 05:44 Temperature 96.5 F Pulse Rate 72 70 Respiratory 16 16 24 Rate Blood Pressure 128/75 (mmHg) O2 Sat by Pulse 96 97 Oximetry 11/02/19 11/02/19 11/02/19 07:02 07:15 07:56 Temperature 96.8 F Pulse Rate 68 84 Respiratory 22 20 18 Rate Blood Pressure 126/62 (mmHg) O2 Sat by Pulse 94 97 Oximetry 11/02/19 10:36 Temperature Pulse Rate Respiratory 16 Rate Blood Pressure (mmHg) O2 Sat by Pulse Oximetry Oxygen Devices in Use Now: Nasal Cannula Appearance: awake, no acute distress. sitting in bed having breakfast. appears winded and shortness of breath with minimal exertions Eyes: No Scleral Icterus, PERRLA, - - EOMI Ears/Nose/Mouth/Throat: Clear Oropharnyx, Mucous Membranes Moist Neck: Trachea Midline Respiratory: - - coarse rhonchi and expiratory wheezing Cardiovascular: NL Sounds; No Murmurs; No JVD Abdominal: NL Sounds; No Tenderness; No Distention Extremities: No Edema Skin: No Rash or Ulcers Neurological: Alert and Oriented x 3 Result Diagrams: 11/01/19 15:47 11/01/19 15:47 Microbiology and Other Data: Microbiology 11/01/19 20:58 Gram Stain - Final Sputum Expectorated Assess/Plan/Problems-Billing Assessment: 64 y/o female present to the ED for shortness of breath diagnosed with Influenza A bronchitis and COPD exacerbations - Patient Problems (1) Acute and chronic respiratory failure with hypoxia Current Visit: No Status: Acute Code(s): J96.21 - ACUTE AND CHRONIC RESPIRATORY FAILURE WITH HYPOXIA SNOMED Code(s): 24963930 Comment: - most likely Due to COPD exacerbation versus radiation pneumonitis - Minimal improvement today. Will continue her supplemental oxygen, Azithromycin IV and systemic steroid - If not better in am I may reconsider and obtain CTA of chest rule out PE given her history of breast cancer. However, at this time her hypoxia could be explained with her COPD and radiation history. Will try to avoid unnesscary Contrast for now (2) COPD exacerbation Current Visit: No Status: Acute Code(s): J44.1 - CHRONIC OBSTRUCTIVE PULMONARY DISEASE W (ACUTE) EXACERBATION SNOMED Code(s): 679086863 Comment: - minimal improvement - Minimal improvement today. Will continue her supplemental oxygen, Azithromycin IV and systemic steroid - If not better in am I may reconsider and obtain CTA of chest rule out PE given her history of breast cancer. However, at this time her hypoxia could be explained with her COPD and radiation history. Will try to avoid unnesscary Contrast for now (3) Anxiety Current Visit: No Status: Acute Code(s): F41.9 - ANXIETY DISORDER, UNSPECIFIED SNOMED Code(s): 42289930 Comment: - Continue xanax (4) Breast cancer Current Visit: No Status: Acute Code(s): C50.919 - MALIGNANT NEOPLASM OF UNSP SITE OF UNSPECIFIED FEMALE BREAST SNOMED Code(s): 365910342 Comment: - s/p chemotherapy at [facility] in [facility]. - Currently undergoing radiation, will need to hold off given her active exacerbation of her COPD and possible radiation pneumonitis. (5) GERD (gastroesophageal reflux disease) Current Visit: No Status: Acute Code(s): K21.9 - GASTRO-ESOPHAGEAL REFLUX DISEASE WITHOUT ESOPHAGITIS SNOMED Code(s): 766193889 Comment: Continue pantoprazole (6) DVT prophylaxis Current Visit: No Status: Acute Code(s): [id number] - SNOMED Code(s): 375287693 Comment: Continue lovenox subQ
[2019-11-02 13:19] LABS: Magnesium 1.6 mg/dL (1.9-2.7); Phosphorus 2.3 mg/dL (2.5-5.0)
[2019-11-02] MEDS: ALPRAZolam TAB* 0.25 MG PO PRN (14:02)
[2019-11-02 15:35] LABS: ABS Lymphocytes 0.2 10^3/ul (1.0-4.8); ABS Monocytes 0.3 10^3/ul (0-0.8); ABS Neutrophils 3.5 10^3/ul (1.5-7.7); Hematocrit 33 % (35-47); Hemoglobin 11.2 g/dL (12.0-16.0); Lymphocyte % 4.5 %; Mean Corpuscular HGB Conc 34 g/dL (31-36); Mean Corpuscular Hemoglobin 29 pg (27-31); Mean Corpuscular Volume 84 fL (80-97); Mean Platelet Volume 7.9 fL (7.4-10.4); Platelet Count 134 10^3/uL (150-450); Red Blood Count 3.95 10^6 /uL (3.70-4.87); Red Cell Distribution Width 17 % (10-15)
[2019-11-02 16:51] LABS: Calcium 8.8 mg/dL (8.6-10.3); Potassium 3.8 mmol/L (3.5-5.0)
[2019-11-02 16:56] LABS: BUN/Creatinine Ratio 17.2 (8-20); EGFR African American 127.5 (>60); EGFR Non-African American 105.3 (>60)
[2019-11-02] MEDS: Enoxaparin(*) 40 MG/0.4 ML SYR SUBCUT SCH (18:05)
[2019-11-02] MEDS: Azithromycin 500 mg/250 ml NS 500 MG/250 ML BAG IVPB SCH (18:05)
[2019-11-02] MEDS: Ondansetron INJ* 2 MG/ML VIAL IV PRN (18:55)
[2019-11-02] MEDS: Oxybutynin TAB* 5 MG PO SCH (19:56)
[2019-11-02] MEDS ORDERED: Magnesium Hydroxide LIQ* 30 ML UDC PO ONE (20:13)
[2019-11-02] MEDS: Benzonatate CAP* 100 MG PO PRN (22:46)
[2019-11-03] MEDS: Albuterol/Ipratropium NEB.SOL* Albuterol 2.5 MG/Ipratropium 0.5 MG 3 ML INH SCH ×2 (01:03→08:13)
[2019-11-03] MEDS: Acetaminophen TAB* 325 MG PO PRN ×2 (04:34→10:30)
[2019-11-03] MEDS: methylPREDNISolone SOD 40 MG* 1 ML VIAL IV SCH ×3 (05:08→21:35)
[2019-11-03 05:55] LABS: ABS Lymphocytes 0.3 10^3/ul (1.0-4.8); ABS Monocytes 0.5 10^3/ul (0-0.8); Hematocrit 34 % (35-47); Hemoglobin 11.3 g/dL (12.0-16.0); Lymphocyte % 4.6 %; Mean Corpuscular HGB Conc 34 g/dL (31-36); Mean Corpuscular Hemoglobin 29 pg (27-31); Mean Corpuscular Volume 85 fL (80-97); Mean Platelet Volume 8.1 fL (7.4-10.4); Platelet Count 139 10^3/uL (150-450); Red Blood Count 3.96 10^6 /uL (3.70-4.87); Red Cell Distribution Width 17 % (10-15); White Blood Count 5.8 10^3/uL (3.5-10.8)
[2019-11-03 06:10] LABS: BUN/Creatinine Ratio 24.1 (8-20); Calcium 8.5 mg/dL (8.6-10.3); EGFR African American 127.5 (>60); EGFR Non-African American 105.3 (>60); Phosphorus 2.3 mg/dL (2.5-5.0); Potassium 3.6 mmol/L (3.5-5.0)
[2019-11-03] MEDS: Mometasone/Formoter 200/5 MDI INH SCH (08:11)
[2019-11-03] MEDS: Docusate CAP* 100 MG PO PRN ×2 (10:32→21:38)
[2019-11-03] MEDS: Morphine TAB Extended Release (*) 30 MG TAB.ER PO SCH ×2 (10:32→21:35)
[2019-11-03] MEDS: guaiFENesin ER TAB 600 MG PO SCH ×2 (10:32→21:35)
[2019-11-03] MEDS: Oseltamivir CAP* 75 MG CAP PO SCH ×2 (10:34→21:38)
--- NOTE | 2019-11-03 13:42 | CONSULT ---
Consult Consult: Patient is currently under radiation therapy for left sided breast cancer and is now inpatient for COPD exacerbation and influenza A. I consulted with patient in her room this morning regarding plan for continuation of current prescribed course of radiation therapy for her left breast cancer. She reports her breathing has improved since admission and states she is interested in continuing with treatment as planned. Dr. Hopper and I spoke with Dr. Schwartz regarding her current status and the recommendation to continue radiation treatment as planned as long as her breathing is improving. Discussed currently suspect minimal immune suppression based on treatment area and unlikely radiation pneumonitis presenting this early on in treatment. Plan for treatment to resume tomorrow pending respiratory stability and per Dr. Schwartz the team has been made aware.
--- NOTE | 2019-11-03 15:39 | PN ---
Subjective Date of Service: 11/03/19 Interval History: Patient seen today, she tells me that she was very dyspneic today. Her oxygen saturation 97% or 3 liters but she gets very dyspneic with short sentence and tacchypneic. some anxiety component and fear of discharge may be playing a component. i reassured her that she will be staying given her dyspnea, especially that she will be getting radiation to her breast cancer starting tomorrow Past Medical History: Unchanged from Admission Objective Active Medications: Acetaminophen (Tylenol Tab*) 650 mg PO Q4H PRN PRN Reason: PAIN - MILD Last Admin: 11/03/19 10:30 Dose: 650 mg Albuterol (Ventolin 2.5 Mg/3 Ml Neb.Zoe*) 2.5 mg INH RT.[id number] AWAKE PRN PRN Reason: sob/wheezing Last Admin: 11/02/19 20:22 Dose: 2.5 mg Alprazolam (Xanax Tab*) 0.25 mg PO TID PRN PRN Reason: ANXIETY Last Admin: 11/02/19 14:02 Dose: 0.25 mg Benzonatate (Tessalon Cap*) 100 mg PO BID PRN PRN Reason: COUGH Last Admin: 11/02/19 22:46 Dose: 100 mg Docusate Sodium (Colace Cap*) 100 mg PO BID PRN PRN Reason: CONSTIPATION Last Admin: 11/03/19 10:32 Dose: 100 mg Enoxaparin Sodium (Lovenox(*)) 40 mg SUBCUT Q24H [facility] Last Admin: 11/02/19 18:05 Dose: 40 mg Guaifenesin (Mucinex*) 600 mg PO BID [facility] Last Admin: 11/03/19 10:32 Dose: 600 mg Heparin Sodium (Porcine) (Heparin Flush Port (Ivad)) 5 ml FLUSH DAILY [facility]; Protocol Last Admin: 11/03/19 11:27 Dose: 5 ml Azithromycin (Zithromax 500 Mg/250 Ml) 500 mg in 250 mls @ 250 mls/hr IVPB Q24H [facility] Last Admin: 11/02/19 18:05 Dose: 250 mls/hr Methylprednisolone Sodium Succinate (Solu-Medrol 40 Mg) 40 mg IV Q8H [facility] Last Admin: 11/03/19 14:22 Dose: 40 mg Morphine Sulfate (Ms Contin(*)) 30 mg PO BID [facility] Last Admin: 11/03/19 10:32 Dose: 30 mg Morphine Sulfate (Morphine Oral.Soln 10 Mg*) 15 mg PO Q4H PRN PRN Reason: BREATHING Ondansetron HCl (Zofran Inj*) 4 mg IV Q4H PRN PRN Reason: NAUSEA/VOMITING Last Admin: 11/02/19 18:55 Dose: 4 mg Oseltamivir Phosphate (Tamiflu Cap*) 75 mg PO BID [facility] Last Admin: 11/03/19 10:34 Dose: 75 mg Oxybutynin Chloride (Ditropan Tab*) 15 mg PO BEDTIME [facility] Last Admin: 11/02/19 19:56 Dose: 15 mg Pantoprazole Sodium (Protonix Tab*) 40 mg PO Q72HR [facility] Fluticasone/Salmeterol (Advair Diskus 500-50*) 1 puff INH DAILY [facility] Tiotropium [place] (Spiriva Capsule (Nf)) 1 cap INH DAILY [facility] Vital Signs - 8 hr 11/03/19 11/03/19 11/03/19 10:32 11:15 13:18 Temperature 97.6 F Pulse Rate 62 Respiratory 24 26 16 Rate Blood Pressure 130/73 (mmHg) O2 Sat by Pulse 96 Oximetry Oxygen Devices in Use Now: Nasal Cannula, OxyMask Eyes: No Scleral Icterus, PERRLA, - - EOMI Ears/Nose/Mouth/Throat: NL Teeth, Lips, Gums, Mucous Membranes Moist Neck: Trachea Midline, - - using her neck accessory muscle when talking. she talks in midsentences Respiratory: - - poor airflow bilateral Abdominal: NL Sounds; No Tenderness; No Distention Neurological: Alert and Oriented x 3 Result Diagrams: 11/03/19 05:25 11/03/19 05:25 Microbiology and Other Data: Microbiology 11/01/19 20:58 Gram Stain - Final Sputum Expectorated Assess/Plan/Problems-Billing Assessment: 64 y/o female present to the ED for shortness of breath diagnosed with Influenza A bronchitis and COPD exacerbations - Patient Problems (1) Acute and chronic respiratory failure with hypoxia Current Visit: No Status: Acute Code(s): J96.21 - ACUTE AND CHRONIC RESPIRATORY FAILURE WITH HYPOXIA SNOMED Code(s): 37809215 Comment: - most likely Due to COPD exacerbation less likley from radiation pneumonitis (normally does not happen that early during the course of therapy as outline by Dr. Hopper). - Minimal improvement. Will continue her supplemental oxygen, Azithromycin IV and systemic steroid. - I will defer on obtaining CTA of chest as her oximetry is 97% almost at baseline. I think there is component of anxiety to her dyspnea and fear of discharge too early. - Medically should be able to tolerate her radiation therapy in am with Dr. Hopper (to avoid interruption of her outpatient radiation therapy) (2) COPD exacerbation Current Visit: No Status: Acute Code(s): J44.1 - CHRONIC OBSTRUCTIVE PULMONARY DISEASE W (ACUTE) EXACERBATION SNOMED Code(s): 473423853 Comment: - Minimal improvement. Will continue her supplemental oxygen, Azithromycin IV and systemic steroid. - I will defer on obtaining CTA of chest as her oximetry is 97% almost at baseline. I think there is component of anxiety to her dyspnea and fear of discharge too early. - Medically should be able to tolerate her radiation therapy in am with Dr. Hopper (to avoid interruption of her outpatient radiation therapy) (3) Anxiety Current Visit: No Status: Acute Code(s): F41.9 - ANXIETY DISORDER, UNSPECIFIED SNOMED Code(s): 88005327 Comment: - Continue xanax (4) Breast cancer Current Visit: No Status: Acute Code(s): C50.919 - MALIGNANT NEOPLASM OF UNSP SITE OF UNSPECIFIED FEMALE BREAST SNOMED Code(s): 981870420 Comment: - s/p surgery and chemotherapy at [facility] in [facility]. - Currently undergoing radiation, - Medically should be able to tolerate her radiation therapy in am with Dr. Hopper (to avoid interruption of her outpatient radiation therapy) (5) GERD (gastroesophageal reflux disease) Current Visit: No Status: Acute Code(s): K21.9 - GASTRO-ESOPHAGEAL REFLUX DISEASE WITHOUT ESOPHAGITIS SNOMED Code(s): 232805262 Comment: Continue pantoprazole (6) DVT prophylaxis Current Visit: No Status: Acute Code(s): GFE5330 - SNOMED Code(s): 774217146 Comment: Continue lovenox subQ
[2019-11-03] MEDS: Azithromycin 500 mg/250 ml NS 500 MG/250 ML BAG IVPB SCH (20:19)
[2019-11-03] MEDS: ALPRAZolam TAB* 0.25 MG PO PRN (21:37)
[2019-11-03] MEDS: Oxybutynin TAB* 5 MG PO SCH (21:37)
[2019-11-03] MEDS: Benzonatate CAP* 100 MG PO PRN (21:38)
[2019-11-03] MEDS: Enoxaparin(*) 40 MG/0.4 ML SYR SUBCUT SCH (21:48)
[2019-11-03] MEDS: PTO: Fluticasone-Salmeterol 500-50* DISKUS INH SCH (21:58)
[2019-11-04] MEDS: methylPREDNISolone SOD 40 MG* 1 ML VIAL IV SCH ×3 (05:32→20:04)
[2019-11-04] MEDS: PTO: Fluticasone-Salmeterol 500-50* DISKUS INH SCH (07:58)
[2019-11-04] MEDS: TIOTROPIUM INH SCH (07:58)
[2019-11-04] MEDS: Morphine ORAL.SOLN 10 mg* 2 MG/ML UDC 5 ml PO PRN (08:09)
[2019-11-04] MEDS: Oseltamivir CAP* 75 MG CAP PO SCH ×2 (08:10→20:06)
[2019-11-04] MEDS: Morphine TAB Extended Release (*) 30 MG TAB.ER PO SCH ×2 (08:11→18:08)
[2019-11-04] MEDS: Pantoprazole TAB * 40 MG TAB PO SCH (08:11)
[2019-11-04] MEDS: guaiFENesin ER TAB 600 MG PO SCH ×2 (08:11→20:06)
--- NOTE | 2019-11-04 14:21 | PN ---
Subjective Date of Service: 11/04/19 Interval History: HOSPITALIST PROGRESS NOTE Patient seen and examined at bedside. Care reviewed and d/w Celina Bowman RN. She states she feels "terrible". Still has significant dyspnea with exertion, but comfortable at rest. Denies chest pain, N/V. Feels very weak and doesn't think she would tolerate Radiation therapy today. Family History: Unchanged from Admission Social History: Unchanged from Admission Past Medical History: Unchanged from Admission Objective Active Medications: Acetaminophen (Tylenol Tab*) 650 mg PO Q4H PRN PRN Reason: PAIN - MILD Last Admin: 11/03/19 10:30 Dose: 650 mg Albuterol (Ventolin 2.5 Mg/3 Ml Neb.Zoe*) 2.5 mg INH RT.[id number] AWAKE PRN PRN Reason: sob/wheezing Last Admin: 11/02/19 20:22 Dose: 2.5 mg Alprazolam (Xanax Tab*) 0.25 mg PO TID PRN PRN Reason: ANXIETY Last Admin: 11/03/19 21:37 Dose: 0.25 mg Benzonatate (Tessalon Cap*) 100 mg PO BID PRN PRN Reason: COUGH Last Admin: 11/03/19 21:38 Dose: 100 mg Docusate Sodium (Colace Cap*) 100 mg PO BID PRN PRN Reason: CONSTIPATION Last Admin: 11/03/19 21:38 Dose: 100 mg Enoxaparin Sodium (Lovenox(*)) 40 mg SUBCUT 2100 [facility] Guaifenesin (Mucinex*) 600 mg PO BID [facility] Last Admin: 11/04/19 08:11 Dose: 600 mg Heparin Sodium (Porcine) (Heparin Flush Port (Ivad)) 5 ml FLUSH DAILY [facility]; Protocol Last Admin: 11/03/19 22:10 Dose: 5 ml Azithromycin (Zithromax 500 Mg/250 Ml) 500 mg in 250 mls @ 250 mls/hr IVPB Q24H [facility] Last Admin: 11/03/19 20:19 Dose: 250 mls/hr Methylprednisolone Sodium Succinate (Solu-Medrol 40 Mg) 40 mg IV Q8H [facility] Last Admin: 11/04/19 05:32 Dose: 40 mg Morphine Sulfate (Morphine Oral.Soln 10 Mg*) 15 mg PO Q4H PRN PRN Reason: BREATHING Last Admin: 11/04/19 08:09 Dose: 15 mg Morphine Sulfate (Ms Contin(*)) 30 mg PO 0600,1800 [facility] Ondansetron HCl (Zofran Inj*) 4 mg IV Q4H PRN PRN Reason: NAUSEA/VOMITING Last Admin: 11/02/19 18:55 Dose: 4 mg Oseltamivir Phosphate (Tamiflu Cap*) 75 mg PO BID [facility] Last Admin: 11/04/19 08:10 Dose: 75 mg Oxybutynin Chloride (Ditropan Tab*) 15 mg PO BEDTIME [facility] Last Admin: 11/03/19 21:37 Dose: 15 mg Pantoprazole Sodium (Protonix Tab*) 40 mg PO Q72HR [facility] Last Admin: 11/04/19 08:11 Dose: 40 mg Fluticasone/Salmeterol (Advair Diskus 500-50*) 1 puff INH DAILY [facility] Last Admin: 11/04/19 07:58 Dose: 1 puff Tiotropium [place] (Spiriva Capsule (Nf)) 1 cap INH DAILY [facility] Last Admin: 11/04/19 07:58 Dose: 1 cap Vital Signs - 8 hr 11/04/19 11/04/19 11/04/19 07:37 08:00 08:09 Temperature 96.8 F Pulse Rate 58 82 Respiratory 16 24 24 Rate Blood Pressure 141/102 (mmHg) O2 Sat by Pulse 93 91 Oximetry 11/04/19 11/04/19 11/04/19 08:11 10:40 11:22 Temperature 98.0 F Pulse Rate 58 Respiratory 24 20 22 Rate Blood Pressure 109/50 (mmHg) O2 Sat by Pulse 96 Oximetry 11/04/19 11/04/19 12:00 12:01 Temperature Pulse Rate 71 83 Respiratory Rate Blood Pressure 127/70 107/74 (mmHg) O2 Sat by Pulse 97 94 Oximetry Oxygen Devices in Use Now: OxyMask - 2 liters Appearance: Pleasant lady sitting up in bed in NAD Eyes: No Scleral Icterus Ears/Nose/Mouth/Throat: Mucous Membranes Moist Neck: Trachea Midline Respiratory: Symmetrical Chest Expansion and Respiratory Effort, - - BS+ bilaterally with scattered wheezes. No accessory muscle use Cardiovascular: RRR - Normal S1 and S2 Abdominal: NL Sounds; No Tenderness; No Distention Neurological: Alert and Oriented x 3, NL Muscle Strength and Tone Result Diagrams: 11/03/19 05:25 11/03/19 05:25 Microbiology and Other Data: Microbiology 11/01/19 20:58 Gram Stain - Final Sputum Expectorated Assess/Plan/Problems-Billing Assessment: Mrs Caba is a 64 yo F with PMH of HTN, HLD, COPD, GERD, breast CA who present to the ED for shortness of breath diagnosed with COPD exacerbation secondary to Influenza A. - Patient Problems (1) Acute and chronic respiratory failure with hypoxia Comment: - Secondary to COPD exacerbation/Influenza A. - Continue supplemental O2. (2) COPD exacerbation Comment: - She seems to be improving slowly. - Supplemental O2 requirements down to 2 liters. - Continue Solumedrol, Azithromycin, bronchodilators, and inhaled steroids. (3) Influenza A Comment: - Continue Tamiflu #3/5. (4) Anxiety Comment: - Certainly amplifying her symptoms. - Continue Alprazolam PRN. (5) Breast cancer Comment: - s/p surgery and chemotherapy at [facility] in [facility]. - Currently undergoing radiation- she should be able to tolerate her radiation therapy to avoid interruption of her outpatient radiation therapy schedule, but she states she does not feel well enough to do it. (6) GERD (gastroesophageal reflux disease) Comment: - Continue Pantoprazole. (7) Physical deconditioning Comment: - PT consult. (8) DVT prophylaxis Comment: - Continue Enoxaparin. (9) Full code status Comment: Status and Disposition: Inpatient.
[2019-11-04] MEDS: Azithromycin 500 mg/250 ml NS 500 MG/250 ML BAG IVPB SCH (20:01)
[2019-11-04] MEDS: Enoxaparin(*) 40 MG/0.4 ML SYR SUBCUT SCH (20:04)
[2019-11-04] MEDS: ALPRAZolam TAB* 0.25 MG PO PRN (20:05)
[2019-11-04] MEDS: Docusate CAP* 100 MG PO PRN (20:06)
[2019-11-04] MEDS: Benzonatate CAP* 100 MG PO PRN (20:06)
[2019-11-04] MEDS: Oxybutynin TAB* 5 MG PO SCH (20:06)
[2019-11-04] MEDS ORDERED: PTO: Fluticasone-Salmeterol 500-50* DISKUS INH SCH (21:00)
[2019-11-05] MEDS: PTO: Fluticasone-Salmeterol 500-50* DISKUS INH SCH ×2 (00:33→09:18)
[2019-11-05] MEDS: Morphine TAB Extended Release (*) 30 MG TAB.ER PO SCH ×2 (05:47→18:12)
[2019-11-05] MEDS: methylPREDNISolone SOD 40 MG* 1 ML VIAL IV SCH ×3 (05:47→20:57)
[2019-11-05 06:10] LABS: Hematocrit 32 % (35-47); Hemoglobin 11.1 g/dL (12.0-16.0); Mean Corpuscular HGB Conc 34 g/dL (31-36); Mean Corpuscular Hemoglobin 29 pg (27-31); Mean Corpuscular Volume 84 fL (80-97); Mean Platelet Volume 8.2 fL (7.4-10.4); Platelet Count 134 10^3/uL (150-450); Red Blood Count 3.85 10^6 /uL (3.70-4.87); Red Cell Distribution Width 17 % (10-15); White Blood Count 4.8 10^3/uL (3.5-10.8)
[2019-11-05 06:29] LABS: BUN/Creatinine Ratio 29.6 (8-20); Calcium 8.8 mg/dL (8.6-10.3); EGFR African American 138.4 (>60); EGFR Non-African American 114.4 (>60); Potassium 3.6 mmol/L (3.5-5.0)
[2019-11-05 06:49] LABS: ABS Lymphocytes 0.8 10^3/ul (1.0-4.8); ABS Monocytes 1.2 10^3/ul (0-0.8); ABS Neutrophils 2.8 10^3/ul (1.5-7.7); Lymphocyte % 16.6 %
[2019-11-05 08:09] LABS: Microcytosis 2+
[2019-11-05] MEDS: guaiFENesin ER TAB 600 MG PO SCH ×2 (08:56→20:58)
[2019-11-05] MEDS: Pantoprazole TAB * 40 MG TAB PO SCH (08:57)
[2019-11-05] MEDS: Docusate CAP* 100 MG PO PRN ×2 (09:02→20:58)
[2019-11-05] MEDS: Oseltamivir CAP* 75 MG CAP PO SCH ×2 (09:03→20:58)
[2019-11-05] MEDS: TIOTROPIUM INH SCH (09:15)
[2019-11-05] MEDS: Morphine ORAL.SOLN 10 mg* 2 MG/ML UDC 5 ml PO PRN (14:15)
[2019-11-05] MEDS: ALPRAZolam TAB* 0.25 MG PO PRN ×2 (14:15→20:58)
--- NOTE | 2019-11-05 15:00 | PN ---
Subjective Date of Service: 11/05/19 Interval History: HOSPITALIST PROGRESS NOTE Patient seen and examined at bedside. Care reviewed and d/w Krista Montoya RN. She has done a complete 180 from yesterday. In good spirits. States she talked to her sister on the phone last night and she reminded her how strong she can be , so she "picked herself up from her boot straps", took a shower, washed her hair, and feels like a different person today. Agreeable with RT this afternoon. Family History: Unchanged from Admission Social History: Unchanged from Admission Past Medical History: Unchanged from Admission Objective Active Medications: Acetaminophen (Tylenol Tab*) 650 mg PO Q4H PRN PRN Reason: PAIN - MILD Last Admin: 11/03/19 10:30 Dose: 650 mg Albuterol (Ventolin 2.5 Mg/3 Ml Neb.Zoe*) 2.5 mg INH RT.[id number] AWAKE PRN PRN Reason: sob/wheezing Last Admin: 11/02/19 20:22 Dose: 2.5 mg Alprazolam (Xanax Tab*) 0.25 mg PO TID PRN PRN Reason: ANXIETY Last Admin: 11/04/19 20:05 Dose: 0.25 mg Benzonatate (Tessalon Cap*) 100 mg PO BID PRN PRN Reason: COUGH Last Admin: 11/04/19 20:06 Dose: 100 mg Docusate Sodium (Colace Cap*) 100 mg PO BID PRN PRN Reason: CONSTIPATION Last Admin: 11/05/19 09:02 Dose: 100 mg Enoxaparin Sodium (Lovenox(*)) 40 mg SUBCUT 2100 [facility] Last Admin: 11/04/19 20:04 Dose: 40 mg Guaifenesin (Mucinex*) 600 mg PO BID [facility] Last Admin: 11/05/19 08:56 Dose: 600 mg Heparin Sodium (Porcine) (Heparin Flush Port (Ivad)) 5 ml FLUSH DAILY [facility]; Protocol Last Admin: 11/05/19 08:28 Dose: Not Given Azithromycin (Zithromax 500 Mg/250 Ml) 500 mg in 250 mls @ 250 mls/hr IVPB Q24H [facility] Last Admin: 11/04/19 20:01 Dose: 250 mls/hr Methylprednisolone Sodium Succinate (Solu-Medrol 40 Mg) 40 mg IV Q8H [facility] Last Admin: 11/05/19 05:47 Dose: 40 mg Morphine Sulfate (Morphine Oral.Soln 10 Mg*) 15 mg PO Q4H PRN PRN Reason: BREATHING Last Admin: 11/04/19 08:09 Dose: 15 mg Morphine Sulfate (Ms Contin(*)) 30 mg PO 0600,1800 [facility] Last Admin: 11/05/19 05:47 Dose: 30 mg Ondansetron HCl (Zofran Inj*) 4 mg IV Q4H PRN PRN Reason: NAUSEA/VOMITING Last Admin: 11/02/19 18:55 Dose: 4 mg Oseltamivir Phosphate (Tamiflu Cap*) 75 mg PO BID [facility] Last Admin: 11/05/19 09:03 Dose: 75 mg Oxybutynin Chloride (Ditropan Tab*) 15 mg PO BEDTIME [facility] Last Admin: 11/04/19 20:06 Dose: 15 mg Pantoprazole Sodium (Protonix Tab*) 40 mg PO Q72HR [facility] Last Admin: 11/05/19 08:57 Dose: 40 mg Fluticasone/Salmeterol (Advair Diskus 500-50*) 1 puff INH RT.BID [facility] Last Admin: 11/05/19 09:18 Dose: 1 puff Tiotropium [place] (Spiriva Capsule (Nf)) 1 cap INH DAILY [facility] Last Admin: 11/05/19 09:15 Dose: 1 cap Selected Entries 11/05/19 03:35 Temperature 97 F Pulse Rate 69 Respiratory 18 Rate Blood Pressure 120/84 (mmHg) O2 Sat by Pulse 94 Oximetry Oxygen Devices in Use Now: None Appearance: Pleasant elderly lady sitting up in bed today, in good spirits. Eyes: No Scleral Icterus Ears/Nose/Mouth/Throat: Mucous Membranes Moist Neck: Trachea Midline Respiratory: Symmetrical Chest Expansion and Respiratory Effort, - - BS+ bilaterally coarse with no added sounds Cardiovascular: RRR - Normal S1 and S2 Abdominal: NL Sounds; No Tenderness; No Distention Neurological: Alert and Oriented x 3, NL Muscle Strength and Tone Result Diagrams: 11/05/19 05:50 11/05/19 05:50 Assess/Plan/Problems-Billing Assessment: Mrs Caba is a 64 yo F with PMH of HTN, HLD, COPD, GERD, breast CA who present to the ED for shortness of breath diagnosed with COPD exacerbation secondary to Influenza A. - Patient Problems (1) Acute and chronic respiratory failure with hypoxia Comment: - Secondary to COPD exacerbation/Influenza A. - Continue supplemental O2. (2) COPD exacerbation Comment: - Significant improvement today, back on RA. - Continue Solumedrol, Azithromycin, bronchodilators, and inhaled steroids. (3) Influenza A Comment: - Continue Tamiflu #4/5. (4) Anxiety Comment: - Certainly amplifying her symptoms. - Continue Alprazolam PRN. (5) Breast cancer Comment: - s/p surgery and chemotherapy at [facility] in [facility]. - Currently undergoing radiation- she should be able to tolerate her radiation therapy to avoid interruption of her outpatient radiation therapy schedule, but she stated she did not feel well enough to do it on 11/03. Willing to do it today. (6) GERD (gastroesophageal reflux disease) Comment: - Continue Pantoprazole. (7) Physical deconditioning Comment: - PT consult appreciated. (8) DVT prophylaxis Comment: - Continue Enoxaparin. (9) Full code status Comment: Status and Disposition: Inpatient. Anticipate d/c home in the next 1-2 days.
[2019-11-05] MEDS ORDERED: Azithromycin TAB* 250 MG PO ONE (17:00)
[2019-11-05] MEDS: Oxybutynin TAB* 5 MG PO SCH (20:58)
[2019-11-05] MEDS: Benzonatate CAP* 100 MG PO PRN (20:58)
[2019-11-05] MEDS: Enoxaparin(*) 40 MG/0.4 ML SYR SUBCUT SCH (20:58)
[2019-11-06] MEDS: methylPREDNISolone SOD 40 MG* 1 ML VIAL IV SCH ×2 (05:49→13:43)
[2019-11-06] MEDS: Morphine TAB Extended Release (*) 30 MG TAB.ER PO SCH ×2 (05:49→18:01)
[2019-11-06] MEDS: PTO: Fluticasone-Salmeterol 500-50* DISKUS INH SCH ×3 (06:09→20:53)
[2019-11-06] MEDS: TIOTROPIUM INH SCH (07:17)
[2019-11-06] MEDS: Oseltamivir CAP* 75 MG CAP PO SCH (09:10)
[2019-11-06] MEDS: guaiFENesin ER TAB 600 MG PO SCH ×2 (09:22→20:00)
[2019-11-06] MEDS: Morphine ORAL.SOLN 10 mg* 2 MG/ML UDC 5 ml PO PRN (13:43)
[2019-11-06] MEDS: ALPRAZolam TAB* 0.25 MG PO PRN (13:43)
--- NOTE | 2019-11-06 13:56 | PN ---
Subjective Date of Service: 11/06/19 Interval History: HOSPITALIST PROGRESS NOTE Patient seen and examined at bedside. Care reviewed and d/w Silvina Harding RN. She feels better this AM, but states she had severe dyspnea overnight and is scared to go home. She tolerated RT yesterday, but is concerned she won't complete her 6 other treatments if she has to drive [address] to have it done. She wants to stay in the hospital until her radiation is completed. Family History: Unchanged from Admission Social History: Unchanged from Admission Past Medical History: Unchanged from Admission Objective Active Medications: Acetaminophen (Tylenol Tab*) 650 mg PO Q4H PRN PRN Reason: PAIN - MILD Last Admin: 11/03/19 10:30 Dose: 650 mg Albuterol (Ventolin 2.5 Mg/3 Ml Neb.Zoe*) 2.5 mg INH RT.[id number] AWAKE PRN PRN Reason: sob/wheezing Last Admin: 11/02/19 20:22 Dose: 2.5 mg Alprazolam (Xanax Tab*) 0.25 mg PO TID PRN PRN Reason: ANXIETY Last Admin: 11/06/19 13:43 Dose: 0.25 mg Benzonatate (Tessalon Cap*) 100 mg PO BID PRN PRN Reason: COUGH Last Admin: 11/05/19 20:58 Dose: 100 mg Docusate Sodium (Colace Cap*) 100 mg PO BID PRN PRN Reason: CONSTIPATION Last Admin: 11/05/19 20:58 Dose: 100 mg Enoxaparin Sodium (Lovenox(*)) 40 mg SUBCUT 2100 [facility] Last Admin: 11/05/19 20:58 Dose: 40 mg Guaifenesin (Mucinex*) 600 mg PO BID [facility] Last Admin: 11/06/19 09:22 Dose: 600 mg Heparin Sodium (Porcine) (Heparin Flush Port (Ivad)) 5 ml FLUSH DAILY [facility]; Protocol Last Admin: 11/06/19 09:11 Dose: 5 ml Methylprednisolone Sodium Succinate (Solu-Medrol 40 Mg) 40 mg IV Q8H [facility] Last Admin: 11/06/19 13:43 Dose: 40 mg Morphine Sulfate (Morphine Oral.Soln 10 Mg*) 15 mg PO Q4H PRN PRN Reason: BREATHING Last Admin: 11/06/19 13:43 Dose: 15 mg Morphine Sulfate (Ms Contin(*)) 30 mg PO 0600,1800 [facility] Last Admin: 11/06/19 05:49 Dose: 30 mg Ondansetron HCl (Zofran Inj*) 4 mg IV Q4H PRN PRN Reason: NAUSEA/VOMITING Last Admin: 11/02/19 18:55 Dose: 4 mg Oseltamivir Phosphate (Tamiflu Cap*) 75 mg PO BID [facility] Last Admin: 11/06/19 09:10 Dose: 75 mg Oxybutynin Chloride (Ditropan Tab*) 15 mg PO BEDTIME [facility] Last Admin: 11/05/19 20:58 Dose: 15 mg Pantoprazole Sodium (Protonix Tab*) 40 mg PO Q72HR [facility] Last Admin: 11/05/19 08:57 Dose: 40 mg Fluticasone/Salmeterol (Advair Diskus 500-50*) 1 puff INH RT.BID [facility] Last Admin: 11/06/19 07:17 Dose: 1 puff Tiotropium [place] (Spiriva Capsule (Nf)) 1 cap INH DAILY [facility] Last Admin: 11/06/19 07:17 Dose: 1 cap Vital Signs - 8 hr 11/06/19 11/06/19 11/06/19 07:27 08:00 09:21 Temperature 97.1 F Pulse Rate 68 Respiratory 17 18 18 Rate Blood Pressure 135/81 (mmHg) O2 Sat by Pulse 94 Oximetry 11/06/19 11/06/19 11:08 13:43 Temperature 96.9 F Pulse Rate 65 Respiratory 16 18 Rate Blood Pressure 140/63 (mmHg) O2 Sat by Pulse 93 Oximetry Oxygen Devices in Use Now: None Appearance: Pleasant lady sitting up in bed in NAD Eyes: No Scleral Icterus Ears/Nose/Mouth/Throat: Mucous Membranes Moist Neck: Trachea Midline Respiratory: Symmetrical Chest Expansion and Respiratory Effort, - - BS+ bilaterally diminished, no added sounds Cardiovascular: RRR - Normal S1 and S2 Neurological: Alert and Oriented x 3, NL Muscle Strength and Tone Result Diagrams: 11/05/19 05:50 11/05/19 05:50 Assess/Plan/Problems-Billing Assessment: Mrs Caba is a 64 yo F with PMH of HTN, HLD, COPD, GERD, breast CA who present to the ED for shortness of breath diagnosed with COPD exacerbation secondary to Influenza A. - Patient Problems (1) Acute and chronic respiratory failure with hypoxia Comment: - Secondary to COPD exacerbation/Influenza A. - Normal SO2 on RA at rest, will check SO2 with exertion to determine supplemental O2 needs. (2) COPD exacerbation Comment: - Continues to improve, but has severe disease at baseline. - Continue Azithromycin, bronchodilators, and inhaled steroids. - D/c Solumedrol and start slow prednisone taper. (3) Influenza A Comment: - Completed Tamiflu. (4) Anxiety Comment: - Certainly amplifying her symptoms. - Continue Alprazolam PRN. (5) Breast cancer Comment: - s/p surgery and chemotherapy at [facility] in [facility]. - Currently undergoing radiation- she should be able to tolerate her radiation therapy to avoid interruption of her outpatient radiation therapy schedule, but she stated she did not feel well enough to do it on 11/03. States her session yesterday "wiped her out" and she doesn't think she would be able to tolerate it as outpatient. (6) GERD (gastroesophageal reflux disease) Comment: - Continue Pantoprazole. (7) Physical deconditioning Comment: - PT consult appreciated. (8) DVT prophylaxis Comment: - Continue Enoxaparin. (9) Full code status Comment: Status and Disposition: Inpatient. Anticipate d/c home in the next 1-2 days.
[2019-11-06] MEDS: Benzonatate CAP* 100 MG PO PRN (18:06)
[2019-11-06] MEDS: Oxybutynin TAB* 5 MG PO SCH (20:00)
[2019-11-06] MEDS: Enoxaparin(*) 40 MG/0.4 ML SYR SUBCUT SCH (20:01)
[2019-11-07] MEDS: Morphine TAB Extended Release (*) 30 MG TAB.ER PO SCH (05:58)
[2019-11-07] MEDS: Ondansetron INJ* 2 MG/ML VIAL IV PRN (06:05)
[2019-11-07] MEDS: guaiFENesin ER TAB 600 MG PO SCH (07:40)
[2019-11-07] MEDS: Pantoprazole TAB * 40 MG TAB PO SCH (07:40)
[2019-11-07] MEDS: Acetaminophen TAB* 325 MG PO PRN (07:58)
[2019-11-07] MEDS: TIOTROPIUM INH SCH (10:13)
[2019-11-07] MEDS: PTO: Fluticasone-Salmeterol 500-50* DISKUS INH SCH (10:13)
[2019-11-07 12:13] VITALS: BP 106/63
[2019-11-07] MEDS: ALPRAZolam TAB* 0.25 MG PO PRN (14:15)
[2019-11-07] MEDS: Morphine ORAL.SOLN 10 mg* 2 MG/ML UDC 5 ml PO PRN (14:15)
--- NOTE | 2019-11-08 12:45 | DS ---
CC: Elías Moore NP; Dr. Hopper DISCHARGE SUMMARY: DATE OF ADMISSION: 11/01/19 DATE OF DISCHARGE: 11/07/19 PRIMARY CARE PROVIDER: Elías Moore NP RADIATION ONCOLOGIST: Dr. Hopper. DISCHARGE DIAGNOSES: 1. Chronic obstructive pulmonary disease exacerbation. 2. Influenza A. 3. Acute on chronic hypoxemic respiratory failure. SECONDARY DIAGNOSES: 1. Hypertension. 2. Hyperlipidemia. 3. Chronic obstructive pulmonary disease. 4. Gastroesophageal reflux disease. 5. Breast adenocarcinoma, triple negative, undergoing radiation therapy. MEDICATION LIST: 1. Albuterol HFA 1 puff inhaled q.6 hours p.r.n. shortness of breath. 2. DuoNeb nebulized q.4 hours p.r.n. shortness of breath. 3. Alprazolam 0.25 mg p.o. t.i.d. as needed for anxiety. 4. Colace 100 mg p.o. daily as needed for constipation. 5. Advair 500/50 one puff inhaled b.i.d. 6. Guaifenesin 5 mL p.o. q.4 hours p.r.n. cough. 7. Morphine ER 30 mg p.o. b.i.d. 8. Morphine IR 15 mg p.o. q.4 hours p.r.n. air hunger. 9. Oxybutynin 15 mg p.o. daily. 10. Pantoprazole 40 mg p.o. every 72 hours. 11. Spiriva 1 capsule inhaled daily. New medications: Prednisone taper as follows: 40 mg p.o. daily for 3 days, 30 mg for 3 days, 20 mg for 3 days, 10 mg for 3 days, 5 mg for 4 days and stop. HOSPITAL COURSE: Mrs. Caba is a 64-year-old female with a past medical history as stated above that presented to the emergency room initially on 10/29/19 when she was diagnosed with influenza A and dis charged home. She returned on 11/01/19 states that she was feeling worse with more shortness of colby th and requiring more oxygen. Her workup in emergency room included a chest x-ray showed no radiographic evidence for acute cardiop ulmonary abnormality. Her CBC showed mild leukopenia and she had a saturation of 84% on her usual 2 L of oxygen, so she was admitted for further evaluation and management. The patient was treated with azithromycin, completed her Tamiflu treatment and had progressive improv ement of her symptoms. She was recommended to continue her radiation therapy treatment and initially the plan was for possible subacute rehab, but as the patient continued to improve, she was thought t o be medically stable to be discharged home and continuing her radiation therapy treatment as outpati ent. On the day of discharge, the patient did not require supplemental oxygen at rest, but she did re quire 2 L of oxygen with exertion to keep an oxygen saturation greater than 90%. She is medically stable to be discharged home to continue her followup as outpatient. PHYSICAL EXAMINATION: Vital Signs: Temperature 97.0, heart rate is 70, respiratory rate 15, oxygen saturation is 92% on room air, blood pressure is 106/63. General: The patient is a pleasant elderly lady, very anxious, sitting up in bed, in no acute distress. CVS: Normal S1, S2. Regular rate and rhythm. Chest: Breath sounds bilaterally diminished with no added sounds. Abdomen is soft. Bowel sounds present. Neuro: She is alert and oriented x3. Able to move all 4 extremities. DIET: Regular diet. ACTIVITIES: As tolerated. DISPOSITION: To home. STATUS WHILE IN THE HOSPITAL: Inpatient. CONDITION AT THE TIME OF DISCHARGE: Fair. Please keep in mind that this is a summarized version of t his patient's hospital stay. If you need more information, please feel free to call me at [phone] or please obtain full medical records. TIME SPENT: Approximately 45 minutes was spent on this discharge. [id number]/[facility] #: [id number]
== END 2019-11-07 15:20 | disposition home or self-care (01) | DRG 140 ==
LOC: ED 15:13 → MED 18:11
PROVIDERS: ADMIT Internal Medicine; ATTEND Internal Medicine
DX: J44.1 Chronic obstructive pulmonary disease with (acute) exacerbation (principal); J96.21 Acute and chronic respiratory failure with hypoxia; C50.912 Malignant neoplasm of unspecified site of left female breast; J10.1 Influenza due to other identified influenza virus with other respiratory manifestations; E78.5 Hyperlipidemia, unspecified; K21.9 Gastro-esophageal reflux disease without esophagitis; I10 Essential (primary) hypertension; F41.9 Anxiety disorder, unspecified; M54.5 Low back pain; F14.21 Cocaine dependence, in remission; Z17.1 Estrogen receptor negative status [ER-]; Z82.49 Family history of ischemic heart disease and other diseases of the circulatory system; Z84.1 Family history of disorders of kidney and ureter; Z79.51 Long term (current) use of inhaled steroids; Z79.899 Other long term (current) drug therapy
CPT/HCPCS: 36415; 71045; 71046; 80048; 80053; 82803; 83605; 83735; 83880; 84100; 84484; 85025; 85060; 87040; 87070; 87077; 87186; 87205; 93005; 94640; 96374; 99285; A9270-GY; J0456; J0696; J1642; J1650; J2405; J2920; J2930; J7512

== ENCOUNTER 2019-11-19 12:22 | Inpatient (IN) | payer BC ==
[2019-11-19] MEDS ORDERED: NS 0.9% 1000 ML** 1,000 ML IV.FLUID IV ONE (12:55)
--- NOTE | 2019-11-19 13:02 | ED ---
Shortness of Breath - HPI Summary HPI Summary: 64 year old female presents with shortness breath since last night. She was diagnosed with the flu last week and finished a course of Tamiflu while she was admitted here. States that she states of breath started suddenly last night. she normally only uses oxygen at night. since last night she has use oxygen all the time today. States has been using nebulizer treatments every 4 hours. States her cough has become more productive. She states she did have radiation yesterday for her breast cancer. She admits to sore throat. Admits to some sinus congestion. No vomiting. She denies any chest pressure or shortness of breath. Has history of COPD. - History of Current Complaint Chief Complaint: EDShortnessOfBreath Time Seen by Provider: 11/19/19 12:42 - Allergy/Home Medications Allergies/Adverse Reactions: Allergies Allergy/AdvReac Type Severity Reaction Status Date / Time acetaminophen AdvReac Unknown Verified 11/19/19 16:42 [From Tylenol-Codeine] Reaction Details codeine AdvReac Unknown Verified 11/19/19 16:42 [From Tylenol-Codeine] Reaction Details Home Medications: Home Medications Fluticasone-Salmeterol 500-50* [Advair Diskus 500-50*] 1 puff INH BID #1 diskus 09/20/18 [Rx Confirmed 11/19/19] Morphine Sulfate [Morphine Sulfate ER] 30 mg PO BID MDD 2 tabs 10/30/19 [ History Confirmed 11/19/19] Oxybutynin Chloride [Oxybutynin Chloride ER] 15 mg PO DAILY 10/30/19 [History Confirmed 11/19/19] Pantoprazole TAB * [Protonix TAB*] 40 mg PO DAILY 10/30/19 [History Confirmed ] Tiotropium CAPSULE (NF) [Spiriva CAPSULE (NF)] 1 cap.inh INH DAILY 11/03/19 [ History Confirmed 11/19/19] ALPRAZolam [Alprazolam] 0.25 mg PO Q8H PRN MDD 3 tabs 11/19/19 [History Confirmed 11/19/19] Albuterol HFA INHALER* [Ventolin HFA Inhaler*] 2 puff INH Q4H PRN 11/19/19 [ History Confirmed 11/19/19] Albuterol Sulfate 1.25 mg INH Q4H PRN 11/19/19 [History Confirmed 11/19/19] Benzonatate CAP* [Tessalon 100 MG CAP*] 200 mg PO TID 11/19/19 [History Confirmed 11/19/19] Calcium Carbonate CHEW TAB* [Tums*] 500 mg PO DAILY 11/19/19 [History Confirmed 11/19/19] Cyanocobalamin TAB* [Vitamin B12 TAB*] 1,000 mcg PO DAILY 11/19/19 [History Confirmed 11/19/19] Docusate CAP* [Colace Cap*] 200 mg PO BID PRN 11/19/19 [History Confirmed ] Folic Acid TAB* [Folvite TAB*] 1 mg PO DAILY 11/19/19 [History Confirmed ] Gabapentin TAB(NF) [Neurontin 600 mg TAB(NF)] 600 mg PO QID 11/19/19 [History Confirmed 11/19/19] Ibuprofen TAB* [Motrin TAB* 800 MG] 800 mg PO Q8H PRN 11/19/19 [History Confirmed 11/19/19] Ipratropium 0.5MG/2.5ML NEB* [Atrovent 0.5 MG NEB.LU*] 0.5 mg INH QID PRN 11/18 [History Confirmed 11/19/19] Ketoconazole 2 % CREAM (NF) [Nizoral 2% CREAM (NF)] 1 applic TOPICAL BID [History Confirmed 11/19/19] L.acidoph,Paracasei, B.lactis [Probiotic] 1 each PO DAILY 11/19/19 [History Confirmed 11/19/19] Levalbuterol 1.25 mg/3 mL (NF) [Levalbuterol HCl] 1.25 mg INH Q4H PRN 11/19/19 [ History Confirmed 11/19/19] Lidocaine 2.5%/Prilocain 2.5%* [Emla 5 GM*] 1 applic TOPICAL TID PRN 11/19/19 [ History Confirmed 11/19/19] Lidocaine 4% GEL* [Topicaine 4% GEL*] 4 % TOPICAL TID 11/19/19 [History Confirmed 11/19/19] Methylphenidate TAB* [Ritalin TAB*] 20 mg PO .Q AFTERNOON MDD 4 tabs 11/19/19 [ History Confirmed 11/19/19] Methylphenidate TAB* [Ritalin TAB*] 60 mg PO QAM MDD 4 tabs 11/19/19 [History Confirmed 11/19/19] Morphine Sulfate 15 mg PO Q4H PRN 11/19/19 [History Confirmed 11/19/19] Nitroglycerin TAB 0.4 MG* 0.4 mg SL Q5M PRN 11/19/19 [History Confirmed 11/19/19 ] Nystatin CREAM* 1 applic TOPICAL TID 11/19/19 [History Confirmed 11/19/19] Ondansetron TAB* [Zofran 4 MG Tab*] 4 mg PO Q8H PRN 11/19/19 [History Confirmed 11/19/19] Polyethylene Glycol 3350 BTL* [Miralax (FULL BULK BOTTLE)] 5 ml PO DAILY [History Confirmed 11/19/19] Prochlorperazine 10 mg TAB [Compazine 10 mg TAB] 10 mg PO Q6H PRN 11/19/19 [ History Confirmed 11/19/19] Selenium Sulfide 2.5 % TOPICAL .3X/WEEK 11/19/19 [History Confirmed 11/19/19] Sennosides [Natural Senna Laxative] 8.6 mg PO DAILY PRN 11/19/19 [History Confirmed 11/19/19] busPIRone TAB* [Buspar TAB*] 10 mg PO TID PRN 11/19/19 [History Confirmed ] guaiFENesin [Robafen] 10 ml PO Q6H PRN 11/19/19 [History Confirmed 11/19/19] PMH/Surg Hx/FS Hx/Imm Hx Endocrine/Hematology History: Denies: Hx Anticoagulant Therapy, Hx Diabetes Cardiovascular History: Reports: Hx Coronary Artery Disease, Hx Hypercholesterolemia, Hx Hypertension, Other Cardiovascular Problems/Disorders - PREVIOUS CARDIAC CATH Denies: Hx Congestive Heart Failure, Hx Pacemaker/ICD Respiratory History: Reports: Hx Asthma, Hx Chronic Obstructive Pulmonary Disease (COPD), Other Respiratory Problems/Disorders - HX OF RESP FAILURE, 10/29 POS FLU A Denies: Hx Pneumonia GI History: Reports: Hx Gastroesophageal Reflux Disease, Other GI Disorders - gerd History: Reports: Other Problems/Disorders - urgency Denies: Hx Renal Disease Musculoskeletal History: Reports: Hx Arthritis, Hx Back Problems Comment Only: Hx Osteoporosis - unsure Sensory History: Reports: Hx Contacts or Glasses - Reading glasses Denies: Hx Hearing Aid Opthamlomology History: Reports: Hx Contacts or Glasses - Reading glasses Neurological History: Reports: Hx Transient Ischemic Attacks (TIA) Comment Only: Other Neuro Impairments/Disorders - POLYARTHROPATHY Psychiatric History: Reports: Hx Anxiety Denies: Hx Panic Disorder - Cancer History Cancer Type, Location and Year: new diagnosis of breast right sided and lung CA. gets radiation therapy Hx Chemotherapy: Yes Hx Radiation Therapy: Yes - Surgical History Surgery Procedure, Year, and Place: PORT,TUBAL ligation,T&A, breast biopsy. appendectomy Hx Anesthesia Reactions: No - Immunization History Date of Influenza Vaccine: UTD Immunizations Up to Date: Yes Infectious Disease History: No Infectious Disease History: Denies: Traveled Outside the [place] in Last 30 Days - Family History Known Family History: Positive: Cardiac Disease, Diabetes - Mother, Other - Sister - BREAST CA - Social History Alcohol Use: Rare Alcohol Amount: 1 a month Substance Use Type: Reports: None Hx Tobacco Use: Yes - quit in 2008 Smoking Status (MU): Former Smoker Type: Cigarettes Have You Smoked in the Last Year: No Review of Systems Positive: Fever Positive: Nasal Discharge Positive: Chest Pain Positive: Shortness Of Breath, Cough All Other Systems Reviewed And Are Negative: Yes Physical Exam Triage Information Reviewed: Yes Vital Signs On Initial Exam: Initial Vitals Temp Pulse Resp BP Pulse Ox 97.9 F 86 24 134/99 97 11/19/19 12:47 11/19/19 12:47 11/19/19 12:47 11/19/19 12:47 11/19/19 12:47 Vital Signs Reviewed: Yes Appearance: Positive: Well-Appearing Skin: Positive: Warm, Dry Head/Face: Positive: Normal Head/Face Inspection Eyes: Positive: Normal, EOMI, CHRISTINE, Conjunctiva Clear ENT: Positive: Normal ENT inspection, Pharynx normal, TMs normal Respiratory/Lung Sounds: Positive: Decreased Breath Sounds, Wheezes Cardiovascular: Positive: Normal, RRR Abdomen Description: Positive: Nontender, Soft Bowel Sounds: Positive: Present Musculoskeletal: Positive: Normal Neurological: Positive: Normal Psychiatric: Positive: Normal Procedures - Sedation Patient Received Moderate/Deep Sedation with Procedure: No Diagnostics - Vital Signs Vital Signs Temp Pulse Resp BP Pulse Ox 11/19/19 12:47 97.9 F 86 24 134/99 97 - Laboratory Result Diagrams: 11/19/19 13:15 11/19/19 13:05 Lab Statement: Any lab studies that have been ordered have been reviewed, and results considered in the medical decision making process. - Radiology chest Radiology Interpretation Completed By: Radiologist Summary of Radiographic Findings: IMPRESSION: LINES AND TUBES ABOVE. NO ACTIVE CARDIOPULMONARY DISEASE. - EKG No standard instances Cardiac Rate: NL EKG Rhythm: Sinus Rhythm EKG Comparison: No Significant Change Summary of EKG Findings: sinus rhythm Re-Evaluation - Re-Evaluation First Eval Re-Evaluation Time: 14:28 Comment: respiratory states that she prefers her inhaler and is normal wheezing Course/Dx - Course Course Of Treatment: 64 year old female presents with shortness breath since last night. She was diagnosed with the flu last week and finished a course of Tamiflu while she was admitted here. States that she states of breath started suddenly last night. she normally only uses oxygen at night. since last night she has use oxygen all the time today. States has been using nebulizer treatments every 4 hours. States her cough has become more productive. She states she did have radiation yesterday for her breast cancer. She admits to sore throat. Admits to some sinus congestion. No vomiting. She denies any chest pressure or shortness of breath. Has history of COPD. On exam has decreased breath sounds with wheezing noted. wbc normal. chest xray normal. ekg sinus rhythm. troponin zero. bnp normal. gave breathing treatment, mg, and steriod. gave antibiotics with change in cough. as patient is requiring more oxygen that normal (3 liters) discussed with dr pinto who says to consult hospitalist who agree to admit for copd. - Diagnoses Differential Diagnosis/HQI/PQRI: Positive: Bronchitis, COPD Exacerbation, Pneumonia Provider Diagnoses: COPD (chronic obstructive pulmonary disease) Discharge ED - Sign-Out/Discharge Documenting (check all that apply): Patient Departure - Discharge Plan Condition: Good Disposition: HOME - Billing Disposition and Condition Condition: GOOD Disposition: Home - Attestation Statements Provider Attestation: I was available for consultation for this patient. I did not evaluate the patient or participate in any medical decision making or disposition decisions unless I am specifically named in the chart as having consulted on the patient. If I have consulted on the patient, please see my own ED note on the patient encounter. Corry Singh MD
[2019-11-19] MEDS ORDERED: methylPREDNISolone 125 MG* 2 ML VIAL IV ONE (13:04)
[2019-11-19] MEDS ORDERED: Azithromycin 500 mg/250 ml NS 500 MG/250 ML BAG IVPB ONE (13:16)
[2019-11-19] MEDS ORDERED: cefTRIAXone(*) 1 GM in NS 0.9% 50 ML* 50 ML IVPB ONE (13:16)
[2019-11-19 13:49] LABS: ABS Lymphocytes 0.3 10^3/ul (1.0-4.8); ABS Monocytes 0.4 10^3/ul (0-0.8); ABS Neutrophils 3.9 10^3/ul (1.5-7.7); Eosinophil % 0.3 %; Hematocrit 36 % (35-47); Lymphocyte % 5.9 %; Mean Corpuscular HGB Conc 34 g/dL (31-36); Mean Corpuscular Hemoglobin 30 pg (27-31); Mean Corpuscular Volume 88 fL (80-97); Mean Platelet Volume 7.6 fL (7.4-10.4); Nucleated Red Blood Cells % 0.1; Platelet Count 221 10^3/uL (150-450); Red Blood Count 4.04 10^6 /uL (3.70-4.87); Red Cell Distribution Width 18 % (10-15); White Blood Count 4.6 10^3/uL (3.5-10.8)
[2019-11-19 13:58] LABS: Activated Partial Thrombo Time 30.8 seconds (26.0-38.0); INR 0.98 (0.82-1.09)
[2019-11-19] MEDS ORDERED: methylPREDNISolone SOD 40 MG* 1 ML VIAL IV ONE (14:00)
[2019-11-19 14:01] LABS: Albumin 3.9 g/dL (3.2-5.2); Albumin/Globulin Ratio 1.2 (1-3); BUN/Creatinine Ratio 14.3 (8-20); C Reactive Protein 69.95 mg/L (<8.01); Calcium 9.3 mg/dL (8.6-10.3); EGFR African American 132.7 (>60); EGFR Non-African American 109.7 (>60); Globulin 3.3 g/dL (2-4); Magnesium 1.9 mg/dL (1.9-2.7); Potassium 4.5 mmol/L (3.5-5.0); Total Bilirubin 1.4 mg/dL (0.2-1.0); Total Protein 7.2 g/dL (6.4-8.9)
[2019-11-19] MEDS ORDERED: Albuterol HFA INHALER* 8 gm MDI INH ONE (14:23)
--- OUTSIDE RECORDS SUMMARY | 2019-11-19 14:37 | XMS REPORT | Continuity of Care Document ---
:1955 External Reference #:[id number] Author Name Nancie Gonzales M.D. 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 quit in 2008. Unknown smoker smoked three packs a day Tobacco Use Start: Unknown Secondhand smoke Indoors, as a child. 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 Capsules Nitroglycerin 1 sl q5mins x3 as 25tabs Qutaybeh S. 04/30/2018 0.4mg needed for chest Flora Downey Tablets Sub pain Oxygen please use o2 at 1units R09.02 Kylee Navarro, 03/05/2018 Misc 2l/min during MD exertion, pls provide pt with portable o2 concentrator Tramadol HCL take one 14tabs Alessandro Webb, 08/03/2017 50mg Tablets capsule/tablet by M.D. mouth twice daily as needed for pain Furosemide 1 po qd prn Unknown 20mg Tablets Gabapentin 1 by mouth twice Unknown 300mg Capsules daily prn Benadryl Allergy 1 capsule by mouth Unknown 25mg at hs as needed Capsules Ibuprofen three times a day Unknown 600mg Tablets prn Albuterol Sulfate 1 vial via Unknown nebulizer 4 times (2.5mg/3ML) 0.083% daily as needed Nebulizer Ventolin HFA 2 puffs by mouth Unknown 108(90Base) four times a day as mcg/Act Aerosol needed Drysol as needed Unknown 20% Solution Advair Diskus Inhale One puff By Unknown Mouth Twice A Day 500-50mcg/Dose Aerosol Incruse Ellipta inhale one puff by Unknown mouth every day prn 62.5mcg/Inh Aerosol Methylphenidate HCL Take 3 Tablets By Unknown 20mg Mouth Every Morning Tablets And 1 In The Afternoon Maximum Daily Dose 4 Alprazolam Take 1 Tablet Unknown 0.25mg Tablets [place] Every 8 Hours as Needed For Anxiety Maximum Daily Dose 3 Medications Administered in Office Medication SIG Qnty Indications Ordering Provider Date Inj, Regadenoson, 0.1 MG Sunil Armijo, DO [facility] 05/09/2018 Injection Technetium TC 99M Sunil Armijo, DO FAC 05/09/2018 Tetrofosmin, Per Unit Dose Up To 40 Millicuries Injection Depomedrol 40MG Daina Boss M.D. 08/02/2017 Injection Immunizations Description No Information Available Vital Signs Date Vital Result Comment 09/06/2018 10:15am Height 65 inches 5'5" Weight 184.00 lb Heart Rate 90 /min BP Systolic Sitting 132 mmHg BP Diastolic Sitting 78 mmHg Respiratory Rate 20 /min Body Temperature 97.8 F BMI (Body Mass Index) 30.6 kg/m2 05/27/2018 1:21pm Height 66 inches 5'6" Weight 179.12 lb W/ Shoes Heart Rate 76 /min BP Systolic Sitting 146 mmHg Lue Reg Cuff BP Diastolic Sitting 82 mmHg Lue Reg Cuff BMI (Body Mass Index) 28.9 kg/m2 Ejection Fraction 76% Lexiscan 05/09/18 Results Test Acquired Date Facility Test Result H/L Range Note CBC Auto 10/02/2019 [facility] White Blood 5.9 10^3/uL Normal 3.5-10.[address] [place] [address] [phone] Red Blood Count 4.42 10^6/uL Normal 3.70-4.87 [...] % Nucleated Red Blood Cells % 0.1 Procedures Date Code Description Status 07/22/2019 35731 Diffusing Capacity Completed 07/22/2019 76598 Pulmonary Function><Bronchodil Completed 08/15/2018 [id number] Mammogram Completed 07/26/2018 [id number] Mammogram Completed 11/16/2016 [id number] Mammogram Completed 07/21/2009 [id number] Mammogram Completed 03/17/2009 [id number] Mammogram Completed Medical Devices Description No Information Available Encounters Type Date Location Provider Dx Diagnosis Office Visit 11/07/2019 [facility] Nancie Gonzales, J44.1 Chronic obstructive 11:37a Assocsugey M.D. pulmonary disease w Hospitalists (acute) exacerbation J09.x2 Flu due to ident novel influenza A virus w oth resp manifest J96.21 Acute and chronic respiratory failure with hypoxia I10 Essential (primary) hypertension E78.5 Hyperlipidemia, unspecified K21.9 Gastro-esophageal reflux disease without esophagitis C50.919 Malignant neoplasm of unsp site of unspecified female breast Office Visit 11/05/2019 11:34a [facility] J96.21 Acute and chronic Assoc,sugey Gonzales M.D. respiratory Hospitalists failure with hypoxia J44.1 Chronic obstructive pulmonary disease w (acute) exacerbation J09.x2 Flu due to ident novel influenza A virus w oth resp manifest F41.9 Anxiety disorder, unspecified C50.919 Malignant neoplasm of unsp site of unspecified female breast K21.9 Gastro-esophageal reflux disease without esophagitis Office Visit 11/04/2019 11:34a [facility] J96.21 Acute and chronic Assoc,sugey Gonzales M.D. respiratory Hospitalists failure with hypoxia J44.1 Chronic obstructive pulmonary disease w (acute) exacerbation J09.x2 Flu due to ident novel influenza A virus w oth resp manifest C50.919 Malignant neoplasm of unsp site of unspecified female breast K21.9 Gastro-esophageal reflux disease without esophagitis Office Visit 11/03/2019 [facility] J96.21 Acute and 11:34a Asssugey sin M.D. chronic Hospitalists respiratory failure with hypoxia J44.1 Chronic obstructive pulmonary disease w (acute) exacerbation F41.9 Anxiety disorder, unspecified C50.919 Malignant neoplasm of unsp site of unspecified female breast K21.9 Gastro-esophageal reflux disease without esophagitis Office Visit 11/02/2019 [facility] J96.21 Acute and 11:33a Asssugey sin M.D. chronic Hospitalists respiratory failure with hypoxia J44.1 Chronic obstructive pulmonary disease w (acute) exacerbation F41.9 Anxiety disorder, unspecified C50.919 Malignant neoplasm of unsp site of unspecified female breast K21.9 Gastro-esophageal reflux disease without esophagitis Office Visit 11/01/2019 [facility] J44.1 Chronic 1:33a Assmerrick,sugey Schwartz M.D. obstructive Hospitalists pulmonary disease w (acute) exacerbation J10.1 Flu due to oth ident influenza virus w oth resp manifest J20.9 Acute bronchitis, unspecified C50.919 Malignant neoplasm of unsp site of unspecified female breast E78.5 Hyperlipidemia, unspecified F41.9 Anxiety disorder, unspecified K21.9 Gastro-esophageal reflux disease without esophagitis Assessments Date Code Description Provider 11/07/2019 J44.1 Chronic obstructive pulmonary disease Nancie Gonzales M.D. with (acute) exacerbation 11/07/2019 J09.x2 Influenza due to identified novel Nancie Gonzales M.D. influenza A virus with other respiratory manifestations 11/07/2019 J96.21 Acute and chronic respiratory failure Nancie Gonzales M.D. with hypoxia 11/07/2019 I10 Essential (primary) hypertension Nancie Gonzales M.D. 11/07/2019 E78.5 Hyperlipidemia, unspecified Nancie Gonzales M.D. 11/07/2019 K21.9 Gastro-esophageal reflux disease without Nancie Gonzales M.D. esophagitis 11/07/2019 C50.919 Malignant neoplasm of unspecified site of Nancie Gonzales M.D. unspecified female breast 11/05/2019 J96.21 Acute and chronic respiratory failure Nancie Gonzales M.D. with hypoxia 11/05/2019 J44.1 Chronic obstructive pulmonary disease Nancie Gonzales M.D. with (acute) exacerbation 11/05/2019 J09.x2 Influenza due to identified novel Nancie Gonzales M.D. influenza A virus with other respiratory manifestations 11/05/2019 F41.9 Anxiety disorder, unspecified Nancie Gonzales M.D. 11/05/2019 C50.919 Malignant neoplasm of unspecified site of Nancie Gonzales M.D. unspecified female breast 11/05/2019 K21.9 Gastro-esophageal reflux disease without Nancie Gonzales M.D. esophagitis 11/04/2019 J96.21 Acute and chronic respiratory failure Nancie Gonzales M.D. with hypoxia 11/04/2019 J44.1 Chronic obstructive pulmonary disease Nancie Gonzales M.D. with (acute) exacerbation 11/04/2019 J09.x2 Influenza due to identified novel Nancie Gonzales M.D. influenza A virus with other respiratory manifestations 11/04/2019 C50.919 Malignant neoplasm of unspecified site of Nancie Gonzales M.D. unspecified female breast 11/04/2019 K21.9 Gastro-esophageal reflux disease without Nancie Gonzales M.D. esophagitis 11/03/2019 J96.21 Acute and chronic respiratory failure Amos Schwartz M.D. with hypoxia 11/03/2019 J44.1 Chronic obstructive pulmonary disease Amos Schwartz M.D. with (acute) exacerbation 11/03/2019 F41.9 Anxiety disorder, unspecified Amos Schwartz M.D. 11/03/2019 C50.919 Malignant neoplasm of unspecified site of Amos Schwartz M.D. unspecified female breast 11/03/2019 K21.9 Gastro-esophageal reflux disease without Amos Schwartz M.D. esophagitis 11/02/2019 J96.21 Acute and chronic respiratory failure Amos Schwartz M.D. with hypoxia 11/02/2019 J44.1 Chronic obstructive pulmonary disease Amos Schwarzt M.D. with (acute) exacerbation 11/02/2019 F41.9 Anxiety disorder, unspecified Amos Schwartz M.D. 11/02/2019 C50.919 Malignant neoplasm of unspecified site of Amos Schwartz M.D. unspecified female breast 11/02/2019 K21.9 Gastro-esophageal reflux disease without Amos Schwartz M.D. esophagitis 11/01/2019 J44.1 Chronic obstructive pulmonary disease Amos Schwartz M.D. with (acute) exacerbation 11/01/2019 J10.1 Influenza due to other identified Amos Schwartz M.D. influenza virus with other respiratory manifestations 11/01/2019 J20.9 Acute bronchitis, unspecified Amos Schwartz M.D. 11/01/2019 C50.919 Malignant neoplasm of unspecified site of Amos Schwartz M.D. unspecified female breast 11/01/2019 E78.5 Hyperlipidemia, unspecified Amos Moussallem, M.D. 11/01/2019 F41.9 Anxiety disorder, unspecified Amos Schwartz M.D. 11/01/2019 K21.9 Gastro-esophageal reflux disease without Amos Schwartz M.D. esophagitis 07/22/2019 R06.02 Shortness of breath Kylee Navarro MD Plan of Treatment 09/06/2018 - Clovis Griffith M.D.C50.411 Malignant neoplasm of upper-outer quadrant of right female bFollow up:OR Functional Status Description No Information Available Mental Status Description No Information Available Referrals Description No Information Available
--- OUTSIDE RECORDS SUMMARY | 2019-11-19 14:37 | XMS REPORT | Continuity of Care Document ---
:1955 External Reference #:[id number] Author Name Amos Schwartz M.D. (transmitted by agent of provider Alexia Sparks) Address [address] [place] [address] Care Team Providers Name Role Phone Elías Moore NP - Family Care Team Information Charge Rn [phone] Problems Active Problems Provider Date Tendon contracture [...] Alessandro Webb, 08/03/2017 50mg Tablets capsule/tablet by M.DMed mouth twice daily as needed for pain [...] Inj, Regadenoson, 0.1 MG Sunil Armijo, DO FAC 05/09/2018 Injection Technetium TC 99M Suinl Armijo, DO FAC 05/09/2018 Tetrofosmin, Per Unit [...] Result H/L Range Note CBC Auto 10/02/2019 [facility] White Blood 5.9 10^3/uL Normal 3.5-10.[address] [place] [address] [phone] Red Blood Count 4.42 10^6/uL Normal 3.70-4.87 [...] 0.1 Procedures Date Code Description Status 07/22/2019 45639 Diffusing Capacity Completed 07/22/2019 79585 Pulmonary Function><Bronchodil Completed 08/15/2018 [id number] Mammogram Completed 07/26/2018 [id number] Mammogram Completed 11/16/2016 [id number] Mammogram Completed 07/21/2009 [id number] Mammogram Completed 03/17/2009 [id number] Mammogram Completed Medical Devices Description No Information Available Encounters Type Date Location Provider Dx Diagnosis [facility], J44.1 Chronic obstructive 11:37a Assocsugey M.D. pulmonary disease w Hospitalists (acute) exacerbation J09.x2 Flu due to ident novel influenza A virus w oth resp manifest J96.21 Acute and chronic respiratory failure with hypoxia I10 Essential (primary) hypertension E78.5 Hyperlipidemia, unspecified K21.9 Gastro-esophageal reflux disease without esophagitis C50.919 Malignant neoplasm of unsp site of unspecified female breast Office Visit 11/05/2019 11:34a [facility] J96.21 Acute and chronic Assoc,sugey Gonzales M.D. respiratory Hospitalists failure with hypoxia J44.1 Chronic obstructive pulmonary disease w (acute) exacerbation J09.x2 Flu due to ident novel influenza A virus w oth resp manifest F41.9 Anxiety disorder, unspecified C50.919 Malignant neoplasm of unsp site of unspecified female breast K21.9 Gastro-esophageal reflux disease without esophagitis Office Visit 11/04/2019 11:34a [facility] J96.21 Acute and chronic Assoc,sugey Gonzales M.D. respiratory Hospitalists failure with hypoxia J44.1 Chronic obstructive pulmonary disease w (acute) exacerbation J09.x2 Flu due to ident novel influenza A virus w oth resp manifest C50.919 Malignant neoplasm of unsp site of unspecified female breast K21.9 Gastro-esophageal reflux disease without esophagitis Office Visit 11/03/2019 [facility] J96.21 Acute and 11:34a Asssugey sin M.D. chronic Hospitalists respiratory failure with hypoxia J44.1 Chronic obstructive pulmonary disease w (acute) exacerbation F41.9 Anxiety disorder, unspecified C50.919 Malignant neoplasm of unsp site of unspecified female breast K21.9 Gastro-esophageal reflux disease without esophagitis Office Visit 11/02/2019 [facility] J96.21 Acute and 11:33a Asssugey sin M.D. chronic Hospitalists respiratory failure with hypoxia J44.1 Chronic obstructive pulmonary disease w (acute) exacerbation F41.9 Anxiety disorder, unspecified C50.919 Malignant neoplasm of unsp site of unspecified female breast K21.9 Gastro-esophageal reflux disease without esophagitis Office Visit 11/01/2019 [facility] J44.1 Chronic 1:33a Assoc,sugey Schwartz M.D. obstructive Hospitalists pulmonary disease w [...] 11/02/2019 J44.1 Chronic obstructive pulmonary disease Amos Schwartz M.D. with (acute) exacerbation 11/02/2019 F41.9 Anxiety [...] female breast 11/01/2019 E78.5 Hyperlipidemia, unspecified Amos Schwartz M.D. 11/01/2019 F41.9 Anxiety disorder, unspecified Amos [...]
--- OUTSIDE RECORDS SUMMARY | 2019-11-19 14:37 | XMS REPORT | Continuity of Care Document ---
:1955 External Reference #:[id number] Author Name Nancie Gonzales M.D. 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 White Blood 5.9 10^3/uL Normal 3.5-10.[address] [place] [address] [phone] Red Blood Count 4.42 10^6/uL Normal 3.70-4.87 [...] 0.1 Procedures Date Code Description Status 07/22/2019 19295 Diffusing Capacity Completed 07/22/2019 53349 Pulmonary Function><Bronchodil Completed 08/15/2018 [id number] Mammogram Completed 07/26/2018 [id number] Mammogram Completed 11/16/2016 [id number] Mammogram Completed 07/21/2009 [id number] Mammogram Completed 03/17/2009 [id number] Mammogram Completed Medical Devices Description No Information Available Encounters Type Date Location Provider Dx Diagnosis Office Visit 11/07/2019 [facility] Nancie Gonzales, J44.1 Chronic obstructive 11:37a Assocsugey M.D. pulmonary disease w Hospitalists (acute) exacerbation J09.x2 Flu due to ident novel influenza A virus w oth resp manifest J96.21 Acute and chronic respiratory failure with hypoxia I10 Essential (primary) hypertension E78.5 Hyperlipidemia, unspecified K21.9 Gastro-esophageal reflux disease without esophagitis C50.919 Malignant neoplasm of unsp site of unspecified female breast Office Visit 11/05/2019 11:34a [facility] J96.21 Acute and chronic Assoc,sugey Gonzales M.D. respiratory Hospitalists failure with hypoxia J44.1 Chronic obstructive pulmonary disease w (acute) exacerbation J09.x2 Flu due to ident novel influenza A virus w oth resp manifest F41.9 Anxiety disorder, unspecified C50.919 Malignant neoplasm of unsp site of unspecified female breast K21.9 Gastro-esophageal reflux disease without esophagitis Office Visit 11/04/2019 11:34a [facility] J96.21 Acute and chronic Assoc,sugey Gonzales M.D. respiratory Hospitalists failure with hypoxia J44.1 Chronic obstructive pulmonary disease w (acute) exacerbation J09.x2 Flu due to ident novel influenza A virus w oth resp manifest C50.919 Malignant neoplasm of unsp site of unspecified female breast K21.9 Gastro-esophageal reflux disease without esophagitis Office Visit 11/03/2019 [facility] J96.21 Acute and 11:34a Asssugey sin M.D. chronic Hospitalists respiratory failure with hypoxia J44.1 Chronic obstructive pulmonary disease w (acute) exacerbation F41.9 Anxiety disorder, unspecified C50.919 Malignant neoplasm of unsp site of unspecified female breast K21.9 Gastro-esophageal reflux disease without esophagitis Office Visit 11/02/2019 [facility] J96.21 Acute and 11:33a Asssugey sin M.D. chronic Hospitalists respiratory failure with hypoxia J44.1 Chronic obstructive pulmonary disease w (acute) exacerbation F41.9 Anxiety disorder, unspecified C50.919 Malignant neoplasm of unsp site of unspecified female breast K21.9 Gastro-esophageal reflux disease without esophagitis Office Visit 11/01/2019 [facility] J44.1 Chronic 1:33a Assmerrick,sugey Schwartz M.D. obstructive [...]
--- OUTSIDE RECORDS SUMMARY | 2019-11-19 14:37 | XMS REPORT | Continuity of Care Document ---
:1955 External Reference #:[id number] Author Name Amos Schwartz M.D. (transmitted by agent of provider Alexia Sparks) Address [address] [place] [address] Care Team Providers Name Role Phone Elías Moore NP - Family Care Team Information [employer] [phone] Problems Active Problems Provider Date Tendon contracture [...] DO FAC 05/09/2018 Injection Technetium TC 99M Sunil Armijo, [...] Result H/L Range Note CBC Auto 10/02/2019 [facility] White Blood 5.9 10^3/uL Normal 3.5-10.[address] [place] [address] [phone] Red Blood Count 4.42 10^6/uL Normal 3.70-4.87 [...] 0.1 Procedures Date Code Description Status 07/22/2019 67229 Diffusing Capacity Completed 07/22/2019 95339 Pulmonary Function><Bronchodil Completed 08/15/2018 [id number] Mammogram Completed 07/26/2018 [id number] Mammogram Completed 11/16/2016 [id number] Mammogram Completed 07/21/2009 [id number] Mammogram Completed 03/17/2009 [id number] Mammogram Completed Medical Devices Description No Information Available Encounters Type Date Location Provider Dx Diagnosis [facility] J44.1 Chronic obstructive 11:37a Assocsugey M.D. pulmonary disease w Hospitalists (acute) exacerbation J09.x2 Flu due to ident novel influenza A virus w oth resp manifest J96.21 Acute and chronic respiratory failure with hypoxia I10 Essential (primary) hypertension E78.5 Hyperlipidemia, unspecified K21.9 Gastro-esophageal reflux disease without esophagitis C50.919 Malignant neoplasm of unsp site of unspecified female breast Office Visit 11/05/2019 11:34a [facility] J96.21 Acute and chronic Assoc,sugey Gonzales M.D. respiratory Hospitalists failure with hypoxia J44.1 Chronic obstructive pulmonary disease w (acute) exacerbation J09.x2 Flu due to ident novel influenza A virus w oth resp manifest F41.9 Anxiety disorder, unspecified C50.919 Malignant neoplasm of unsp site of unspecified female breast K21.9 Gastro-esophageal reflux disease without esophagitis Office Visit 11/04/2019 11:34a [facility] J96.21 Acute and chronic Assoc,sugey Gonzales M.D. respiratory Hospitalists failure with hypoxia J44.1 Chronic obstructive pulmonary disease w (acute) exacerbation J09.x2 Flu due to ident novel influenza A virus w oth resp manifest C50.919 Malignant neoplasm of unsp site of unspecified female breast K21.9 Gastro-esophageal reflux disease without esophagitis Office Visit 11/03/2019 [facility] J96.21 Acute and 11:34a Asssugey sin M.D. chronic Hospitalists respiratory failure with hypoxia J44.1 Chronic obstructive pulmonary disease w (acute) exacerbation F41.9 Anxiety disorder, unspecified C50.919 Malignant neoplasm of unsp site of unspecified female breast K21.9 Gastro-esophageal reflux disease without esophagitis Office Visit 11/02/2019 [facility] J96.21 Acute and 11:33a Asssugey sin M.D. chronic Hospitalists respiratory failure with hypoxia J44.1 Chronic obstructive pulmonary disease w (acute) exacerbation F41.9 Anxiety disorder, unspecified C50.919 Malignant neoplasm of unsp site of unspecified female breast K21.9 Gastro-esophageal reflux disease without esophagitis Office Visit 11/01/2019 [facility] J44.1 Chronic 1:33a Assoc,sugey Schwartz M.D. [...]
--- OUTSIDE RECORDS SUMMARY | 2019-11-19 14:37 | XMS REPORT | Continuity of Care Document ---
:1955 External Reference #:[id number] Author Name Amos Schwartz M.D. 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 White Blood 5.9 10^3/uL Normal 3.5-10.[address] [place] [address] [phone] Red Blood Count 4.42 10^6/uL Normal 3.70-4.87 [...] 0.1 Procedures Date Code Description Status 07/22/2019 52553 Diffusing Capacity Completed 07/22/2019 09021 Pulmonary Function><Bronchodil Completed 08/15/2018 [id number] Mammogram Completed 07/26/2018 [id number] Mammogram Completed 11/16/2016 [id number] Mammogram Completed 07/21/2009 [id number] Mammogram Completed 03/17/2009 [id number] Mammogram Completed Medical Devices Description No Information Available Encounters Type Date Location Provider Dx Diagnosis [facility] J[facility].1 Chronic obstructive 11:37a Assocsugey M.D. pulmonary disease w Hospitalists (acute) exacerbation J09.x2 Flu due to ident novel influenza A virus w oth resp manifest J96.21 Acute and chronic respiratory failure with hypoxia I10 Essential (primary) hypertension E78.5 Hyperlipidemia, unspecified K21.9 Gastro-esophageal reflux disease without esophagitis C50.919 Malignant neoplasm of unsp site of unspecified female breast Office Visit 11/05/2019 11:34a [facility] J96.21 Acute and chronic Assoc,sugey Gonzales M.D. respiratory Hospitalists failure with hypoxia J44.1 Chronic obstructive pulmonary disease w (acute) exacerbation J09.x2 Flu due to ident novel influenza A virus w oth resp manifest F41.9 Anxiety disorder, unspecified C50.919 Malignant neoplasm of unsp site of unspecified female breast K21.9 Gastro-esophageal reflux disease without esophagitis Office Visit 11/04/2019 11:34a [facility] J96.21 Acute and chronic Assoc,sugey Gonzales M.D. respiratory Hospitalists failure with hypoxia J44.1 Chronic obstructive pulmonary disease w (acute) exacerbation J09.x2 Flu due to ident novel influenza A virus w oth resp manifest C50.919 Malignant neoplasm of unsp site of unspecified female breast K21.9 Gastro-esophageal reflux disease without esophagitis Office Visit 11/03/2019 [facility] J96.21 Acute and 11:34a Asssugey sin M.D. chronic Hospitalists respiratory failure with hypoxia J44.1 Chronic obstructive pulmonary disease w (acute) exacerbation F41.9 Anxiety disorder, unspecified C50.919 Malignant neoplasm of unsp site of unspecified female breast K21.9 Gastro-esophageal reflux disease without esophagitis Office Visit 11/02/2019 [facility] J96.21 Acute and 11:33a Asssugey sin M.D. chronic Hospitalists respiratory failure with hypoxia J44.1 Chronic obstructive pulmonary disease w (acute) exacerbation F41.9 Anxiety disorder, unspecified C50.919 Malignant neoplasm of unsp site of unspecified female breast K21.9 Gastro-esophageal reflux disease without esophagitis Office Visit 11/01/2019 [facility] J44.1 Chronic 1:33a Assoc,sugey Schwartz M.D. obstructive [...]
--- OUTSIDE RECORDS SUMMARY | 2019-11-19 14:37 | XMS REPORT | Continuity of Care Document ---
:1955 External Reference #:[id number] Author Name Nancie Gonzales M.D. 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 Problems Active Problems Provider Date Tendon contracture [...] Inj, Regadenoson, 0.1 MG Sunil Armijo, DO [facility] 05/09/2018 Injection Technetium TC 99M Sunil Armijo, [...] Result H/L Range Note CBC Auto 10/02/2019 [facility] White Blood 5.9 10^3/uL Normal 3.5-10.[address] [place] [address] [phone] Red Blood Count 4.42 10^6/uL Normal 3.70-4.87 [...] 0.1 Procedures Date Code Description Status 07/22/2019 28593 Diffusing Capacity Completed 07/22/2019 63737 Pulmonary Function><Bronchodil Completed 08/15/2018 [id number] Mammogram Completed 07/26/2018 [id number] Mammogram Completed 11/16/2016 [id number] Mammogram Completed 07/21/2009 [id number] Mammogram Completed 03/17/2009 [id number] Mammogram Completed Medical Devices Description No Information Available Encounters Type Date Location Provider Dx Diagnosis Office Visit 11/07/2019 [facility] Nancie Gonzales, J44.1 Chronic obstructive 11:37a Assocsugey M.D. pulmonary disease w Hospitalists (acute) exacerbation J09.x2 Flu due to ident novel influenza A virus w oth resp manifest J96.21 Acute and chronic respiratory failure with hypoxia I10 Essential (primary) hypertension E78.5 Hyperlipidemia, unspecified K21.9 Gastro-esophageal reflux disease without esophagitis C50.919 Malignant neoplasm of unsp site of unspecified female breast Office Visit 11/05/2019 11:34a [facility] J96.21 Acute and chronic Assoc,sugey Gonzales M.D. respiratory Hospitalists failure with hypoxia J44.1 Chronic obstructive pulmonary disease w (acute) exacerbation J09.x2 Flu due to ident novel influenza A virus w oth resp manifest F41.9 Anxiety disorder, unspecified C50.919 Malignant neoplasm of unsp site of unspecified female breast K21.9 Gastro-esophageal reflux disease without esophagitis Office Visit 11/04/2019 11:34a [facility] J96.21 Acute and chronic Assoc,sugey Gonzales M.D. respiratory Hospitalists failure with hypoxia J44.1 Chronic obstructive pulmonary disease w (acute) exacerbation J09.x2 Flu due to ident novel influenza A virus w oth resp manifest C50.919 Malignant neoplasm of unsp site of unspecified female breast K21.9 Gastro-esophageal reflux disease without esophagitis Office Visit 11/03/2019 [facility] J96.21 Acute and 11:34a Asssugey sin M.D. chronic Hospitalists respiratory failure with hypoxia J44.1 Chronic obstructive pulmonary disease w (acute) exacerbation F41.9 Anxiety disorder, unspecified C50.919 Malignant neoplasm of unsp site of unspecified female breast K21.9 Gastro-esophageal reflux disease without esophagitis Office Visit 11/02/2019 [facility] J96.21 Acute and 11:33a Asssugey sin M.D. chronic Hospitalists respiratory failure with hypoxia J44.1 Chronic obstructive pulmonary disease w (acute) exacerbation F41.9 Anxiety disorder, unspecified C50.919 Malignant neoplasm of unsp site of unspecified female breast K21.9 Gastro-esophageal reflux disease without esophagitis Office Visit 11/01/2019 [facility] J44.1 Chronic 1:33a Assmerrick,sugey Schwartz M.D. [...]
[2019-11-19 14:51] LABS: Urine Appearance Clear; Urine Bilirubin Negative (Negative); Urine Blood Negative (Negative); Urine Color Straw; Urine Glucose Negative (Negative); Urine Ketones Negative (Negative); Urine Nitrite Negative (Negative); Urine Protein Negative (Negative); Urine Specific Gravity 1.004 (1.010-1.030); Urine Urobilinogen Negative (Negative)
[2019-11-19 14:59] LABS: Urine Bacteria Absent (Absent); Urine Red Blood Cell Absent (Absent); Urine Squamous Epithelial Cell Present (Absent); Urine White Blood Cell Trace(0-5/hpf) (Absent)
[2019-11-19] MEDS: Albuterol/Ipratropium NEB.SOL* Albuterol 2.5 MG/Ipratropium 0.5 MG 3 ML INH ONE (15:24)
[2019-11-19] MEDS ORDERED: Magnesium Sulfate 2 GM IV* 2 GM/50 ML BAG IVPB ONE (15:31)
[2019-11-19] MEDS ORDERED: busPIRone TAB* 10 MG PO PRN (16:37)
[2019-11-19] MEDS ORDERED: guaiFENesin 100 mg/5 ml LIQ unit dose cup PO PRN (16:37)
[2019-11-19] MEDS ORDERED: Ondansetron TAB* 4 MG PO PRN (16:37)
[2019-11-19] MEDS ORDERED: Senna TAB 8.6 mg* TAB PO PRN (16:37)
[2019-11-19] MEDS ORDERED: Albuterol HFA INHALER* 8 gm MDI INH PRN (16:37)
[2019-11-19] MEDS ORDERED: NS 0.9% 1000 ML** 1,000 ML IV SCH (16:45)
[2019-11-19] MEDS ORDERED: Polyethylene Glycol 3350* 17 GM PACKET PO PRN (17:09)
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
[2019-11-19] MEDS: Mometasone/Formoter 200/5 MDI INH SCH (20:04)
[2019-11-19] MEDS: Gabapentin CAP(*) 300 MG PO SCH (23:00)
[2019-11-19] MEDS: Enoxaparin(*) 40 MG/0.4 ML SYR SUBCUT SCH (23:00)
[2019-11-19] MEDS: Morphine TAB Extended Release (*) 30 MG TAB.ER PO SCH (23:01)
[2019-11-19] MEDS: Nystatin CREAM* 15 GM TUBE TOPICAL SCH (23:02)
[2019-11-19] MEDS: Moisturizing CREAM* 120 GM JAR TOPICAL SCH (23:02)
[2019-11-20] MEDS: Albuterol/Ipratropium NEB.SOL* Albuterol 2.5 MG/Ipratropium 0.5 MG 3 ML INH ONE (03:59)
[2019-11-20] MEDS: Gabapentin CAP(*) 300 MG PO SCH ×4 (08:53→20:13)
[2019-11-20] MEDS: Methylphenidate TAB* 10 MG PO SCH ×2 (08:57→13:17)
[2019-11-20] MEDS: Folic Acid TAB* 1 MG PO SCH (08:57)
[2019-11-20] MEDS: Calcium Carbonate CHEW TAB* 500 MG (TUMS) PO SCH (08:57)
[2019-11-20] MEDS: Lactobacillus Acidophilus* 1 TAB PO SCH (08:58)
[2019-11-20] MEDS: Cyanocobalamin TAB* 500 MCG PO SCH (08:58)
[2019-11-20] MEDS: Oxybutynin XL TAB* 5 MG PO SCH (08:58)
[2019-11-20] MEDS: Morphine TAB Extended Release (*) 30 MG TAB.ER PO SCH ×2 (08:58→21:46)
[2019-11-20] MEDS: Pantoprazole TAB * 40 MG TAB PO SCH (08:58)
[2019-11-20] MEDS: Moisturizing CREAM* 120 GM JAR TOPICAL SCH ×3 (09:03→20:07)
[2019-11-20] MEDS: Nystatin CREAM* 15 GM TUBE TOPICAL SCH ×3 (09:03→20:11)
[2019-11-20] MEDS: Morphine ORAL.SOLN 10 mg* 2 MG/ML UDC 5 ml PO PRN ×2 (09:10→15:47)
[2019-11-20] MEDS: Mometasone/Formoter 200/5 MDI INH SCH ×2 (09:29→20:34)
[2019-11-20] MEDS: SPIRIVA Respimat* (tiotropium) 2.5 mcg/inh Inhaler INH SCH (09:29)
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
[2019-11-20] MEDS: ALPRAZolam TAB* 0.25 MG PO PRN (15:47)
[2019-11-20] MEDS ORDERED: Azithromycin 500 mg/250 ml NS 500 MG/250 ML BAG IVPB SCH (16:00)
[2019-11-20] MEDS: Enoxaparin(*) 40 MG/0.4 ML SYR SUBCUT SCH (17:58)
[2019-11-20] MEDS: Docusate CAP* 100 MG PO PRN (21:46)
[2019-11-21] MEDS: Oxybutynin XL TAB* 5 MG PO SCH (08:20)
[2019-11-21] MEDS: Morphine TAB Extended Release (*) 30 MG TAB.ER PO SCH ×2 (08:21→21:20)
[2019-11-21] MEDS: Calcium Carbonate CHEW TAB* 500 MG (TUMS) PO SCH (08:21)
[2019-11-21] MEDS: Folic Acid TAB* 1 MG PO SCH (08:21)
[2019-11-21] MEDS: Lactobacillus Acidophilus* 1 TAB PO SCH (08:21)
[2019-11-21] MEDS: Gabapentin CAP(*) 300 MG PO SCH ×4 (08:22→21:21)
[2019-11-21] MEDS: Pantoprazole TAB * 40 MG TAB PO SCH (08:22)
[2019-11-21] MEDS: Cyanocobalamin TAB* 500 MCG PO SCH (08:22)
[2019-11-21] MEDS: Methylphenidate TAB* 10 MG PO SCH ×2 (08:23→12:16)
[2019-11-21] MEDS: Moisturizing CREAM* 120 GM JAR TOPICAL SCH ×3 (08:28→21:26)
[2019-11-21] MEDS: Nystatin CREAM* 15 GM TUBE TOPICAL SCH ×3 (08:30→21:26)
[2019-11-21] MEDS: Mometasone/Formoter 200/5 MDI INH SCH ×2 (08:59→19:58)
[2019-11-21] MEDS: SPIRIVA Respimat* (tiotropium) 2.5 mcg/inh Inhaler INH SCH (09:00)
[2019-11-21] MEDS ORDERED: Vancomycin(*) 1,000 MG in NS 0.9% 250 ML* 250 ML IVPB ONE (09:42)
[2019-11-21 09:45] LABS: Hematocrit 32 % (35-47); Hemoglobin 11.1 g/dL (12.0-16.0); Mean Corpuscular HGB Conc 35 g/dL (31-36); Mean Corpuscular Hemoglobin 32 pg (27-31); Mean Corpuscular Volume 93 fL (80-97); Mean Platelet Volume 7.7 fL (7.4-10.4); Platelet Count 203 10^3/uL (150-450); Red Blood Count 3.43 10^6 /uL (3.70-4.87); Red Cell Distribution Width 18 % (10-15)
[2019-11-21] MEDS ORDERED: Vancomycin per Pharmacy* NOTE FOLLOW UP SCH (10:00)
[2019-11-21 10:17] LABS: BUN/Creatinine Ratio 18.6 (8-20); Calcium 8.7 mg/dL (8.6-10.3); EGFR Non-African American 103.3 (>60); Potassium 3.7 mmol/L (3.5-5.0)
--- NOTE | 2019-11-21 10:25 | PN ---
Subjective Date of Service: 11/21/19 Interval History: Pt is feeling ok. She is still very short of breath with any exertion. She continues to cough up very thick discolored, foul tasting sputum. Objective Active Medications: Albuterol (Ventolin Hfa Inhaler*) 2 puff INH Q4H PRN PRN Reason: SHORTNESS OF BREATH Last Admin: 11/19/19 19:52 Dose: 2 puff Alprazolam (Xanax Tab*) 0.25 mg PO Q8H PRN PRN Reason: ANXIETY Last Admin: 11/20/19 15:47 Dose: 0.25 mg Buspirone HCl (Buspar Tab*) 10 mg PO TID PRN PRN Reason: ANXIETY Calcium Carbonate (Tums*) 500 mg PO DAILY [facility] Last Admin: 11/21/19 08:21 Dose: 500 mg Cyanocobalamin (Vitamin B12 Tab*) 1,000 mcg PO DAILY [facility] Last Admin: 11/21/19 08:22 Dose: 1,000 mcg Docusate Sodium (Colace Cap*) 200 mg PO BID PRN PRN Reason: CONSTIPATION Last Admin: 11/20/19 21:46 Dose: 200 mg Enoxaparin Sodium (Lovenox(*)) 40 mg SUBCUT Q24H [facility] Last Admin: 11/20/19 17:58 Dose: 40 mg Folic Acid (Folvite Tab*) 1 mg PO DAILY [facility] Last Admin: 11/21/19 08:21 Dose: 1 mg Gabapentin (Neurontin Cap(*)) 600 mg PO QID [facility] Last Admin: 11/21/19 08:22 Dose: 600 mg Guaifenesin (Robitussin 100 Mg/5ml Liq) 10 ml PO Q6H PRN PRN Reason: COUGH Azithromycin (Zithromax 500 Mg/250 Ml) 500 mg in 250 mls @ 250 mls/hr IVPB Q24H [facility] Last Admin: 11/20/19 17:58 Dose: 250 mls/hr Vancomycin HCl 1,000 mg/ (Sodium Chloride) 250 mls @ 166.667 mls/hr IVPB ONCE ONE; Protocol Stop: 11/21/19 11:11 Lactobacillus Rhamnosus (Lactobacillus Acidophilus*) 1 tab PO DAILY [facility] Last Admin: 11/21/19 08:21 Dose: 1 tab Methylphenidate HCl (Ritalin Tab*) 60 mg PO QAM [facility] Last Admin: 11/21/19 08:23 Dose: 60 mg Methylphenidate HCl (Ritalin Tab*) 20 mg PO 1300 [facility] Last Admin: 11/20/19 13:17 Dose: 20 mg Mometasone Furoate/Formoterol Fumar (Dulera 200/5 Mdi*) 2 puff INH BID [facility] Last Admin: 11/21/19 08:59 Dose: 2 puff Morphine Sulfate (Morphine Oral.Soln 10 Mg*) 15 mg PO Q4H PRN PRN Reason: PAIN - MODERATE Last Admin: 11/20/19 15:47 Dose: 15 mg Morphine Sulfate (Ms Contin(*)) 30 mg PO BID [facility] Last Admin: 11/21/19 08:21 Dose: 30 mg Multi-Ingredient Ointment (Hydrocerin*) 1 applic TOPICAL TID [facility] Last Admin: 11/21/19 08:28 Dose: 1 applic Nystatin (Nystatin Cream*) 1 applic TOPICAL TID [facility] Last Admin: 11/21/19 08:30 Dose: 1 applic Ondansetron HCl (Zofran Tab*) 4 mg PO Q8H PRN PRN Reason: NAUSEA/VOMITING Oxybutynin Chloride (Ditropan Xl Tab*) 15 mg PO DAILY [facility] Last Admin: 11/21/19 08:20 Dose: 15 mg Pantoprazole Sodium (Protonix Tab*) 40 mg PO DAILY [facility] Last Admin: 11/21/19 08:22 Dose: 40 mg Pharmacy Consult (Vancomycin Per Pharmacy*) 1 note FOLLOW UP .VANC PER PHARMACY [facility]; Protocol Polyethylene Glycol/Electrolytes (Miralax (17 Gm Dose Porter)) 17 gm PO DAILY PRN PRN Reason: CONSTIPATION Prochlorperazine (Compazine 10 Mg Tab) 10 mg PO Q6H PRN PRN Reason: NAUSEA Senna (Senokot 8.6 Mg Tab*) 1 tab PO DAILY PRN PRN Reason: CONSTIPATION Tiotropium Chester (Spiriva Respimat 2.5 Mcg) 2 puff INH DAILY [facility] Last Admin: 11/21/19 09:00 Dose: 2 puff Vital Signs - 8 hr 11/21/19 11/21/19 11/21/19 03:04 03:30 04:45 Temperature 98 F Pulse Rate 75 Respiratory 16 Rate Blood Pressure 92/50 94/48 (mmHg) O2 Sat by Pulse 100 Oximetry 11/21/19 11/21/19 11/21/19 07:15 08:00 08:21 Temperature 97.2 F Pulse Rate 75 Respiratory 20 20 22 Rate Blood Pressure 111/59 (mmHg) O2 Sat by Pulse 100 100 Oximetry 11/21/19 08:22 Temperature Pulse Rate Respiratory 22 Rate Blood Pressure (mmHg) O2 Sat by Pulse Oximetry Oxygen Devices in Use Now: Nasal Cannula Appearance: Middle aged female sitting up in bed, NAD Eyes: No Scleral Icterus Ears/Nose/Mouth/Throat: Mucous Membranes Moist Respiratory: Symmetrical Chest Expansion and Respiratory Effort, Clear to Auscultation - difficult to hear with disposable stethoscope Cardiovascular: NL Sounds; No Murmurs; No JVD, RRR Abdominal: NL Sounds; No Tenderness; No Distention Extremities: No Clubbing, Cyanosis Skin: No Nodules or Sclerosis Neurological: Alert and Oriented x 3 Result Diagrams: 11/21/19 09:16 11/19/19 13:05 Microbiology and Other Data: Microbiology 11/19/19 13:05 Aerobic Blood Culture - Preliminary Blood Venous No Growth Day 1 Anaerobic Blood Culture - Preliminary No Growth Day 1 11/19/19 13:15 Aerobic Blood Culture - Preliminary Blood Venous No Growth Day 1 Anaerobic Blood Culture - Preliminary No Growth Day 1 11/19/19 17:10 Gram Stain - Final Sputum 11/19/19 14:25 Urine Culture - Final Urine No Growth (<1,000 CFU/mL) Assess/Plan/Problems-Billing Ms Caba is a 64 yo F who has a h/o breast cancer, COPD, anxiety and chronic back pain who presented to the ER with c/o increased SOB. - Patient Problems (1) Pneumonia Current Visit: Yes Status: Acute Code(s): J18.9 - PNEUMONIA, UNSPECIFIED ORGANISM SNOMED Code(s): 276777310 Comment: Pt with possible post influenza pneumonia. She has grown S aureus from her sputum culture. Change to vancomycin. She is still very SOB at with minimal exertion. She continues to bring up thick discolored sputum. (2) COPD exacerbation Current Visit: Yes Status: Acute Code(s): J44.1 - CHRONIC OBSTRUCTIVE PULMONARY DISEASE W (ACUTE) EXACERBATION SNOMED Code(s): 649537057 Comment: Pt with some wheezing. She has been receiving nebs-changed to MDI. (3) Anxiety Current Visit: Yes Status: Acute Code(s): F41.9 - ANXIETY DISORDER, UNSPECIFIED SNOMED Code(s): 16659255 Comment: Continue buspar and alprazolam PRN. (4) Breast cancer Current Visit: Yes Status: Acute Code(s): C50.919 - MALIGNANT NEOPLASM OF UNSP SITE OF UNSPECIFIED FEMALE BREAST SNOMED Code(s): 460162466 Comment: Pt has been receiving XRT. (5) Chronic back pain Current Visit: Yes Status: Acute Code(s): M54.9 - DORSALGIA, UNSPECIFIED; G89.29 - OTHER CHRONIC PAIN SNOMED Code(s): 599293161 Comment: Continue morphine at her usual schedule. (6) DVT prophylaxis Current Visit: Yes Status: Acute Code(s): LGB4421 - SNOMED Code(s): 291916248 Comment: enoxaparin. (7) Full code status Current Visit: Yes Status: Acute Code(s): Z78.9 - OTHER SPECIFIED HEALTH STATUS SNOMED Code(s): 253355843 Comment:
[2019-11-21] MEDS ORDERED: Benzocaine/Menthol LOZ* 1 LOZENGE PO PRN (11:29)
[2019-11-21] MEDS: Morphine ORAL.SOLN 10 mg* 2 MG/ML UDC 5 ml PO PRN (13:28)
[2019-11-21] MEDS: ALPRAZolam TAB* 0.25 MG PO PRN ×2 (13:29→21:30)
[2019-11-21] MEDS: Vancomycin(*) 1,000 MG in NS 0.9% 250 ML* 250 ML IV SCH (17:41)
[2019-11-21] MEDS: Enoxaparin(*) 40 MG/0.4 ML SYR SUBCUT SCH (17:41)
[2019-11-21] MEDS: Silver Sulfadiazine 1%* 20 GM TOPICAL SCH (21:23)
[2019-11-21] MEDS: Docusate CAP* 100 MG PO PRN (21:30)
[2019-11-22] MEDS: Vancomycin(*) 1,000 MG in NS 0.9% 250 ML* 250 ML IV SCH (02:09)
[2019-11-22] MEDS: SPIRIVA Respimat* (tiotropium) 2.5 mcg/inh Inhaler INH SCH (07:46)
[2019-11-22] MEDS: Mometasone/Formoter 200/5 MDI INH SCH (07:46)
[2019-11-22 08:55] VITALS: BP 86/50
[2019-11-22] MEDS: Calcium Carbonate CHEW TAB* 500 MG (TUMS) PO SCH (09:08)
[2019-11-22] MEDS: Lactobacillus Acidophilus* 1 TAB PO SCH (09:08)
[2019-11-22] MEDS: Oxybutynin XL TAB* 5 MG PO SCH (09:08)
[2019-11-22] MEDS: Morphine TAB Extended Release (*) 30 MG TAB.ER PO SCH (09:08)
[2019-11-22] MEDS: Gabapentin CAP(*) 300 MG PO SCH (09:08)
[2019-11-22] MEDS: Cyanocobalamin TAB* 500 MCG PO SCH (09:08)
[2019-11-22] MEDS: Silver Sulfadiazine 1%* 20 GM TOPICAL SCH (09:09)
[2019-11-22] MEDS: Moisturizing CREAM* 120 GM JAR TOPICAL SCH (09:09)
[2019-11-22] MEDS: Folic Acid TAB* 1 MG PO SCH (09:09)
[2019-11-22] MEDS: Pantoprazole TAB * 40 MG TAB PO SCH (09:09)
[2019-11-22] MEDS: Nystatin CREAM* 15 GM TUBE TOPICAL SCH (09:09)
[2019-11-22] MEDS ORDERED: Vancomycin Trough Check NOTE FOLLOW UP ONE (09:30)
[2019-11-22 09:55] LABS: EGFR African American 111.8 (>60); EGFR Non-African American 92.4 (>60)
[2019-11-22] MEDS: Methylphenidate TAB* 10 MG PO SCH (10:21)
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
== END 2019-11-22 10:40 | disposition home or self-care (01) | DRG 137 ==
LOC: ED 12:22 → MED 16:33 → UNDODISIN 11-22 12:15
PROVIDERS: ADMIT Hospitalist; ATTEND Hospitalist
PROC: [UNRECOGNIZED PROCEDURE] (principal; 2019-11-21)
DX: J15.211 Pneumonia due to Methicillin susceptible Staphylococcus aureus (principal); J44.0 Chronic obstructive pulmonary disease with (acute) lower respiratory infection; C50.911 Malignant neoplasm of unspecified site of right female breast; E78.5 Hyperlipidemia, unspecified; F41.9 Anxiety disorder, unspecified; K21.9 Gastro-esophageal reflux disease without esophagitis; R06.00 Dyspnea, unspecified; T21.01XA Burn of unspecified degree of chest wall, initial encounter; T22.041A Burn of unspecified degree of right axilla, initial encounter; W88.1XXA Exposure to radioactive isotopes, initial encounter; M54.9 Dorsalgia, unspecified; K59.00 Constipation, unspecified; Z85.3 Personal history of malignant neoplasm of breast; Z92.3 Personal history of irradiation; Z03.818 Encounter for observation for suspected exposure to other biological agents ruled out; Z79.51 Long term (current) use of inhaled steroids; Z79.899 Other long term (current) drug therapy; Z88.6 Allergy status to analgesic agent; Z88.5 Allergy status to narcotic agent; Z82.49 Family history of ischemic heart disease and other diseases of the circulatory system; Z87.891 Personal history of nicotine dependence; Y92.9 Unspecified place or not applicable
CPT/HCPCS: 36415; 71045; 80048; 80053; 80202; 81003; 81015; 82565; 83605; 83735; 83880; 84484; 84520; 85025; 85027; 85610; 85730; 86140; 87040; 87070; 87077; 87086; 87186; 87205; 93005; 94640; 96365; 96375; 96376; 99284; A9270-GY; J0456; J0696; J1650; J2920; J3370; J3475; J3535; U0002

== ENCOUNTER 2019-12-04 20:02 | Observation (INO) | payer BC ==
[2019-12-04] MEDS ORDERED: fentaNYL* 50 MCG/ML 2 ML VIAL (100 MCG VIAL) IV SLOW PU ONE ×4 (20:24→21:59)
[2019-12-04] MEDS ORDERED: Ondansetron INJ* 2 MG/ML VIAL IV ONE (20:25)
--- NOTE | 2019-12-04 20:31 | ED ---
Upper Extremity Pain - HPI Summary HPI Summary: 64-year-old presents with left arm injury today. States she fell out of her trailer onto her left shoulder which is 6 feet. States it feels like her bones are moving. She denies any previous fracture to the area. She denies any wrist of forearm pain. She is to hold her arm up or she is in extreme pain. Has history of breast cancer and just had radiation a week ago. She is on chronic morphine for pain. States this is the worst pain she has ever experienced. She denies any head. Did not pass out. fall was mechanical fall. She denies any chest pain or shortness breath. No abdominal pain. No hip pain. No other injury. No neck pain. - History of Current Complaint Chief Complaint: EDFall Stated Complaint: FALL PER EMS Time Seen by Provider: 12/04/19 20:11 - Allergies/Home Medications Allergies/Adverse Reactions: Allergies Allergy/AdvReac Type Severity Reaction Status Date / Time bee venom protein (honey bee) Allergy Unknown Verified 12/04/19 22:29 Reaction Details acetaminophen AdvReac Unknown Verified 12/04/19 20:16 [From Tylenol-Codeine] Reaction Details codeine AdvReac Unknown Verified 12/04/19 20:16 [From Tylenol-Codeine] Reaction Details simvastatin [From Zocor] AdvReac Unknown Verified 12/04/19 22:29 Reaction Details Home Medications: Home Medications Fluticasone-Salmeterol 500-50* [Advair Diskus 500-50*] 1 puff INH BID #1 diskus 09/20/18 [Rx Confirmed 12/04/19] Morphine Sulfate [Morphine Sulfate ER] 30 mg PO BID MDD 2 tabs 10/30/19 [ History Confirmed 12/04/19] Oxybutynin Chloride [Oxybutynin Chloride ER] 15 mg PO DAILY 10/30/19 [History Confirmed 12/04/19] Pantoprazole TAB * [Protonix TAB*] 40 mg PO DAILY 10/30/19 [History Confirmed ] Tiotropium CAPSULE (NF) [Spiriva CAPSULE (NF)] 1 cap.inh INH DAILY 11/03/19 [ History Confirmed 12/04/19] ALPRAZolam [Alprazolam] 0.25 mg PO Q8H PRN MDD 3 tabs 11/19/19 [History Confirmed 12/04/19] Albuterol HFA INHALER* [Ventolin HFA Inhaler*] 2 puff INH Q4H PRN 11/19/19 [ History Confirmed 12/04/19] Albuterol Sulfate 1.25 mg INH Q4H PRN 11/19/19 [History Confirmed 12/04/19] Benzonatate CAP* [Tessalon 100 MG CAP*] 200 mg PO TID 11/19/19 [History Confirmed 12/04/19] Calcium Carbonate CHEW TAB* [Tums*] 500 mg PO DAILY 11/19/19 [History Confirmed 12/04/19] Cyanocobalamin TAB* [Vitamin B12 TAB*] 1,000 mcg PO DAILY 11/19/19 [History Confirmed 12/04/19] Docusate CAP* [Colace Cap*] 200 mg PO BID PRN 11/19/19 [History Confirmed ] Folic Acid TAB* [Folvite TAB*] 1 mg PO DAILY 11/19/19 [History Confirmed ] Gabapentin TAB(NF) [Neurontin 600 mg TAB(NF)] 600 mg PO QID 11/19/19 [History Confirmed 12/04/19] Ibuprofen TAB* [Motrin TAB* 800 MG] 800 mg PO Q8H PRN 11/19/19 [History Confirmed 12/04/19] Ipratropium 0.5MG/2.5ML NEB* [Atrovent 0.5 MG NEB.LU*] 0.5 mg INH QID PRN 11/18 [History Confirmed 12/04/19] Ketoconazole 2 % CREAM (NF) [Nizoral 2% CREAM (NF)] 1 applic TOPICAL BID [History Confirmed 12/04/19] L.acidoph,Paracasei, B.lactis [Probiotic] 1 each PO DAILY 11/19/19 [History Confirmed 12/04/19] Levalbuterol 1.25 mg/3 mL (NF) [Levalbuterol HCl] 1.25 mg INH Q4H PRN 11/19/19 [ History Confirmed 12/04/19] Lidocaine 2.5%/Prilocain 2.5%* [Emla 5 GM*] 1 applic TOPICAL TID PRN 11/19/19 [ History Confirmed 12/04/19] Lidocaine 4% GEL* [Topicaine 4% GEL*] 4 % TOPICAL TID 11/19/19 [History Confirmed 12/04/19] Methylphenidate TAB* [Ritalin TAB*] 20 mg PO .Q AFTERNOON MDD 4 tabs 11/19/19 [ History Confirmed 12/04/19] Methylphenidate TAB* [Ritalin TAB*] 60 mg PO QAM MDD 4 tabs 11/19/19 [History Confirmed 12/04/19] Morphine Sulfate 15 mg PO Q4H PRN 11/19/19 [History Confirmed 12/04/19] Nitroglycerin TAB 0.4 MG* 0.4 mg SL Q5M PRN 11/19/19 [History Confirmed 12/04/19 ] Nystatin CREAM* 1 applic TOPICAL TID 11/19/19 [History Confirmed 12/04/19] Ondansetron TAB* [Zofran 4 MG Tab*] 4 mg PO Q8H PRN 11/19/19 [History Confirmed 12/04/19] Polyethylene Glycol 3350 BTL* [Miralax (FULL BULK BOTTLE)] 5 ml PO DAILY [History Confirmed 12/04/19] Prochlorperazine 10 mg TAB [Compazine 10 mg TAB] 10 mg PO Q6H PRN 11/19/19 [ History Confirmed 12/04/19] Selenium Sulfide 2.5 % TOPICAL .3X/WEEK 11/19/19 [History Confirmed 12/04/19] Sennosides [Senna Laxative] 8.6 mg PO DAILY PRN 11/19/19 [History Confirmed 10/23] busPIRone TAB* [Buspar TAB*] 10 mg PO TID PRN 11/19/19 [History Confirmed ] guaiFENesin [Robafen] 10 ml PO Q6H PRN 11/19/19 [History Confirmed 12/04/19] DOXYcycline CAP(*) [DOXYcycline 100MG CAP(*)] 100 mg PO BID #12 cap 11/22/19 [ Rx Confirmed 12/04/19] Moisturizing CREAM* [Hydrocerin*] 1 applic TOPICAL TID jar 11/22/19 [Rx Confirmed 12/04/19] PMH/Surg Hx/FS Hx/Imm Hx Endocrine/Hematology History: Denies: Hx Anticoagulant Therapy, Hx Diabetes Cardiovascular History: Reports: Hx Coronary Artery Disease, Hx Hypercholesterolemia, Hx Hypertension, Other Cardiovascular Problems/Disorders - PREVIOUS CARDIAC CATH Denies: Hx Congestive Heart Failure, Hx Pacemaker/ICD Respiratory History: Reports: Hx Asthma, Hx Chronic Obstructive Pulmonary Disease (COPD), Other Respiratory Problems/Disorders - HX OF RESP FAILURE, 10/29 POS FLU A Denies: Hx Pneumonia GI History: Reports: Hx Gastroesophageal Reflux Disease, Other GI Disorders - gerd History: Reports: Other Problems/Disorders - urgency Denies: Hx Renal Disease Musculoskeletal History: Reports: Hx Arthritis, Hx Back Problems Comment Only: Hx Osteoporosis - unsure Sensory History: Reports: Hx Contacts or Glasses - Reading glasses Denies: Hx Hearing Aid Opthamlomology History: Reports: Hx Contacts or Glasses - Reading glasses Neurological History: Reports: Hx Transient Ischemic Attacks (TIA) Comment Only: Other Neuro Impairments/Disorders - POLYARTHROPATHY Psychiatric History: Reports: Hx Anxiety Denies: Hx Panic Disorder - Cancer History Cancer Type, Location and Year: new diagnosis of breast right sided and lung CA. gets radiation therapy Hx Chemotherapy: Yes Hx Radiation Therapy: Yes - Surgical History Surgery Procedure, Year, and Place: PORT,TUBAL ligation,T&A, breast biopsy. appendectomy Hx Anesthesia Reactions: No - Immunization History Date of Influenza Vaccine: UTD Infectious Disease History: No Infectious Disease History: Denies: Traveled Outside the [place] in Last 30 Days - Family History Known Family History: Positive: Cardiac Disease, Diabetes - Mother, Other - Sister - BREAST CA - Social History Alcohol Use: Rare Alcohol Amount: 1 a month Substance Use Type: Reports: None Hx Tobacco Use: Yes - quit in 2008 Smoking Status (MU): Former Smoker Type: Cigarettes Have You Smoked in the Last Year: No Review of Systems Negative: Fever Negative: Chest Pain Negative: Shortness Of Breath Positive: Myalgia - left shoulder pain All Other Systems Reviewed And Are Negative: Yes Physical Exam Triage Information Reviewed: Yes Vital Signs On Initial Exam: Initial Vitals Temp Pulse Resp BP Pulse Ox 97.2 F 84 20 159/105 96 12/04/19 20:13 12/04/19 20:13 12/04/19 20:13 12/04/19 20:13 12/04/19 20:13 Vital Signs Reviewed: Yes Appearance: Positive: Well-Appearing Skin: Positive: Warm, Dry Head/Face: Positive: Normal Head/Face Inspection Eyes: Positive: Normal, Conjunctiva Clear ENT: Positive: Pharynx normal Respiratory/Lung Sounds: Positive: Clear to Auscultation, Breath Sounds Present Cardiovascular: Positive: Normal, RRR Musculoskeletal: Positive: Limited @ - left shoulder, Other - tenderness over left shoulder and humerus, good pulses, able to wiggle finger Neurological: Positive: Normal Psychiatric: Positive: Normal Procedures - Sedation Patient Received Moderate/Deep Sedation with Procedure: No Diagnostics - Vital Signs Vital Signs Temp Pulse Resp BP Pulse Ox 12/04/19 20:13 97.2 F 84 20 159/105 96 - Laboratory Result Diagrams: 12/04/19 21:45 12/04/19 21:45 Lab Statement: Any lab studies that have been ordered have been reviewed, and results considered in the medical decision making process. - Radiology humerus, shoulder Radiology Interpretation Completed By: ED Physician Summary of Radiographic Findings: humeral head fracture - EKG No standard instances Cardiac Rate: NL EKG Rhythm: Sinus Rhythm Summary of EKG Findings: sinus rhythm, PVCs Re-Evaluation - Re-Evaluation First Eval Re-Evaluation Time: 21:38 Change: Unchanged Comment: pain is severe in left shoulder Second Eval Re-Evaluation Time: 22:00 Change: Unchanged Comment: place in sling but still in extreme pain Course/Dx - Course Course Of Treatment: 64-year-old presents with left arm injury today. States she fell out of her trailer onto her left shoulder which is 6 feet. States it feels like her bones are moving. She denies any previous fracture to the area. She denies any wrist of forearm pain. She is to hold her arm up or she is in extreme pain. Has history of breast cancer and just had radiation a week ago. She is on chronic morphine for pain. States this is the worst pain she has ever experienced. She denies any head. Did not pass out. fall was mechanical fall. She denies any chest pain or shortness breath. No abdominal pain. No hip pain. No other injury. No neck pain. On exam tenderness over left shoulder and humerus. Neurovascular intact. X-ray shows humeral head fracture. Fentayl is not touching her pain. spoke with dr jeffers that just needs sling and follow up. unable to get patient pain under control so will discuss with hospitalist to admit for pain control. - Diagnoses Differential Diagnosis/HQI/PQRI: Positive: Fracture (Closed), Strain, Sprain Provider Diagnoses: Fracture of humeral head, left, closed, Fall Discharge ED - Sign-Out/Discharge Documenting (check all that apply): Patient Departure - Discharge Plan Condition: Stable Disposition: ADMITTED TO [facility] - Billing Disposition and Condition Condition: STABLE Disposition: Admitted to [facility] - Attestation Statements Provider Attestation: I was available for consult. This patient was seen by the NATHALIA. The patient was not presented to, seen by, or examined by me. Jareth Ross MD
[2019-12-04 21:57] LABS: ABS Lymphocytes 0.7 10^3/ul (1.0-4.8); ABS Monocytes 0.5 10^3/ul (0-0.8); ABS Neutrophils 3.9 10^3/ul (1.5-7.7); Eosinophil % 0.4 %; Hematocrit 34 % (35-47); Hemoglobin 11.9 g/dL (12.0-16.0); Lymphocyte % 14.1 %; Mean Corpuscular HGB Conc 35 g/dL (31-36); Mean Corpuscular Hemoglobin 32 pg (27-31); Mean Corpuscular Volume 91 fL (80-97); Mean Platelet Volume 7.5 fL (7.4-10.4); Platelet Count 213 10^3/uL (150-450); Red Cell Distribution Width 18 % (10-15); White Blood Count 5.2 10^3/uL (3.5-10.8)
[2019-12-04 22:03] LABS: Activated Partial Thrombo Time 35.8 seconds (26.0-38.0); INR 1.03 (0.82-1.09)
[2019-12-04 22:08] LABS: Albumin 3.7 g/dL (3.2-5.2); Albumin/Globulin Ratio 0.9 (1-3); BUN/Creatinine Ratio 23.1 (8-20); Calcium 9.7 mg/dL (8.6-10.3); EGFR African American 111.8 (>60); EGFR Non-African American 92.4 (>60); Potassium 3.9 mmol/L (3.5-5.0); Total Bilirubin 0.4 mg/dL (0.2-1.0); Total Protein 7.7 g/dL (6.4-8.9)
--- OUTSIDE RECORDS SUMMARY | 2019-12-04 22:09 | XMS REPORT | Continuity of Care Document ---
:1955 External Reference #:[id number] Author Name Adrienne Us D.O. (transmitted by agent of provider Alexia Sparks) Address [address] [place] [address] Care Team Providers Name Role Phone Elías Moore NP - Family Care Team Information Welt Rougher [phone] Problems Active Problems Provider Date Tendon contracture [...] Inj, Regadenoson, 0.1 MG Sunil Armijo, DO [facility] 05/09/2018 Injection Technetium TC 99M Sunil Armijo, DO [facility] 05/09/2018 Tetrofosmin, Per Unit Dose Up To 40 Millicuries Injection Depomedrol 40MG Diana Boss M.D. 08/02/2017 Injection Immunizations Description No [...] Result H/L Range Note CBC Auto 10/02/2019 [facility] White Blood 5.9 10^3/uL Normal 3.5-10.[address] [place] [address] [phone] Red Blood Count 4.42 10^6/uL Normal 3.70-4.87 [...] 0.1 Procedures Date Code Description Status 07/22/2019 64007 Diffusing Capacity Completed 07/22/2019 35389 Pulmonary Function><Bronchodil Completed 08/15/2018 [id number] Mammogram Completed 07/26/2018 [id number] Mammogram Completed 11/16/2016 [id number] Mammogram Completed 07/21/2009 [id number] Mammogram Completed 03/17/2009 [id number] Mammogram Completed Medical Devices Description No Information Available Encounters Type Date Location Provider Dx Diagnosis Office Visit 11/21/2019 [facility] Adrienne Magen, J18.9 Pneumonia, 10:09a Assoc,sugey D.O. unspecified Hospitalists organism J44.1 Chronic obstructive pulmonary disease w (acute) exacerbation F41.9 Anxiety disorder, unspecified C50.919 Malignant neoplasm of unsp site of unspecified female breast M54.9 Dorsalgia, unspecified Office Visit 11/20/2019 10:08a [facility] Adrienne J18.9 Pneumonia, Assoc,Mohan NicholsO. unspecified Hospitalists organism J44.1 Chronic obstructive pulmonary disease w (acute) exacerbation F41.9 Anxiety disorder, unspecified C50.919 Malignant neoplasm of unsp site of unspecified female breast M54.9 Dorsalgia, unspecified Office Visit 11/07/2019 11:37a [facility] Nancie J44.1 Chronic Assoc,sugey Gonzales M.D. obstructive Hospitalists pulmonary disease w (acute) exacerbation J09.x2 Flu due to ident novel influenza A virus w oth resp manifest J96.21 Acute and chronic respiratory failure with hypoxia I10 Essential (primary) hypertension E78.5 Hyperlipidemia, unspecified K21.9 Gastro-esophageal reflux disease without esophagitis C50.919 Malignant neoplasm of unsp site of unspecified female breast [facility] and chronic Assoc,sugey Gonzales M.D. respiratory Hospitalists failure with hypoxia J44.1 Chronic obstructive pulmonary disease w (acute) exacerbation J09.x2 Flu due to ident novel influenza A virus w oth resp manifest F41.9 Anxiety disorder, unspecified C50.919 Malignant neoplasm of unsp site of unspecified female breast K21.9 Gastro-esophageal reflux disease without esophagitis Office Visit 11/04/2019 11:34a [facility] Nancie J96.21 Acute and chronic Assoc,sugey Gonzales M.D. respiratory Hospitalists failure with hypoxia J44.1 Chronic obstructive pulmonary disease w (acute) exacerbation J09.x2 Flu due to ident novel influenza A virus w oth resp manifest C50.919 Malignant neoplasm of unsp site of unspecified female breast K21.9 Gastro-esophageal reflux disease without esophagitis [facility] and [facility]:34[facility] Assoc,sugey Schwartz M.D. chronic Hospitalists respiratory failure with hypoxia J44.1 Chronic obstructive pulmonary disease w (acute) exacerbation F41.9 Anxiety disorder, unspecified C50.919 Malignant neoplasm of unsp site of unspecified female breast K21.9 Gastro-esophageal reflux disease without esophagitis Office Visit 11/02/2019 [facility] J96.21 Acute and 11:33a sugey Aponte M.D. chronic Hospitalists respiratory failure with hypoxia J44.1 Chronic obstructive pulmonary disease w (acute) exacerbation F41.9 Anxiety disorder, unspecified C50.919 Malignant neoplasm of unsp site of unspecified female breast K21.9 Gastro-esophageal reflux disease without esophagitis Office Visit 11/01/2019 [facility] J44.1 Chronic 1:33a sugey Aponte M.D. obstructive Hospitalists pulmonary disease w (acute) exacerbation J10.1 Flu due to oth ident influenza virus w oth resp manifest J20.9 Acute bronchitis, unspecified C50.919 Malignant neoplasm of unsp site of unspecified female breast E78.5 Hyperlipidemia, unspecified F41.9 Anxiety disorder, unspecified K21.9 Gastro-esophageal reflux disease without esophagitis Assessments Date Code Description Provider 11/21/2019 J18.9 Pneumonia, unspecified organism Adrienne Magen, D.O. 11/21/2019 J44.1 Chronic obstructive pulmonary disease Adrienne Magen, D.O. with (acute) exacerbation 11/21/2019 F41.9 Anxiety disorder, unspecified Adrienne Magen, D.O. 11/21/2019 C50.919 Malignant neoplasm of unspecified site of Adrienne Magen , D.O. unspecified female breast 11/21/2019 M54.9 Dorsalgia, unspecified Adrienne Magen, D.O. 11/20/2019 J18.9 Pneumonia, unspecified organism Adrienne Magen, D.O. 11/20/2019 J44.1 Chronic obstructive pulmonary disease Adrienne Magen, D.O. with (acute) exacerbation 11/20/2019 F41.9 Anxiety disorder, unspecified Adrienne Magen, D.O. 11/20/2019 C50.919 Malignant neoplasm of unspecified site of Adrienne Magen , D.O. unspecified female breast 11/20/2019 M54.9 Dorsalgia, unspecified Adrienne Us D.O. 11/07/2019 J44.1 Chronic obstructive pulmonary disease Nancie [...] exacerbation 11/05/2019 J09.x2 Influenza due to identified michelle Gonzales M.D. influenza A virus with other [...] neoplasm of unspecified site of Amos Schwartz M.DMed unspecified female breast 11/01/2019 E78.5 Hyperlipidemia, unspecified Amos Schwartz M.D. 11/01/2019 F41.9 Anxiety disorder, unspecified Amos Schwartz M.D. 11/01/2019 K21.9 Gastro-esophageal reflux disease without Amos Schwartz M.D. esophagitis 07/22/2019 R06.02 Shortness of breath Kylee Ramon, MD Plan of Treatment 09/06/2018 - Clovis Griffith M.D.C50.411 Malignant neoplasm of upper-outer quadrant of right female bFollow up:OR Functional Status Description No Information Available Mental Status Description No Information Available Referrals Description No Information Available
--- OUTSIDE RECORDS SUMMARY | 2019-12-04 22:09 | XMS REPORT | Continuity of Care Document ---
:1955 External Reference #:[id number] Author Name MARTÍNEZ Sarkar (transmitted by agent of provider Martina Quintana) Address [address] [place] [address] Care Team Providers Name Role Phone Sarah Ross - Dermatology Care Team Information [employer] Salesperson [phone] Hussain Lundberg - Orthopaedic Surgery Care Team Information [employer] Salesperson William Chino M.D. - Orthopaedic Care Team Information [employer] Salesperson Surgery Problems Active Problems Provider Date Chronic [...] Medications SIG Qnty Indications Ordering Date Provider Ipratropium [place] use one vial in 150ml Elías Healy 11/11/2019 0.02% nebulizer up to 4 [place] Moore-Arik Solution times daily for breathing. can mix with levalbuterol Oxygen Concentrator 2 liters oxygen 1units Elías Healy 10/21/2019 via nasal cannula CESAR MooreP-C at bedtime for COPD with hypoxia Dx: j44.1 Robafen take 10ml by mouth 237units J44.9 Elías R. 09/04/2019 100mg/5ML Syrup every 6 hours as Storm, OIL PIT ATTENDANT-C needed for cough and mucus Oxygen Concentrator use as directed Elías R. 07/04/2019 Storm, OIL PIT ATTENDANT-C Portable Oxygen use as directed. Elías RMed 07/04/2019 Machine Storm, OIL PIT ATTENDANT-C Doxycycline 1 by mouth twice 20caps J44.1 Asia Nilesh, 06/30/2019 Monohydrate daily for 10 days SENIOR HYDROGEOLOGIST 100mg Capsules Nebulizer Supplies nebulizer mask and J44.1 Elías R. 06/20/2019 tubing, use as Storm, OIL PIT ATTENDANT-C directed Ondansetron HCL take one tablet by 90tabs Elías R. 06/13/2019 4mg mouth every 8 Storm, OIL PIT ATTENDANT-C Tablets hours as needed for nausea/vomiting Oxybutynin Chloride ER once daily for 90tabs N39.46 Elías R. 05/29/2019 urination Storm, OIL PIT ATTENDANT-C 15mg Tablets ER 24HR Lidocaine apply pea sized 15gm Elías R. 05/29/2019 4% Cream amount to affected Storm, OIL PIT ATTENDANT-C area three times daily Senna Laxative 1 by mouth daily 30tabs K59.00 Elías R. 05/29/2019 8.6mg if needed for Storm, OIL PIT ATTENDANT-C Tablets constipation Miralax 1 heaping teaspoon 238gm K59.00 Pedrokarly R. 05/29/2019 3350NF Powder in 8 ounces of Storm, OIL PIT ATTENDANT-C fluid by mouth daily Lidocaine-Prilocaine apply thin layer 25gm Elías R. 05/28/2019 [facility] Storm, OIL PIT ATTENDANT-C 2.5-2.5% Cream three times daily if needed for pain Levalbuterol HCL use in nebulizer 90ml J44.1 Elías R. 05/08/2019 every 4 hours if Storm, OIL PIT ATTENDANT-C 1.25mg/3ML Nebulizer needed for breathing (replaces albuterol) Albuterol Sulfate inhale the 75units J44.1 Elías R. 05/01/2019 contents of 1 vial Storm, OIL PIT ATTENDANT-C 1.25mg/3ML Nebulizer via nebulizer every 4 hours if needed Ketoconazole apply to rash on 60gm B35.8 [facility] R. 05/01/2019 2% Cream twice daily until Storm, OIL PIT ATTENDANT-C better Levofloxacin 1 by mouth daily 7tabs J16.8 [facility] R. 05/01/2019 750mg for 7 days for Storm, OIL PIT ATTENDANT-C Tablets pneumonia Prednisone one pill by mouth 5tabs J44.1 Asia Nilesh, 05/01/2019 50mg Tablets daily for 5 days SENIOR HYDROGEOLOGIST for breathing Folic Acid 1 by mouth every 90tabs C50.911 [facility] R. 05/01/2019 1mg Tablets day Storm, OIL PIT ATTENDANT-C Vitamin B-12 one by mouth daily 90tabs C50.911 [facility] R. 05/01/2019 1000mcg Storm, OIL PIT ATTENDANT-C Tablets Benzonatate 1 by mouth three 60caps [facility] R. 05/01/2019 200mg times a day for Storm, OIL PIT ATTENDANT-C Capsules cough Selenium Sulfide apply to affected 120ml B35.8 [facility] R. 05/01/2019 2.5% area three times Storm, OIL PIT ATTENDANT-C Lotion per week, rinse off after 5 minutes Advair Diskus inhale one puff by 60units J44.9 [facility] R. 04/15/2019 mouth twice a day Storm, OIL PIT ATTENDANT-C 500-50mcg/Dose Aerosol Pulse Oximeter For use as needed when 1units J44.1 [facility] R. 04/08/2019 Finger short of breath Storm, OIL PIT ATTENDANT-C Misc Nystatin apply to groin 30gm [facility] R. 04/08/2019 311751Amzp/GM three times daily Storm, OIL PIT ATTENDANT-C Powder until resolved Prochlorperazine 1 tab by mouth 30tabs [facility] R. 04/08/2019 Maleate every 6 hours if Storm, OIL PIT ATTENDANT-C 10mg Tablets needed for nausea Ibuprofen take one tablet by 90tabs [facility] R. 02/19/2019 800mg Tablets mouth every 8 Storm, OIL PIT ATTENDANT-C hours with food as needed for pain Gabapentin take one tablet by 120tabs [facility] R. 02/19/2019 600mg Tablets mouth four times a Storm, OIL PIT ATTENDANT-C day Oxygen 2L nasal canula J44.9 [facility] R. 02/04/2019 for COPD Storm, OIL PIT ATTENDANT-C Ventolin HFA inhale two puffs 54gm J44.9 [facility] R. 02/04/2019 108(90Base) by mouth every 4 Storm, OIL PIT ATTENDANT-C mcg/Act Aerosol hours as needed for wheeze Morphine Sulfate ER take one tablet by 60tabs J44.9 [facility] 02/04/2019 30mg mouth twice a day; Storm, OIL PIT ATTENDANT-C Tablets ER maximum daily dose = 2 Morphine Sulfate 1 by mouth every 4 60tabs J44.9 [facility] R. 02/04/2019 15mg hours if needed Storm, OIL PIT ATTENDANT-C Tablets for breathing Spiriva Handihaler inhale the 30caps J44.9 [facility] R. 02/04/2019 18mcg contents of one Storm, OIL PIT ATTENDANT-C Capsules capsule once a day via handihaler device as directed. Colace 2 by mouth twice 180caps [facility] R. 02/04/2019 100mg Capsules daily if needed Storm, OIL PIT ATTENDANT-C for stools Nitroglycerin use one tab under 100tabs [facility] R. 04/05/2017 0.4mg tongue if needed Storm, OIL PIT ATTENDANT-C Tablets Sub for chest pain, may repeat in 5 minutes...call 911 if needed Buspirone HCL Take One Tablet By 45tabs [facility] 03/01/2016 10mg Mouth Three Times [facility], OIL PIT ATTENDANT-C Tablets A Day as Needed For Anxiety Poise Hourglass Shape wear daily for 90units [facility]. 11/04/2015 Pads/Moderate urine incontinence [facility], OIL PIT ATTENDANT-C Absorbency Pads Cane/Aluminum/Adjustab use as needed for 1units [facility] R. 11/04/2015 le/Ladies Handle ambulation Storm, OIL PIT ATTENDANT-C Misc Methylphenidate HCL take three tablets 120tabs [facility] R. 04/01/2012 20mg by mouth every Storm, OIL PIT ATTENDANT-C Tablets morning and one every afternoon; maximum daily dose = 4 Alprazolam take 1 tablet by 90tabs [facility] R. 0.25mg Tablets mouth every 8 Storm, OIL PIT ATTENDANT-C hours as needed for anxiety maximum daily dose 3 Pantoprazole Sodium 1 by mouth every 90tabs Elías Healy 40mg day Storm, OIL PIT ATTENDANT-C Tablets DR Johnson 1 by mouth Unknown 500mg Chewtabs everyday Probiotic Unknown Capsules Paclitaxel Unknown 150mg/25ML Concentrate History Medications Sertraline HCL 1 by mouth every 30tabs F32.89 Elías Healy 08/21/2019 - 50mg day Storm, OIL PIT ATTENDANT-C 09/23/2019 Tablets Nebulizer Tubing Nebulizer mask and 10units 491.21 Elías Healy 06/20/2019 - tubing, use as Storm, OIL PIT ATTENDANT-C 06/20/2019 directed Immunizations CPT Code Status Date Vaccine Lot # [id number] Given 05/23/2019 Influenza Virus Vaccine, Quadrivalent, 3 Yr > [id number] Quad, Preserv Free 38586 Given 06/15/2018 Influenza Virus Vaccine, Quadrivalent, 3 Yr > [id number] Quad, Preserv Free 57585 Given 06/08/2017 Zoster Vaccine [id number] 70567 Given 06/08/2017 Influenza Virus Vaccine, Quadrivalent, 3 Yr > [id number] Quad, Preserv Free 27156 Given 06/08/2017 Prevnar-13 Pneumococcal Conjugate Vaccine [id number] 80210 Given 05/22/2016 Influenza Virus Vaccine, Quadrivalent, 3 Yr > [id number] Quad, Preserv Free 62156 Given 08/13/2015 Influenza Virus Vaccine, Quadrivalent, 3 Yr > [id number] Quad, Preserv Free 45759 Given 06/05/2014 Influenza Virus Vaccine, Quadrivalent, 3 Yr > [id number] Quad, Preserv Free 31983 Given 05/16/2013 Influenza Vaccine-Preservative Free 3 Yrs And [id number] Above 44701 Given 05/16/2013 Pneumovax 23 (PPSV23) 65+ years or high risk 2 to [id number] 66 year old 80156 Given 07/01/2012 Influenza Vaccine-Preservative Free 3 Yrs And [id number] Above 16127 Given 07/12/2011 Influenza Vaccine-Preservative Free 3 Yrs And [id number] Above 61151 Given 07/21/2010 Influenza Vaccine-Preservative Free 3 Yrs And [id number] Above 92088 Given 04/20/2010 Tdap (Adacel) [id number] 26195 Given 09/11/2009 H1N1 Influenza Vaccine [id number] 82020 Given 09/11/2009 Influenza Virus Vaccine, 3 Yrs And Above 66066 Given 09/11/2009 Influenza Vaccine-Preservative Free 3 Yrs And [id number] Above 90241 Given 09/11/2009 H1N1 Immunization Administration, Including Counseling [...] Date Facility Test Result H/L Range Note Laboratory test 11/19/2019 [facility] Blood SEE RESULT 1 finding [phone] Culture BELOW Urine Culture And 11/19/2019 [facility] Urine SEE RESULT 2 Sensitivities [phone] Culture BELOW Urinalysis Profile 11/19/2019 [facility] Urine Color Straw [phone] Urine Appearance Clear Urine Specific Jasper 1.004 Low 1.010-1.030 Urine pH 7.0 Normal 5-9 Urine Urobilinogen Negative Negative Urine Ketones Negative Negative Urine Protein Negative Negative Urine Leukocytes Trace Abnormal Negative Urine Blood Negative Negative * * Abnormal Negative 3 Urine Nitrite Negative Negative Urine Bilirubin Negative Negative Urine Glucose Negative Negative Urine White Blood Cell Trace(0-5/hpf) Absent Urine Red Blood Cell Absent Absent Urine Bacteria Absent Absent Urine Squamous Epithelial Cell Present Abnormal Absent Laboratory test 11/19/2019 [facility] Magnesium 1.9 mg/dL Normal 1.9-2.7 finding [phone] C Reactive Protein 69.95 mg/L High <8.01 B-Type Natriuretic Peptide BNP 24 pg/mL <=100 Laboratory test 11/19/2019 [facility] Lactic Acid 1.7 mmol/L Normal 0.5-2.0 4 finding [phone] CBC Auto Diff 11/19/2019 [facility] White Blood 4.6 10^3/uL Normal 3.5-10.8 [phone] Count Red Blood Count 4.04 10^6/uL Normal 3.70-4.87 Hemoglobin 12.0 g/dL Normal 12.0-16.0 Hematocrit 36 % Normal 35-47 Mean Corpuscular Volume 88 fL Normal 80-97 Mean Corpuscular Hemoglobin 30 pg Normal 27-31 Mean Corpuscular HGB Conc 34 g/dL Normal 31-36 Red Cell Distribution Width 18 % High 10-15 Platelet Count 221 10^3/uL Normal 150-450 Mean Platelet Volume 7.6 fL Normal 7.4-10.4 Abs Neutrophils 3.9 10^3/uL Normal 1.5-7.7 Abs Lymphocytes 0.3 10^3/uL Low 1.0-4.8 Abs Monocytes 0.4 10^3/uL Normal 0-0.8 Abs Eosinophils 0.0 10^3/uL Normal 0-0.6 Abs Basophils 0.0 10^3/uL Normal 0-0.2 Abs Nucleated RBC 0.0 10^3/uL Granulocyte % 85.6 % Lymphocyte % 5.9 % Monocyte % 8.0 % Eosinophil % 0.3 % Basophil % 0.2 % Nucleated Red Blood Cells % 0.1 Comp Metabolic 11/19/2019 [facility] Sodium 134 mmol/ L Low 135-145 Panel [phone] Potassium 4.5 mmol/L Normal 3.5-5.0 Chloride 98 mmol/L Low 101-111 Co2 Carbon Dioxide 28 mmol/L Normal 22-32 Anion Gap 8 mmol/L Normal 2-11 Glucose 126 mg/dL High 70-100 Blood Urea Nitrogen 8 mg/dL Normal 6-24 Creatinine 0.56 mg/dL Normal 0.51-0.95 BUN/Creatinine Ratio 14.3 Normal 8-20 Calcium 9.3 mg/dL Normal 8.6-10.3 Total Protein 7.2 g/dL Normal 6.4-8.9 Albumin 3.9 g/dL Normal 3.2-5.2 Globulin 3.3 g/dL Normal 2-4 Albumin/Globulin Ratio 1.2 Normal 1-3 Total Bilirubin 1.40 mg/dL High 0.2-1.0 Alkaline Phosphatase 134 U/L High 34-104 Alt 73 U/L High 7-52 Ast 41 U/L High 13-39 Egfr Non- 109.7 >60 Egfr 132.7 >60 5 Inr/Protime 11/19/2019 [facility] Inr 0.98 Normal 0.82-1.09 6 [phone] Laboratory test 11/19/2019 [facility] Partial 30.8 Normal 26.0-38.0 finding [phone] Thrombo seconds Time PTT Troponin-I (TnI) 0.00 ng/mL <0.03 7 Urine Culture And 11/18/2019 [facility] Urine Culture SEE RESULT 8 Sensitivities [phone] BELOW Urinalysis Profile 11/18/2019 [facility] Urine Color Straw [phone] Urine Appearance Clear Urine Specific Jasper 1.008 Low 1.010-1.030 Urine pH 8.0 Normal 5-9 Urine Urobilinogen Negative Negative Urine Ketones Negative Negative Urine Protein Negative Negative Urine Leukocytes Negative Negative Urine Blood Negative Negative Urine Nitrite Negative Negative Urine Bilirubin Negative Negative Urine Glucose Negative Negative Comp Metabolic 11/01/2019 [facility] Sodium 133 mmol/ L Low 135-145 Panel [phone] Potassium 3.7 mmol/L Normal 3.5-5.0 Chloride 98 mmol/L Low 101-111 Co2 Carbon Dioxide 25 mmol/L Normal 22-32 Anion Gap 10 mmol/L Normal 2-11 Glucose 105 mg/dL High 70-100 Blood Urea Nitrogen 13 mg/dL Normal 6-24 Creatinine 0.71 mg/dL Normal 0.51-0.95 BUN/Creatinine Ratio 18.3 Normal 8-20 Calcium 9.1 mg/dL Normal 8.6-10.3 Total Protein 7.5 g/dL Normal 6.4-8.9 Albumin 4.1 g/dL Normal 3.2-5.2 Globulin 3.4 g/dL Normal 2-4 Albumin/Globulin Ratio 1.2 Normal 1-3 Total Bilirubin 0.60 mg/dL Normal 0.2-1.0 Alkaline Phosphatase 215 U/L High 34-104 Alt 53 U/L High 7-52 Ast 47 U/L High 13-39 Egfr Non- 83.4 >60 Egfr 100.9 >60 9 Laboratory test 11/01/2019 [facility] Troponin-I (TnI ) 0.00 ng/mL <0.03 10 finding [phone] Lactic Acid 1.2 mmol/L Normal 0.5-2.0 11 Venous Blood 11/01/2019 [facility] Venous Blood 7.37 Normal 7.32-7.43 Gas [phone] pH Venous Pco2 51 mmHg Normal 41-51 Venous Po2 < 38.0 mmHg Normal 35-45 Venous O2 Saturation 58.3 % Low 70-80 Venous Blood Base Excess 3.1 mmol/L Normal 0.0-4.0 12 Venous Bicarbonate Hco3 26.3 mmol/L Normal 24-28 Laboratory test 11/01/2019 [facility] B-Type 20 pg/ mL <=100 finding [phone] Natriuretic Peptide BNP CBC Auto Diff 11/01/2019 [facility] White Blood 2.4 Low 3.5-10.8 [phone] Count 10^3/uL Red Blood Count 4.63 10^6/uL Normal 3.70-4.87 Hemoglobin 13.2 g/dL Normal 12.0-16.0 Hematocrit 39 % Normal 35-47 Mean Corpuscular Volume 85 fL Normal 80-97 Mean Corpuscular Hemoglobin 29 pg Normal 27-31 Mean Corpuscular HGB Conc 34 g/dL Normal 31-36 Red Cell Distribution Width 17 % High 10-15 Platelet Count 139 10^3/uL Low 150-450 Mean Platelet Volume 8.4 fL Normal 7.4-10.4 Abs Neutrophils 1.4 10^3/uL Low 1.5-7.7 Abs Lymphocytes 0.6 10^3/uL Low 1.0-4.8 Abs Monocytes 0.3 10^3/uL Normal 0-0.8 Abs Eosinophils 0.0 10^3/uL Normal 0-0.6 Abs Basophils 0.0 10^3/uL Normal 0-0.2 Abs Nucleated RBC 0.0 10^3/uL Granulocyte % 60.6 % Lymphocyte % 24.0 % Monocyte % 13.7 % Eosinophil % 1.0 % Basophil % 0.7 % Nucleated Red Blood Cells % 0.3 Laboratory test 11/01/2019 [facility] Blood SEE RESULT 13 finding [phone] Culture BELOW Venous Blood Gas 10/30/2019 [facility] Venous Blood 7.40 Normal 7.32- [phone] pH 7.43 Venous Pco2 44 mmHg Normal 41-51 Venous Po2 53.0 mmHg High 35-45 Venous O2 Saturation 88.3 % High 70-80 Venous Blood Base Excess 2.0 mmol/L Normal 0.0-4.0 14 Venous Bicarbonate Hco3 26.2 mmol/L Normal 24-28 Influenza A & B 10/29/2019 [facility] Flu AB Disclaimer (SEE NOTE) 15 Request [phone] Influenza A Molecular POSITIVE Abnormal Negative 16 CBC Auto 10/02/2019 [facility] White Blood 5.9 10^3/ uL Normal 3.5-10.8 Diff [phone] Count Red Blood Count 4.42 10^6/uL Normal [...] Red Blood Cells % 0.1 Laboratory test 09/27/2019 [facility] Flu PCR NEGATIVE finding Laboratory test 09/05/2019 [facility] Vitamin B12 1009 pg/mL High 180-914 17 finding [phone] Urine Culture And 09/05/2019 [facility] Urine Culture SEE RESULT 18, Sensitivities [phone] BELOW 19 Urine DIP 09/05/2019 In House Lab Leukocytes 2+ Neg ([phone] Urine Nitrites NEg Neg Urobilinogen NORM Norm Total Protein Urine NEG Neg Urine pH 6.0 5-6 Urine Blood NEG Neg Specific Jasper 1.01 1.01-1.02 Urine Ketones NEG Neg Urine Bilirubin NEG Neg Urine Glucose NEG Norm Comp Metabolic 08/21/2019 [facility] Sodium 139 mmol/ L Normal 135-145 20 Panel [phone] Potassium 3.7 mmol/L Normal 3.5-5.0 Chloride 104 [...] Egfr Non- 80.8 >60 Egfr 97.7 >60 21 Laboratory test 08/21/2019 [facility] TSH (Thyroid 3.87 Normal 0.34-5.60 22 finding [phone] Stimulating mcIU/mL Horm) CBC W/Auto 08/21/2019 [facility] Hematocrit <pending> Differential MCV (Corpuscular Volume) <pending> MCH (Corpuscular Hemoglobin) <pending> MCHC (Corpuscular Hemog Conc) <pending> RDW <pending> MPV <pending> Neutrophils <pending> Monocytes <pending> Absolute Basophils <pending> Absolute Eosinophils <pending> Absolute Lymphocytes <pending> Absolute Monocytes <pending> CMP - Comprehensive 08/21/2019 [facility] Albumin <pending> Metabolic SGPT (Alt) <pending> Calcium <pending> Carbon Dioxide <pending> Chloride <pending> Creatinine <pending> Glucose <pending> Alkaline Phosphatase <pending> Potassium <pending> Protien, Total <pending> Sodium <pending> Sgot (Ast) <pending> BUN - Urea Nitrogen <pending> Bilirubin Total <pending> Laboratory test 08/21/2019 [facility] TSH (Thyroid <pending> finding Stimulating Horm) CBC Auto Diff 08/21/2019 [facility] White Blood 6.9 10^3/uL Normal 3.5-8 [phone] Count 0.8 Red Blood Count 4.43 10^6/uL Normal 3.70-4.87 [...] % Nucleated Red Blood Cells % 0.1 1 SEE RESULT BELOW Name: NU CABA : [address]: Adrienne Us DO Acct: [id number] Unit: [id number] AGE: 64 Location: [place] [address] Re11/19/19 Dis: 11/22/19 SEX: F Status: DIS IN SPEC: [id number] NYDIA: 11/19/19-[address] [facility] [address]: Anju CALVIN REQ: [id number] RECD: 11/19/19 STATUS: MIRIAN MCDONNELL DR: Corry Moore SENIOR HYDROGEOLOGIST _ SOURCE: BLOOD,VENO SPDESC: ORDERED: Blood Cult COMMENTS: Blood Culture bottles (both) are overfilled. Increased chance of false positive results. Verbal to [id number] by [email or web address] at 1401 on 11/19/19. Procedure Result Reported Site Aerobic Culture Bottle Final 11/24/19- 1338 ML No Growth Day 5 Anaerobic Culture Bottle Final 11/24/19- 1338 ML No Growth Day 5 * ML - Main Lab . END OF REPORT DEPARTMENT OF PATHOLOGY, [address] [place] [address] Momo Smalls M.D. Director [facility] # [id number] 2 SEE RESULT BELOW Name: NU CABA : [address]: Adrienne Us DO Acct: [id number] Unit: [id number] AGE: 64 Location: [place] [address] Re11/19/19 SEX: F Status: ADM IN SPEC: [id number] NYDIA: 11/19/[address] [facility] [address]: Anju CALVIN REQ: [id number] RECD: 11/19/19 STATUS: MIRIAN MCDONNELL DR: Corry Moore SENIOR HYDROGEOLOGIST _ SOURCE: URINE SPDESC: ORDERED: Urine Culture Procedure Result Reported Site Urine Culture Final 11/20/19- 0948 ML No Growth (<1,000 CFU/mL) * ML - Main Lab . END OF REPORT DEPARTMENT OF PATHOLOGY, [address] [place] [address] Momo Smalls M.D. Director [facility] # [id number] 3 *Ascorbic acid is present which may interfere with detection of blood. 4 [facility] Severe Sepsis and Septic Shock Management Bundle Measure requires all lactic acids initially measuring >2.0 mmol/L be repeated. 5 Because ethnic data is not always readily [...] 15-29 5 Kidney failure <15 (or dialysis) 6 Standard intensity warfarin therapeutic range: 2.0-3.0 High intensity warfarin therapeutic range: 2.5-3.5 7 Troponin-I testing on Plasma Separator Tubes (PST) has a known false positive rate of 0.20-0.40%. All positive troponins reflex immediately to secondary confirmatory testing. Using the [employer] 800 Access Immunoassay systems, the 99th percentile upper reference limit was demonstrated to be < 0.03 ng/mL. 8 SEE RESULT BELOW Name: NU CABA : [address]: Elías Moore NP Acct: [id number] Unit: [id number] AGE: 64 Location: [facility] Re11/18/19 SEX: F Status: REG REF SPEC: [id number] NYDIA: 11/18/19-[address]: Elías Moore NP REQ: [id number] RECD: 11/18/19 STATUS: COMP _ SOURCE: URINE SPDESC: ORDERED: Urine Culture Urine Source: Random Procedure Result Reported Site Urine Culture Final 11/19/19- 1108 ML No Growth (<1,000 CFU/mL) * ML - Main Lab . END OF REPORT DEPARTMENT OF PATHOLOGY, [address] [place] [address] Momo Smalls M.D. Director [facility] # [id number] 9 Because ethnic data is not always [...] 5 Kidney failure <15 (or dialysis) 10 Troponin-I testing on Plasma Separator Tubes (PST) has a known false positive rate of 0.20-0.40%. All positive troponins reflex immediately to secondary confirmatory testing. Using the [employer] 800 Access Immunoassay systems, the 99th percentile upper reference limit was demonstrated to be < 0.03 ng/mL. 11 [facility] Severe Sepsis and Septic Shock Management Bundle Measure requires all lactic acids initially measuring >2.0 mmol/L be repeated. 12 Reference ranges based on room air. 13 SEE RESULT BELOW Name: CABANU : [address]: Nancie Lopez MD Acct: [id number] Unit: [id number] AGE: 64 Location: [facility] 420 Re11/01/19 SEX: F Status: ADM IN SPEC: [id number] NYDIA: 11/01/[address] [facility] [address]: Jareth Ross MD REQ: [id number] RECD: 11/01/19 STATUS: COMP OTHR DR: Elías Moore SENIOR HYDROGEOLOGIST _ SOURCE: BLOOD,VENO SPDESC: ORDERED: Blood Cult Procedure Result Reported Site Aerobic Culture Bottle Final 11/06/19- 1554 ML No Growth Day 5 Anaerobic Culture Bottle Final 11/06/19- 1554 ML No Growth Day 5 * - [facility] . END OF REPORT DEPARTMENT OF PATHOLOGY, [address] [place] [address] Momo Smalls M.D. Director [facility] # [id number] 14 Reference ranges based on room air. 15 Suboptimal collection technique may reduce sensitivity of test. Refer to the [facility] Test Catalog for collection information: [email or web address] As with all diagnostic procedures, the laboratory results obtained should be used in conjunction with other clinical information available to the physician, including confirmation by another method, as applicable. 16 Daycare Provider: [id number] 17 Normal Range 180 to 914 Indeterminate Range 145 to 180 Deficient Range <145 18 [id number] 19 SEE RESULT BELOW Name: NU CABA : [address]: Elías Moore NP Acct: [id number] Unit: [id number] AGE: 64 Location: [facility] Re09/05/19 SEX: F Status: REG REF SPEC: [id number] NYDIA: 09/05/19-[address]: Elías Moore NP REQ: [id number] RECD: 09/05/19 STATUS: COMP _ SOURCE: URINE [facility]: ORDERED: Urine Culture COMMENTS: [id number] Urine Source: Random Procedure Result Reported Site Urine Culture Final 09/07/19- 1237 ML No growth of clinically significant organisms * ML - Main Lab . END OF REPORT DEPARTMENT OF PATHOLOGY, [address] [place] [address] Momo Smalls M.D. Director [facility] # [id number] 20 [id number] 21 Because ethnic data is not always readily [...] 15-29 5 Kidney failure <15 (or dialysis) 22 [id number] Procedures Date Code Description Status 10/01/2019 10524 Oximetry-Multiple Determinations Completed Medical Devices Description No Information Available Encounters Type Date Location Provider Dx Diagnosis Office Visit 11/28/2019 Main Office Elías Moore J16.8 Pneumonia due to other 3:00p OIL PIT ATTENDANT-C specified infectious organisms Office Visit 09/27/2019 Main Office Asia Galloway NP J06.9 Acute upper 11:00a respiratory infection, unspecified Office Visit 09/23/2019 Main Office Elías RMed Moore J44.1 Chronic obstructive 9:45a OIL PIT ATTENDANT-C pulmonary disease w (acute) exacerbation F41.9 Anxiety disorder, unspecified Office Visit 08/21/2019 1:30p Main Office Elías Healy J44.1 Chronic obstructive Storm, OIL PIT ATTENDANT-C pulmonary disease w (acute) exacerbation F32.89 Other specified depressive episodes R50.9 Fever, unspecified Office Visit 06/30/2019 10:15a Main Office Destini Medrano44.1 Chronic obstructive SENIOR HYDROGEOLOGIST pulmonary disease w (acute) exacerbation Assessments Date Code Description Provider 11/28/2019 J16.8 Pneumonia Shawnti R. Storm, OIL PIT ATTENDANT-C 10/01/2019 J44.1 Chronic obstructive pulmonary disease with Shawnti R. Storm , OIL PIT ATTENDANT-C (acute) exacerbation 10/01/2019 J44.1 Chronic obstructive pulmonary disease with [facility] (acute) exacerbation 09/27/2019 J06.9 Acute upper respiratory infection, Asia Galloway NP unspecified 09/23/2019 J44.1 Chronic obstructive pulmonary disease with Shawnti R. Storm , OIL PIT ATTENDANT-C (acute) exacerbation 09/23/2019 F41.9 Anxiety disorder, unspecified Shawnti R. Storm, OIL PIT ATTENDANT-C 09/05/2019 R41.3 Other amnesia Shawnti R. Storm, OIL PIT ATTENDANT-C 09/05/2019 R41.3 Other amnesia [facility] 08/21/2019 J44.1 Chronic obstructive pulmonary disease with MARTÍNEZ Sarkar (acute) exacerbation 08/21/2019 F32.89 Other specified depressive episodes PHILLIP Sarkar 08/21/2019 R50.9 Fever, unspecified MARTÍNEZ Sarkar 06/30/2019 J44.1 Chronic obstructive pulmonary disease with Asia Galloway NP (acute) exacerbation Plan of Treatment 11/28/2019 - [place]OR[place] Sarkar-CJ16.8 PneumoniaComments:will treat with levofloxacin. Encourage deep breathing, increased fluids, continue inhalers and nebulized treatments... contact clinic if sx worsen or fail to improve ... her condition is guarded, she is at very high risk for if she contracts Covid 19, ideally she should avoid the hospital unless resp sx worsen Functional Status Description No Information Available Mental Status Description No Information Available Referrals Description No Information Available
--- OUTSIDE RECORDS SUMMARY | 2019-12-04 22:09 | XMS REPORT | Continuity of Care Document ---
:1955 External Reference #:[id number] Author Name MARTÍNEZ Sarkar Address [address] [place] [address] Care Team Providers Name Role Phone Sarah Ross - Dermatology Care Team Information Seo Specialist [phone] Hussain Lundberg - Orthopaedic Surgery Care Team Information Seo Specialist [phone] William Chino M.D. - Orthopaedic Care Team Information Seo Specialist Surgery Problems Active Problems Provider Date Chronic [...] SIG Qnty Indications Ordering Date Provider Ipratropium [place] use one vial in 150ml Elías RMed 11/11/2019 0.02% nebulizer up to 4 [place] Moore-Arik Solution times daily for breathing. can mix with levalbuterol Oxygen Concentrator 2 liters oxygen 1units Elías RMed 10/21/2019 via nasal cannula [place] Moore-C at bedtime for COPD with hypoxia Dx: j44.1 Robafen take 10ml by mouth 237units J44.9 Elías R. 09/04/2019 100mg/5ML Syrup every 6 hours as Storm, PROTECTION CONSULTANT-C needed for cough and mucus Oxygen Concentrator use as directed Elías R. 07/04/2019 Storm, PROTECTION CONSULTANT-C Portable Oxygen use as directed. Elías R. 07/04/2019 Machine Storm, PROTECTION CONSULTANT-C Doxycycline 1 by mouth twice 20caps J44.1 Asia Nilesh, 06/30/2019 Monohydrate daily for 10 days [employer] 100mg Capsules Nebulizer Supplies nebulizer mask and J44.1 Ferridayeliazar R. 06/20/2019 tubing, use as Storm, PROTECTION CONSULTANT-C directed Ondansetron HCL take one tablet by 90tabs Elías R. 06/13/2019 4mg mouth every 8 Storm, PROTECTION CONSULTANT-C Tablets hours as needed for nausea/vomiting Oxybutynin Chloride ER once daily for 90tabs N39.46 Pedrokarly R. 05/29/2019 urination Storm, PROTECTION CONSULTANT-C 15mg Tablets ER 24HR Lidocaine apply pea sized 15gm Pedroeliazar R. 05/29/2019 4% Cream amount to affected Storm, PROTECTION CONSULTANT-C area three times daily Senna Laxative 1 by mouth daily 30[facility]00 [facility] 05/29/2019 8.6mg if needed for Storm, PROTECTION CONSULTANT-C Tablets constipation Miralax 1 heaping teaspoon 238gm K59.00 [facility] 05/29/2019 3350NF Powder in 8 ounces of Storm, PROTECTION CONSULTANT-C fluid by mouth daily Lidocaine-Prilocaine apply thin layer 25gm Ivania R. 05/28/2019 [facility] Storm, PROTECTION CONSULTANT-C 2.5-2.5% Cream three times daily if needed for pain Levalbuterol HCL use in nebulizer 90ml J44.1 Elías R. 05/08/2019 every 4 hours if Storm, PROTECTION CONSULTANT-C 1.25mg/3ML Nebulizer needed for breathing (replaces albuterol) Albuterol Sulfate inhale the 75units J44.1 Elías R. 05/01/2019 contents of 1 vial Storm, PROTECTION CONSULTANT-C 1.25mg/3ML Nebulizer via nebulizer every 4 hours if needed Ketoconazole apply to rash on 60gm B35.8 [facility] R. 05/01/2019 2% Cream twice daily until Storm, PROTECTION CONSULTANT-C better Levofloxacin 1 by mouth daily 7tabs J16.8 [facility] R. 05/01/2019 750mg for 7 days for Storm, PROTECTION CONSULTANT-C Tablets pneumonia Prednisone one pill by mouth 5tabs J44.1 Asia Nilesh, 05/01/2019 50mg Tablets daily for 5 days [employer] for breathing Folic Acid 1 by mouth every 90tabs C50.911 [facility] R. 05/01/2019 1mg Tablets day Storm, PROTECTION CONSULTANT-C Vitamin B-12 one by mouth daily 90tabs C50.911 [facility] R. 05/01/2019 1000mcg Storm, PROTECTION CONSULTANT-C Tablets Benzonatate 1 by mouth three 60caps [facility] R. 05/01/2019 200mg times a day for Storm, PROTECTION CONSULTANT-C Capsules cough Selenium Sulfide apply to affected 120ml B35.8 [facility] R. 05/01/2019 2.5% area three times Storm, PROTECTION CONSULTANT-C Lotion per week, rinse off after 5 minutes Advair Diskus inhale one puff by 60units J44.9 [facility] R. 04/15/2019 mouth twice a day Storm, PROTECTION CONSULTANT-C 500-50mcg/Dose Aerosol Pulse Oximeter For use as needed when 1units J44.1 [facility] R. 04/08/2019 Finger short of breath Storm, PROTECTION CONSULTANT-C Misc Nystatin apply to groin 30gm [facility] R. 04/08/2019 [id number]/GM three times daily Storm, PROTECTION CONSULTANT-C Powder until resolved Prochlorperazine 1 tab by mouth 30tabs [facility] R. 04/08/2019 Maleate every 6 hours if Storm, PROTECTION CONSULTANT-C 10mg Tablets needed for nausea Ibuprofen take one tablet by 90tabs [facility] R. 02/19/2019 800mg Tablets mouth every 8 [facility], PROTECTION CONSULTANT-C hours with food as needed for pain Gabapentin take one tablet by 120tabs [facility] R. 02/19/2019 600mg Tablets mouth four times a Storm, PROTECTION CONSULTANT-C day Oxygen 2L nasal canula J44.9 Shawnti R. 02/04/2019 for COPD Storm, PROTECTION CONSULTANT-C Ventolin HFA [facility]ale two puffs [facility]. 02/04/2019 108(90Base) by mouth every 4 Storm, PROTECTION CONSULTANT-C mcg/Act Aerosol hours as needed for wheeze Morphine Sulfate ER take one tablet by 60tabs [facility]44.9 [facility]. 02/04/2019 30mg mouth twice a day; Storm, PROTECTION CONSULTANT-C Tablets ER maximum daily dose = 2 Morphine Sulfate 1 by mouth every 4 60tabs [facility]44.9 [facility] 02/04/2019 15mg hours if needed Storm, PROTECTION CONSULTANT-C Tablets for breathing Spiriva Handihaler inhale the 30caps J44.9 [facility] 02/04/2019 18mcg contents of one Storm, PROTECTION CONSULTANT-C Capsules capsule once a day via handihaler device as directed. Colace 2 by mouth twice 180caps [facility] R. 02/04/2019 100mg Capsules daily if needed Storm, PROTECTION CONSULTANT-C for stools Nitroglycerin use one tab under 100tabs [facility] R. 04/05/2017 0.4mg tongue if needed Storm, PROTECTION CONSULTANT-C Tablets Sub for chest pain, may repeat in 5 minutes...call 911 if needed Buspirone HCL Take One Tablet By 45tabs [facility] R. 03/01/2016 10mg Mouth Three Times [facility], PROTECTION CONSULTANT-C Tablets A Day as Needed For Anxiety Poise Hourglass Shape wear daily for 90units [facility] R. 11/04/2015 Pads/Moderate urine incontinence [facility], PROTECTION CONSULTANT-C Absorbency Pads Cane/Aluminum/Adjustab use as needed for 1units [facility] R. 11/04/2015 le/Ladies Handle ambulation [facility], PROTECTION CONSULTANT-C Misc Methylphenidate HCL take three tablets 120tabs [facility] R. 04/01/2012 20mg by mouth every Storm, PROTECTION CONSULTANT-C Tablets morning and one every afternoon; maximum daily dose = 4 Alprazolam take 1 tablet by 90tabs Pedrownti R. 0.25mg Tablets mouth every 8 Storm, PROTECTION CONSULTANT-C hours as needed for anxiety maximum daily dose 3 Pantoprazole Sodium 1 by mouth every 90tabs Elías Healy 40mg day [place]OR[place] Moore-C Tablets DR Johnson 1 by mouth Unknown 500mg Chewtabs everyday Probiotic Unknown Capsules Paclitaxel Unknown 150mg/25ML Concentrate History Medications Sertraline HCL 1 by mouth every 30tabs F32.89 Elías Healy 08/21/2019 - 50mg day CESAR MooreP-C 09/23/2019 Tablets Nebulizer Tubing Nebulizer mask and 10units 491.21 Elías Healy 06/20/2019 - tubing, use as CESAR MooreP-C 06/20/2019 directed Immunizations CPT Code Status Date Vaccine Lot # [id number] Given 05/23/2019 Influenza Virus Vaccine, Quadrivalent, 3 Yr > [id number] Quad, Preserv Free 49502 Given 06/15/2018 Influenza Virus Vaccine, Quadrivalent, 3 Yr > [id number] Quad, Preserv Free 81741 Given 06/08/2017 Zoster Vaccine [id number] 34684 Given 06/08/2017 Influenza Virus Vaccine, Quadrivalent, 3 Yr > [id number] Quad, Preserv Free 48001 Given 06/08/2017 Prevnar-13 Pneumococcal Conjugate Vaccine [id number] 02630 Given 05/22/2016 Influenza Virus Vaccine, Quadrivalent, 3 Yr > [id number] Quad, Preserv Free 03383 Given 08/13/2015 Influenza Virus Vaccine, Quadrivalent, 3 Yr > [id number] Quad, Preserv Free 88214 Given 06/05/2014 Influenza Virus Vaccine, Quadrivalent, 3 Yr > [id number] Quad, Preserv Free 68344 Given 05/16/2013 Influenza Vaccine-Preservative Free 3 Yrs And [id number] Above 62049 Given 05/16/2013 Pneumovax 23 (PPSV23) 65+ years or high risk 2 to [id number] 66 year old 29857 Given 07/01/2012 Influenza Vaccine-Preservative Free 3 Yrs And [id number] Above 67031 Given 07/12/2011 Influenza Vaccine-Preservative Free 3 Yrs And [id number] Above 32649 Given 07/21/2010 Influenza Vaccine-Preservative Free 3 Yrs And [id number] Above 36389 Given 04/20/2010 Tdap (Adacel) [id number] 43324 Given 09/11/2009 H1N1 Influenza Vaccine [id number] 30173 Given 09/11/2009 Influenza Virus Vaccine, 3 Yrs And Above 51578 Given 09/11/2009 Influenza Vaccine-Preservative Free 3 Yrs And [id number] Above 10466 Given 09/11/2009 H1N1 Immunization Administration, Including Counseling [...] Result H/L Range Note Laboratory test 11/19/2019 [facility] Blood SEE RESULT 1 finding [phone] Culture BELOW Urine Culture And 11/19/2019 [facility] Urine SEE RESULT 2 Sensitivities [phone] Culture BELOW Urinalysis Profile 11/19/2019 [facility] Urine Color Straw [phone] Urine Appearance Clear Urine Specific [place] 1.004 Low 1.010-1.030 Urine pH 7.0 Normal [...] Cell Present Abnormal Absent Laboratory test 11/19/2019 [facility] Magnesium 1.9 mg/dL Normal 1.9-2.7 finding [phone] C Reactive Protein 69.95 mg/L High <8.01 B-Type Natriuretic Peptide BNP 24 pg/mL <=100 Laboratory test 11/19/2019 [facility] Lactic Acid 1.7 mmol/L Normal 0.5-2.0 4 finding [phone] CBC Auto Diff 11/19/2019 [facility] White Blood 4.6 10^3/uL Normal 3.5-10.8 [phone] Count Red Blood Count 4.04 10^6/uL Normal [...] Blood Cells % 0.1 Comp Metabolic 11/19/2019 [facility] Sodium 134 mmol/ L Low 135-145 Panel [phone] Potassium 4.5 mmol/L Normal 3.5-5.0 Chloride 98 [...] >60 Egfr 132.7 >60 5 Inr/Protime 11/19/2019 [facility] Inr 0.98 Normal 0.82-1.09 6 [phone] Laboratory test 11/19/2019 [facility] Partial 30.8 Normal 26.0-38.0 finding [phone] Thrombo seconds Time PTT Troponin-I (TnI) 0.00 ng/mL <0.03 7 Urine Culture And 11/18/2019 [facility] Urine Culture SEE RESULT 8 Sensitivities [phone] BELOW Urinalysis Profile 11/18/2019 [facility] Urine Color Straw [phone] Urine Appearance Clear Urine Specific [place] 1.008 Low 1.010-1.030 Urine pH 8.0 Normal 5-9 Urine Urobilinogen Negative Negative Urine Ketones Negative Negative Urine Protein Negative Negative Urine Leukocytes Negative Negative Urine Blood Negative Negative Urine Nitrite Negative Negative Urine Bilirubin Negative Negative Urine Glucose Negative Negative Comp Metabolic 11/01/2019 [facility] Sodium 133 mmol/ L Low 135-145 Panel [phone] Potassium 3.7 mmol/L Normal 3.5-5.0 Chloride 98 [...] Egfr 100.9 >60 9 Laboratory test 11/01/2019 [facility] Troponin-I (TnI ) 0.00 ng/mL <0.03 10 finding [phone] Lactic Acid 1.2 mmol/L Normal 0.5-2.0 11 Venous Blood 11/01/2019 [facility] Venous Blood 7.37 Normal 7.32-7.43 Gas [phone] pH Venous Pco2 51 mmHg Normal 41-51 Venous Po2 < 38.0 mmHg Normal 35-45 Venous O2 Saturation 58.3 % Low 70-80 Venous Blood Base Excess 3.1 mmol/L Normal 0.0-4.0 12 Venous Bicarbonate Hco3 26.3 mmol/L Normal 24-28 Laboratory test 11/01/2019 [facility] B-Type 20 pg/ mL <=100 finding [phone] Natriuretic Peptide BNP CBC Auto Diff 11/01/2019 [facility] White Blood 2.4 Low 3.5-10.8 [phone] Count 10^3/uL Red Blood Count 4.63 10^6/uL [...] Blood Cells % 0.3 Laboratory test 11/01/2019 [facility] Blood SEE RESULT 13 finding [phone] Culture BELOW Venous Blood Gas 10/30/2019 [facility] Venous Blood 7.40 Normal 7.32- [phone] pH 7.43 Venous Pco2 44 mmHg Normal 41-51 Venous Po2 53.0 mmHg High 35-45 Venous O2 Saturation 88.3 % High 70-80 Venous Blood Base Excess 2.0 mmol/L Normal 0.0-4.0 14 Venous Bicarbonate Hco3 26.2 mmol/L Normal 24-28 Influenza A & B 10/29/2019 [facility] Flu AB Disclaimer (SEE NOTE) 15 Request [phone] Influenza A Molecular POSITIVE Abnormal Negative 16 CBC Auto 10/02/2019 [facility] White Blood 5.9 10^3/ uL Normal 3.5-10.8 Diff [phone] Count Red Blood Count 4.42 10^6/uL Normal [...] Blood Cells % 0.1 Laboratory test 09/27/[address] [facility] Flu PCR NEGATIVE finding Laboratory test 09/05/2019 [facility] Vitamin B12 1009 pg/mL High 180-914 17 finding [phone] Urine Culture And 09/05/2019 [facility] Urine Culture SEE RESULT 18, Sensitivities [phone] BELOW 19 Urine DIP 09/05/2019 In House Lab Leukocytes 2+ Neg ([phone] - Urine Nitrites NEg Neg Urobilinogen NORM Norm Total Protein Urine NEG Neg Urine pH 6.0 5-6 Urine Blood NEG Neg Specific [place] 1.01 1.01-1.02 Urine Ketones NEG Neg Urine Bilirubin NEG Neg Urine Glucose NEG Norm Comp Metabolic 08/21/2019 [facility] Sodium 139 mmol/ L Normal 135-145 20 Panel [phone] Potassium 3.7 mmol/L Normal 3.5-5.0 Chloride 104 [...] Egfr 97.7 >60 21 Laboratory test 08/21/2019 [facility] TSH (Thyroid 3.87 Normal 0.34-5.60 22 finding [phone] Stimulating mcIU/mL Horm) CBC W/Auto 08/21/[address] [facility] Hematocrit <pending> Differential MCV (Corpuscular Volume) <pending> MCH (Corpuscular Hemoglobin) <pending> MCHC (Corpuscular Hemog Conc) <pending> RDW <pending> MPV <pending> Neutrophils <pending> Monocytes <pending> Absolute Basophils <pending> Absolute Eosinophils <pending> Absolute Lymphocytes <pending> Absolute Monocytes <pending> CMP - Comprehensive 08/21/[address] [facility] Albumin <pending> Metabolic SGPT (Alt) <pending> Calcium <pending> Carbon Dioxide <pending> Chloride <pending> Creatinine <pending> Glucose <pending> Alkaline Phosphatase <pending> Potassium <pending> Protien, Total <pending> Sodium <pending> Sgot (Ast) <pending> BUN - Urea Nitrogen <pending> Bilirubin Total <pending> Laboratory test 08/21/[address] [facility] TSH (Thyroid <pending> finding Stimulating Horm) CBC Auto Diff 08/21/2019 [facility] White Blood 6.9 10^3/uL Normal 3.5-8 [phone] Count 0.8 Red Blood Count 4.43 10^6/uL [...] [address]: Adrienne Us DO Acct: [id number] Unit: [id number] AGE: 64 Location: [place] [address] Re11/19/19 Dis: 11/22/19 SEX: F Status: DIS IN SPEC: [id number] NYDIA: 11/19/19-[address] [facility] [address]: Anju CALVIN REQ: [id number] RECD: 11/19/19 STATUS: COMP SATHYA DR: Corry Moore [employer] _ SOURCE: BLOOD,VENO SPDESC: ORDERED: Blood Cult COMMENTS: Blood Culture bottles (both) are overfilled. Increased chance of false positive results. Verbal to [id number] by [id number] at 1401 on 11/19/19. Procedure Result Reported Site Aerobic Culture Bottle Final 11/24/19- 1338 ML No Growth Day 5 Anaerobic Culture Bottle Final 11/24/19- 1338 ML No Growth Day 5 * ML - Main Lab . END OF REPORT DEPARTMENT OF PATHOLOGY, [address] [place] [address] Momo Smalls M.D. Director [facility] # [id number] 2 SEE RESULT BELOW Name: NU CABA : [address]: Adrienne Us DO Acct: [id number] Unit: [id number] AGE: 64 Location: [place] [address] Re11/19/19 SEX: F Status: ADM IN SPEC: [id number] NYDIA: 11/19/19-[address] [facility] [address]: Anju CALVIN REQ: [id number] RECD: 11/19/19 STATUS: COMP [facility] DR: Corry Moore [employer] _ SOURCE: URINE SPDESC: ORDERED: Urine Culture Procedure Result Reported Site Urine Culture Final 11/20/19- 0948 ML No Growth (<1,000 CFU/mL) * ML - Main Lab . END OF REPORT DEPARTMENT OF PATHOLOGY, [address] [place] [address] Momo Smalls M.D. Director [facility] # [id number] 3 *Ascorbic acid is present which may interfere with detection of blood. 4 [facility] Severe Sepsis and Septic Shock Management [...] immediately to secondary confirmatory testing. Using the [employer] DxI 800 Access Immunoassay systems, the 99th percentile upper reference limit was demonstrated to be < 0.03 ng/mL. 8 SEE RESULT BELOW Name: NU CABA : [address]: Elías Moore NP Acct: [id number] Unit: [id number] AGE: 64 Location: [facility] Re11/18/19 SEX: F Status: REG REF SPEC: [id number] NYDIA: 11/18/19-[address]: Elías Moore NP REQ: [id number] RECD: 11/18/19 STATUS: COMP _ SOURCE: URINE SPDESC: ORDERED: Urine Culture Urine Source: Random Procedure Result Reported Site Urine Culture Final 11/19/19- 1108 ML No Growth (<1,000 CFU/mL) * ML - Main Lab . END OF REPORT DEPARTMENT OF PATHOLOGY, [address] [place] [address] Momo Smalls M.D. Director [facility] # [id number] 9 Because ethnic data is not always [...] immediately to secondary confirmatory testing. Using the [employer] DxI 800 Access Immunoassay systems, the 99th percentile upper reference limit was demonstrated to be < 0.03 ng/mL. 11 [facility] Severe Sepsis and Septic Shock Management Bundle Measure requires all lactic acids initially measuring >2.0 mmol/L be repeated. 12 Reference ranges based on room air. 13 SEE RESULT BELOW Name: NU CABA : [address]: Nancie Lopez MD Acct: [id number] Unit: [id number] AGE: 64 Location: [facility] 420 Re11/01/19 SEX: F Status: ADM IN SPEC: [id number] NYDIA: 11/01/[address] [facility] [address]: Jareth Ross MD REQ: [id number] RECD: 11/01/19 STATUS: MIRIAN MCDONNELL DR: Elías Moore [employer] _ SOURCE: BLOOD,VENO SPDESC: ORDERED: Blood Cult Procedure Result Reported Site Aerobic Culture Bottle Final 11/06/19- 1554 ML No Growth Day 5 Anaerobic Culture Bottle Final 11/06/19- 155 ML No Growth Day 5 * [facility] . END OF REPORT DEPARTMENT OF PATHOLOGY, [address] [place] [address] Momo Smalls M.D. Director [facility] # [id number] 14 Reference ranges based on room air. 15 Suboptimal collection technique may reduce sensitivity of test. Refer to the [facility] Test Catalog for collection information: [email or web address] As with all diagnostic procedures, the laboratory results obtained should be used in conjunction with other clinical information available to the physician, including confirmation by another method, as applicable. 16 [employer] Worker: [id number] Normal Range 180 to 914 Indeterminate Range 145 to 180 Deficient Range <145 18 [id number] 19 SEE RESULT BELOW Name: NU CABA : [address]: Elías Moore NP Acct: [id number] Unit: [id number] AGE: 64 Location: [facility] Re09/05/19 SEX: F Status: REG REF SPEC: [id number] NYDIA: 09/05/19-[address]: Elías Moore NP REQ: [id number] RECD: 09/05/19 STATUS: COMP _ SOURCE: URINE SPDESC: ORDERED: Urine Culture COMMENTS: [id number] Urine Source: Random Procedure Result Reported Site Urine Culture Final 09/07/19- 1237 ML No growth of clinically significant organisms * ML - Main Lab . END OF REPORT DEPARTMENT OF PATHOLOGY, [address] [place] [address] Momo Smalls M.D. Director [facility] # [id number] 20 [id number] 21 Because ethnic data is not always [...] 5 Kidney failure <15 (or dialysis) 22 [id number] Procedures Date Code Description Status 10/01/2019 83205 Oximetry-Multiple Determinations Completed Medical Devices Description No Information Available Encounters Type Date Location Provider Dx Diagnosis Office Visit 11/28/2019 Main Office Elías Moore J16.8 Pneumonia due to other 3:00p PROTECTION CONSULTANT-C specified infectious organisms Office Visit 09/27/2019 Main Office Asia Galloway NP J06.9 Acute upper 11:00a respiratory infection, unspecified Office Visit 09/23/2019 Main Office Elías Moore J44.1 Chronic obstructive 9:45a [employer]OTECTION CONSULTANT-C pulmonary disease w (acute) exacerbation F41.9 Anxiety disorder, unspecified Office Visit 08/21/2019 1:30p Main Office Elías Healy J44.1 Chronic obstructive Storm, PROTECTION CONSULTANT-C pulmonary disease w (acute) exacerbation F32.89 Other specified depressive episodes R50.9 Fever, unspecified Office Visit 06/30/2019 10:15a Main Office Destini Medrano44.1 Chronic obstructive [employer] pulmonary disease w (acute) exacerbation Assessments Date Code Description Provider 11/28/2019 J16.8 Pneumonia Pedrownti R. Oscar, PROTECTION CONSULTANT-C 10/01/2019 J44.1 Chronic obstructive pulmonary disease with Shawnti R. Storm , PROTECTION CONSULTANT-C (acute) exacerbation 10/01/2019 J44.1 Chronic obstructive pulmonary disease with [facility] (acute) exacerbation 09/27/2019 J06.9 Acute upper respiratory infection, Asia Galloway NP unspecified 09/23/2019 J44.1 Chronic obstructive pulmonary disease with Shawnti R. Storm , PROTECTION CONSULTANT-C (acute) exacerbation 09/23/2019 F41.9 Anxiety disorder, unspecified Shawnti R. Storm, PROTECTION CONSULTANT-C 09/05/2019 R41.3 Other amnesia Shawnti R. Storm, PROTECTION CONSULTANT-C 09/05/2019 R41.3 Other amnesia Lab and Office [...]
--- OUTSIDE RECORDS SUMMARY | 2019-12-04 22:09 | XMS REPORT | Continuity of Care Document ---
:1955 External Reference #:[id number] Author Name MARTÍNEZ Sarkar Address [address] [place] [address] Care Team Providers Name Role Phone Sarah Ross - Dermatology Care Team Information Decorating Instructor [phone] Hussain Lundberg - Orthopaedic Surgery Care Team Information Decorating Instructor William Chino M.D. - Orthopaedic Care Team Information Decorating Instructor [phone] Surgery Problems Active Problems Provider Date Chronic [...] SIG Qnty Indications Ordering Date Provider Ipratropium Huguenot use one vial in 150ml Elías RMed 11/11/2019 0.02% nebulizer up to 4 [place] Moore-Arik Solution times daily for breathing. can mix with levalbuterol Oxygen Concentrator 2 liters oxygen 1units Elías RMed 10/21/2019 via nasal cannula [place] Moore-C at bedtime for COPD with hypoxia Dx: j44.1 Robafen take 10ml by mouth 237units J44.9 Elías R. 09/04/2019 100mg/5ML Syrup every 6 hours as Storm, [employer] needed for cough and mucus Oxygen Concentrator use as directed Elías R. 07/04/2019 Storm, [employer] Portable Oxygen use as directed. Elías R. 07/04/2019 Machine Storm, [employer] Doxycycline 1 by mouth twice 20caps J44.1 Aisa Nilesh, 06/30/2019 Monohydrate daily for 10 days INFORMATION SECURITY SYSTEMS INSTRUCTOR 100mg Capsules Nebulizer Supplies nebulizer mask and J44.1 Sayreeliazar R. 06/20/2019 tubing, use as Storm, [employer] directed Ondansetron HCL take one tablet by 90tabs Elías R. 06/13/2019 4mg mouth every 8 Storm, [employer] Tablets hours as needed for nausea/vomiting Oxybutynin Chloride ER once daily for 90tabs N39.46 Pedrokarly R. 05/29/2019 urination Storm, [employer] 15mg Tablets ER 24HR Lidocaine apply pea sized 15gm Pedroeliazar R. 05/29/2019 4% Cream amount to affected Storm, [employer] area three times daily Senna Laxative 1 by mouth daily 30tabs [facility].00 [facility] 05/29/2019 8.6mg if needed for Storm, [employer] Tablets constipation Miralax 1 heaping teaspoon 238gm K59.00 [facility]. 05/29/2019 3350NF Powder in 8 ounces of Storm, [employer] fluid by mouth daily Lidocaine-Prilocaine apply thin layer 25gm Ivania R. 05/28/2019 to [facility] Storm, [employer] 2.5-2.5% Cream three times daily if needed for pain Levalbuterol HCL use in nebulizer 90ml J44.1 Elías R. 05/08/2019 every 4 hours if Storm, [employer] 1.25mg/3ML Nebulizer needed for breathing (replaces albuterol) Albuterol Sulfate inhale the 75units J44.1 Elías R. 05/01/2019 contents of 1 vial Storm, [employer] 1.25mg/3ML Nebulizer via nebulizer every 4 hours if needed Ketoconazole apply to rash on 60gm B35.8 [facility] R. 05/01/2019 2% Cream twice daily until Storm, [employer] better Levofloxacin 1 by mouth daily 7tabs J16.8 [facility] R. 05/01/2019 750mg for 7 days for Storm, [employer] Tablets pneumonia Prednisone one pill by mouth 5tabs J44.1 Asia Nilesh, 05/01/2019 50mg Tablets daily for 5 days INFORMATION SECURITY SYSTEMS INSTRUCTOR for breathing Folic Acid 1 by mouth every 90tabs C50.911 [facility] R. 05/01/2019 1mg Tablets day Storm, [employer] Vitamin B-12 one by mouth daily 90tabs C50.911 [facility] R. 05/01/2019 1000mcg Storm, [employer] Tablets Benzonatate 1 by mouth three 60caps [facility] R. 05/01/2019 200mg times a day for Storm, [employer] Capsules cough Selenium Sulfide apply to affected 120ml B35.8 [facility] R. 05/01/2019 2.5% area three times Storm, [employer] Lotion per week, rinse off after 5 minutes Advair Diskus inhale one puff by 60units J44.9 [facility] R. 04/15/2019 mouth twice a day Storm, [employer] 500-50mcg/Dose Aerosol Pulse Oximeter For use as needed when 1units J44.1 [facility] R. 04/08/2019 Finger short of breath Storm, [employer] Misc Nystatin apply to groin 30gm [facility] R. 04/08/2019 [id number]/GM three times daily Storm, [employer] Powder until resolved Prochlorperazine 1 tab by mouth 30tabs [facility] R. 04/08/2019 Maleate every 6 hours if Storm, [employer] 10mg Tablets needed for nausea Ibuprofen take one tablet by 90tabs [facility] R. 02/19/2019 800mg Tablets mouth every 8 [facility], [employer] hours with food as needed for pain Gabapentin take one tablet by 120tabs [facility] R. 02/19/2019 600mg Tablets mouth four times a Storm, [employer] day Oxygen 2L nasal canula J44.9 Shawnti R. 02/04/2019 for COPD Storm, [employer] Ventolin HFA inhale two puffs [facility]. 02/04[facility]2019 108(90Base) by mouth every 4 Storm, [employer] mcg/Act Aerosol hours as needed for wheeze Morphine Sulfate ER take one tablet by 60tabs J44.9 [facility] 02/04/2019 30mg mouth twice a day; Storm, [employer] Tablets ER maximum daily dose = 2 Morphine Sulfate 1 by mouth every 4 60tabs J44.9 [facility] 02/04/2019 15mg hours if needed Storm, [employer] Tablets for breathing Spiriva Handihaler inhale the 30caps J44.9 [facility] 02/04/2019 18mcg contents of one Storm, [employer] Capsules capsule once a day via handihaler device as directed. Colace 2 by mouth twice 180caps [facility] R. 02/04/2019 100mg Capsules daily if needed Storm, [employer] for stools Nitroglycerin use one tab under 100tabs [facility] R. 04/05/2017 0.4mg tongue if needed Storm, [employer] Tablets Sub for chest pain, may repeat in 5 minutes...call 911 if needed Buspirone HCL Take One Tablet By 45tabs [facility] R. 03/01/2016 10mg Mouth Three Times [facility], [employer] Tablets A Day as Needed For Anxiety Poise Hourglass Shape wear daily for 90units [facility] R. 11/04/2015 Pads/Moderate urine incontinence [facility], [employer] Absorbency Pads Cane/Aluminum/Adjustab use as needed for 1units [facility] R. 11/04/2015 le/Ladies Handle ambulation [facility], [employer] Misc Methylphenidate HCL take three tablets 120tabs [facility] R. 04/01/2012 20mg by mouth every Storm, [employer] Tablets morning and one every afternoon; maximum daily dose = 4 Alprazolam take 1 tablet by 90tabs Pedrownti R. 0.25mg Tablets mouth every 8 Storm, [employer] hours as needed for anxiety maximum daily [...] CPT Code Status Date Vaccine Lot # 32971 Given 05/23/2019 Influenza Virus Vaccine, Quadrivalent, 3 Yr > [id number] Quad, Preserv Free 76109 Given 06/15/2018 Influenza Virus Vaccine, Quadrivalent, 3 Yr > [id number] Quad, Preserv Free 47659 Given 06/08/2017 Zoster Vaccine [id number] 35204 Given 06/08/2017 Influenza Virus Vaccine, Quadrivalent, 3 Yr > [id number] Quad, Preserv Free 83466 Given 06/08/2017 Prevnar-13 Pneumococcal Conjugate Vaccine [id number] 25438 Given 05/22/2016 Influenza Virus Vaccine, Quadrivalent, 3 Yr > [id number] Quad, Preserv Free 37360 Given 08/13/2015 Influenza Virus Vaccine, Quadrivalent, 3 Yr > [id number] Quad, Preserv Free 92601 Given 06/05/2014 Influenza Virus Vaccine, Quadrivalent, 3 Yr > [id number] Quad, Preserv Free 02922 Given 05/16/2013 Influenza Vaccine-Preservative Free 3 Yrs And [id number] Above 15490 Given 05/16/2013 Pneumovax 23 (PPSV23) 65+ years or high risk 2 to [id number] 66 year old 95764 Given 07/01/2012 Influenza Vaccine-Preservative Free 3 Yrs And [id number] Above 10011 Given 07/12/2011 Influenza Vaccine-Preservative Free 3 Yrs And [id number] Above 48663 Given 07/21/2010 Influenza Vaccine-Preservative Free 3 Yrs And [id number] Above 09697 Given 04/20/2010 Tdap (Adacel) [id number] 09550 Given 09/11/2009 H1N1 Influenza Vaccine [id number] 31630 Given 09/11/2009 Influenza Virus Vaccine, 3 Yrs And Above 70717 Given 09/11/2009 Influenza Vaccine-Preservative Free 3 Yrs And [id number] Above 93540 Given 09/11/2009 H1N1 Immunization Administration, Including Counseling [...] Result H/L Range Note Laboratory test 11/19/2019 [facility] Blood SEE RESULT 1 finding [phone] Culture BELOW Urine Culture And 11/19/2019 [facility] Urine SEE RESULT 2 Sensitivities [phone] Culture BELOW Urinalysis Profile 11/19/2019 [facility] Urine Color Straw [phone] Urine Appearance Clear Urine Specific [place] 1.004 Low 1.010-1.030 Urine pH 7.0 Normal [...] Cell Present Abnormal Absent Laboratory test 11/19/2019 [facility] Magnesium 1.9 mg/dL Normal 1.9-2.7 finding [phone] C Reactive Protein 69.95 mg/L High <8.01 B-Type Natriuretic Peptide BNP 24 pg/mL <=100 Laboratory test 11/19/2019 [facility] Lactic Acid 1.7 mmol/L Normal 0.5-2.0 4 finding [phone] CBC Auto Diff 11/19/2019 [facility] White Blood 4.6 10^3/uL Normal 3.5-10.8 [phone] Count Red Blood Count 4.04 10^6/uL Normal [...] Blood Cells % 0.1 Comp Metabolic 11/19/2019 [facility] Sodium 134 mmol/ L Low 135-145 Panel [phone] Potassium 4.5 mmol/L Normal 3.5-5.0 Chloride 98 [...] >60 Egfr 132.7 >60 5 Inr/Protime 11/19/2019 [facility] Inr 0.98 Normal 0.82-1.09 6 [phone] Laboratory test 11/19/2019 [facility] Partial 30.8 Normal 26.0-38.0 finding [phone] Thrombo seconds Time PTT Troponin-I (TnI) 0.00 ng/mL <0.03 7 Urine Culture And 11/18/2019 [facility] Urine Culture SEE RESULT 8 Sensitivities [phone] BELOW Urinalysis Profile 11/18/2019 [facility] Urine Color Straw [phone] Urine Appearance Clear Urine Specific [place] 1.008 Low 1.010-1.030 Urine pH 8.0 Normal 5-9 Urine Urobilinogen Negative Negative Urine Ketones Negative Negative Urine Protein Negative Negative Urine Leukocytes Negative Negative Urine Blood Negative Negative Urine Nitrite Negative Negative Urine Bilirubin Negative Negative Urine Glucose Negative Negative Comp Metabolic 11/01/2019 [facility] Sodium 133 mmol/ L Low 135-145 Panel [phone] Potassium 3.7 mmol/L Normal 3.5-5.0 Chloride 98 [...] Egfr 100.9 >60 9 Laboratory test 11/01/2019 [facility] Troponin-I (TnI ) 0.00 ng/mL <0.03 10 finding [phone] Lactic Acid 1.2 mmol/L Normal 0.5-2.0 11 Venous Blood 11/01/2019 [facility] Venous Blood 7.37 Normal 7.32-7.43 Gas [phone] pH Venous Pco2 51 mmHg Normal 41-51 Venous Po2 < 38.0 mmHg Normal 35-45 Venous O2 Saturation 58.3 % Low 70-80 Venous Blood Base Excess 3.1 mmol/L Normal 0.0-4.0 12 Venous Bicarbonate Hco3 26.3 mmol/L Normal 24-28 Laboratory test 11/01/2019 [facility] B-Type 20 pg/ mL <=100 finding [phone] Natriuretic Peptide BNP CBC Auto Diff 11/01/2019 [facility] White Blood 2.4 Low 3.5-10.8 [phone] Count 10^3/uL Red Blood Count 4.63 10^6/uL [...] Blood Cells % 0.3 Laboratory test 11/01/2019 [facility] Blood SEE RESULT 13 finding [phone] Culture BELOW Venous Blood Gas 10/30/2019 [facility] Venous Blood 7.40 Normal 7.32- [phone] pH 7.43 Venous Pco2 44 mmHg Normal 41-51 Venous Po2 53.0 mmHg High 35-45 Venous O2 Saturation 88.3 % High 70-80 Venous Blood Base Excess 2.0 mmol/L Normal 0.0-4.0 14 Venous Bicarbonate Hco3 26.2 mmol/L Normal 24-28 Influenza A & B 10/29/2019 [facility] Flu AB Disclaimer (SEE NOTE) 15 Request [phone] Influenza A Molecular POSITIVE Abnormal Negative 16 CBC Auto 10/02/2019 [facility] White Blood 5.9 10^3/ uL Normal 3.5-10.8 Diff [phone] Count Red Blood Count 4.42 10^6/uL Normal [...] Blood Cells % 0.1 Laboratory test 09/27/2019 [facility] Flu PCR NEGATIVE finding Laboratory test 09/05/2019 [facility] Vitamin B12 1009 pg/mL High 180-914 17 finding [phone] Urine Culture And 09/05/2019 [facility] Urine Culture SEE RESULT 18, Sensitivities [phone] BELOW 19 Urine DIP 09/05/2019 In House Lab Leukocytes 2+ Neg (607)- - Urine Nitrites NEg Neg Urobilinogen NORM Norm Total Protein Urine NEG Neg Urine pH 6.0 5-6 Urine Blood NEG Neg Specific [place] 1.01 1.01-1.02 Urine Ketones NEG Neg Urine Bilirubin NEG Neg Urine Glucose NEG Norm Comp Metabolic 08/21/2019 [facility] Sodium 139 mmol/ L Normal 135-145 20 Panel [phone] Potassium 3.7 mmol/L Normal 3.5-5.0 Chloride 104 [...] Egfr 97.7 >60 21 Laboratory test 08/21/2019 [facility] TSH (Thyroid 3.87 Normal 0.34-5.60 22 finding [phone] Stimulating mcIU/mL Horm) CBC W/Auto 08/21/2019 [facility] Hematocrit <pending> Differential MCV (Corpuscular Volume) <pending> MCH (Corpuscular Hemoglobin) <pending> MCHC (Corpuscular Hemog Conc) <pending> RDW <pending> MPV <pending> Neutrophils <pending> Monocytes <pending> Absolute Basophils <pending> Absolute Eosinophils <pending> Absolute Lymphocytes <pending> Absolute Monocytes <pending> CMP - Comprehensive 08/21/2019 [facility] Albumin <pending> Metabolic SGPT (Alt) <pending> Calcium <pending> Carbon Dioxide <pending> Chloride <pending> Creatinine <pending> Glucose <pending> Alkaline Phosphatase <pending> Potassium <pending> Protien, Total <pending> Sodium <pending> Sgot (Ast) <pending> BUN - Urea Nitrogen <pending> Bilirubin Total <pending> Laboratory test 08/21/2019 [facility] TSH (Thyroid <pending> finding Stimulating Horm) CBC Auto Diff 08/21/2019 [facility] White Blood 6.9 10^3/uL Normal 3.5-3 [phone] Count 0.8 Red Blood Count 4.43 10^6/uL [...] [address]: Adrienne Us DO Acct: [id number] Unit: [id number] AGE: 64 Location: [place] [address] Re11/19/19 Dis: 11/22/19 SEX: F Status: DIS IN SPEC: [id number] NYDIA: 11/19/19-1304 [facility] DR: Anju CALVIN REQ: [id number] RECD: 11/19/19 STATUS: COMP SATHYA DR: Corry Moore INFORMATION SECURITY SYSTEMS INSTRUCTOR _ SOURCE: BLOOD,VENO SPDESC: ORDERED: Blood Cult COMMENTS: Blood Culture bottles (both) are overfilled. Increased chance of false positive results. Verbal to [id number] by [id number] at 1401 on 11/19/19. Procedure Result Reported Site Aerobic Culture Bottle Final 11/24/19- 1338 ML No Growth Day 5 Anaerobic Culture Bottle Final 11/24/19- 1338 ML No Growth Day 5 * ML - Main Lab . END OF REPORT DEPARTMENT OF PATHOLOGY, [address] [place] [address] Momo Smalls M.D. Director [facility] # [id number] 2 SEE RESULT BELOW Name: NU CABA : [address]: Adrienne Us DO Acct: [id number] Unit: [id number] AGE: 64 Location: [place] [address] Re11/19/19 SEX: F Status: ADM IN SPEC: [id number] NYDIA: 11/19/19-1424 [facility] DR: Anju CALVIN REQ: [id number] RECD: 11/19/19 STATUS: COMP [facility] DR: Corry Moore INFORMATION SECURITY SYSTEMS INSTRUCTOR _ SOURCE: URINE SPDESC: ORDERED: Urine Culture Procedure Result Reported Site Urine Culture Final 11/20/19- 0948 ML No Growth (<1,000 CFU/mL) * ML - Main Lab . END OF REPORT DEPARTMENT OF PATHOLOGY, [address] [place] [address] Momo Smalls M.D. Director [facility] # [id number] 3 *Ascorbic acid is present which may interfere with detection of blood. 4 [facility] Severe Sepsis and Septic Shock Management Bundle [...] immediately to secondary confirmatory testing. Using the neoSaej DxI 800 Access Immunoassay systems, the 99th percentile upper reference limit was demonstrated to be < 0.03 ng/mL. 8 SEE RESULT BELOW Name: NU CABA : [address]: Elías Moore NP Acct: [id number] Unit: [id number] AGE: 64 Location: [facility] Re11/18/19 SEX: F Status: REG REF SPEC: [id number] NYDIA: 11/18/19-[address]: Elías Moore NP REQ: [id number] RECD: 11/18/19 STATUS: COMP _ SOURCE: URINE SPDESC: ORDERED: Urine Culture Urine Source: Random Procedure Result Reported Site Urine Culture Final 11/19/19- 1108 ML No Growth (<1,000 CFU/mL) * ML - Main Lab . END OF REPORT DEPARTMENT OF PATHOLOGY, [address] [place] [address] Momo Smalls M.D. Director [facility] # [id number] 9 Because ethnic data is not always [...] immediately to secondary confirmatory testing. Using the neoSaej DxI 800 Access Immunoassay systems, the 99th percentile upper reference limit was demonstrated to be < 0.03 ng/mL. 11 [facility] Severe Sepsis and Septic Shock Management Bundle Measure requires all lactic acids initially measuring >2.0 mmol/L be repeated. 12 Reference ranges based on room air. 13 SEE RESULT BELOW Name: NU CABA : [address]: Nancie Lopez MD Acct: [id number] Unit: [id number] AGE: 64 Location: [facility] 420 Re11/01/19 SEX: F Status: ADM IN SPEC: [id number] NYDIA: 11/01/19 [facility] [address]: Jareth Ross MD REQ: [id number] RECD: 11/01/19 STATUS: MIRIAN MCDONNELL DR: Elías Moore INFORMATION SECURITY SYSTEMS INSTRUCTOR _ SOURCE: BLOOD,VENO SPDESC: ORDERED: Blood Cult Procedure Result Reported Site Aerobic Culture Bottle Final 11/06/19- 1554 ML No Growth Day 5 Anaerobic Culture Bottle Final 11/06/19- 155 ML No Growth Day 5 * - [facility] . END OF REPORT DEPARTMENT OF PATHOLOGY, [address] [place] [address] Momo Smalls M.D. Director [facility] # [id number] 14 Reference ranges based on room air. 15 Suboptimal collection technique may reduce sensitivity of test. Refer to the [facility] Test Catalog for collection information: [email or web address] As with all diagnostic procedures, the laboratory results obtained should be used in conjunction with other clinical information available to the physician, including confirmation by another method, as applicable. 16 Blending Machine Operator: [id number] Normal Range 180 to 914 Indeterminate Range 145 to 180 Deficient Range <145 18 [id number] 19 SEE RESULT BELOW Name: NU CABA : [address]: Elías Moore NP Acct: [id number] Unit: [id number] AGE: 64 Location: [facility] Re09/05/19 SEX: F Status: REG REF SPEC: [id number] NYDIA: 09/05/19-[address]: Elías Moore NP REQ: [id number] RECD: 09/05/19 STATUS: COMP _ SOURCE: URINE SPDESC: ORDERED: Urine Culture COMMENTS: [id number] Urine Source: Random Procedure Result Reported Site Urine Culture Final 09/07/19- 1237 ML No growth of clinically significant organisms * ML - Main Lab . END OF REPORT DEPARTMENT OF PATHOLOGY, [address] [place] [address] Momo Smalls M.D. Director [facility] # [id number] 20 [id number] 21 Because ethnic data is not always [...] 5 Kidney failure <15 (or dialysis) 22 [id number] Procedures Date Code Description Status 10/01/2019 36061 Oximetry-Multiple Determinations Completed Medical Devices Description No Information Available Encounters Type Date Location Provider Dx Diagnosis Office Visit 11/28/2019 Main Office Elías Moore J16.8 Pneumonia due to other 3:00p [employer] specified infectious organisms Office Visit 09/27/2019 Main Office Asia Galloway NP J06.9 Acute upper 11:00a respiratory infection, unspecified Office Visit 09/23/2019 Main Office Elías Moore J44.1 Chronic obstructive 9:45a [employer] pulmonary disease w (acute) exacerbation F41.9 Anxiety disorder, unspecified Office Visit 08/21/2019 1:30p Main Office Elías Healy J44.1 Chronic obstructive Storm, [employer] pulmonary disease w (acute) exacerbation F32.89 Other specified depressive episodes R50.9 Fever, unspecified Office Visit 06/30/2019 10:15a Main Office Destini Medrano44.1 Chronic obstructive INFORMATION SECURITY SYSTEMS INSTRUCTOR pulmonary disease w (acute) exacerbation Assessments Date Code Description Provider 11/28/2019 J16.8 Pneumonia Pedrownti R. Oscar, [employer] 10/01/2019 J44.1 Chronic obstructive pulmonary disease with Shawnti R. Storm , [employer] (acute) exacerbation 10/01/2019 J44.1 Chronic obstructive pulmonary disease with [facility] (acute) exacerbation 09/27/2019 J06.9 Acute upper respiratory infection, Asia Galloway NP unspecified 09/23/2019 J44.1 Chronic obstructive pulmonary disease with Shawnti R. Storm , [employer] (acute) exacerbation 09/23/2019 F41.9 Anxiety disorder, unspecified Shawnti R. Storm, [employer] 09/05/2019 R41.3 Other amnesia Shawnti R. Storm, [employer] 09/05/2019 R41.3 Other amnesia Lab and Office [...]
--- OUTSIDE RECORDS SUMMARY | 2019-12-04 22:09 | XMS REPORT | Continuity of Care Document ---
:1955 External Reference #:[id number] Author Name MARTÍNEZ Sarkar (transmitted by agent of provider Maria C Perez) Address [address] [place] [address] Care Team Providers Name Role Phone Sarah Ross - Dermatology Care Team Information Order Department Supervisor [phone] Hussain Lundberg - Orthopaedic Surgery Care Team Information Order Department Supervisor [phone] William Chino M.D. - Orthopaedic Care Team Information Order Department Supervisor [phone] Surgery Problems Active Problems Provider Date Chronic [...] SIG Qnty Indications Ordering Date Provider Ipratropium [place] use one vial in 150ml Elías Healy 11/11/2019 0.02% nebulizer up to 4 [place] Moore-Arik Solution times daily for breathing. can mix with levalbuterol Oxygen Concentrator 2 liters oxygen 1units Elías Healy 10/21/2019 via nasal cannula CESAR MooreP-C at bedtime for COPD with hypoxia Dx: j44.1 Robafen take 10ml by mouth 237units J44.9 Elías R. 09/04/2019 100mg/5ML Syrup every 6 hours as Storm, SYSTEMS ENGINEER-C needed for cough and mucus Oxygen Concentrator use as directed Elías R. 07/04/2019 Storm, SYSTEMS ENGINEER-C Portable Oxygen use as directed. Elías RMed 07/04/2019 Machine Storm, SYSTEMS ENGINEER-C Doxycycline 1 by mouth twice 20caps J44.1 Asia Nilesh, 06/30/2019 Monohydrate daily for 10 days SOCCER REFEREE 100mg Capsules Nebulizer Supplies nebulizer mask and J44.1 Elías R. 06/20/2019 tubing, use as Storm, SYSTEMS ENGINEER-C directed Ondansetron HCL take one tablet by 90tabs Elías R. 06/13/2019 4mg mouth every 8 Storm, SYSTEMS ENGINEER-C Tablets hours as needed for nausea/vomiting Oxybutynin Chloride ER once daily for 90tabs N39.46 Elías R. 05/29/2019 urination Storm, SYSTEMS ENGINEER-C 15mg Tablets ER 24HR Lidocaine apply pea sized 15gm Elías R. 05/29/2019 4% Cream amount to affected Storm, SYSTEMS ENGINEER-C area three times daily Senna Laxative 1 by mouth daily 30tabs K59.00 Elías R. 05/29/2019 8.6mg if needed for Storm, SYSTEMS ENGINEER-C Tablets constipation Miralax 1 heaping teaspoon 238gm K59.00 Pedrokarly R. 05/29/2019 3350NF Powder in 8 ounces of Storm, SYSTEMS ENGINEER-C fluid by mouth daily Lidocaine-Prilocaine apply thin layer 25gm Elías R. 05/28/2019 to [facility] Storm, SYSTEMS ENGINEER-C 2.5-2.5% Cream three times daily if needed for pain Levalbuterol HCL use in nebulizer 90ml J44.1 Elías R. 05/08/2019 every 4 hours if Storm, SYSTEMS ENGINEER-C 1.25mg/3ML Nebulizer needed for breathing (replaces albuterol) Albuterol Sulfate inhale the 75units J44.1 Elías R. 05/01/2019 contents of 1 vial Storm, SYSTEMS ENGINEER-C 1.25mg/3ML Nebulizer via nebulizer every 4 hours if needed Ketoconazole apply to rash on 60gm B35.8 [facility] R. 05/01/2019 2% Cream twice daily until Storm, SYSTEMS ENGINEER-C better Levofloxacin 1 by mouth daily 7tabs J44.1 [facility] R. 05/01/2019 750mg for 7 days for Storm, SYSTEMS ENGINEER-C Tablets pneumonia Prednisone one pill by mouth 5tabs J44.1 Asia Nilesh, 05/01/2019 50mg Tablets daily for 5 days SOCCER REFEREE for breathing Folic Acid 1 by mouth every 90tabs C50.911 [facility] R. 05/01/2019 1mg Tablets day Storm, SYSTEMS ENGINEER-C Vitamin B-12 one by mouth daily 90tabs C50.911 [facility] R. 05/01/2019 1000mcg Storm, SYSTEMS ENGINEER-C Tablets Benzonatate 1 by mouth three 60caps [facility] R. 05/01/2019 200mg times a day for Storm, SYSTEMS ENGINEER-C Capsules cough Selenium Sulfide apply to affected 120ml B35.8 [facility] R. 05/01/2019 2.5% area three times Storm, SYSTEMS ENGINEER-C Lotion per week, rinse off after 5 minutes Advair Diskus inhale one puff by 60units J44.9 [facility] R. 04/15/2019 mouth twice a day Storm, SYSTEMS ENGINEER-C 500-50mcg/Dose Aerosol Pulse Oximeter For use as needed when 1units J44.1 [facility] R. 04/08/2019 Finger short of breath Storm, SYSTEMS ENGINEER-C Misc Nystatin apply to groin 30gm [facility] R. 04/08/2019 113423Xlvf/GM three times daily Storm, SYSTEMS ENGINEER-C Powder until resolved Prochlorperazine 1 tab by mouth 30tabs [facility] R. 04/08/2019 Maleate every 6 hours if Storm, SYSTEMS ENGINEER-C 10mg Tablets needed for nausea Ibuprofen take one tablet by 90tabs [facility] R. 02/19/2019 800mg Tablets mouth every 8 Storm, SYSTEMS ENGINEER-C hours with food as needed for pain Gabapentin take one tablet by 120tabs [facility] R. 02/19/2019 600mg Tablets mouth four times a Storm, SYSTEMS ENGINEER-C day Oxygen 2L nasal canula J44.9 [facility] R. 02/04/2019 for COPD Storm, SYSTEMS ENGINEER-C Ventolin HFA inhale two puffs 54gm J44.9 [facility] R. 02/04/2019 108(90Base) by mouth every 4 Storm, SYSTEMS ENGINEER-C mcg/Act Aerosol hours as needed for wheeze Morphine Sulfate ER Take One Tablet [facility] 60tabs [facility]9 [facility] 02/04[facility]2019 30mg Mouth Twice A Day; Storm, SYSTEMS ENGINEER-C Tablets ER Maximum Daily Dose = 2 Morphine Sulfate 1 by mouth every 4 60tabs J44.9 [facility] R. 02/04/2019 15mg hours if needed Storm, SYSTEMS ENGINEER-C Tablets for breathing Spiriva Handihaler inhale the 30caps J44.9 [facility] R. 02/04/2019 18mcg contents of one Storm, SYSTEMS ENGINEER-C Capsules capsule once a day via handihaler device as directed. Colace 2 by mouth twice 180caps [facility] R. 02/04/2019 100mg Capsules daily if needed Storm, SYSTEMS ENGINEER-C for stools Nitroglycerin use one tab under 100tabs [facility] R. 04/05/2017 0.4mg tongue if needed Storm, SYSTEMS ENGINEER-C Tablets Sub for chest pain, may repeat in 5 minutes...call 911 if needed Buspirone HCL Take One Tablet By 45tabs [facility]. 03/01/2016 10mg Mouth Three Times [facility], SYSTEMS ENGINEER-C Tablets A Day as Needed For Anxiety Poise Hourglass Shape wear daily for 90units [facility] R. 11/04/2015 Pads/Moderate urine incontinence [facility], SYSTEMS ENGINEER-C Absorbency Pads Cane/Aluminum/Adjustab use as needed for 1units [facility] R. 11/04/2015 le/Ladies Handle ambulation Storm, SYSTEMS ENGINEER-C Misc Methylphenidate HCL take three tablets 120tabs [facility] R. 04/01/2012 20mg by mouth every Storm, SYSTEMS ENGINEER-C Tablets morning and one every afternoon; maximum daily dose = 4 Alprazolam take 1 tablet by 90tabs [facility] R. 0.25mg Tablets mouth every 8 Storm, SYSTEMS ENGINEER-C hours as needed for anxiety maximum daily dose 3 Pantoprazole Sodium 1 by mouth every 90tabs Elías Healy 40mg day Storm, SYSTEMS ENGINEER-C Tablets DR Johnson 1 by mouth Unknown 500mg Chewtabs everyday Probiotic Unknown Capsules Paclitaxel Unknown 150mg/25ML Concentrate History Medications Sertraline HCL 1 by mouth every 30tabs F32.89 Elías Healy 08/21/2019 - 50mg day Storm, SYSTEMS ENGINEER-C 09/23/2019 Tablets Nebulizer Tubing Nebulizer mask and 10units 491.21 Elías Healy 06/20/2019 - tubing, use as Storm, SYSTEMS ENGINEER-C 06/20/2019 directed Immunizations CPT Code Status Date Vaccine Lot # [id number] Given 05/23/2019 Influenza Virus Vaccine, Quadrivalent, 3 Yr > [id number] Quad, Preserv Free 65765 Given 06/15/2018 Influenza Virus Vaccine, Quadrivalent, 3 Yr > [id number] Quad, Preserv Free 26352 Given 06/08/2017 Zoster Vaccine [id number] 19775 Given 06/08/2017 Influenza Virus Vaccine, Quadrivalent, 3 Yr > [id number] Quad, Preserv Free 07699 Given 06/08/2017 Prevnar-13 Pneumococcal Conjugate Vaccine [id number] 65821 Given 05/22/2016 Influenza Virus Vaccine, Quadrivalent, 3 Yr > [id number] Quad, Preserv Free 89317 Given 08/13/2015 Influenza Virus Vaccine, Quadrivalent, 3 Yr > [id number] Quad, Preserv Free 22508 Given 06/05/2014 Influenza Virus Vaccine, Quadrivalent, 3 Yr > [id number] Quad, Preserv Free 40248 Given 05/16/2013 Influenza Vaccine-Preservative Free 3 Yrs And [id number] Above 82775 Given 05/16/2013 Pneumovax 23 (PPSV23) 65+ years or high risk 2 to [id number] 66 year old 79000 Given 07/01/2012 Influenza Vaccine-Preservative Free 3 Yrs And [id number] Above 89756 Given 07/12/2011 Influenza Vaccine-Preservative Free 3 Yrs And [id number] Above 69294 Given 07/21/2010 Influenza Vaccine-Preservative Free 3 Yrs And [id number] Above 63920 Given 04/20/2010 Tdap (Adacel) [id number] 80950 Given 09/11/2009 H1N1 Influenza Vaccine [id number] 32517 Given 09/11/2009 Influenza Virus Vaccine, 3 Yrs And Above 64388 Given 09/11/2009 Influenza Vaccine-Preservative Free 3 Yrs And [id number] Above 50665 Given 09/11/2009 H1N1 Immunization Administration, Including Counseling [...] Result H/L Range Note Laboratory test 11/19/2019 [facility] Blood SEE RESULT 1 finding [phone] Culture BELOW Urine Culture And 11/19/2019 [facility] Urine SEE RESULT 2 Sensitivities [phone] Culture BELOW Urinalysis Profile 11/19/2019 [facility] Urine Color Straw [phone] Urine Appearance Clear Urine Specific [place] 1.004 Low 1.010-1.030 Urine pH 7.0 Normal [...] Cell Present Abnormal Absent Laboratory test 11/19/2019 [facility] Magnesium 1.9 mg/dL Normal 1.9-2.7 finding [phone] C Reactive Protein 69.95 mg/L High <8.01 B-Type Natriuretic Peptide BNP 24 pg/mL <=100 Laboratory test 11/19/2019 [facility] Lactic Acid 1.7 mmol/L Normal 0.5-2.0 4 finding [phone] CBC Auto Diff 11/19/2019 [facility] White Blood 4.6 10^3/uL Normal 3.5-10.8 [phone] Count Red Blood Count 4.04 10^6/uL Normal [...] Blood Cells % 0.1 Comp Metabolic 11/19/2019 [facility] Sodium 134 mmol/ L Low 135-145 Panel [phone] Potassium 4.5 mmol/L Normal 3.5-5.0 Chloride 98 [...] >60 Egfr 132.7 >60 5 Inr/Protime 11/19/2019 [facility] Inr 0.98 Normal 0.82-1.09 6 [phone] Laboratory test 11/19/2019 [facility] Partial 30.8 Normal 26.0-38.0 finding [phone] Thrombo seconds Time PTT Troponin-I (TnI) 0.00 ng/mL <0.03 7 Urine Culture And 11/18/2019 [facility] Urine Culture SEE RESULT 8 Sensitivities [phone] BELOW Urinalysis Profile 11/18/2019 [facility] Urine Color Straw [phone] Urine Appearance Clear Urine Specific [place] 1.008 Low 1.010-1.030 Urine pH 8.0 Normal 5-9 Urine Urobilinogen Negative Negative Urine Ketones Negative Negative Urine Protein Negative Negative Urine Leukocytes Negative Negative Urine Blood Negative Negative Urine Nitrite Negative Negative Urine Bilirubin Negative Negative Urine Glucose Negative Negative Comp Metabolic 11/01/2019 [facility] Sodium 133 mmol/ L Low 135-145 Panel [phone] Potassium 3.7 mmol/L Normal 3.5-5.0 Chloride 98 [...] Egfr 100.9 >60 9 Laboratory test 11/01/2019 [facility] Troponin-I (TnI ) 0.00 ng/mL <0.03 10 finding [phone] Lactic Acid 1.2 mmol/L Normal 0.5-2.0 11 Venous Blood 11/01/2019 [facility] Venous Blood 7.37 Normal 7.32-7.43 Gas [phone] pH Venous Pco2 51 mmHg Normal 41-51 Venous Po2 < 38.0 mmHg Normal 35-45 Venous O2 Saturation 58.3 % Low 70-80 Venous Blood Base Excess 3.1 mmol/L Normal 0.0-4.0 12 Venous Bicarbonate Hco3 26.3 mmol/L Normal 24-28 Laboratory test 11/01/2019 [facility] B-Type 20 pg/ mL <=100 finding [phone] Natriuretic Peptide BNP CBC Auto Diff 11/01/2019 [facility] White Blood 2.4 Low 3.5-10.8 [phone] Count 10^3/uL Red Blood Count 4.63 10^6/uL [...] Blood Cells % 0.3 Laboratory test 11/01/2019 [facility] Blood SEE RESULT 13 finding [phone] Culture BELOW Venous Blood Gas 10/30/2019 [facility] Venous Blood 7.40 Normal 7.32- [phone] pH 7.43 Venous Pco2 44 mmHg Normal 41-51 Venous Po2 53.0 mmHg High 35-45 Venous O2 Saturation 88.3 % High 70-80 Venous Blood Base Excess 2.0 mmol/L Normal 0.0-4.0 14 Venous Bicarbonate Hco3 26.2 mmol/L Normal 24-28 Influenza A & B 10/29/2019 [facility] Flu AB Disclaimer (SEE NOTE) 15 Request [phone] Influenza A Molecular POSITIVE Abnormal Negative 16 CBC Auto 10/02/2019 [facility] White Blood 5.9 10^3/ uL Normal 3.5-10.8 Diff [phone] Count Red Blood Count 4.42 10^6/uL Normal [...] Blood Cells % 0.1 Laboratory test 09/27/2019 [facility] Flu PCR NEGATIVE finding Laboratory test 09/05/2019 [facility] Vitamin B12 1009 pg/mL High 180-914 17 finding [phone] Urine Culture And 09/05/2019 [facility] Urine Culture SEE RESULT 18, Sensitivities [phone] BELOW 19 Urine DIP 09/05/2019 In House Lab Leukocytes 2+ Neg [phone] Urine Nitrites NEg Neg Urobilinogen NORM Norm Total Protein Urine NEG Neg Urine pH 6.0 5-6 Urine Blood NEG Neg Specific [place] 1.01 1.01-1.02 Urine Ketones NEG Neg Urine Bilirubin NEG Neg Urine Glucose NEG Norm Comp Metabolic 08/21/2019 [facility] Sodium 139 mmol/ L Normal 135-145 20 Panel [phone] Potassium 3.7 mmol/L Normal 3.5-5.0 Chloride 104 [...] Egfr 97.7 >60 21 Laboratory test 08/21/2019 [facility] TSH (Thyroid 3.87 Normal 0.34-5.60 22 finding [phone] Stimulating mcIU/mL Horm) CBC W/Auto 08/21/2019 [facility] Hematocrit <pending> Differential MCV (Corpuscular Volume) <pending> MCH (Corpuscular Hemoglobin) <pending> MCHC (Corpuscular Hemog Conc) <pending> RDW <pending> MPV <pending> Neutrophils <pending> Monocytes <pending> Absolute Basophils <pending> Absolute Eosinophils <pending> Absolute Lymphocytes <pending> Absolute Monocytes <pending> CMP - Comprehensive 08/21/2019 [facility] Albumin <pending> Metabolic SGPT (Alt) <pending> Calcium <pending> Carbon Dioxide <pending> Chloride <pending> Creatinine <pending> Glucose <pending> Alkaline Phosphatase <pending> Potassium <pending> Protien, Total <pending> Sodium <pending> Sgot (Ast) <pending> BUN - Urea Nitrogen <pending> Bilirubin Total <pending> Laboratory test 08/21/2019 [facility] TSH (Thyroid <pending> finding Stimulating Horm) CBC Auto Diff 08/21/2019 [facility] White Blood 6.9 10^3/uL Normal 3.5-4 [phone] Count 0.8 Red Blood Count 4.43 10^6/uL [...] [address]: Adrienne Us DO Acct: [id number] Unit: [id number] AGE: 64 Location: [place] [address] Re11/19/19 Dis: 11/22/19 SEX: F Status: DIS IN SPEC: [id number] NYDIA: 11/19/19-1305 [facility] DR: Anju CALVIN REQ: [id number] RECD: 11/19/19 STATUS: MIRIAN MCDONNELL DR: Corry Moore SOCCER REFEREE _ SOURCE: BLOOD,VENO SPDESC: ORDERED: Blood Cult COMMENTS: Blood Culture bottles (both) are overfilled. Increased chance of false positive results. Verbal to [id number] by [id number] at 1401 on 11/19/19. Procedure Result Reported Site Aerobic Culture Bottle Final 11/24/19- 1338 ML No Growth Day 5 Anaerobic Culture Bottle Final 11/24/19- 1338 ML No Growth Day 5 * ML - Main Lab . END OF REPORT DEPARTMENT OF PATHOLOGY, [address] [place] [address] Momo Smalls M.D. Director [facility] # [id number] 2 SEE RESULT BELOW Name: NU CABA : [address]: Adrienne Us DO Acct: [id number] Unit: [id number] AGE: 64 Location: [place] [address] Re11/19/19 SEX: F Status: ADM IN SPEC: [id number] NYDIA: 11/19/19 [facility] DR: Anju CALVIN REQ: [id number] RECD: 11/19/19 STATUS: MIRIAN MCDONNELL DR: Corry Moore SOCCER REFEREE _ SOURCE: URINE SPDESC: ORDERED: Urine Culture Procedure Result Reported Site Urine Culture Final 11/20/19- 0948 ML No Growth (<1,000 CFU/mL) * ML - Main Lab . END OF REPORT DEPARTMENT OF PATHOLOGY, [address] [place] [address] Momo Smalls M.D. Director [facility] # [id number] 3 *Ascorbic acid is present which may interfere with detection of blood. 4 [facility] Severe Sepsis and Septic Shock Management [...] immediately to secondary confirmatory testing. Using the Cardio control 800 Access Immunoassay systems, the 99th percentile upper reference limit was demonstrated to be < 0.03 ng/mL. 8 SEE RESULT BELOW Name: NU CABA : [address]: Elías Moore NP Acct: [id number] Unit: [id number] AGE: 64 Location: [facility] Re11/18/19 SEX: F Status: REG REF SPEC: [id number] NYDIA: 11/18/19-[address]: Elías Moore NP REQ: [id number] RECD: 11/18/19 STATUS: COMP _ SOURCE: URINE SPDESC: ORDERED: Urine Culture Urine Source: Random Procedure Result Reported Site Urine Culture Final 11/19/19- 1108 ML No Growth (<1,000 CFU/mL) * ML - Main Lab . END OF REPORT DEPARTMENT OF PATHOLOGY, [address] [place] [address] Momo Smalls M.D. Director [facility] # [id number] 9 Because ethnic data is not always [...] immediately to secondary confirmatory testing. Using the [employer] DxI 800 Access Immunoassay systems, the 99th percentile upper reference limit was demonstrated to be < 0.03 ng/mL. 11 [facility] Severe Sepsis and Septic Shock Management Bundle Measure requires all lactic acids initially measuring >2.0 mmol/L be repeated. 12 Reference ranges based on room air. 13 SEE RESULT BELOW Name: CABANU : [address]: Nancie Lopez MD Acct: [id number] Unit: [id number] AGE: 64 Location: [facility] 420 Re11/01/19 SEX: F Status: ADM IN SPEC: [id number] NYDIA: 11/01/19 [facility] DR: Jareth Ross MD REQ: [id number] RECD: 11/01/19 STATUS: COMP OTHR DR: Elías Moore SOCCER REFEREE _ SOURCE: BLOOD,VENO SPDESC: ORDERED: Blood Cult Procedure Result Reported Site Aerobic Culture Bottle Final 11/06/19- 1554 ML No Growth Day 5 Anaerobic Culture Bottle Final 11/06/19- 1554 ML No Growth Day 5 * - [facility] . END OF REPORT DEPARTMENT OF PATHOLOGY, [address] [place] [address] Momo Smalls M.D. Director [facility] # [id number] 14 Reference ranges based on room air. 15 Suboptimal collection technique may reduce sensitivity of test. Refer to the [facility] Test Catalog for collection information: [email or web address] As with all diagnostic procedures, the laboratory results obtained should be used in conjunction with other clinical information available to the physician, including confirmation by another method, as applicable. 16 Search Advertising Strategist: [id number] Normal Range 180 to 914 Indeterminate Range 145 to 180 Deficient Range <145 18 [id number] 19 SEE RESULT BELOW Name: NU CABA : [address]: Elías Moore NP Acct: [id number] Unit: [id number] AGE: 64 Location: [facility] Re09/05/19 SEX: F Status: REG REF SPEC: [id number] NYDIA: 09/05/19-[address]: Elías Moore NP REQ: [id number] RECD: 09/05/19 STATUS: COMP _ SOURCE: URINE [facility]: ORDERED: Urine Culture COMMENTS: [id number] Urine Source: Random Procedure Result Reported Site Urine Culture Final 09/07/19- 1237 ML No growth of clinically significant organisms * ML - Main Lab . END OF REPORT DEPARTMENT OF PATHOLOGY, [address] [place] [address] Momo Smalls M.D. Director [facility] # [id number] 20 [id number] 21 Because ethnic data is not always [...] 5 Kidney failure <15 (or dialysis) 22 [id number] Procedures Date Code Description Status 10/01/2019 23033 Oximetry-Multiple Determinations Completed Medical Devices Description No Information Available Encounters Type Date Location Provider Dx Diagnosis Office Visit 09/27/2019 Main Office Asia Galloway NP J06.9 Acute upper 11:00a respiratory infection, unspecified Office Visit 09/23/2019 Main Office Pedrownti R. Oscar J44.1 Chronic obstructive 9:45a SYSTEMS ENGINEER-C pulmonary disease w (acute) exacerbation F41.9 Anxiety disorder, unspecified Office Visit 08/21/2019 1:30p Main Office Pedrownti R. J44.1 Chronic obstructive Storm, SYSTEMS ENGINEER-C pulmonary disease w (acute) exacerbation F32.89 Other specified depressive episodes R50.9 Fever, unspecified Office Visit 06/30/2019 10:15a Main Office Asia Galloway J44.1 Chronic obstructive SOCCER REFEREE pulmonary disease w (acute) exacerbation Assessments Date Code Description Provider 10/01/2019 J44.1 Chronic obstructive pulmonary disease with Shawnti R. Storm , SYSTEMS ENGINEER-C (acute) exacerbation 10/01/2019 J44.1 Chronic obstructive pulmonary disease with [facility] (acute) exacerbation 09/27/2019 J06.9 Acute upper respiratory infection, Asia Galloway NP unspecified 09/23/2019 J44.1 Chronic obstructive pulmonary disease with Shawnti R. Storm , SYSTEMS ENGINEER-C (acute) exacerbation 09/23/2019 F41.9 Anxiety disorder, unspecified Shawnti R. Storm, SYSTEMS ENGINEER-C 09/05/2019 R41.3 Other amnesia Shawnti R. Storm, SYSTEMS ENGINEER-C 09/05/2019 R41.3 Other amnesia [facility] 08/21/2019 J44.1 Chronic obstructive pulmonary disease with Shawnti R. Storm , SYSTEMS ENGINEER-C (acute) exacerbation 08/21/2019 F32.89 Other specified depressive episodes Shawnti R. Storm, SYSTEMS ENGINEER- Arik 08/21/2019 R50.9 Fever, unspecified [place] Sarkar-Arik 06/30/2019 J44.1 Chronic obstructive pulmonary disease with Asia Galloway NP (acute) exacerbation Plan of Treatment 09/27/2019 - Asia Nilesh, BRITNEYJ06.9 Acute upper respiratory infection, unspecifiedRecommendations:URI These [...]
--- OUTSIDE RECORDS SUMMARY | 2019-12-04 22:09 | XMS REPORT | Continuity of Care Document ---
:1955 External Reference #:[id number] Author Name Adrienne Us D.O. 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 [phone] Problems Active Problems Provider Date Tendon contracture [...] Inj, Regadenoson, 0.1 MG Sunil Armijo, DO [facility] 05/09/2018 Injection Technetium TC 99M Sunil [...] Result H/L Range Note CBC Auto 10/02/2019 [facility] White Blood 5.9 10^3/uL Normal 3.5-10.[address] [place] [address] [phone] Red Blood Count 4.42 10^6/uL Normal 3.70-4.87 [...] 0.1 Procedures Date Code Description Status 07/22/2019 58614 Diffusing Capacity Completed 07/22/2019 07722 Pulmonary Function><Bronchodil Completed 08/15/2018 [id number] Mammogram Completed 07/26/2018 [id number] Mammogram Completed 11/16/2016 [id number] Mammogram Completed 07/21/2009 [id number] Mammogram Completed 03/17/2009 [id number] Mammogram Completed Medical Devices Description No Information Available Encounters Type Date Location Provider Dx Diagnosis Office Visit 11/21/2019 [facility] Adrienne Magen, J18.9 Pneumonia, 10:09a Assoc,sugey D.O. unspecified Hospitalists organism J44.1 Chronic obstructive pulmonary disease w (acute) exacerbation F41.9 Anxiety disorder, unspecified C50.919 Malignant neoplasm of unsp site of unspecified female breast M54.9 Dorsalgia, unspecified Office Visit 11/20/2019 10:08a [facility] Adrienne J18.9 Pneumonia, Assoc,Mohan NicholsO. unspecified Hospitalists organism J44.1 Chronic obstructive pulmonary disease w (acute) exacerbation F41.9 Anxiety disorder, unspecified C50.919 Malignant neoplasm of unsp site of unspecified female breast M54.9 Dorsalgia, unspecified Office Visit 11/07/2019 11:37a [facility] Nancie J44.1 Chronic Assoc,sugey Gonzales M.D. obstructive Hospitalists pulmonary disease w (acute) exacerbation J09.x2 Flu due to ident novel influenza A virus w oth resp manifest J96.21 Acute and chronic respiratory failure with hypoxia I10 Essential (primary) hypertension E78.5 Hyperlipidemia, unspecified K21.9 Gastro-esophageal reflux disease without esophagitis C50.919 Malignant neoplasm of unsp site of unspecified female breast [facility] Acute and chronic Assoc,sugey Gonzales M.D. respiratory Hospitalists failure with hypoxia J44.1 Chronic obstructive pulmonary disease w (acute) exacerbation J09.x2 Flu due to ident novel influenza A virus w oth resp manifest F41.9 Anxiety disorder, unspecified C50.919 Malignant neoplasm of unsp site of unspecified female breast K21.9 Gastro-esophageal reflux disease without esophagitis Office Visit 11/04/2019 11:34a [facility] Nancie J96.21 Acute and chronic Assoc,sugey Gonzales M.D. respiratory Hospitalists failure with hypoxia J44.1 Chronic obstructive pulmonary disease w (acute) exacerbation J09.x2 Flu due to ident novel influenza A virus w oth resp manifest C50.919 Malignant neoplasm of unsp site of unspecified female breast K21.9 Gastro-esophageal reflux disease without esophagitis [facility] Acute and 11:34a Assoc,sugey Schwartz M.D. chronic Hospitalists respiratory failure with hypoxia J44.1 Chronic obstructive pulmonary disease w (acute) exacerbation F41.9 Anxiety disorder, unspecified C50.919 Malignant neoplasm of unsp site of unspecified female breast K21.9 Gastro-esophageal reflux disease without esophagitis Office Visit 11/02/2019 [facility] J96.21 Acute and 11:33a sugey Aponte M.D. chronic Hospitalists respiratory failure with hypoxia J44.1 Chronic obstructive pulmonary disease w (acute) exacerbation F41.9 Anxiety disorder, unspecified C50.919 Malignant neoplasm of unsp site of unspecified female breast K21.9 Gastro-esophageal reflux disease without esophagitis Office Visit 11/01/2019 [facility] J44.1 Chronic 1:33a suegy Aponte M.D. obstructive Hospitalists pulmonary disease w [...]
[2019-12-04] MEDS ORDERED: Nitroglycerin TAB 0.4 MG* 0.4 MG TAB SL PRN (22:10)
[2019-12-04] MEDS ORDERED: Ondansetron TAB* 4 MG PO PRN (22:10)
[2019-12-04] MEDS ORDERED: busPIRone TAB* 10 MG PO PRN (22:10)
[2019-12-04] MEDS ORDERED: Morphine INJ* 4 MG/ML 1 ML SYRINGE (NEW SYRINGE VERSION) IV PRN (23:50)
[2019-12-05] MEDS ORDERED: Morphine 4 MG/ML VIAL (1 ml) 4 MG/ML VIAL IV PRN (00:13)
[2019-12-05] MEDS ORDERED: Morphine INJ* 4 MG/ML 1 ML SYRINGE (NEW SYRINGE VERSION) IV PRN (01:00)
[2019-12-05] MEDS: fentaNYL* 50 MCG/ML 2 ML VIAL (100 MCG VIAL) IV SLOW PU PRN ×2 (01:40→08:19)
[2019-12-05] MEDS: ALPRAZolam TAB* 0.25 MG PO PRN ×2 (01:41→22:45)
[2019-12-05] MEDS: Morphine ORAL.SOLN 10 mg* 2 MG/ML UDC 5 ml PO PRN ×3 (02:33→12:58)
[2019-12-05] MEDS: NS 0.9% 1000 ML** 1,000 ML IV SCH ×2 (02:34→15:40)
[2019-12-05] MEDS: Heparin VIAL(*) 5000 UNITS/ML VIAL (FIVE THOUSAND) SUBCUT SCH ×3 (05:04→22:00)
--- NOTE | 2019-12-05 06:51 | HP ---
History of Present Illness - History of Present Illness Reason for Visit: fall History of Present Illness: This is a 64-year-old female with hx of breast cancer, COPD who presented with left arm injury. States she fell out of her trailer onto her left shoulder and has been in excruciating pain since. She is on chronic morphine for pain. States this is the worst pain she has ever experienced. XR shows humeral head fracture. Ortho was consulted, no surgical inervention. Recommended sling and discharge. Her pain however could not be managed in the ED. She received a total of 200 of fentanyl IV without any relief. Pt being admitted for pain control. - Past Medical History Cardiac: HTN, Hyperlipidemia Pulmonary: COPD Heme/Onc: Cancer - Past Surgical History Past Surgical History: Appendectomy - Past Family History Family History: CAD - Past Social History Smoke: No Alcohol: None Drugs: None Lives: Alone Domestic Violence: Negative Review of Systems - Measurements Intake and Output: Intake and Output Last 24 Hours 12/02/19 12/03/19 12/04/19 12/05/19 06:59 06:59 06:59 06:59 Output Total 300 Balance -300 Weight 160 lb Output: Urine 300 - Review of Systems Constitutional Symptoms: Negative: Weight Gain, Weight Loss, Weakness, Fatigue, Fever, Night Sweats, Unexplained Falls, Other Dermatology: Negative: Normal, Rash, Skin Lesions, Cancer, Skin Lumps, Other HEENT: Negative: Normal, Change in Hearing, Vertigo, Dental Problems, Tinnitus, Sinus Problem, Other Eyes: Negative: Normal, Change in Vision, Double Vision, Eye Pain, Glaucoma, Cataract, Contacts or Glasses, Other Thyroid: Negative: Normal, Goiter, Thyroid Nodule, Cold Intolerance, Heat Intolerance , Sweatiness, Tremor, Frequent Defecation, Constipation, Palpitations, Primary Hypothyroidism, Primary Hyperthyroidism, Weight Loss, Weight Gain, Change in Skin/Hair, Change in Menstruation, Radiation Exposure, Other Pulmonary: Negative: Normal, Cough, Sputum, Hemoptysis, Wheezing, Respiratory Distress, Shortness of Breath, COPD, Asthma, Exercise Intolerance, Home Oxygen, Other Cardiology: Negative: Normal, Chest Pain, Shortness of Breath, Palpitations, Swelling of Ankles, Peripheral Vascular Dis, Edema, Faintness, Syncope, Claudication, Proximal NocturnalDyspnea, Orthopnoea, Other Gastroenterology: Negative: Normal, Abdominal Pain, Nausea, Vomiting, Anorexia, Indigestion, Difficulty Swallowing, Heartburn, Constipation, Diarrhea, Blood in Stools, Change in Bowel Habits, Haematemesis, Melena, Other Musculoskeletal: Negative: Joint Pain, Joint Stiffness, Arthritis, Osteoporosis, Low Back Pain , Sciatica, Joint Deformities, Kyphoscoliosis, Other Endocrinology: Negative: Normal, Thyroid Problems, Adrenal Problems, Gonadal Problems, Family Hx Endocrine Disorders, Obesity, Diabetes Mellitus, Hyperglycemia, Hx Hypoglycemia, Diabetic Foot Ulcers, Calluses, Hirsutism, Menstrual Abnormalities , Polydipsia, Polyuria, Gonadal Problems, Gynecomastia, Pituitary disease, Other Hematologic/Lymphatic: Negative: Anemia, Easy Bruising, Hx Leukemia, Hx Lymphoma, Use of Anticoagulant, Use of Antiplatelet Drugs, Other Neurology: Negative: Normal, Headache, Migraines, Change in Vision, Diplopia, Dizziness , Change in Balancing, Change in Coordination, Change in Memory, Change in Speech, Change in Sphincter Function, Change in Walking, Numbness\Paresthesiae, Unexplained Weakness, Hx of Stroke\TIA, Hx of Seizures, Other Objective Active Medications: Alprazolam (Xanax Tab*) 0.25 mg PO Q8H PRN PRN Reason: ANXIETY Last Admin: 12/05/19 01:41 Dose: 0.25 mg Benzonatate (Tessalon Cap*) 200 mg PO TID [facility] Buspirone HCl (Buspar Tab*) 10 mg PO TID PRN PRN Reason: ANXIETY Fentanyl Citrate (Fentanyl*) 50 mcg IV SLOW PU Q4H PRN PRN Reason: PAIN - SEVERE Last Admin: 12/05/19 01:40 Dose: 50 mcg Gabapentin (Neurontin Cap(*)) 600 mg PO QID [facility] Heparin Sodium (Porcine) (Heparin Vial(*)) 5,000 units SUBCUT Q8HR [facility] Last Admin: 12/05/19 05:04 Dose: 5,000 units Sodium Chloride (Ns 0.9% 1000 Ml) 1,000 mls @ 75 mls/hr IV PER RATE [facility] Last Admin: 12/05/19 02:34 Dose: 75 mls/hr Methylphenidate HCl (Ritalin Tab*) 20 mg PO DAILY@1500 [facility] Methylphenidate HCl (Ritalin Tab*) 60 mg PO QAM [facility] Mometasone Furoate/Formoterol Fumar (Dulera 200/5 Mdi*) 2 puff INH BID [facility] Morphine Sulfate (Morphine Oral.Soln 10 Mg*) 15 mg PO Q4H PRN PRN Reason: breathing Last Admin: 12/05/19 02:33 Dose: 15 mg Morphine Sulfate (Ms Contin(*)) 30 mg PO BID [facility] Morphine Sulfate (Morphine Inj (Syringe)*) 4 mg IV Q4H PRN PRN Reason: PAIN - SEVERE Last Admin: 12/05/19 05:00 Dose: 4 mg Nitroglycerin (Nitroglycerin Tab 0.4 Mg*) 0.4 mg SL Q5M PRN PRN Reason: ANGINA Nystatin (Nystatin Cream*) 1 applic TOPICAL TID [facility] Ondansetron HCl (Zofran Tab*) 4 mg PO Q8H PRN PRN Reason: NAUSEA/VOMITING Pantoprazole Sodium (Protonix Tab*) 40 mg PO DAILY [facility] Polyethylene Glycol/Electrolytes (Miralax (17 Gm Dose Porter)) 17 gm PO DAILY [facility] Vital Signs - 8 hr 12/04/19 12/04/19 12/05/19 23:13 23:43 00:00 Temperature 98.3 F Pulse Rate 80 Respiratory 17 Rate Blood Pressure 137/91 122/82 122/82 (mmHg) O2 Sat by Pulse 98 Oximetry 12/05/19 12/05/19 12/05/19 00:13 00:18 01:07 Temperature 97.9 F Pulse Rate 88 Respiratory 20 18 Rate Blood Pressure 129/84 126/78 (mmHg) O2 Sat by Pulse 100 Oximetry 12/05/19 12/05/19 12/05/19 01:40 01:41 01:47 Temperature Pulse Rate Respiratory 18 18 16 Rate Blood Pressure (mmHg) O2 Sat by Pulse Oximetry 12/05/19 12/05/19 12/05/19 02:33 02:50 03:50 Temperature Pulse Rate Respiratory 16 16 16 Rate Blood Pressure (mmHg) O2 Sat by Pulse Oximetry 12/05/19 12/05/19 12/05/19 04:19 05:00 06:15 Temperature 98.1 F Pulse Rate 89 Respiratory 16 22 16 Rate Blood Pressure 113/76 (mmHg) O2 Sat by Pulse 97 Oximetry Oxygen Devices in Use Now: Nasal Cannula Eyes: No Scleral Icterus, PERRLA Ears/Nose/Mouth/Throat: NL Teeth, Lips, Gums, Mucous Membranes Moist Neck: NL Appearance and Movements; NL JVP, Trachea Midline Respiratory: Symmetrical Chest Expansion and Respiratory Effort, Clear to Auscultation, Clear to Percussion Cardiovascular: NL Sounds; No Murmurs; No JVD, No Edema Lymphatic: No Cervical Adenopathy, No Axillary Adenopathy Skin: No Rash or Ulcers, No Nodules or Sclerosis Neurological: Alert and Oriented x 3, NL Muscle Strength and Tone Result Diagrams: 12/04/19 21:45 12/04/19 21:45 Assess/Plan/Problems-Billing Assessment: - Patient Problems (1) Shoulder pain, acute Current Visit: Yes Status: Acute Code(s): M25.519 - PAIN IN UNSPECIFIED SHOULDER SNOMED Code(s): 88955487 Comment: mechanical fall. XR shows humeral head fracture. Ortho recommended sling and outpatient followup. Pt on chronic opiates at home. Pain could not be managed in the ED. Being admitted for pain management. Resume home pain meds, added fentanyl PRN (2) Anxiety Current Visit: No Status: Acute Code(s): F41.9 - ANXIETY DISORDER, UNSPECIFIED SNOMED Code(s): 14070671 Comment: Continue buspar and alprazolam PRN. (3) Breast cancer Current Visit: No Status: Acute Code(s): C50.919 - MALIGNANT NEOPLASM OF UNSP SITE OF UNSPECIFIED FEMALE BREAST SNOMED Code(s): 028095602 Comment: Pt has been receiving XRT. (4) COPD exacerbation Current Visit: No Status: Acute Code(s): J44.1 - CHRONIC OBSTRUCTIVE PULMONARY DISEASE W (ACUTE) EXACERBATION SNOMED Code(s): 529146380 Comment: cont home bronchodilators. (5) Chronic back pain Current Visit: No Status: Acute Code(s): M54.9 - DORSALGIA, UNSPECIFIED; G89.29 - OTHER CHRONIC PAIN SNOMED Code(s): 525581889 Comment: Continue morphine at her usual schedule. (6) DVT prophylaxis Current Visit: No Status: Acute Code(s): QBQ0495 - SNOMED Code(s): 344369293 Comment: heparin sc (7) Full code status Current Visit: No Status: Acute Code(s): Z78.9 - OTHER SPECIFIED HEALTH STATUS SNOMED Code(s): 556279995 Comment:
[2019-12-05] MEDS: Mometasone/Formoter 200/5 MDI INH SCH ×2 (07:20→19:42)
[2019-12-05] MEDS: Gabapentin CAP(*) 300 MG PO SCH ×4 (08:19→22:00)
[2019-12-05] MEDS: Polyethylene Glycol 3350* 17 GM PACKET PO SCH (08:20)
[2019-12-05] MEDS: Morphine TAB Extended Release (*) 30 MG TAB.ER PO SCH ×2 (08:20→22:00)
[2019-12-05] MEDS: Benzonatate CAP* 100 MG PO SCH ×3 (08:20→21:14)
[2019-12-05] MEDS: Pantoprazole TAB * 40 MG TAB PO SCH (08:20)
[2019-12-05] MEDS ORDERED: Methylphenidate TAB* 10 MG PO SCH ×2 (09:00→15:00)
[2019-12-05] MEDS: Cyclobenzaprine TAB* 10 MG PO PRN ×2 (09:37→14:30)
--- NOTE | 2019-12-05 09:47 | CONSULT ---
Consult Consult: CC: Left shoulder pain HPI: 64 yo female, RHD, fell yesterday evening. Was staying at home, but to break up the monotony had been shifting every few days between her [facility] has slide out stairs with a lower fixed stair and she misjudged that distance when going up to close the door to the [place]. Ended up falling on her left shoulder and had significant pain. Came to the ED, x-rays found a displaced proximal humerus fracture. I was called and discussed with the ED that she can be treated with a sling and can follow up in the office. She is on extended release morphine since 2018, and reports she has never has signifficant pain issues, but this was extremely paoinful and none of the pain meds helped, so she was admitted for pain control. PMH: COPD, had been oxygen dependant and even in hospice at one point, but because they would not allow her dog to visit, weaned herself off oxygen and went home, HTN, breast cancer PSH: Appendectomy, port placement, removal FH: Non contributory SH: Lives with significant other in [place]. No tobacco or EtOH usage Meds on admission: See Med rec sheet PE: General: mature female, lying in bed, NAD. While talking, will intermittantly get a sudden stab of pain that makes her gasp and stop, and then she picks up again. Left shoulder: Sensation laterally correspomndiong to the axillary nerve is intact. Pain with any kind of shoulder motion. Skin is intact with no evidence open injury. Pain also with trying to move the elbow, but that clearly also moves the shoulder. Hand and wrist motion intact, as with supporting the arm against the abdomen she can easily flex and extend the fingers, abduct the thumb and flex and extend the wrist. X-rays: limited views of the shoulder were taken- a scapular Y and essentially 3 internally rotated views. She appears to have at least a 3part, likely a 4 part fracture of the proximal humerus. The is a posterior fragment which does have some significant displacement. A: 4 part left proximal humerus fracture P: I discussed with her that we doi sometimes fix these fractures. Even with fixing them, many times there is a significant loss of motion and overhead function. She reports she already can not do overhead lifting or activity because of her COPD. Also, with her chronic narcotic use/dependance/tolerance, pain control after surgery would also be an issue. Considering that she already does not have overhead function with her non dominant arm, starting with non operative treatment is reasonable. I warned her that even if this heals fine and he function is good, there is a change the bone itself can , resulting is AVN with pain. I did discuss with her that if this does not heal, or if she has pain or functional issues as this heals or is healed, surgery would still be an option then. Considering the bleeding and swelling that occurs with the fracture, will add in a low dose toradol to help with pain relief. Also, as some of pain seems to occur as the shoulder twitches, will add in a flexoril and see if those help with her pain relief. Should follow up in the office next week
[2019-12-05] MEDS ORDERED: Methylphenidate TAB* 10 MG PO ONE (10:35)
[2019-12-05] MEDS: Nystatin CREAM* 15 GM TUBE TOPICAL SCH ×3 (10:45→22:01)
[2019-12-05] MEDS: Ketorolac INJ* 15 MG/ML 1 ML VIAL IV PUSH PRN (11:16)
--- NOTE | 2019-12-05 16:13 | PN ---
Subjective Date of Service: 12/05/19 Interval History: Patient had slightly pressured speech. Stated that her pain was not being well controlled still, felt like her left shoulder was tightening up. Reported 8/10 pain to her left shoulder an elbow. Pain to moving elbow, expressed concern about it having been injured at the time of her fall. Denied fever, chills, lightheadedness, dizziness, chest pain, palpitations, abdominal pain, issues moving bowels or bladder. Family History: Unchanged from Admission Social History: Unchanged from Admission Past Medical History: Unchanged from Admission Objective Active Medications: Alprazolam (Xanax Tab*) 0.25 mg PO Q8H PRN PRN Reason: ANXIETY Last Admin: 12/05/19 01:41 Dose: 0.25 mg Benzonatate (Tessalon Cap*) 200 mg PO TID [facility] Last Admin: 12/05/19 13:03 Dose: Not Given Buspirone HCl (Buspar Tab*) 10 mg PO TID PRN PRN Reason: ANXIETY Cyclobenzaprine HCl (Flexeril Tab*) 10 mg PO TID PRN PRN Reason: SPASMS - MUSCLE Last Admin: 12/05/19 14:30 Dose: 10 mg Fentanyl Citrate (Fentanyl*) 50 mcg IV SLOW PU Q4H PRN PRN Reason: PAIN - SEVERE Last Admin: 12/05/19 08:19 Dose: 50 mcg Gabapentin (Neurontin Cap(*)) 600 mg PO QID [facility] Last Admin: 12/05/19 13:00 Dose: 600 mg Heparin Sodium (Porcine) (Heparin Vial(*)) 5,000 units SUBCUT Q8HR [facility] Last Admin: 12/05/19 13:01 Dose: 5,000 units Sodium Chloride (Ns 0.9% 1000 Ml) 1,000 mls @ 75 mls/hr IV PER RATE [facility] Last Admin: 12/05/19 02:34 Dose: 75 mls/hr Ketorolac Tromethamine (Toradol Inj*) 15 mg IV PUSH Q6H PRN PRN Reason: PAIN - MODERATE Last Admin: 12/05/19 11:16 Dose: 15 mg Methylphenidate HCl (Ritalin Tab*) 20 mg PO DAILY@1500 [facility] Last Admin: 12/05/19 15:50 Dose: 20 mg Methylphenidate HCl (Ritalin Tab*) 60 mg PO QAM [facility] Mometasone Furoate/Formoterol Fumar (Dulera 200/5 Mdi*) 2 puff INH BID [facility] Last Admin: 12/05/19 07:20 Dose: 2 puff Morphine Sulfate (Ms Contin(*)) 30 mg PO BID [facility] Last Admin: 12/05/19 08:20 Dose: 30 mg Morphine Sulfate (Morphine Inj (Syringe)*) 4 mg IV Q4H PRN PRN Reason: PAIN - SEVERE Last Admin: 12/05/19 05:00 Dose: 4 mg Morphine Sulfate (Morphine Oral.Soln 10 Mg*) 30 mg PO Q6H PRN PRN Reason: breathing Last Admin: 12/05/19 12:58 Dose: 30 mg Multi-Ingredient Ointment (Hydrocerin*) 1 applic TOPICAL TID [facility] Nitroglycerin (Nitroglycerin Tab 0.4 Mg*) 0.4 mg SL Q5M PRN PRN Reason: ANGINA Nystatin (Nystatin Cream*) 1 applic TOPICAL TID [facility] Last Admin: 12/05/19 13:11 Dose: Not Given Ondansetron HCl (Zofran Tab*) 4 mg PO Q8H PRN PRN Reason: NAUSEA/VOMITING Pantoprazole Sodium (Protonix Tab*) 40 mg PO DAILY [facility] Last Admin: 12/05/19 08:20 Dose: 40 mg Polyethylene Glycol/Electrolytes (Miralax (17 Gm Dose Porter)) 17 gm PO DAILY [facility] Last Admin: 12/05/19 08:20 Dose: 17 gm Vital Signs - 8 hr 12/05/19 12/05/19 12/05/19 08:18 08:19 08:20 Temperature Pulse Rate Respiratory 16 16 16 Rate Blood Pressure (mmHg) O2 Sat by Pulse Oximetry 12/05/19 12/05/19 12/05/19 08:36 09:37 11:36 Temperature 98.2 F Pulse Rate 88 Respiratory 16 17 16 Rate Blood Pressure 102/70 (mmHg) O2 Sat by Pulse 96 Oximetry 12/05/19 12/05/19 12/05/19 12:58 13:00 14:30 Temperature Pulse Rate Respiratory 16 16 16 Rate Blood Pressure (mmHg) O2 Sat by Pulse Oximetry 12/05/19 15:39 Temperature 97.8 F Pulse Rate 87 Respiratory 20 Rate Blood Pressure 98/67 (mmHg) O2 Sat by Pulse 100 Oximetry Oxygen Devices in Use Now: None Appearance: This a well developed female seen sitting up in bed in mild distress. Eyes: No Scleral Icterus, PERRLA Ears/Nose/Mouth/Throat: NL Teeth, Lips, Gums, Clear Oropharnyx, Mucous Membranes Moist Neck: NL Appearance and Movements; NL JVP, Trachea Midline Respiratory: Symmetrical Chest Expansion and Respiratory Effort, Clear to Auscultation Cardiovascular: NL Sounds; No Murmurs; No JVD, RRR, No Edema Abdominal: NL Sounds; No Tenderness; No Distention Lymphatic: No Cervical Adenopathy Extremities: No Clubbing, Cyanosis, - - +1-2 non-pitting edema to left arm. +2 radial pulses, equal and strong Neurological: Alert and Oriented x 3 Lines/Tubes/Other Access: Clean, Dry and Intact Peripheral IV Result Diagrams: 12/04/19 21:45 12/04/19 21:45 Assess/Plan/Problems-Billing Assessment: This is a 64F with a PMH of breast CA, COPD, and HTN, who was admitted on for left humeral head fx. - Patient Problems (1) Shoulder pain, acute Current Visit: Yes Status: Acute Code(s): M25.519 - PAIN IN UNSPECIFIED SHOULDER SNOMED Code(s): 36965031 Comment: - Mechanical fall. XR shows humeral head fracture. Ortho recommended sling and outpatient followup. - Pt on chronic opiates at home. Pain could not be managed in the ED. She is now receiving flexeril and increased morphine IR to 30mg Q6H prn. - Continue Morphine ER, toradol and IV fentanyl. (2) ADD (attention deficit disorder) Current Visit: Yes Status: Acute Code(s): F98.8 - OTH BEHAV/EMOTN DISORD W ONSET USLY OCCUR IN CHLDHD AND ADOL SNOMED Code(s): 63610119 Comment: -Continue methylphrenidate. Patient did not want to take full dose today, but was willing to take 20mg, which I ordered as a one time dose for today. (3) Anxiety Current Visit: No Status: Acute Code(s): F41.9 - ANXIETY DISORDER, UNSPECIFIED SNOMED Code(s): 90732720 Comment: Continue buspar and alprazolam PRN. (4) Breast cancer Current Visit: No Status: Acute Code(s): C50.919 - MALIGNANT NEOPLASM OF UNSP SITE OF UNSPECIFIED FEMALE BREAST SNOMED Code(s): 796166070 Comment: - Pt has been receiving XRT. (5) COPD exacerbation Current Visit: No Status: Acute Code(s): J44.1 - CHRONIC OBSTRUCTIVE PULMONARY DISEASE W (ACUTE) EXACERBATION SNOMED Code(s): 895723698 Comment: - Continue dulera. (6) Peripheral neuropathy Current Visit: Yes Status: Acute Code(s): G62.9 - POLYNEUROPATHY, UNSPECIFIED SNOMED Code(s): 461602252 Comment: -Continue gabapentin. (7) GERD (gastroesophageal reflux disease) Current Visit: No Status: Acute Code(s): K21.9 - GASTRO-ESOPHAGEAL REFLUX DISEASE WITHOUT ESOPHAGITIS SNOMED Code(s): 708905597 Comment: - Continue Pantoprazole. (8) Full code status Current Visit: No Status: Acute Code(s): Z78.9 - OTHER SPECIFIED HEALTH STATUS SNOMED Code(s): 702934453 Comment: (9) DVT prophylaxis Current Visit: No Status: Acute Code(s): JXW5642 - SNOMED Code(s): 037042418 Comment: heparin sc Status and Disposition: Condition: Fair Dispo: Admit obv to [facility]. Attending: Ashley Mederos
[2019-12-05] MEDS ORDERED: Albuterol 2.5 MG/3 ML NEB.SOL* (0.083%) INH PRN (21:26)
[2019-12-05] MEDS: Moisturizing CREAM* 120 GM JAR TOPICAL SCH (22:00)
[2019-12-06] MEDS: NS 0.9% 1000 ML** 1,000 ML IV SCH (05:20)
[2019-12-06] MEDS: Heparin VIAL(*) 5000 UNITS/ML VIAL (FIVE THOUSAND) SUBCUT SCH ×2 (05:21→14:42)
[2019-12-06] MEDS: Ketorolac INJ* 15 MG/ML 1 ML VIAL IV PUSH PRN (07:44)
[2019-12-06] MEDS: Morphine ORAL.SOLN 10 mg* 2 MG/ML UDC 5 ml PO PRN (08:20)
[2019-12-06] MEDS ORDERED: Methylphenidate TAB* 10 MG PO SCH (09:00)
[2019-12-06] MEDS: Nystatin CREAM* 15 GM TUBE TOPICAL SCH ×2 (09:05→13:33)
[2019-12-06] MEDS: Gabapentin CAP(*) 300 MG PO SCH ×2 (09:58→14:02)
[2019-12-06] MEDS: Polyethylene Glycol 3350* 17 GM PACKET PO SCH (09:58)
[2019-12-06] MEDS: Cyclobenzaprine TAB* 10 MG PO PRN ×2 (09:59→14:01)
[2019-12-06] MEDS: Morphine TAB Extended Release (*) 30 MG TAB.ER PO SCH (10:00)
[2019-12-06] MEDS: Pantoprazole TAB * 40 MG TAB PO SCH (10:00)
[2019-12-06] MEDS: Benzonatate CAP* 100 MG PO SCH ×2 (10:01→13:32)
[2019-12-06] MEDS: Moisturizing CREAM* 120 GM JAR TOPICAL SCH ×2 (10:02→14:42)
--- NOTE | 2019-12-06 10:47 | PN ---
Progress Note - Progress Note Date of Service: 12/06/19 Note: Left proximal humerus fracture: Patient resting in bed with sling intact to LUE. She is quite verbal but denies SOB, CP or dizziness. She is using pain medication and muscle relaxers for spasms. Her pain is reduced with rest and is extreme with movement. FROM left wrist without pain, she forms a full fist with intact sensation and 2 + radial pulse. Brisk capillary refill. Continue pain management, PT/OT, sling and ice. We will continue to monitor. She is orthopedically stable for discharge when pain is managed. Follow-up with ortho 10-14 days.
[2019-12-06 11:18] VITALS: BP 116/58
[2019-12-06] MEDS: Mometasone/Formoter 200/5 MDI INH SCH (14:04)
--- NOTE | 2019-12-06 22:55 | DS ---
DISCHARGE SUMMARY: DATE OF ADMISSION: 12/04/19 DATE OF DISCHARGE: 12/06/19 PROVIDER: Sun Francis NP ATTENDING PHYSICIAN: Dr. Mederos.* (DICTATED BY SUN FRANCIS NP) PRIMARY CARE PROVIDER: Elías Moore NP CONSULTING PHYSICIAN: Dr. Sandy. PRIMARY DIAGNOSIS: Left humeral head fracture, status post fall. SECONDARY DIAGNOSES: 1. Breast cancer. 2. Anxiety. 3. Attention deficit disorder. 4. Chronic obstructive pulmonary disease exacerbation. 5. Gastroesophageal reflux disease. PROCEDURES: None. DIAGNOSTIC STUDIES: 1. Left humerus x-ray showed comminuted fracture of the humeral head. 2. Left shoulder x-ray showed comminuted fracture of the humeral head. 3. Chest x-ray showed hyperinflation with no active cardiopulmonary disease. 4. Left elbow x-ray showed osteoarthritis with no acute osseous injury. PERTINENT LAB DATA: Hemoglobin 11.9, hematocrit 34, MCV 91. HISTORY OF PRESENT ILLNESS/HOSPITAL COURSE: This is a 64-year-old female with a past medical history significant for breast cancer, COPD, and hypertension, who came to the emergency room on 12/04/19 after falling out of her trailer onto her left shoulder and experiencing excruciating pain since then that was not controlled with her typical morphine that she takes for her COPD. Ortho had been consulted though recommended no surgical intervention instead to use a sling in at all times. Originally, the patient was to be discharged back to home ; however, her pain was unable to be managed in the emergency room and therefore was admitted into the hospital for acute pain control. Her pain ultimately was able to be managed with a combination of Flexeril, her long acting morphine, and increasing her immediate release morphine from 15 mg q.4 hours to 30 mg q.6 hours, and eventually, we were able to get her pain down to a tolerable level. Physical Therapy worked with the patient to ensure her safety with mobility. She did require some assist, however, she has a very supportive partner at home and we were able to set her up with home physical therapy, and the patient felt like she was able to manage well with these interventions in place. Today, she was in good spirits and was feeling ready to go home. REVIEW OF SYSTEMS: A 12-point system review was performed which was positive for large bruise to left outer arm as well as 6/10 pain to the left shoulder. Denied any lightheadedness, dizziness, chest pain, palpitations, shortness of breath, abdominal pain, nausea, vomiting, issues moving her bowels or bladder. PHYSICAL EXAMINATION: Vital Signs: 98.1 Fahrenheit, 85 pulse, 17 respirations , 95% oxygen on room air, and 116/56 blood pressure. General: This is a well-developed obese woman, seen sitting up in the bed, in no acute distress. HEENT: Conjunctivae pink and moist. PERRLA. EOMs intact. Oropharynx clear. Mucous membranes are moist. Neck is supple. Cardiac: S1 and S2 present. Heart rate regular. No murmurs, gallops, or rubs appreciated. Respiratory: Lung sounds clear but diminished in bases bilaterally with no accessory muscle use noted. Abdomen: Soft, nontender, nondistended with positive bowel sounds x4. Musculoskeletal: She has got 2+ bilateral radial pulses. Cap refill less than 3 seconds to the left hand. Able to move all fingers and the wrist of her left hand. She has 2+ nonpitting edema to the left shoulder/upper arm with a sling in place. Neuro: Sensation intact to light touch though has baseline neuropathy in bilateral hands. Skin: Large deep purple bruise to the left upper arm. Skin otherwise intact. Psych: She is alert and oriented x4, slightly pressured speech. Thought content organized. DISCHARGE PLAN: She can be discharged on a regular diet without any restrictions. Encouraged drinking of additional fluids to prevent constipation. Her activity order is to be nonweightbearing to the left upper extremity, not to grape picker anything with that left hand nor to lean on the left arm and to wear the sling at all times. Otherwise, encouraged frequent ambulation. She is to return to the hospital should she develop worsening numbness and tingling in her left hand or if that arm should become dusky and cold to touch or should her pain become uncontrolled with her current pain interventions. She will be discharged with visiting nurse services and Physical Therapy. PLAN FOR EACH CONDITION: 1. Left humeral fracture. She is to wear the sling at all times, though I did encourage movement of her fingers and her wrist to prevent stiffness and to follow up on an outpatient basis with primary care physician within the week. Surgery was not indicated. Weightbearing status has already previously mentioned and her pain will be controlled with a mixture of immediate and extended release morphine as well as Flexeril. As long as she is taking an increased amount of narcotics and the Flexeril, I recommend that she also take MiraLAX once a day, script was sent. 2. Anxiety. She may continue her BuSpar and alprazolam p.r.n. 3. Breast cancer. She completed her last treatment and may use her moisturizing cream over her breast as needed for irritated skin. 4. COPD. She does not appear to be in exacerbation. She may continue her home Advair and albuterol as well as Spiriva. The patient states that she takes both her immediate and extended release morphine for ease of breathing and not for chronic pain. She may continue her b.i.d. MS Contin as she normally takes it. The immediate release morphine dosage has been increased due to her current pain levels. 5. ADD. She may continue using her methylphenidate. 6. GERD. She may continue her Protonix. DISCHARGE MEDICATIONS: New medications upon discharge: 1. Morphine sulfate 30 mg p.o. q.6 hours p.r.n. 2. Polyethylene glycol 17 g p.o. daily. 3. Cyclobenzaprine 10 mg p.o. t.i.d. p.r.n. Medications to continue upon discharge: 1. Guaifenesin 10 mg p.o. q.6 hours p.r.n. 2. Tiotropium 1 cap inhalation daily. 3. Sennoside 8.6 mg p.o. daily p.r.n. 4. Selenium sulfide 2.5% topically 3 times a week. 5. Compazine 10 mg p.o. q.6 hours p.r.n. 6. Pantoprazole 40 mg p.o. daily. 7. Oxybutynin 15 mg p.o. daily. 8. Ondansetron 4 mg p.o. q.8 hours p.r.n. 9. Nystatin cream 1 application topically t.i.d. 10. Nitroglycerin 0.4 mg sublingually q.5 minutes p.r.n. 11. Morphine sulfate extended release 30 mg p.o. b.i.d., max daily dose 2 tabs. 12. Methylphenidate 60 mg p.o. q.a.m. and 20 mg p.o. q. afternoon. 13. Lidocaine gel 4% topically t.i.d. p.r.n. 14. Probiotic 1 tab p.o. daily. 15. Ketoconazole 2% cream 1 application topically b.i.d. 16. Ibuprofen 800 mg p.o. q.8 hours p.r.n. 17. Gabapentin 600 mg p.o. 4 times a day. 18. Folic acid 1 mg p.o. daily. 19. Advair 500/50 one puff inhalation b.i.d. 20. Docusate 200 mg p.o. b.i.d. p.r.n. 21. Cyanocobalamin 1000 mcg p.o. daily. 22. Calcium carbonate 500 mg p.o. daily. 23. Albuterol inhaler 2 puffs inhalation q.4 hours p.r.n. 24. Alprazolam 0.25 mg p.o. q.8 hours p.r.n. CONDITION UPON DISCHARGE: Stable. DISPOSITION: To home. TIME SPENT: Time spent on the patient is about 60 minutes with 30 of that spent [id number]. SUN FRANCIS, ADOPTION SERVICES MANAGER [id number]/[facility] #: [id number] JARETH
== END 2019-12-06 14:54 | disposition home or self-care (01) ==
LOC: ED 20:02 → SSU 22:08
PROVIDERS: ADMIT Student in an Organized Health Care Education/Training Program; ATTEND Hospitalist
DX: S42.252A Displaced fracture of greater tuberosity of left humerus, initial encounter for closed fracture (principal); W17.89XA Other fall from one level to another, initial encounter; F41.9 Anxiety disorder, unspecified; C50.911 Malignant neoplasm of unspecified site of right female breast; J44.1 Chronic obstructive pulmonary disease with (acute) exacerbation; M54.9 Dorsalgia, unspecified; G89.29 Other chronic pain; I25.10 Atherosclerotic heart disease of native coronary artery without angina pectoris; E78.00 Pure hypercholesterolemia, unspecified; Z98.61 Coronary angioplasty status; I10 Essential (primary) hypertension; Z86.73 Personal history of transient ischemic attack (TIA), and cerebral infarction without residual deficits; Z79.899 Other long term (current) drug therapy; Z88.8 Allergy status to other drugs, medicaments and biological substances; Z87.891 Personal history of nicotine dependence; F98.8 Other specified behavioral and emotional disorders with onset usually occurring in childhood and adolescence; G62.9 Polyneuropathy, unspecified; K21.9 Gastro-esophageal reflux disease without esophagitis
CPT/HCPCS: 36415; 71045; 80053; 83605; 85025; 85610; 85730; 86850; 86900; 86901; 93005; 94640; 96361; 96372; 96374; 96375; 96376; 99285; A9270-GY; G0378; J1644; J1885; J2270; J2405; J3010

== ENCOUNTER 2020-08-14 15:02 | Observation (INO) ==
[2020-08-14 16:36] LABS: ABS Eosinophils 0.1 10^3/ul (0-0.6); ABS Lymphocytes 1.6 10^3/ul (1.0-4.8); ABS Monocytes 0.4 10^3/ul (0-0.8); ABS Neutrophils 4.2 10^3/ul (1.5-7.7); Eosinophil % 1.4 %; Hematocrit 37 % (35-47); Hemoglobin 12.9 g/dL (12.0-16.0); Lymphocyte % 25.5 %; Mean Corpuscular HGB Conc 35 g/dL (31-36); Mean Corpuscular Hemoglobin 30 pg (27-31); Mean Corpuscular Volume 86 fL (80-97); Platelet Count 288 10^3/uL (150-450); Red Blood Count 4.35 10^6 /uL (3.70-4.87); Red Cell Distribution Width 14 % (10-15); White Blood Count 6.4 10^3/uL (3.5-10.8)
[2020-08-14 16:44] LABS: Influenza A Molecular Negative (Negative); Influenza B Molecular Negative (Negative)
[2020-08-14 16:48] LABS: Activated Partial Thrombo Time 32.5 seconds (26.0-38.0); INR 1.04 (0.82-1.09)
[2020-08-14 16:59] LABS: Albumin 4.1 g/dL (3.2-5.2); Albumin/Globulin Ratio 1.2 (1-3); BUN/Creatinine Ratio 19.7 (8-20); Calcium 9.5 mg/dL (8.6-10.3); EGFR African American 100.6 (>60); EGFR Non-African American 83.1 (>60); Globulin 3.5 g/dL (2-4); Potassium 3.9 mmol/L (3.5-5.0); Total Bilirubin 0.8 mg/dL (0.2-1.0); Total Protein 7.6 g/dL (6.4-8.9)
[2020-08-14] MEDS ORDERED: Dexamethasone IV 10 MG in NS 0.9% 50 ML 50 ML IVPB ONE (17:40)
[2020-08-14] MEDS ORDERED: Albuterol HFA INHALER 8 gm MDI INH ONE (17:44)
[2020-08-14 17:48] LABS: Urine Appearance Cloudy; Urine Bilirubin Negative (Negative); Urine Blood Negative (Negative); Urine Color Yellow; Urine Glucose Negative (Negative); Urine Ketones Negative (Negative); Urine Nitrite Negative (Negative); Urine Protein Negative (Negative); Urine Specific Gravity 1.021 (1.010-1.030); Urine Urobilinogen Negative (Negative)
[2020-08-14 17:54] LABS: Urine Bacteria 1+ (Absent); Urine Red Blood Cell Trace(0-2/hpf) (Absent); Urine Squamous Epithelial Cell Present (Absent); Urine White Blood Cell 2+(11-20/hpf) (Absent)
[2020-08-14] MEDS ORDERED: Ondansetron 4 mg VIAL 2 MG/ML 2 ml VIAL IV PRN (18:28)
[2020-08-14] MEDS ORDERED: Morphine ORAL.SOLN 10 mg 2 mg/ml UDC 5 ml (10 mg) PO PRN (18:46)
[2020-08-14] MEDS ORDERED: SPIRIVA Respimat (tiotropium) 2.5 mcg/inh Inhaler INH SCH (19:00)
[2020-08-14] MEDS ORDERED: Enoxaparin 40 MG/0.4 ML SYR SUBCUT SCH (19:30)
[2020-08-14] MEDS ORDERED: Dexamethasone IV 4 MG/ML 5 ML VIAL (20 MG) ONE (19:31)
[2020-08-14] MEDS ORDERED: Dexamethasone IV 4 MG/ML VIAL 1 ml VIAL IV SLOW PU ONE (20:00)
[2020-08-14] MEDS: DOXYcycline 100 MG in NS 0.9% 250 ml 250 ML IVPB SCH (23:04)
[2020-08-15] MEDS ORDERED: Dexamethasone IV 4 MG/ML VIAL 1 ml VIAL IV SLOW PU ONE (00:30)
[2020-08-15] MEDS: Albuterol HFA INHALER 8 gm MDI INH PRN ×2 (01:52→15:23)
[2020-08-15] MEDS: Morphine ER 30 mg TAB ** extended release PO SCH ×3 (02:02→20:21)
[2020-08-15] MEDS: Mometasone/Formoter 200/5 MDI INH SCH ×3 (02:07→19:19)
[2020-08-15] MEDS: Calcium Carb (TUMS) 500 mg CHEW TAB PO PRN ×2 (02:40→15:20)
[2020-08-15 06:55] LABS: ABS Lymphocytes 0.8 10^3/ul (1.0-4.8); ABS Monocytes 0.1 10^3/ul (0-0.8); ABS Neutrophils 4.8 10^3/ul (1.5-7.7); Eosinophil % 0.3 %; Hematocrit 36 % (35-47); Hemoglobin 12.3 g/dL (12.0-16.0); Lymphocyte % 13.5 %; Mean Corpuscular HGB Conc 34 g/dL (31-36); Mean Corpuscular Hemoglobin 30 pg (27-31); Mean Corpuscular Volume 87 fL (80-97); Mean Platelet Volume 7.8 fL (7.4-10.4); Platelet Count 252 10^3/uL (150-450); Red Blood Count 4.15 10^6 /uL (3.70-4.87); Red Cell Distribution Width 15 % (10-15); White Blood Count 5.6 10^3/uL (3.5-10.8)
[2020-08-15 06:57] LABS: BUN/Creatinine Ratio 17.6 (8-20); Calcium 9.5 mg/dL (8.6-10.3); EGFR African American 105.7 (>60); EGFR Non-African American 87.4 (>60); Magnesium 1.8 mg/dL (1.9-2.7); Potassium 4.2 mmol/L (3.5-5.0)
[2020-08-15] MEDS: SPIRIVA Respimat (tiotropium) 2.5 mcg/inh Inhaler INH SCH (07:35)
[2020-08-15] MEDS: Polyethylene Glycol 3350 17 GM PACKET PO SCH (08:11)
[2020-08-15] MEDS ORDERED: Dexamethasone IV 10 MG in NS 0.9% 50 ML 50 ML IVPB SCH (09:00)
[2020-08-15] MEDS ORDERED: Dexamethasone IV 4 MG/ML VIAL 1 ml VIAL IV SLOW PU SCH (09:00)
[2020-08-15] MEDS: DOXYcycline 100 MG in NS 0.9% 250 ml 250 ML IVPB SCH ×2 (10:18→20:22)
[2020-08-15 11:45] LABS: C Reactive Protein 18.68 mg/L (<8.01)
[2020-08-15] MEDS: Albuterol/Ipratropium NEB.SOL (2.5/0.5 MG) 3 ML NEB.SOLN INH PRN (15:50)
[2020-08-15] MEDS: Heparin 5000 UNITS/ML 1 mL VIAL SUBCUT SCH (20:20)
[2020-08-16] MEDS: Albuterol/Ipratropium NEB.SOL (2.5/0.5 MG) 3 ML NEB.SOLN INH PRN ×3 (03:21→11:08)
[2020-08-16] MEDS: Heparin 5000 UNITS/ML 1 mL VIAL SUBCUT SCH (07:19)
[2020-08-16 07:33] VITALS: BP 142/89
[2020-08-16] MEDS: SPIRIVA Respimat (tiotropium) 2.5 mcg/inh Inhaler INH SCH (07:35)
[2020-08-16] MEDS: Mometasone/Formoter 200/5 MDI INH SCH (07:36)
[2020-08-16] MEDS: Morphine ER 30 mg TAB ** extended release PO SCH (07:45)
[2020-08-16] MEDS: Polyethylene Glycol 3350 17 GM PACKET PO SCH (07:46)
[2020-08-16] MEDS: Calcium Carb (TUMS) 500 mg CHEW TAB PO PRN (07:52)
[2020-08-16] MEDS: DOXYcycline 100 MG in NS 0.9% 250 ml 250 ML IVPB SCH (07:54)
== END 2020-08-16 11:20 | disposition home or self-care (01) ==
LOC: ED 15:02 → MED 15:02
PROVIDERS: ADMIT Internal Medicine; ATTEND Internal Medicine

== ENCOUNTER 2020-09-09 10:15 | Inpatient (IN) ==
[2020-09-09] MEDS ORDERED: NS 0.9% 1000 ml BAG 1,000 ML IV ONE ×2 (10:54→15:12)
[2020-09-09 11:40] LABS: ABS Lymphocytes 0.7 10^3/ul (1.0-4.8); ABS Monocytes 1.1 10^3/ul (0-0.8); ABS Neutrophils 10.9 10^3/ul (1.5-7.7); Eosinophil % 0.1 %; Hematocrit 45 % (35-47); Hemoglobin 15.2 g/dL (12.0-16.0); Lymphocyte % 5.7 %; Mean Corpuscular HGB Conc 34 g/dL (31-36); Mean Corpuscular Hemoglobin 30 pg (27-31); Mean Corpuscular Volume 89 fL (80-97); Mean Platelet Volume 7.5 fL (7.4-10.4); Platelet Count 452 10^3/uL (150-450); Red Cell Distribution Width 15 % (10-15); White Blood Count 12.8 10^3/uL (3.5-10.8)
[2020-09-09 12:06] LABS: Albumin 4.2 g/dL (3.2-5.2); Albumin/Globulin Ratio 1.1 (1-3); BUN/Creatinine Ratio 26.8 (8-20); C Reactive Protein 49.63 mg/L (<8.01); Calcium 10.7 mg/dL (8.6-10.3); EGFR African American 100.6 (>60); EGFR Non-African American 83.1 (>60); Globulin 3.7 g/dL (2-4); Potassium 4.3 mmol/L (3.5-5.0); Total Bilirubin 1.6 mg/dL (0.2-1.0); Total Protein 7.9 g/dL (6.4-8.9)
[2020-09-09 14:38] LABS: Urine Appearance Clear; Urine Bilirubin Negative (Negative); Urine Blood Negative (Negative); Urine Color Amber; Urine Glucose Negative (Negative); Urine Ketones Negative (Negative); Urine Nitrite Negative (Negative); Urine Protein Negative (Negative); Urine Specific Gravity 1.026 (1.010-1.030); Urine Urobilinogen Positive (Negative)
[2020-09-09 14:49] LABS: Urine Bacteria Absent (Absent); Urine Red Blood Cell Trace(0-2/hpf) (Absent); Urine Squamous Epithelial Cell Present (Absent); Urine White Blood Cell Trace(0-5/hpf) (Absent)
[2020-09-09] MEDS ORDERED: Iohexol 300 (CONTRAST) 10 ML SDV IV ONE (16:33)
[2020-09-09 19:04] LABS: Influenza A Molecular Negative (Negative); Influenza B Molecular Negative (Negative)
[2020-09-09] MEDS ORDERED: Iohexol 350 (CONTRAST) 500 ML MDV IV ONE (21:04)
[2020-09-09 21:59] LABS: Activated Partial Thrombo Time 29.8 seconds (26.0-38.0); INR 1.21 (0.82-1.09)
[2020-09-09] MEDS ORDERED: Morphine ORAL.SOLN 10 mg 2 mg/ml UDC 5 ml (10 mg) PO PRN (22:02)
[2020-09-09] MEDS ORDERED: guaiFENesin 100 mg/5 ml LIQ unit dose cup PO PRN (22:02)
[2020-09-09] MEDS ORDERED: Diclofenac 1% GEL (NF) 100 GM TUBE TOPICAL PRN (22:02)
[2020-09-09] MEDS ORDERED: Piperacillin/Tazobac ADVAN 3.375 GM in NS 0.9% 100 ml BAG 100 ML IV ONE (22:27)
[2020-09-09] MEDS ORDERED: Prochlorperazine 5 mg/ml 2 ml VIAL (10 mg) IV PRN (22:28)
[2020-09-09] MEDS ORDERED: Zosyn per Pharmacy NOTE FOLLOW UP SCH (23:00)
[2020-09-09] MEDS ORDERED: Albuterol HFA INHALER 8 gm MDI INH PRN (23:54)
[2020-09-09] MEDS ORDERED: Albuterol HFA INHALER 8 gm MDI INH ONE (23:57)
[2020-09-10] MEDS: Morphine ER 30 mg TAB ** extended release PO SCH ×5 (00:14→20:35)
[2020-09-10] MEDS: Lactated Ringers 1000 ml BAG 1,000 ML IV SCH ×2 (00:15→13:20)
[2020-09-10] MEDS: Mometasone/Formoter 200/5 MDI INH SCH ×3 (04:18→20:34)
[2020-09-10] MEDS: ZOSYN 3.375 GM Q8H per EXTENDED INFUSION IV SCH ×3 (04:51→20:35)
[2020-09-10 08:32] LABS: ABS Basophils 0.1 10^3/ul (0-0.2); ABS Eosinophils 0.1 10^3/ul (0-0.6); ABS Lymphocytes 1.6 10^3/ul (1.0-4.8); ABS Monocytes 1.1 10^3/ul (0-0.8); ABS Neutrophils 7.3 10^3/ul (1.5-7.7); Eosinophil % 1.1 %; Hematocrit 35 % (35-47); Lymphocyte % 15.5 %; Mean Corpuscular HGB Conc 34 g/dL (31-36); Mean Corpuscular Hemoglobin 30 pg (27-31); Mean Corpuscular Volume 88 fL (80-97); Mean Platelet Volume 7.4 fL (7.4-10.4); Platelet Count 301 10^3/uL (150-450); Red Blood Count 3.97 10^6 /uL (3.70-4.87); Red Cell Distribution Width 15 % (10-15); White Blood Count 10.1 10^3/uL (3.5-10.8)
[2020-09-10 08:48] LABS: BUN/Creatinine Ratio 13.3 (8-20); Calcium 8.1 mg/dL (8.6-10.3); EGFR African American 122.2 (>60); Potassium 3.7 mmol/L (3.5-5.0)
[2020-09-10] MEDS: methylPREDNISolone 125 mg 2 ML VIAL IV SCH (10:36)
[2020-09-10] MEDS: SPIRIVA Respimat (tiotropium) 2.5 mcg/inh Inhaler INH SCH (10:49)
[2020-09-10] MEDS ORDERED: fentaNYL 100 mcg/2 ml 50 MCG/ML VIAL IV SLOW PU ONE (15:57)
[2020-09-10] MEDS: Senna TAB 8.6 mg TAB PO SCH (20:34)
[2020-09-11] MEDS: Polyethylene Glycol 3350 17 GM PACKET PO SCH ×2 (00:10→09:01)
[2020-09-11] MEDS: methylPREDNISolone 125 mg 2 ML VIAL IV SCH ×2 (00:46→11:09)
[2020-09-11] MEDS: Lactated Ringers 1000 ml BAG 1,000 ML IV SCH (00:58)
[2020-09-11] MEDS: ZOSYN 3.375 GM Q8H per EXTENDED INFUSION IV SCH ×3 (04:05→11:53)
[2020-09-11 05:55] LABS: ABS Lymphocytes 0.6 10^3/ul (1.0-4.8); ABS Monocytes 0.2 10^3/ul (0-0.8); ABS Neutrophils 7.5 10^3/ul (1.5-7.7); Hematocrit 29 % (35-47); Hemoglobin 9.9 g/dL (12.0-16.0); Lymphocyte % 7.7 %; Mean Corpuscular HGB Conc 34 g/dL (31-36); Mean Corpuscular Hemoglobin 30 pg (27-31); Mean Corpuscular Volume 88 fL (80-97); Mean Platelet Volume 7.7 fL (7.4-10.4); Platelet Count 247 10^3/uL (150-450); Red Cell Distribution Width 16 % (10-15); White Blood Count 8.4 10^3/uL (3.5-10.8)
[2020-09-11 06:15] LABS: BUN/Creatinine Ratio 10.9 (8-20); Calcium 8.1 mg/dL (8.6-10.3); EGFR African American 135.1 (>60); EGFR Non-African American 111.6 (>60); Potassium 3.5 mmol/L (3.5-5.0)
[2020-09-11] MEDS: Morphine ER 30 mg TAB ** extended release PO SCH ×3 (09:02→21:56)
[2020-09-11] MEDS: SPIRIVA Respimat (tiotropium) 2.5 mcg/inh Inhaler INH SCH (09:04)
[2020-09-11] MEDS: Senna TAB 8.6 mg TAB PO SCH (09:04)
[2020-09-11] MEDS: Mometasone/Formoter 200/5 MDI INH SCH ×2 (09:05→23:50)
[2020-09-11] MEDS ORDERED: ZOSYN 3.375 GM Q8H per EXTENDED INFUSION IV SCH (12:00)
[2020-09-11 16:55] LABS: Hematocrit 32 % (35-47); Hemoglobin 10.7 g/dL (12.0-16.0); Mean Corpuscular HGB Conc 33 g/dL (31-36); Mean Corpuscular Hemoglobin 30 pg (27-31); Mean Corpuscular Volume 89 fL (80-97); Mean Platelet Volume 8.1 fL (7.4-10.4); Platelet Count 303 10^3/uL (150-450); Red Cell Distribution Width 15 % (10-15); White Blood Count 10.4 10^3/uL (3.5-10.8)
[2020-09-11 17:36] LABS: ABS Lymphocytes 0.6 10^3/ul (1.0-4.8); ABS Monocytes 0.4 10^3/ul (0-0.8); ABS Neutrophils 9.3 10^3/ul (1.5-7.7); Lymphocyte % 5.7 %
[2020-09-12 05:17] LABS: ABS Lymphocytes 1.4 10^3/ul (1.0-4.8); ABS Monocytes 0.7 10^3/ul (0-0.8); ABS Neutrophils 6.2 10^3/ul (1.5-7.7); Eosinophil % 0.1 %; Hematocrit 29 % (35-47); Hemoglobin 9.7 g/dL (12.0-16.0); Lymphocyte % 16.9 %; Mean Corpuscular HGB Conc 34 g/dL (31-36); Mean Corpuscular Hemoglobin 30 pg (27-31); Mean Corpuscular Volume 89 fL (80-97); Platelet Count 231 10^3/uL (150-450); Red Blood Count 3.27 10^6 /uL (3.70-4.87); Red Cell Distribution Width 15 % (10-15); White Blood Count 8.4 10^3/uL (3.5-10.8)
[2020-09-12 05:31] LABS: BUN/Creatinine Ratio 17.2 (8-20); Calcium 8.1 mg/dL (8.6-10.3); EGFR African American 113.4 (>60); EGFR Non-African American 93.7 (>60); Potassium 3.7 mmol/L (3.5-5.0)
[2020-09-12] MEDS: Polyethylene Glycol 3350 17 GM PACKET PO SCH (07:46)
[2020-09-12] MEDS: Senna TAB 8.6 mg TAB PO SCH (07:46)
[2020-09-12] MEDS: Morphine ER 30 mg TAB ** extended release PO SCH ×2 (08:56→20:48)
[2020-09-12] MEDS: SPIRIVA Respimat (tiotropium) 2.5 mcg/inh Inhaler INH SCH (11:39)
[2020-09-12] MEDS: Mometasone/Formoter 200/5 MDI INH SCH ×2 (11:39→22:45)
[2020-09-13 08:22] LABS: Hematocrit 29 % (35-47); Hemoglobin 9.8 g/dL (12.0-16.0); Mean Corpuscular HGB Conc 34 g/dL (31-36); Mean Corpuscular Hemoglobin 30 pg (27-31); Mean Corpuscular Volume 87 fL (80-97); Mean Platelet Volume 7.5 fL (7.4-10.4); Platelet Count 240 10^3/uL (150-450); Red Blood Count 3.32 10^6 /uL (3.70-4.87); Red Cell Distribution Width 15 % (10-15); White Blood Count 6.3 10^3/uL (3.5-10.8)
[2020-09-13] MEDS: Mometasone/Formoter 200/5 MDI INH SCH (08:37)
[2020-09-13] MEDS: SPIRIVA Respimat (tiotropium) 2.5 mcg/inh Inhaler INH SCH (08:38)
[2020-09-13] MEDS: Senna TAB 8.6 mg TAB PO SCH (09:25)
[2020-09-13] MEDS: Morphine ER 30 mg TAB ** extended release PO SCH (09:26)
[2020-09-13] MEDS: Polyethylene Glycol 3350 17 GM PACKET PO SCH (09:27)
[2020-09-13 10:50] VITALS: BP 108/58
[2020-09-14 13:45] LABS: Adenovirus F40/41 Negative (Negative); Astrovirus Negative (Negative); Cryptosporidium species Negative (Negative); Cyclospora cayetanensis Negative (Negative); Entamoeba histolytica Negative (Negative); Enteroaggregative E.coli(EAEC) Negative (Negative); Enteropathogenic Ecoli(EPEC) Negative (Negative); Enterotoxigenic Ecoli(ETEC) Negative (Negative); Norovirus GI/GII Negative (Negative); Plesiomonas shigelloides Negative (Negative); Salmonella species Negative (Negative); Sapovirus Negative (Negative); Shiga toxin producing E. coli Negative (Negative); Shigella/Enteroinvasive E.coli Negative (Negative); Specimen Source STOOL; Vibrio cholerae Negative (Negative); Yersinia species Negative (Negative)
== END 2020-09-13 14:10 | disposition home or self-care (01) | DRG 248 ==
LOC: ED 10:15 → MED 21:43 → SSU 09-11 02:36
PROVIDERS: ADMIT Internal Medicine; ATTEND Pediatrics

== ENCOUNTER 2021-04-03 22:44 | Inpatient (IN) ==
[2021-04-03] MEDS ORDERED: Albuterol HFA INHALER 8 gm MDI INH ONE (22:51)
[2021-04-03] MEDS ORDERED: Azithromycin 500 mg/250 ml NS 500 MG/250 ML BAG IVPB ONE (22:52)
[2021-04-03] MEDS ORDERED: methylPREDNISolone 125 mg 2 ML VIAL IV ONE (22:52)
[2021-04-03 23:31] LABS: ABS Eosinophils 0.1 10^3/ul (0-0.6); ABS Lymphocytes 1.1 10^3/ul (1.0-4.8); ABS Monocytes 0.2 10^3/ul (0-0.8); ABS Neutrophils 4.9 10^3/ul (1.5-7.7); Eosinophil % 1.1 %; Hematocrit 38 % (35-47); Hemoglobin 12.7 g/dL (12.0-16.0); Lymphocyte % 16.8 %; Mean Corpuscular HGB Conc 33 g/dL (31-36); Mean Corpuscular Hemoglobin 30 pg (27-31); Mean Corpuscular Volume 90 fL (80-97); Mean Platelet Volume 7.8 fL (7.4-10.4); Nucleated Red Blood Cells % 0.1; Platelet Count 230 10^3/uL (150-450); Red Blood Count 4.28 10^6 /uL (3.70-4.87); Red Cell Distribution Width 15 % (10-15); White Blood Count 6.3 10^3/uL (3.5-10.8)
[2021-04-03 23:43] LABS: Albumin 3.8 g/dL (3.2-5.2); Calcium 8.8 mg/dL (8.6-10.3); Total Bilirubin 0.6 mg/dL (0.2-1.0)
[2021-04-03 23:49] LABS: Albumin/Globulin Ratio 1.1 (1-3); EGFR African American 105.4 (>60); EGFR Non-African American 87.1 (>60); Globulin 3.5 g/dL (2-4); Total Protein 7.3 g/dL (6.4-8.9)
[2021-04-03] MEDS ORDERED: Ondansetron 4 mg VIAL 2 MG/ML 2 ml VIAL IV ONE (23:52)
[2021-04-04 00:51] LABS: Venous Bicarbonate HCO3 25.4 mmol/L (24-28)
[2021-04-04 01:31] LABS: Urine Appearance Clear; Urine Bilirubin Negative (Negative); Urine Blood 1+ (Negative); Urine Color Yellow; Urine Glucose Negative (Negative); Urine Ketones Negative (Negative); Urine Nitrite Negative (Negative); Urine Protein Negative (Negative); Urine Specific Gravity 1.014 (1.002-1.030); Urine Urobilinogen Negative (Negative)
[2021-04-04 01:37] LABS: Urine Bacteria Absent (Absent); Urine Red Blood Cell Trace(0-2/hpf) (Absent); Urine Squamous Epithelial Cell Present (Absent); Urine White Blood Cell Trace(0-5/hpf) (Absent)
[2021-04-04] MEDS ORDERED: Levalbuterol HFA INHALER MDI INH PRN (02:58)
[2021-04-04 03:53] LABS: Magnesium 1.7 mg/dL (1.9-2.7)
[2021-04-04] MEDS: Enoxaparin 40 MG/0.4 ML SYR SUBCUT SCH (04:15)
[2021-04-04] MEDS: cefTRIAXone 1 gm/50 mL NS BAG 1 GM/50 ML BAG IVPB SCH ×2 (04:15→21:16)
[2021-04-04] MEDS: Morphine ORAL.SOLN 10 mg 2 mg/ml UDC 5 ml (10 mg) PO PRN ×4 (04:33→19:46)
[2021-04-04] MEDS ORDERED: Magnesium Sulfate 2 gm BAG 2 GM/50 ML BAG IVPB ONE (05:56)
[2021-04-04 06:58] LABS: ABS Lymphocytes 0.4 10^3/ul (1.0-4.8); ABS Monocytes 0.2 10^3/ul (0-0.8); ABS Neutrophils 8.6 10^3/ul (1.5-7.7); Hematocrit 31 % (35-47); Hemoglobin 10.9 g/dL (12.0-16.0); Lymphocyte % 4.6 %; Mean Corpuscular HGB Conc 35 g/dL (31-36); Mean Corpuscular Hemoglobin 30 pg (27-31); Mean Corpuscular Volume 88 fL (80-97); Mean Platelet Volume 7.7 fL (7.4-10.4); Platelet Count 221 10^3/uL (150-450); Red Blood Count 3.59 10^6 /uL (3.70-4.87); Red Cell Distribution Width 15 % (10-15); White Blood Count 9.2 10^3/uL (3.5-10.8)
[2021-04-04 07:17] LABS: Calcium 8.5 mg/dL (8.6-10.3); EGFR African American 101.9 (>60); EGFR Non-African American 84.2 (>60); HDL Cholesterol 59.7 mg/dL; Potassium 3.8 mmol/L (3.5-5.0)
[2021-04-04] MEDS: Polyethylene Glycol 3350 17 GM PACKET PO SCH (09:23)
[2021-04-04] MEDS ORDERED: Iohexol 300 (CONTRAST) 10 ML SDV IV ONE (19:31)
[2021-04-04] MEDS: Ondansetron ODT 4 mg TAB 4 MG TAB SL PRN (19:55)
[2021-04-04] MEDS ORDERED: Lactated Ringers 500 ml BAG 500 ML IV ONE (23:09)
[2021-04-05 06:39] LABS: ABS Lymphocytes 0.9 10^3/ul (1.0-4.8); ABS Monocytes 0.8 10^3/ul (0-0.8); Eosinophil % 0.1 %; Hematocrit 31 % (35-47); Hemoglobin 10.8 g/dL (12.0-16.0); Lymphocyte % 9.8 %; Mean Corpuscular HGB Conc 35 g/dL (31-36); Mean Corpuscular Hemoglobin 30 pg (27-31); Mean Corpuscular Volume 87 fL (80-97); Platelet Count 246 10^3/uL (150-450); Red Blood Count 3.57 10^6 /uL (3.70-4.87); Red Cell Distribution Width 14 % (10-15); White Blood Count 9.7 10^3/uL (3.5-10.8)
[2021-04-05 06:52] LABS: EGFR African American 140.5 (>60); EGFR Non-African American 116.1 (>60); Potassium 3.9 mmol/L (3.5-5.0)
[2021-04-05] MEDS: Enoxaparin 40 MG/0.4 ML SYR SUBCUT SCH (09:39)
[2021-04-05] MEDS: Morphine ORAL.SOLN 10 mg 2 mg/ml UDC 5 ml (10 mg) PO PRN ×3 (09:58→20:51)
[2021-04-05] MEDS: Polyethylene Glycol 3350 17 GM PACKET PO SCH (10:02)
[2021-04-05] MEDS: Albuterol/Ipratropium NEB.SOL (2.5/0.5 MG) 3 ML NEB.SOLN INH PRN (15:46)
[2021-04-05] MEDS: cefTRIAXone 1 gm/50 mL NS BAG 1 GM/50 ML BAG IVPB SCH (20:51)
[2021-04-06] MEDS: Morphine ORAL.SOLN 10 mg 2 mg/ml UDC 5 ml (10 mg) PO PRN ×3 (05:54→21:22)
[2021-04-06] MEDS: Ondansetron ODT 4 mg TAB 4 MG TAB SL PRN (05:55)
[2021-04-06] MEDS: Albuterol/Ipratropium NEB.SOL (2.5/0.5 MG) 3 ML NEB.SOLN INH PRN ×3 (06:05→15:10)
[2021-04-06] MEDS: Enoxaparin 40 MG/0.4 ML SYR SUBCUT SCH (09:21)
[2021-04-06] MEDS: Polyethylene Glycol 3350 17 GM PACKET PO SCH (09:21)
[2021-04-06] MEDS: Mometasone/Formoter 200/5 MDI INH SCH (19:54)
[2021-04-07] MEDS: Morphine ORAL.SOLN 10 mg 2 mg/ml UDC 5 ml (10 mg) PO PRN (02:30)
[2021-04-07 06:21] LABS: Hematocrit 33 % (35-47); Mean Corpuscular HGB Conc 34 g/dL (31-36); Mean Corpuscular Hemoglobin 30 pg (27-31); Mean Corpuscular Volume 88 fL (80-97); Mean Platelet Volume 7.6 fL (7.4-10.4); Platelet Count 283 10^3/uL (150-450); Red Blood Count 3.71 10^6 /uL (3.70-4.87); Red Cell Distribution Width 15 % (10-15); White Blood Count 8.5 10^3/uL (3.5-10.8)
[2021-04-07 06:39] LABS: Calcium 8.3 mg/dL (8.6-10.3); EGFR Non-African American 91.8 (>60); Potassium 3.7 mmol/L (3.5-5.0)
[2021-04-07 07:38] LABS: ABS Eosinophils 0.1 10^3/ul (0-0.6); ABS Lymphocytes 2.2 10^3/ul (1.0-4.8); ABS Monocytes 0.7 10^3/ul (0-0.8); ABS Neutrophils 5.6 10^3/ul (1.5-7.7); Lymphocyte % 25.8 %; Nucleated Red Blood Cells % 0.1; RBC Morphology Normal (Normal)
[2021-04-07] MEDS: Mometasone/Formoter 200/5 MDI INH SCH (07:39)
[2021-04-07 08:18] LABS: Magnesium 1.8 mg/dL (1.9-2.7)
[2021-04-07] MEDS ORDERED: SPIRIVA Respimat (tiotropium) 2.5 mcg/inh Inhaler INH SCH (09:00)
[2021-04-07] MEDS: Enoxaparin 40 MG/0.4 ML SYR SUBCUT SCH (10:11)
[2021-04-07] MEDS: Polyethylene Glycol 3350 17 GM PACKET PO SCH (10:11)
[2021-04-07 11:18] VITALS: BP 116/63
== END 2021-04-07 12:40 | disposition home or self-care (01) | DRG 140 ==
LOC: ED 22:44 → MED 04-04 01:35
PROVIDERS: ADMIT Internal Medicine; ATTEND Internal Medicine